=== PATIENT | female | born 1950 | race Caucasian/White ===

== ENCOUNTER → 2017-02-03 | Outpatient (CLI) | payer MEDICARE, BC ==
--- NOTE | 2017-02-12 14:19 | P.ARTDOP ---
Arterial Doppler LOWER EXTREMITY ARTERIAL DOPPLER: DATE OF SERVICE: 02/03/17 Reason for study: Bilateral leg ulcers. Doppler waveforms: Multiphasic bilaterally throughout. Pulse volume recording: Normal configuration. Pressure gradients: None. Ankle-brachial indices: Greater than 1 bilaterally. Toe pressures: 96 on the right, 82 on the left Impression: Normal study.
== END | disposition home or self-care (01) ==
LOC: RADUSWWP 13:55
PROVIDERS: ATTEND Internal Medicine Infectious Disease
DX: M79.604 Pain in right leg (principal); M79.605 Pain in left leg; E13.621 Other specified diabetes mellitus with foot ulcer; I87.2 Venous insufficiency (chronic) (peripheral)
CPT/HCPCS: 93923

== ENCOUNTER 2017-09-30 17:31 | Inpatient (IN) | payer MEDICARE, BC ==
[2017-09-30] MEDS ORDERED: SODIUM CHLORIDE 0.9% 1,000 ML IV STA ×2 (18:06→20:33)
[2017-09-30] MEDS ORDERED: fentaNYL (PF) 50 MCG/ML 2 ML AMP IV STA ×2 (18:07→20:34)
--- NOTE | 2017-09-30 18:18 | ED ---
Abdominal Pain HPI - General Source: patient, EMS, RN notes reviewed ( ) Mode of arrival: EMS Limitations: no limitations - History of Present Illness MD Complaint: abdominal pain <Gage Araujo - Last Filed: 09/30/17 21:04> <Nehemias Sorto - Last Filed: 09/30/17 22:19> - General Chief Complaint: Abdominal Pain Stated Complaint: Abd Pain Time Seen by Provider: 09/30/17 17:31 - History of Present Illness Initial Comments: This is a 67-year-old female with a history of metastatic stage IV breast cancer states she had the onset of pain to the right flank area that now seems to radiate down her abdomen towards center and up to the right shoulder blade. She denies any fevers chills sweats she states pain was 10+ a 10 after IV fentanyl by EMS was notifiedup to a 6. She has had a cough. She had some nasal congestion about a week ago was treated with a Z-Luis and steroids. Also of note she did start oral chemotherapy 4 days ago. No dysuria no hematuria no history kidney stones no cold constipation or diarrhea. Her only abdominal surgery was a hysterectomy. No other complaints or modifying factors at this time (Gage Araujo) - Related Data Home Medications Medication Instructions Recorded Confirmed Atorvastatin [Lipitor] 10 mg PO HS 10/17/14 09/30/17 Lisinopril 5 mg PO DAILY 10/17/14 09/30/17 amLODIPine BESYLATE [Amlodipine 5 mg PO QAM 10/17/14 09/30/17 Besylate] metFORMIN HCL 500 mg PO QAM 10/17/14 09/30/17 Docusate Sodium [Dok] 100 mg PO BID 09/15/15 09/30/17 Loratadine [Claritin] 10 mg PO HS 01/23/17 09/30/17 Zoledronic Acid [Zometa] 1 bag IVPB QMONTH 01/23/17 09/30/17 Acetaminophen [Tylenol 8 Hour] 1,300 mg PO BID PRN 09/30/17 09/30/17 Afinator (Everolimus) 10mg 1 tab PO DAILY 09/30/17 09/30/17 Biotin 1000 Mcg 1 tab PO DAILY 09/30/17 09/30/17 Calcium Carbonate/Vitamin D3 1 tab PO DAILY 05/29/18 05/29/18 [Calcium 600-Vit D3 400 Caplet] Exemestane [Aromasin] 25 mg PO DAILY 09/30/17 09/30/17 Fluticasone Nasal [place] [Flonase 1 spray EA NOSTRIL DAILY 09/30/17 09/30/17 Nasal [place]] Levothyroxine Sodium [Synthroid] 75 mcg PO DAILY 09/30/17 09/30/17 Allergies Allergy/AdvReac Type Severity Reaction Status Date / Time Penicillins Allergy Rash/Hives Verified 09/30/17 17:59 Sulfa (Sulfonamide Allergy Rash/Hives Verified 09/30/17 17:59 Antibiotics) ibuprofen AdvReac Swelling Verified 09/30/17 17:59 Review of Systems ROS Other: All systems not noted in ROS Statement are negative. <Gage Araujo - Last Filed: 09/30/17 21:04> ROS Other: All systems not noted in ROS Statement are negative. <Nehemias Sorto - Last Filed: 09/30/17 22:19> ROS Statement: Those systems with pertinent positive or pertinent negative responses have been documented in the HPI. Past Medical History Past Medical History: Cancer, Diabetes Mellitus, Hearing Disorder / Deafness, Hyperlipidemia, Hypertension, Osteoarthritis (OA), Pneumonia, Thyroid Disorder, Vascular Disorder Additional Past Medical History / Comment(s): HX Thyroid Nodules. Seasonal Allergies. VENOUS STASIS, BLE DARKENDED. WAS IP 08/25-08/30/15 W/ CP, CARDIAC W/ U NL, DX IS PLEURISY - WAS ON AB AND STEROIDS 08/2015. STAGE 4 BREAST CANCER DIAGNOSED IN SEPTEMBER 2015, breast CA mets to bone and lymphatic system-last oral chemo 09/26/17 History of Any Multi-Drug Resistant Organisms: None Reported Past Surgical History: Hysterectomy, Tonsillectomy Additional Past Surgical History / Comment(s): RT THYROIDECTOMY. LAPAROSCOPY D/ T Ectopic . BIOPSY MASS LEFT NECK Past Anesthesia/Blood Transfusion Reactions: No Reported Reaction Past Psychological History: No Psychological Hx Reported Smoking Status: Never smoker Past Alcohol Use History: None Reported Past Drug Use History: None Reported - Past Family History Mother Family Medical History: Deep Vein Thrombosis (DVT) Father Family Medical History: Cancer Sister(s) Family Medical History: Cancer Additional Family Medical History / Comment(s): non-hodgkins lymphoma <Gage Araujo - Last Filed: 09/30/17 21:04> General Exam Limitations: no limitations General appearance: alert, in no apparent distress Head exam: Present: atraumatic, normocephalic, normal inspection Eye exam: Present: normal appearance, PERRL, EOMI. Absent: scleral icterus, conjunctival injection, periorbital swelling ENT exam: Present: normal exam, mucous membranes moist Neck exam: Present: normal inspection. Absent: tenderness, meningismus, lymphadenopathy Respiratory exam: Present: normal lung sounds bilaterally. Absent: respiratory distress, wheezes, rales, rhonchi, stridor Cardiovascular Exam: Present: regular rate, normal rhythm, normal heart sounds. Absent: systolic murmur, diastolic murmur, rubs, gallop, clicks GI/Abdominal exam: Present: soft, tenderness (Mild right upper quadrant epigastric and left upper quadrant tenderness no guarding rebound masses or bruits), normal bowel sounds. Absent: distended, guarding, rebound, rigid Extremities exam: Present: normal inspection, full ROM, normal capillary refill. Absent: tenderness, pedal edema, joint swelling, calf tenderness Back exam: Present: normal inspection, full ROM, CVA tenderness (R). Absent: muscle spasm, paraspinal tenderness, vertebral tenderness, rash noted Neurological exam: Present: alert, oriented X3, CN II-XII intact Psychiatric exam: Present: normal affect, normal mood Skin exam: Present: warm, dry, intact, normal color. Absent: rash <Gage Araujo - Last Filed: 09/30/17 21:04> <Nehemias Sorto - Last Filed: 09/30/17 22:19> - General Exam Comments Initial Comments: This is a well-developed well-nourished awake alert oriented 3 female (Gage Araujo) Course <Gage Araujo - Last Filed: 09/30/17 21:04> <Nehemias Sorto - Last Filed: 09/30/17 22:19> Vital Signs 09/30/17 09/30/17 17:35 21:09 Temperature 97.7 F Pulse Rate 86 90 Respiratory 16 20 Rate Blood Pressure 140/76 137/78 O2 Sat by Pulse 98 98 Oximetry Patient is reassessed at term 2200, CT of the abdomen and pelvis is reviewed and does show some cyst on the left kidney and some phleboliths in the gonadal veins on the right side. My pain is still 10 over 10 and she is miserable she be admitted to Dr. Jamar Coronado service the Dr. Nix be consulted pain medications be titrated to take care of her pain, noticed metastatic disease with multiple lesions in the liver (Nehemias Sorto) - Reevaluation(s) Reevaluation #1: 09/30/17 21:04 The patient's care will be endorsed to Dr. Sorto (Gage Araujo) Medical Decision Making - Lab Data Result diagrams: 09/30/17 18:32 09/30/17 18:32 - EKG Data -: EKG Interpreted by Tx EKG shows normal: sinus rhythm (Neuro sinus rhythm a 92. Interval 156 QRS duration 76 QT since QTC of 358/442 nonspecific inferior changes) <Gage Araujo - Last Filed: 09/30/17 21:04> - Lab Data Result diagrams: 09/30/17 18:32 09/30/17 18:32 <Nehemias Sorto - Last Filed: 09/30/17 22:19> - Lab Data Lab Results 09/30/17 09/30/17 09/30/17 Range/Units 18:32 18:32 18:32 WBC 5.0 (3.8-10.6) k/uL RBC 3.18 L (3.80-5.40) m/uL Hgb 9.8 L (11.4-16.0) gm/dL Hct 30.6 L (34.0-46.0) % MCV 96.2 (80.0-100.0) fL MCH 30.7 (25.0-35.0) pg MCHC 31.9 (31.0-37.0) g/dL RDW 17.6 H (11.5-15.5) % Plt Count 145 L (150-450) k/uL Neutrophils % (Manual) 59 % Band Neutrophils % 5 % Lymphocytes % (Manual) 17 % Monocytes % (Manual) 18 % Eosinophils % (Manual) 1 % Myelocytes % 1 % Neutrophils # (Manual) 3.20 (1.3-7.7) k/uL Lymphocytes # (Manual) 0.85 L (1.0-4.8) k/uL Monocytes # (Manual) 0.90 (0-1.0) k/uL Eosinophils # (Manual) 0.05 (0-0.7) k/uL Myelocytes # (Manual) 0.05 H (0) k/uL Nucleated RBCs 1 H (0-0) /100 WBC Manual Slide Review Performed Polychromasia Present Hypochromasia Moderate Poikilocytosis Slight Anisocytosis Slight Tear Drop Cells Present Sodium 137 (137-145) mmol/L Potassium 4.3 (3.5-5.1) mmol/L Chloride 105 (98-107) mmol/L Carbon Dioxide 22 (22-30) mmol/L Anion Gap 10 mmol/L BUN 18 H (7-17) mg/dL Creatinine 0.71 (0.52-1.04) mg/dL Est GFR (CKD-EPI)AfAm >90 (>60 ml/min/1.73 sqM) Est GFR (CKD-EPI)NonAf 89 (>60 ml/min/1.73 sqM) Glucose 136 H (74-99) mg/dL Calcium 8.8 (8.4-10.2) mg/dL Total Bilirubin 0.8 (0.2-1.3) mg/dL AST 96 H (14-36) U/L ALT 64 H (9-52) U/L Alkaline Phosphatase 200 H (38-126) U/L Total Creatine Kinase 32 (30-135) U/L CK-MB (CK-2) 0.3 (0.0-2.4) ng/mL CK-MB (CK-2) Rel Index 0.9 Troponin I <0.012 (0.000-0.034) ng/mL Total Protein 5.9 L (6.3-8.2) g/dL Albumin 3.5 (3.5-5.0) g/dL Amylase 62 (30-110) U/L Lipase 256 (23-300) U/L Urine Color Urine Appearance (Clear) Urine pH (5.0-8.0) Ur Specific [place] (1.001-1.035) Urine Protein (Negative) Urine Glucose (UA) (Negative) Urine Ketones (Negative) Urine Blood (Negative) Urine Nitrite (Negative) Urine Bilirubin (Negative) Urine Urobilinogen (<2.0) mg/dL Ur Leukocyte Esterase (Negative) Urine RBC (0-5) /hpf Urine WBC (0-5) /hpf Ur Squamous Epith Cells (0-4) /hpf Urine Bacteria (None) /hpf Urine Mucus (None) /hpf 09/30/17 Range/Units 19:53 WBC (3.8-10.6) k/uL RBC (3.80-5.40) m/uL Hgb (11.4-16.0) gm/dL Hct (34.0-46.0) % MCV (80.0-100.0) fL MCH (25.0-35.0) pg MCHC (31.0-37.0) g/dL RDW (11.5-15.5) % Plt Count (150-450) k/uL Neutrophils % (Manual) % Band Neutrophils % % Lymphocytes % (Manual) % Monocytes % (Manual) % Eosinophils % (Manual) % Myelocytes % % Neutrophils # (Manual) (1.3-7.7) k/uL Lymphocytes # (Manual) (1.0-4.8) k/uL Monocytes # (Manual) (0-1.0) k/uL Eosinophils # (Manual) (0-0.7) k/uL Myelocytes # (Manual) (0) k/uL Nucleated RBCs (0-0) /100 WBC Manual Slide Review Polychromasia Hypochromasia Poikilocytosis Anisocytosis Tear Drop Cells Sodium (137-145) mmol/L Potassium (3.5-5.1) mmol/L Chloride (98-107) mmol/L Carbon Dioxide (22-30) mmol/L Anion Gap mmol/L BUN (7-17) mg/dL Creatinine (0.52-1.04) mg/dL Est GFR (CKD-EPI)AfAm (>60 ml/min/1.73 sqM) Est GFR (CKD-EPI)NonAf (>60 ml/min/1.73 sqM) Glucose (74-99) mg/dL Calcium (8.4-10.2) mg/dL Total Bilirubin (0.2-1.3) mg/dL AST (14-36) U/L ALT (9-52) U/L Alkaline Phosphatase (38-126) U/L Total Creatine Kinase (30-135) U/L CK-MB (CK-2) (0.0-2.4) ng/mL CK-MB (CK-2) Rel Index Troponin I (0.000-0.034) ng/mL Total Protein (6.3-8.2) g/dL Albumin (3.5-5.0) g/dL Amylase (30-110) U/L Lipase (23-300) U/L Urine Color Yellow Urine Appearance Clear (Clear) Urine pH 6.0 (5.0-8.0) Ur Specific [place] 1.031 (1.001-1.035) Urine Protein 2+ H (Negative) Urine Glucose (UA) Negative (Negative) Urine Ketones Trace H (Negative) Urine Blood Negative (Negative) Urine Nitrite Negative (Negative) Urine Bilirubin Negative (Negative) Urine Urobilinogen 2.0 (<2.0) mg/dL Ur Leukocyte Esterase Negative (Negative) Urine RBC 2 (0-5) /hpf Urine WBC 6 H (0-5) /hpf Ur Squamous Epith Cells <1 (0-4) /hpf Urine Bacteria Rare H (None) /hpf Urine Mucus Few H (None) /hpf Disposition <Gage Araujo - Last Filed: 09/30/17 21:04> <Nehemias Sorto - Last Filed: 09/30/17 22:19> Clinical Impression: Intractable abdominal pain, Metastatic breast cancer Disposition: ADMITTED IP TO THIS [facility] Condition: Fair Referrals: Jamar Coronado DO [Primary Care Provider] - 1-2 days
[2017-09-30 18:49] LABS: Anisocytosis Slight; HCT 30.6 % (34.0-46.0); HGB 9.8 gm/dL (11.4-16.0); Hypochromasia Moderate; MCH 30.7 pg (25.0-35.0); MCHC 31.9 g/dL (31.0-37.0); MCV 96.2 fL (80.0-100.0); Mean Platelet Volume 7.9; Platelet Count 145 k/uL (150-450); Poikilocytosis Slight; RBC 3.18 m/uL (3.80-5.40); RDW 17.6 % (11.5-15.5)
[2017-09-30 19:00] LABS: ALT 64 U/L (9-52); AST 96 U/L (14-36); Albumin 3.5 g/dL (3.5-5.0); Alkaline Phosphatase 200 U/L (38-126); Amylase 62 U/L (30-110); Anion Gap 10 mmol/L; Blood Urea Nitrogen 18 mg/dL (7-17); Calcium 8.8 mg/dL (8.4-10.2); Carbon Dioxide 22 mmol/L (22-30); Chloride 105 mmol/L (98-107); Glucose 136 mg/dL (74-99); Lipase 256 U/L (23-300); Potassium 4.3 mmol/L (3.5-5.1); Sodium 137 mmol/L (137-145); Total Bilirubin 0.8 mg/dL (0.2-1.3); Total Protein 5.9 g/dL (6.3-8.2)
[2017-09-30 19:02] LABS: Creatine Kinase 32 U/L (30-135)
[2017-09-30 19:16] LABS: Creatine Kinase MB 0.3 ng/mL (0.0-2.4); Troponin I <0.012 ng/mL (0.000-0.034)
--- NOTE | 2017-09-30 19:29 | XR ---
Abdomen HISTORY: Pain Frontal view of the abdomen on 2 images Lung bases are clear. There is no evident pneumoperitoneum or bowel obstruction. There is a mild spin al curvature. Sclerotic density present throughout the bones. IMPRESSION: Metastatic disease
--- NOTE | 2017-09-30 19:30 | XR ---
EXAMINATION TYPE: XR chest 2V DATE OF EXAM: 09/30/2017 COMPARISON: Abdomen same date, chest x-ray dated 02/21/2016 HISTORY: Breast cancer, abdominal pain TECHNIQUE: Frontal and lateral views of the chest are obtained. FINDINGS: There is no focal air space opacity, pleural effusion, or pneumothorax seen. The cardiac silhouette size is within normal limits. The osseous structures are remarkable for osteoblastic met astasis. Patient is rotated. IMPRESSION: Metastatic disease.
[2017-09-30 19:44] LABS: Band Neutrophils % 5 %; Eosinophils # (M) 0.05 k/uL (0-0.7); Lymphocytes # (M) 0.85 k/uL (1.0-4.8); Myelocytes # (M) 0.05 k/uL (0); Myelocytes % 1 %; Neutrophils % (M) 59 %; Nucleated Red Blood Cells 1 /100 WBC (0-0); Total Cells Counted 200
[2017-09-30 19:45] LABS: Polychromasia Present; Tear Drop Cells Present
[2017-09-30 20:25] LABS: Appearance,Urine Clear (Clear); Bacteria,Urine Rare /hpf; Bilirubin,Urine Negative (Negative); Blood,Urine Negative (Negative); Color,Urine Yellow; Glucose,Urine (UA) Negative (Negative); Ketones,Urine Trace (Negative); Leukocyte Esterase,Urine Negative (Negative); Mucus,Urine Few /hpf; Nitrite,Urine Negative (Negative); Protein,Urine 2+ (Negative); RBC,Urine 2 /hpf (0-5); Specific Gravity,Urine 1.031 (1.001-1.035); Squamous Epithelial Cell,Urine <1 /hpf (0-4); WBC,Urine 6 /hpf (0-5)
[2017-09-30] MEDS ORDERED: RX INFO: IV CONTRAST WAS GIVEN 1 EACH MISC MISCELLANE PRN (20:36)
--- NOTE | 2017-09-30 21:18 | CT ---
EXAMINATION TYPE: CT abdomen pelvis w con DATE OF EXAM: 09/30/2017 COMPARISON: CT chest 12/13/2015, bone scan 10/13/2015 HISTORY: Right side abdominal pain CT DLP: 2071.6 mGycm Automated exposure control for dose reduction was used. TECHNIQUE: Helical acquisition of images from the lung bases through the pelvis have been completed. CONTRAST: Performed without Oral Contrast and with IV Contrast, patient injected with 100 mL of Isovue 300. FINDINGS: There is a small hiatal hernia present. LUNG BASES: Dependent atelectatic changes are present within the lungs. AORTA: No significant abnormality is appreciated. LIVER/GB: There are hypodense foci scattered within the liver compatible with metastatic disease, gal lbladder is normal. PANCREAS: No significant abnormality is seen. SPLEEN: No significant abnormality is seen. ADRENALS: No significant abnormality is seen. KIDNEYS: Upper pole left kidney shows a cyst. Phlebolith present within the gonadal vein on the right REPRODUCTIVE ORGANS: Not seen BOWEL: No significant abnormality is seen. FREE AIR: No Free Air visible. ASCITES: None visible. PELVIC ADENOPATHY: None visualized. RETROPERITONEAL ADENOPATHY: No Retroperitoneal Adenopathy visible. URINARY BLADDER: No significant abnormality is seen. OSSEOUS STRUCTURES: Sclerotic density within the bones compatible with metastatic disease. IMPRESSION: METASTATIC DISEASE.
[2017-09-30] MEDS ORDERED: NALOXONE 0.4 MG/ML 1 ML VIAL IV PRN (22:20)
[2017-09-30] MEDS ORDERED: ACETAMINOPHEN 1300 MG PO PRN (22:25)
[2017-10-01] MEDS: MORPHINE SULFATE 4 MG/ML SYRINGE IV PRN ×6 (00:04→22:15)
[2017-10-01] MEDS: ONDANSETRON 4 MG/2 ML VIAL IVP PRN ×3 (00:05→18:35)
[2017-10-01] MEDS: LEVOTHYROXINE 75 MCG TAB PO SCH (06:00)
[2017-10-01 07:07] LABS: Glucose,Whole Blood 119 mg/dL (75-99)
[2017-10-01] MEDS: metFORMIN 500 MG TAB PO SCH (07:45)
[2017-10-01] MEDS: amLODIPine 5 MG TAB PO SCH (07:45)
[2017-10-01] MEDS: DOCUSATE 100 MG CAP PO SCH ×2 (07:45→22:17)
[2017-10-01] MEDS: CALCIUM CARB-VIT D 500MG-200UN 1 EACH TAB PO SCH ×2 (07:45→09:03)
[2017-10-01] MEDS: FLUTICASONE 50MCG/SPRAY NASAL 16GM EA NOSTRIL SCH (07:45)
[2017-10-01] MEDS: LISINOPRIL 5 MG TAB PO SCH (07:45)
[2017-10-01] MEDS: AFINITOR 10 MG PO SCH (08:54)
[2017-10-01] MEDS: AROMASIN PO SCH (08:54)
[2017-10-01] MEDS ORDERED: BIOTIN 1000 MCG PO SCH (09:00)
[2017-10-01] MEDS: SODIUM CHLORIDE 0.9% 1,000 ML IV SCH ×2 (09:43→14:18)
[2017-10-01 11:35] LABS: Glucose,Whole Blood 131 mg/dL (75-99)
[2017-10-01] MEDS: INSULIN ASPART 100 UNIT/ML 1 ML 10 ML VIAL SQ SCH ×3 (11:51→22:16)
--- NOTE | 2017-10-01 13:54 | P.HPIM ---
History of Present Illness H&P Date: 10/01/17 Chief Complaint: abdominal pain 67-year-old female who presented to the emergency room with a chief complaint of abdominal pain. She states she started having right sided flank pain on Friday that progressively got more intense. She began having pain on the right side of her abdomen as well. She states the pain became so bad yesterday that she had her called EMS to bring her to the hospital. She was given fentanyl in the ER which relieved her pain. She has been receiving IV morphine that she states is helping with her pain. She currently rates it 07/12. The patient has a history of stage IV breast cancer. Patient states she was diagnosed in 2016 and has underwent multiple rounds of chemotherapy. She reports seeing Dr. Nix outpatient for her cancer treatment. She reports that her previous regimen was not working and was prescribed a different medication, an oral chemotherapy agent last 09/26/2017. She also has a history of diabetes, hyperlipidemia, hypertension, osteoarthritis, and venous stasis. She lives at home with her . She is a nonsmoker. Chest x-ray: No focal airspace opacity, pleural effusion, or pneumothorax. Osseous structures are remarkable for osteoblastic metastasis. KUB X-Ray: Lung bases are clear. No evidence of pneumoperitoneum or bowel obstruction. Mild spinal curvature. Sclerotic density present throughout the bones. Ranitidine 100 and is a 1 and 1 no abdomenLabs PT/OT Continue with discharge planning DVT/GI prophylaxis will be on hormone right now is a CT Abdomen/pelvis: There are hypodense foci scattered within the liver compatible with metastatic disease, gallbladder appeared normal, upper pole left kidney shows a cyst. Phlebolith present within the gonadal vein on the right. No Sclerotic disease within the bones compatible with metastatic disease. Laboratory data: WBC 5.0. Hemoglobin 9.8. Platelet count 145. Sodium 137. Potassium 4.3. BUN 18. Creatinine 0.71. GFR 89. Glucose 136. AST 96. ALT 64. Alkaline phosphatase 200. Urinalysis reveals: 2+ proteinuria, trace ketones, 6 WBC, rare bacteria, few mucus. The patient was admitted to the hospital under the care of Dr. Coronado. Consultations were placed to Dr. Nix. Review of Systems GENERAL: Patient denies fever. Denies chills. EYES: Denies blurred vision. Denies vision changes. Denies eye pain. EARS, NOSE, MOUTH, & THROAT: Denies headache. Denies sore throat. Denies ear pain. RESPIRATORY: Denies cough. Denies shortness of breath. Denies sputum production. Denies hemoptysis. CARDIOVASCULAR: Denies chest pain or pressure. Denies palpitations. Denies arrhythmias. GASTROINTESTINAL: Positive for right sided abdominal pain. Denies diarrhea. Denies constipation. Denies nausea. Denies vomiting. Denies heartburn. Denies blood in the stool. GENITOURINARY: Denies urinary frequency. Denies burning. Denies dysuria. Denies cloudy urine. Denies blood in the urine. MUSCULOSKELETAL: Denies myalgias. Denies joint swelling. Denies decreased range of motion beyond patients baseline. INTEGUMENTARY: Denies pruitis. Denies rash. PSYCHIATRIC: Denies suicidal or homicial ideations. ENDOCRINE: Denies weight change. Denies polydipsia. Denies polyuria. HEMATOLOGIC: Denies bleeding disorders. Past Medical History Past Medical History: Cancer, Diabetes Mellitus, Hearing Disorder / Deafness, Hyperlipidemia, Hypertension, Osteoarthritis (OA), Pneumonia, Thyroid Disorder, Vascular Disorder Additional Past Medical History / Comment(s): HX Thyroid Nodules. Seasonal Allergies. VENOUS STASIS, BLE DARKENDED. WAS IP 08/25-08/30/15 W/ CP, CARDIAC W/ U NL, DX IS PLEURISY - WAS ON AB AND STEROIDS 09/2017. STAGE 4 BREAST CANCER DIAGNOSED IN SEPTEMBER 2015, breast CA mets to bone and lymphatic system-last oral chemo 09/26/17 History of Any Multi-Drug Resistant Organisms: None Reported Past Surgical History: Hysterectomy, Tonsillectomy Additional Past Surgical History / Comment(s): RT THYROIDECTOMY. LAPAROSCOPY D/ T Ectopic . BIOPSY MASS LEFT NECK. Past Anesthesia/Blood Transfusion Reactions: No Reported Reaction Past Psychological History: No Psychological Hx Reported Additional Psychological History / Comment(s): . Lives with her . 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 No experience. No international travel. Pet cat in the home, takes care of the letter box. No other animal exposures Smoking Status: Never smoker Past Alcohol Use History: None Reported Past Drug Use History: None Reported - Past Family History Mother Family Medical History: Deep Vein Thrombosis (DVT) Father Family Medical History: Cancer Sister(s) Family Medical History: Cancer Additional Family Medical History / Comment(s): non-hodgkins lymphoma Medications and Allergies Home Medications Medication Instructions Recorded Confirmed Type Atorvastatin [Lipitor] 10 mg PO HS 10/17/14 09/30/17 History Lisinopril 5 mg PO DAILY 10/17/14 09/30/17 History amLODIPine BESYLATE [Amlodipine 5 mg PO QAM 10/17/14 09/30/17 History Besylate] metFORMIN HCL 500 mg PO QAM 10/17/14 09/30/17 History Docusate Sodium [Dok] 100 mg PO BID 09/15/15 09/30/17 History Loratadine [Claritin] 10 mg PO HS 01/23/17 09/30/17 History Zoledronic Acid [Zometa] 1 bag IVPB QMONTH 01/23/17 09/30/17 History Acetaminophen [Tylenol 8 Hour] 1,300 mg PO BID PRN 09/30/17 09/30/17 History Afinator (Everolimus) 10mg 1 tab PO DAILY 09/30/17 09/30/17 History Biotin 1000 Mcg 1 tab PO DAILY 09/30/17 09/30/17 History Calcium Carbonate/Vitamin D3 1 tab PO DAILY 09/30/17 09/30/17 History [Calcium 600-Vit D3 400 Caplet] Exemestane [Aromasin] 25 mg PO DAILY 09/30/17 09/30/17 History Fluticasone Nasal [place] [Flonase 1 spray EA NOSTRIL DAILY 09/30/17 09/30/17 History Nasal [place]] Levothyroxine Sodium [Synthroid] 75 mcg PO DAILY 09/30/17 09/30/17 History Allergies Allergy/AdvReac Type Severity Reaction Status Date / Time Penicillins Allergy Rash/Hives Verified 09/30/17 17:59 Sulfa (Sulfonamide Allergy Rash/Hives Verified 09/30/17 17:59 Antibiotics) ibuprofen AdvReac Swelling Verified 09/30/17 17:59 Physical Exam Vitals: Vital Signs Temp Pulse Pulse Resp BP BP Pulse Ox 10/01/17 05:30 98.1 F 85 17 160/78 96 10/01/17 00:00 17 09/30/17 23:35 98.2 F 99 17 142/76 99 09/30/17 22:22 93 20 132/73 98 09/30/17 21:09 90 20 137/78 98 09/30/17 17:35 97.7 F 86 16 140/76 98 Intake and Output 09/30/17 10/01/17 10/01/17 22:59 06:59 14:59 Intake Total 1100 800 Balance 1100 800 Intake: Amount of Fluid Infused ( 1100 ml) Intake, IV Titration 800 Amount Sodium Chloride 0.9% 1, 800 000 ml @ 100 mls/hr IV . Q10H STA Rx#:[id number] Other: Voiding Method Toilet # Voids 1 Weight 112.945 kg GENERAL: This is a 67-year-old female in no apparent distress at the time of examination. Pleasant and cooperative. HEENT: Head is atraumatic, normocephalic. Pupils are equal, round, and reactive to light. Sclerae anicteric. Conjunctivae are clear. Mucus membranes of the mouth are moist. Neck is supple. RESPIRATORY: Clear to ausculation. No wheezes, rales, or rhonchi. No use of accessory muscles. Patient maintaining oxygen saturation greater than 92%. No chest wall tenderness is noted on palpation or with deep breathing. CARDIOVASCULAR: Regular rate and rhythm. S1 and S2 noted. No systolic or diastolic murmur auscultated. No JVD noted. No S3 or S4 noted. GASTROINTESTINAL: No distention noted. Abdomen soft and round. Normal active bowel sounds auscultated x 4 quadrants. Pain or tenderness noted upon palpation of right lower quadrant and right lateral chest region. INTEGUMENTARY: No cyanosis. No jaundice. No rashes noted. No cellulitis noted. EXTREMITIES: 1+ peripheral pulses. No evidence of peripheral edema. Chronic venous stasis discoloration noted bilaterally. No calf tenderness noted. NEUROLOGIC: Cranial nerves II-XII intact. PSYCHIATRIC: Awake, alert, and oriented X 3. Appropriate affect. Intact judgement and insight. Results CBC & Chem 7: 09/30/17 18:32 09/30/17 18:32 Labs: Abnormal Lab Results - Last 24 Hours (Table) 09/30/17 09/30/17 09/30/17 Range/Units 18:32 18:32 19:53 RBC 3.18 L (3.80-5.40) m/uL Hgb 9.8 L (11.4-16.0) gm/dL Hct 30.6 L (34.0-46.0) % RDW 17.6 H (11.5-15.5) % Plt Count 145 L (150-450) k/uL Lymphocytes # (Manual) 0.85 L (1.0-4.8) k/uL Myelocytes # (Manual) 0.05 H (0) k/uL Nucleated RBCs 1 H (0-0) /100 WBC BUN 18 H (7-17) mg/dL Glucose 136 H (74-99) mg/dL POC Glucose (mg/dL) (75-99) mg/dL AST 96 H (14-36) U/L ALT 64 H (9-52) U/L Alkaline Phosphatase 200 H (38-126) U/L Total Protein 5.9 L (6.3-8.2) g/dL Urine Protein 2+ H (Negative) Urine Ketones Trace H (Negative) Urine WBC 6 H (0-5) /hpf Urine Bacteria Rare H (None) /hpf Urine Mucus Few H (None) /hpf 10/01/ Range/Units 07:05 RBC (3.80-5.40) m/uL Hgb (11.4-16.0) gm/dL Hct (34.0-46.0) % RDW (11.5-15.5) % Plt Count (150-450) k/uL Lymphocytes # (Manual) (1.0-4.8) k/uL Myelocytes # (Manual) (0) k/uL Nucleated RBCs (0-0) /100 WBC BUN (7-17) mg/dL Glucose (74-99) mg/dL POC Glucose (mg/dL) 119 H (75-99) mg/dL AST (14-36) U/L ALT (9-52) U/L Alkaline Phosphatase (38-126) U/L Total Protein (6.3-8.2) g/dL Urine Protein (Negative) Urine Ketones (Negative) Urine WBC (0-5) /hpf Urine Bacteria (None) /hpf Urine Mucus (None) /hpf Thrombosis Risk Factor Assmnt - Choose All That Apply Any of the Below Risk Factors Present?: No Other Risk Factors: Yes Each Risk Factor Represents 2 Points: Age 61-74 years, Malignancy Other congenital or acquired thrombophilia - If yes, enter type in comment: No Thrombosis Risk Factor Assessment Total Risk Factor Score: 4 Thrombosis Risk Factor Assessment Level: Moderate Risk Assessment and Plan Plan: ASSESSMENT: Stage IV breast cancer with metastasis to bone and liver Intractable pain, likely secondary to above Diabetes mellitus, type II, hemoglobin A1C pending Hyperlipidemia Hypertension Osteoarthritis Morbid obesity: BMI 40.2 PLAN: Dr. Nix on consult. Await further recommendations and input Pain control Home meds as appropriate Monitor labs GI prophylaxis: Pepcid 20mg PO BID DVT prophylaxis: SCDs to bilateral lower extremities Monitor vital signs and address as appropriate Discharge planning: Patient to return home when stable Further recommendations pending patient's course Nurse practitioner note has been reviewed by physician. Signing provider agrees with the documented findings, assessment, and plan of care.
[2017-10-01 14:42] VITALS: BMI 40.1
[2017-10-01 17:29] LABS: Glucose,Whole Blood 130 mg/dL (75-99)
--- NOTE | 2017-10-01 17:47 | P.CONS ---
<Barbara Olguin - Last Filed: 10/01/17 17:06> History of Present Illness - Reason for Consult Consult date: 10/01/17 Metastatic Cancer Requesting physician: Nehemias Sorto - History of Present Illness Ms Dior is a pleasant WF, who had noted a painless mass at the left base of her neck, initially in 08/2015. At the time the pt was diagnosed with pleuritis in the left lung. The pleuritis did resolve with treatment. Post treatment CT scan of the chest revealed scattered,non specific densities in the left lung. The pt then sought attention for the left SC mass, and had a biopsy with Dr Cano on 09/18/15. This revealed metastatic carcinoma consistent with breast primary, ER/CT strongly positive, and Her -2 1+( negative). The case was discussed with Dr Cano, and breast imaging ordered. Mammogram on 09/28/15 revealed heterogenous cluster of calcifications in the lower inner quadrant of the right breast, confirmed on additional views, though US was negative. She was referred here for further evaluation and recommendations. She has been very compliant with her regular screening mammograms. Additional w/u including PET and labs were ordered. These unfortunately revealed widely metastatic disease with uptake in b/l supraclavicular, b/l hilar , left axillary, and diffusely through the skeleton. Tumor markers were also elevated. She started Zometa, and Ibrance/femara on 10/24/15. Cycle 2, 3,and 7 were delayed due to drop in blood counts. Fentanyl dose is at 12 mcg, with very good pain control. She uses Tylenol occasionally in addition. She continued on this above regimen until May of this year 2017. She continued to manage her ulcers and LE swelling with intermittent r antibiotics, debridement and local wound care. They have healed and she was discharged from the [facility] in mid 04/2017. Due to progressive tumor marker progression, she was changed to Faslodex and Ibrance in 06/22. Afinitor was added 5 days ago on 09/27/17. Cyndie now presents to the emergency room with a CC of abdominal pain. She stated she started having right sided abdominal pain that has been progressively worsening since Friday evening, it became intolerable she asked her to call EMS to be further evaluated in the ED. She weaned herself off her fentanyl patch approximately 6 month-8 months ago and has been managing her pain with 2-4 over the counter doses of tylenol, until now. This hospital stay she has required narcotic pain management. She also has a history of diabetes, hyperlipidemia, hypertension, osteoarthritis, and venous stasis. She lives at home with her . She is a nonsmoker. Work-up in ED included: Chest x-ray: No focal airspace opacity, pleural effusion , or pneumothorax. Osseous structures are remarkable for osteoblastic metastasis. KUB X-Ray: Lung bases are clear. CT Abdomen/pelvis: There are hypodense foci scattered within the liver compatible with metastatic disease, gallbladder appeared normal, upper pole left kidney shows a cyst. Phlebolith present within the gonadal vein on the right. No Sclerotic disease within the bones compatible with metastatic disease. Urinalysis reveals: 2+ proteinuria, 6 WBC, rare bacteria, few mucus. Culture has been sent Seen this AM in follow-up, she is feeling a little better, although measuring machine tender in her abdomen and gaurding during exam. She does get relief with IV morphine, although requiring zofran for nausea from morphine. She states her BMs have been regular. Mild increase SOB with pain. Her location of her pain is consistent with her known liver metastasis. Review of Systems A 14 point review of systems assessed and completed and all negative except HPI Past Medical History Past Medical History: Cancer, Diabetes Mellitus, Hearing Disorder / Deafness, Hyperlipidemia, Hypertension, Osteoarthritis (OA), Pneumonia, Thyroid Disorder, Vascular Disorder Additional Past Medical History / Comment(s): HX Thyroid Nodules. Seasonal Allergies. VENOUS STASIS, BLE DARKENDED. WAS IP 08/25-08/30/15 W/ CP, CARDIAC W/ U NL, DX IS PLEURISY - WAS ON AB AND STEROIDS 09/2017. STAGE 4 BREAST CANCER DIAGNOSED IN SEPTEMBER 2015, breast CA mets to bone and lymphatic system-last oral chemo 09/26/17 History of Any Multi-Drug Resistant Organisms: None Reported Past Surgical History: Hysterectomy, Tonsillectomy Additional Past Surgical History / Comment(s): RT THYROIDECTOMY. LAPAROSCOPY D/ T Ectopic . BIOPSY MASS LEFT NECK. Past Anesthesia/Blood Transfusion Reactions: No Reported Reaction Past Psychological History: No Psychological Hx Reported Additional Psychological History / Comment(s): . Lives with her . 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 No experience. No international travel. Pet cat in the home, takes care of the letter box. No other animal exposures Smoking Status: Never smoker Past Alcohol Use History: None Reported Past Drug Use History: None Reported - Past Family History Mother Family Medical History: Deep Vein Thrombosis (DVT) Father Family Medical History: Cancer Sister(s) Family Medical History: Cancer Additional Family Medical History / Comment(s): non-hodgkins lymphoma Medications and Allergies Home Medications Medication Instructions Recorded Confirmed Type Atorvastatin [Lipitor] 10 mg PO HS 10/17/14 09/30/17 History Lisinopril 5 mg PO DAILY 10/17/14 09/30/17 History amLODIPine BESYLATE [Amlodipine 5 mg PO QAM 10/17/14 09/30/17 History Besylate] metFORMIN HCL 500 mg PO QAM 10/17/14 09/30/17 History Docusate Sodium [Dok] 100 mg PO BID 09/15/15 09/30/17 History Loratadine [Claritin] 10 mg PO HS 01/23/17 09/30/17 History Zoledronic Acid [Zometa] 1 bag IVPB QMONTH 01/23/17 09/30/17 History Acetaminophen [Tylenol 8 Hour] 1,300 mg PO BID PRN 09/30/17 09/30/17 History Afinator (Everolimus) 10mg 1 tab PO DAILY 09/30/17 09/30/17 History Biotin 1000 Mcg 1 tab PO DAILY 09/30/17 09/30/17 History Calcium Carbonate/Vitamin D3 1 tab PO DAILY 09/30/17 09/30/17 History [Calcium 600-Vit D3 400 Caplet] Exemestane [Aromasin] 25 mg PO DAILY 09/30/17 09/30/17 History Fluticasone Nasal [place] [Flonase 1 spray EA NOSTRIL DAILY 09/30/17 09/30/17 History Nasal [place]] Levothyroxine Sodium [Synthroid] 75 mcg PO DAILY 09/30/17 09/30/17 History fentaNYL 25MCG/HR PATCH [Duragesic 1 patch TRANSDERM Q72H #1 patch 10/01/17 Rx 25MCG/HR] Allergies Allergy/AdvReac Type Severity Reaction Status Date / Time Penicillins Allergy Rash/Hives Verified 09/30/17 17:59 Sulfa (Sulfonamide Allergy Rash/Hives Verified 09/30/17 17:59 Antibiotics) ibuprofen AdvReac Swelling Verified 09/30/17 17:59 Physical Exam Vitals: Vital Signs Temp Pulse Pulse Resp BP BP Pulse Ox 10/01/17 14:32 98.0 F 86 16 121/73 95 10/01/17 05:30 98.1 F 85 17 160/78 96 10/01/17 00:00 17 09/30/17 23:35 98.2 F 99 17 142/76 99 09/30/17 22:22 93 20 132/73 98 09/30/17 21:09 90 20 137/78 98 09/30/17 17:35 97.7 F 86 16 140/76 98 Intake and Output 10/01/17 10/01/17 10/01/17 06:59 14:59 22:59 Intake Total 800 700 Balance 800 700 Intake: Intake, IV Titration 800 700 Amount Sodium Chloride 0.9% 1, 800 000 ml @ 100 mls/hr IV . Q10H [facility] Rx#:[id number] Sodium Chloride 0.9% 1, 700 000 ml @ 75 mls/hr IV . [id number] [facility] Rx#:[id number] Other: Voiding Method Toilet # Voids 1 Weight 112.945 kg - Constitutional General appearance: no acute distress, obese - EENT Eyes: EOMI, dentition normal ENT: NA/AT, normal oropharynx - Neck Neck: normal ROM - Respiratory Respiratory: bilateral: diminished (bibasilar, no increased effort ) - Cardiovascular Rhythm: regular Heart sounds: normal: S1, S2 - Gastrointestinal General gastrointestinal: hepatomegaly, soft, tenderness Localized gastrointestinal: tender: LUQ, RLQ - Integumentary Integumentary: pale - Neurologic Neurologic: CNII-XII intact - Musculoskeletal Musculoskeletal: generalized weakness, strength equal bilaterally - Psychiatric Psychiatric: A&O x's 3, appropriate affect, intact judgment & insight Results CBC & Chem 7: 09/30/17 18:32 09/30/17 18:32 Labs: Abnormal Lab Results - Last 24 Hours (Table) 09/30/17 09/30/17 09/30/17 Range/Units 18:32 18:32 19:53 RBC 3.18 L (3.80-5.40) m/uL Hgb 9.8 L (11.4-16.0) gm/dL Hct 30.6 L (34.0-46.0) % RDW 17.6 H (11.5-15.5) % Plt Count 145 L (150-450) k/uL Lymphocytes # (Manual) 0.85 L (1.0-4.8) k/uL Myelocytes # (Manual) 0.05 H (0) k/uL Nucleated RBCs 1 H (0-0) /100 WBC BUN 18 H (7-17) mg/dL Glucose 136 H (74-99) mg/dL POC Glucose (mg/dL) (75-99) mg/dL AST 96 H (14-36) U/L ALT 64 H (9-52) U/L Alkaline Phosphatase 200 H (38-126) U/L Total Protein 5.9 L (6.3-8.2) g/dL Urine Protein 2+ H (Negative) Urine Ketones Trace H (Negative) Urine WBC 6 H (0-5) /hpf Urine Bacteria Rare H (None) /hpf Urine Mucus Few H (None) /hpf 10/01/17 10/01/17 Range/Units 07:05 11:31 RBC (3.80-5.40) m/uL Hgb (11.4-16.0) gm/dL Hct (34.0-46.0) % RDW (11.5-15.5) % Plt Count (150-450) k/uL Lymphocytes # (Manual) (1.0-4.8) k/uL Myelocytes # (Manual) (0) k/uL Nucleated RBCs (0-0) /100 WBC BUN (7-17) mg/dL Glucose (74-99) mg/dL POC Glucose (mg/dL) 119 H 131 H (75-99) mg/dL AST (14-36) U/L ALT (9-52) U/L Alkaline Phosphatase (38-126) U/L Total Protein (6.3-8.2) g/dL Urine Protein (Negative) Urine Ketones (Negative) Urine WBC (0-5) /hpf Urine Bacteria (None) /hpf Urine Mucus (None) /hpf Assessment and Plan Plan: Assessment and Recommendations: 1. Metastatic Breast cancer - Liver and Bones - recently started on next line therapy with Afinitor, Faslodex, and Zometa - OK to continue treatment while in hospital. 2. Persistent progressive abdominal pain - Likley secondary to underlying disease prgression in liver - check Lipase, Amylase, and monitor liver function - Continue supportive care and pain management Physician Attestation: I have completed the full history and physical of this patient and agree with above dictation by Barbara Olguin NP. Dictated as a scribe <Anais Nixup - Last Filed: 10/02/17 00:06> History of Present Illness - History of Present Illness Add : Correction- Ibrance and Faslodex were stopped in 09/19 due to progression. The pt was started on Afinitor and Aromasin on 09/27/17 Physical Exam Vitals: Vital Signs Temp Pulse Resp BP Pulse Ox 10/01/17 22:55 98.4 F 106 H 16 156/72 93 L 10/01/17 14:32 98.0 F 86 16 121/73 95 10/01/17 05:30 98.1 F 85 17 160/78 96 Intake and Output 10/01/17 10/01/17 10/02/17 14:59 22:59 06:59 Intake Total 700 1190 590 Balance 700 1190 590 Intake: Intake, IV Titration 700 600 Amount Sodium Chloride 0.9% 1, 700 600 000 ml @ 75 mls/hr IV . [id number] [facility] Rx#:[id number] Oral 590 590 Other: Voiding Method Toilet # Voids 1 3 Weight 112.945 kg Results CBC & Chem 7: 09/30/17 18:32 09/30/17 18:32 Labs: Abnormal Lab Results - Last 24 Hours (Table) 10/01/17 10/01/17 10/01/17 Range/Units 07:05 11:31 17:13 POC Glucose (mg/dL) 119 H 131 H 130 H (75-99) mg/dL 10/01/17 Range/Units 20:12 POC Glucose (mg/dL) 191 H (75-99) mg/dL Assessment and Plan Plan: Correction- Ibrance and Faslodex were stopped in 09/19 due to progression. The pt was started on Afinitor and Aromasin on 09/27/17. Ok to continue while in hospital
[2017-10-01 20:14] LABS: Glucose,Whole Blood 191 mg/dL (75-99)
[2017-10-01 22:10] LABS: Hemoglobin A1C 6.1 % (4.0-6.0)
[2017-10-01] MEDS: LORATADINE 10 MG TAB PO SCH (22:17)
[2017-10-01] MEDS: ATORVASTATIN 10 MG TAB PO SCH (22:17)
[2017-10-01] MEDS: FAMOTIDINE 20 MG TAB PO SCH (22:19)
[2017-10-02] MEDS ORDERED: MORPHINE SULFATE 4 MG/ML SYRINGE ONE (03:06)
[2017-10-02] MEDS: LEVOTHYROXINE 75 MCG TAB PO SCH (06:10)
[2017-10-02] MEDS: SODIUM CHLORIDE 0.9% 1,000 ML IV SCH ×2 (06:11→12:36)
[2017-10-02] MEDS: MORPHINE SULFATE 4 MG/ML SYRINGE IV PRN (07:08)
[2017-10-02 07:20] LABS: Glucose,Whole Blood 136 mg/dL (75-99)
[2017-10-02] MEDS: FLUTICASONE 50MCG/SPRAY NASAL 16GM EA NOSTRIL SCH (07:24)
[2017-10-02] MEDS: AROMASIN PO SCH (07:25)
[2017-10-02] MEDS: AFINITOR 10 MG PO SCH (07:25)
[2017-10-02] MEDS: DOCUSATE 100 MG CAP PO SCH ×2 (07:27→21:23)
[2017-10-02] MEDS: metFORMIN 500 MG TAB PO SCH (07:27)
[2017-10-02] MEDS: LISINOPRIL 5 MG TAB PO SCH ×2 (07:27→07:28)
[2017-10-02] MEDS: FAMOTIDINE 20 MG TAB PO SCH ×2 (07:27→21:23)
[2017-10-02] MEDS: CALCIUM CARB-VIT D 500MG-200UN 1 EACH TAB PO SCH (07:27)
[2017-10-02] MEDS: INSULIN ASPART 100 UNIT/ML 1 ML 10 ML VIAL SQ SCH ×4 (08:02→21:23)
[2017-10-02] MEDS: amLODIPine 5 MG TAB PO SCH (09:08)
--- NOTE | 2017-10-02 10:00 | P.PN ---
Subjective Progress Note Date: 10/02/17 67-year-old female who presented to the emergency room with a chief complaint of abdominal pain. She states she started having right sided flank pain on Friday that progressively got more intense. She began having pain on the right side of her abdomen as well. She states the pain became so bad yesterday that she had her called EMS to bring her to the hospital. She was given fentanyl in the ER which relieved her pain. She has been receiving IV morphine that she states is helping with her pain. She currently rates it 07/12. The patient has a history of stage IV breast cancer. Patient states she was diagnosed in 2016 and has underwent multiple rounds of chemotherapy. She reports seeing Dr. Nix outpatient for her cancer treatment. She reports that her previous regimen was not working and was prescribed a different medication, an oral chemotherapy agent last 09/26/2017. She also has a history of diabetes, hyperlipidemia, hypertension, osteoarthritis, and venous stasis. She lives at home with her . She is a nonsmoker. Chest x-ray: No focal airspace opacity, pleural effusion, or pneumothorax. Osseous structures are remarkable for osteoblastic metastasis. KUB X-Ray: Lung bases are clear. No evidence of pneumoperitoneum or bowel obstruction. Mild spinal curvature. Sclerotic density present throughout the bones. CT Abdomen/pelvis: There are hypodense foci scattered within the liver compatible with metastatic disease, gallbladder appeared normal, upper pole left kidney shows a cyst. Phlebolith present within the gonadal vein on the right. No Sclerotic disease within the bones compatible with metastatic disease. Laboratory data: WBC 5.0. Hemoglobin 9.8. Platelet count 145. Sodium 137. Potassium 4.3. BUN 18. Creatinine 0.71. GFR 89. Glucose 136. AST 96. ALT 64. Alkaline phosphatase 200. Urinalysis reveals: 2+ proteinuria, trace ketones, 6 WBC, rare bacteria, few mucus. The patient was admitted to the hospital under the care of Dr. Coronado. Consultations were placed to Dr. Nix. 10/02/2017 Patient seen and examined at the bedside on rounds with Dr. Coronado. Patient states she continues to have a lot of right sided abdominal and rib pain. Nursing reports that patients heart rate increases to the 160s when she is ambulating to the bathroom and her oxygen saturations will decrease to 91-93%, likely due to pain as patient is taking shallow breaths secondary to severity of pain. She continues to require morphine IV. She was started on a fentanyl patch yesterday per Dr. Nix which she states is "dulling the pain". She denies nausea or vomiting. Denies chest pain or pressure. She remains hemodynamically stable. Objective - Vital Signs Vital signs: Vital Signs Temp 98.9 F 10/02/17 06:27 Pulse 90 10/02/17 08:40 Resp 16 10/02/17 08:40 BP 118/69 10/02/17 07:32 Pulse Ox 93 L 10/02/17 07:32 Intake & Output 10/01/17 10/02/17 10/02/17 18:59 06:59 18:59 Intake Total 700 2305 Balance 700 2305 Weight 112.945 kg Intake: Intake, IV Titration 700 1125 Amount Sodium Chloride 0.9% 1, 700 1125 000 ml @ 75 mls/hr IV . [id number] [facility] Rx#:[id number] Oral 1180 Other: Voiding Method Toilet Toilet # Voids 1 - Exam GENERAL: This is a 67-year-old female in no apparent distress at the time of examination. Pleasant and cooperative. HEENT: Head is atraumatic, normocephalic. Pupils are equal, round, and reactive to light. Sclerae anicteric. Conjunctivae are clear. Mucus membranes of the mouth are moist. Neck is supple. RESPIRATORY: Clear to ausculation. No wheezes, rales, or rhonchi. No use of accessory muscles. Patient maintaining oxygen saturation greater than 92%. No chest wall tenderness is noted on palpation or with deep breathing. CARDIOVASCULAR: Regular rate and rhythm. S1 and S2 noted. No systolic or diastolic murmur auscultated. No JVD noted. No S3 or S4 noted. GASTROINTESTINAL: No distention noted. Abdomen soft and round. Normal active bowel sounds auscultated x 4 quadrants. Pain or tenderness noted upon palpation of right lower quadrant and right lateral chest region. INTEGUMENTARY: No cyanosis. No jaundice. No rashes noted. No cellulitis noted. EXTREMITIES: 1+ peripheral pulses. No evidence of peripheral edema. Chronic venous stasis discoloration noted bilaterally. No calf tenderness noted. NEUROLOGIC: Cranial nerves II-XII intact. PSYCHIATRIC: Awake, alert, and oriented X 3. Appropriate affect. Intact judgement and insight. - Labs CBC & Chem 7: 10/02/17 10:44 10/02/17 10:44 Labs: Abnormal Lab Results - Last 24 Hours (Table) 09/30/17 10/01/17 10/01/17 Range/Units 18:32 11:31 17:13 POC Glucose (mg/dL) 131 H 130 H (75-99) mg/dL Hemoglobin A1c 6.1 H (4.0-6.0) % 10/01/17 10/02/17 Range/Units 20:12 07:16 POC Glucose (mg/dL) 191 H 136 H (75-99) mg/dL Hemoglobin A1c (4.0-6.0) % Assessment and Plan Plan: ASSESSMENT: Stage IV breast cancer with metastasis to bone and liver Intractable pain, likely secondary to above Diabetes mellitus, type II, hemoglobin A1C 6.1% Hyperlipidemia Hypertension Osteoarthritis Morbid obesity: BMI 40.2 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 Nix on consult. Appreciate recommendations and input Pain control per Dr. Nix. Home meds as appropriate Monitor labs GI prophylaxis: Pepcid 20mg PO BID DVT prophylaxis: SCDs to bilateral lower extremities Monitor vital signs and address as appropriate Discharge planning: Patient to return home when stable Further recommendations pending patient's course Patient to be discharged when pain is under control-will re-evaluate this afternoon Nurse practitioner note has been reviewed by physician. Signing provider agrees with the documented findings, assessment, and plan of care.
[2017-10-02 11:11] LABS: Glucose,Whole Blood 189 mg/dL (75-99)
[2017-10-02 11:15] LABS: Anisocytosis Slight; Basophils % (A) 1 %; Eosinophils % (A) 0 %; HCT 30.8 % (34.0-46.0); HGB 9.8 gm/dL (11.4-16.0); Hypochromasia Moderate; Lymphocytes # (A) 1.4 k/uL (1.0-4.8); Lymphocytes % (A) 21 %; MCH 30.7 pg (25.0-35.0); MCHC 31.8 g/dL (31.0-37.0); MCV 96.6 fL (80.0-100.0); Macrocytosis Slight; Mean Platelet Volume 7.3; Monocytes # (A) 0.5 k/uL (0-1.0); Monocytes % (A) 8 %; Neutrophils # (A) 4.4 k/uL (1.3-7.7); Neutrophils % (A) 66 %; Platelet Count 188 k/uL (150-450); Poikilocytosis Slight; RBC 3.19 m/uL (3.80-5.40); RDW 17.7 % (11.5-15.5); WBC 6.7 k/uL (3.8-10.6)
[2017-10-02 11:34] LABS: ALT 56 U/L (9-52); AST 91 U/L (14-36); Albumin 3.2 g/dL (3.5-5.0); Alkaline Phosphatase 163 U/L (38-126); Anion Gap 11 mmol/L; Blood Urea Nitrogen 13 mg/dL (7-17); Calcium 8.5 mg/dL (8.4-10.2); Carbon Dioxide 22 mmol/L (22-30); Chloride 103 mmol/L (98-107); Glucose 158 mg/dL (74-99); Potassium 4.7 mmol/L (3.5-5.1); Sodium 136 mmol/L (137-145); Total Bilirubin 0.8 mg/dL (0.2-1.3); Total Protein 5.6 g/dL (6.3-8.2)
[2017-10-02] MEDS: MORPHINE ORAL SOLN 10 MG/5 ML CUP PO PRN ×2 (13:37→21:25)
[2017-10-02 17:27] LABS: Glucose,Whole Blood 112 mg/dL (75-99)
--- NOTE | 2017-10-02 18:44 | P.PN ---
Subjective Progress Note Date: 10/02/17 Principal diagnosis: Persistent Abdominal Pain, On Treatment for Metastatic Breast Cancer Ms Dior is a pleasant WF, who had noted a painless mass at the left base of her neck, initially in 08/2015. At the time the pt was diagnosed with pleuritis in the left lung. The pleuritis did resolve with treatment. Post treatment CT scan of the chest revealed scattered,non specific densities in the left lung. The pt then sought attention for the left SC mass, and had a biopsy with Dr Cano on 09/18/15. This revealed metastatic carcinoma consistent with breast primary, ER/MA strongly positive, and Her -2 1+( negative). The case was discussed with Dr Cano, and breast imaging ordered. Mammogram on 09/28/15 revealed heterogenous cluster of calcifications in the lower inner quadrant of the right breast, confirmed on additional views, though US was negative. She was referred here for further evaluation and recommendations. She has been very compliant with her regular screening mammograms. Additional w/u including PET and labs were ordered. These unfortunately revealed widely metastatic disease with uptake in b/l supraclavicular, b/l hilar , left axillary, and diffusely through the skeleton. Tumor markers were also elevated. She started Zometa, and Ibrance/femara on 10/24/15. Cycle 2, 3,and 7 were delayed due to drop in blood counts. Fentanyl dose is at 12 mcg, with very good pain control. She uses Tylenol occasionally in addition. She continued on this above regimen until May of this year 2017. She continued to manage her ulcers and LE swelling with intermittent r antibiotics, debridement and local wound care. They have healed and she was discharged from the Wound Clinic in mid 04/2017. Due to progressive tumor marker progression, she was changed to Faslodex and Ibrance in 06/22. Afinitor was added 5 days ago on 09/27/17. Cyndie now presents to the emergency room with a CC of abdominal pain. She stated she started having right sided abdominal pain that has been progressively worsening since Friday evening, it became intolerable she asked her to call EMS to be further evaluated in the ED. She weaned herself off her fentanyl patch approximately 6 month-8 months ago and has been managing her pain with 2-4 over the counter doses of tylenol, until now. This hospital stay she has required narcotic pain management. She also has a history of diabetes, hyperlipidemia, hypertension, osteoarthritis, and venous stasis. She lives at home with her . She is a nonsmoker. Work-up in ED included: Chest x-ray: No focal airspace opacity, pleural effusion , or pneumothorax. Osseous structures are remarkable for osteoblastic metastasis. KUB X-Ray: Lung bases are clear. CT Abdomen/pelvis: There are hypodense foci scattered within the liver compatible with metastatic disease, gallbladder appeared normal, upper pole left kidney shows a cyst. Phlebolith present within the gonadal vein on the right. No Sclerotic disease within the bones compatible with metastatic disease. Urinalysis reveals: 2+ proteinuria, 6 WBC, rare bacteria, few mucus. 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 She does get relief with IV morphine, although requiring zofran for nausea from morphine. She states her BMs have been regular. Mild increase SOB with pain. Her location of her pain is consistent with her known liver metastasis. 10/02/17 - Patient seen and evaluated in follow-up this am. She is still having pain and requiring Morphine IVP relief, Fentanyl patch initiated 10/01 25mcg Objective - Vital Signs Vital signs: Vital Signs Temp 98.9 F 10/02/17 06:27 Pulse 90 10/02/17 08:40 Resp 16 10/02/17 08:40 BP 118/69 10/02/17 07:32 Pulse Ox 93 L 10/02/17 07:32 Intake & Output 10/01/17 10/02/17 10/02/17 18:59 06:59 18:59 Intake Total 700 2305 Balance 700 2305 Weight 112.945 kg Intake: Intake, IV Titration 700 1125 Amount Sodium Chloride 0.9% 1, 700 1125 000 ml @ 75 mls/hr IV . [id number] [facility] Rx#:[id number] Oral 1180 Other: Voiding Method Toilet Toilet # Voids 1 - Constitutional General appearance: Present: cooperative, no acute distress, obese - EENT Eyes: Present: EOMI, dentition normal ENT: Present: NA/AT, normal oropharynx - Neck Neck: Present: normal ROM - Respiratory Respiratory: bilateral: CTA (No increased effort) - Cardiovascular Rhythm: regular Heart sounds: normal: S1, S2 - Gastrointestinal General gastrointestinal: Present: hepatomegaly, soft, tenderness - Integumentary Integumentary: Present: pale - Neurologic Neurologic: Present: CNII-XII intact - Musculoskeletal Musculoskeletal: Present: generalized weakness, strength equal bilaterally - Psychiatric Psychiatric: Present: A&O x's 3, appropriate affect, intact judgment & insight - Labs CBC & Chem 7: 10/02/17 10:44 10/02/17 10:44 Labs: Abnormal Lab Results - Last 24 Hours (Table) 09/30/17 10/01/17 10/01/17 Range/Units 18:32 11:31 17:13 POC Glucose (mg/dL) 131 H 130 H (75-99) mg/dL Hemoglobin A1c 6.1 H (4.0-6.0) % 10/01/17 10/02/17 Range/Units 20:12 07:16 POC Glucose (mg/dL) 191 H 136 H (75-99) mg/dL Hemoglobin A1c (4.0-6.0) % Assessment and Plan Plan: Assessment and Recommendations: 1. Metastatic Breast cancer - Liver and Bones - recently started on next line therapy with Afinitor, Aromasin, and Zometa - OK to continue treatment while in hospital. 2. 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 Re-evaluate in am and if pain controlled ok to follow-up with Dr. Nix as outpatient to continue on treatment to hopefully palliatively alleviate disease burden and pain. 3. Normocytic Anemia - Chemotherapy and metastatic cancer - Recheck CBC today - Recent Iron and B12 studies, no indication for vitamin support elevated ferriten. 4. Mild Thrombocytopenia - Secondary to Afinitor, Factor of liver metastasis - CBC today - Monitor - If continues to decreasee, monitor Coags 5. Elevated Liver Enzymes - Transiminitis - Recheck CMP today as she is on Afinitor Physician Attestation: I have completed the full history and physical of this patient and agree with above dictation by Barbara Olguin NP. Dictated as a scribe
[2017-10-02] MEDS: ONDANSETRON 4 MG/2 ML VIAL IVP PRN (20:04)
[2017-10-02 20:10] LABS: Glucose,Whole Blood 116 mg/dL (75-99)
[2017-10-02] MEDS: LORATADINE 10 MG TAB PO SCH (21:23)
[2017-10-02] MEDS: ATORVASTATIN 10 MG TAB PO SCH (21:23)
[2017-10-02 21:58] VITALS: RESP 16
[2017-10-03] MEDS: MORPHINE ORAL SOLN 10 MG/5 ML CUP PO PRN ×2 (05:09→10:24)
[2017-10-03] MEDS: SODIUM CHLORIDE 0.9% 1,000 ML IV SCH (05:09)
[2017-10-03 06:11] VITALS: BP 127/66; PULSE 88; TEMP 98
[2017-10-03] MEDS: LEVOTHYROXINE 75 MCG TAB PO SCH (06:19)
[2017-10-03 07:01] LABS: Glucose,Whole Blood 120 mg/dL (75-99)
[2017-10-03] MEDS: INSULIN ASPART 100 UNIT/ML 1 ML 10 ML VIAL SQ SCH (08:34)
[2017-10-03] MEDS: AFINITOR 10 MG PO SCH (08:35)
[2017-10-03] MEDS: AROMASIN PO SCH (08:35)
[2017-10-03] MEDS: CALCIUM CARB-VIT D 500MG-200UN 1 EACH TAB PO SCH (08:42)
[2017-10-03] MEDS: amLODIPine 5 MG TAB PO SCH (08:42)
[2017-10-03] MEDS: DOCUSATE 100 MG CAP PO SCH (08:42)
[2017-10-03] MEDS: FLUTICASONE 50MCG/SPRAY NASAL 16GM EA NOSTRIL SCH (08:42)
[2017-10-03] MEDS: LISINOPRIL 5 MG TAB PO SCH (08:43)
[2017-10-03] MEDS: FAMOTIDINE 20 MG TAB PO SCH (08:43)
[2017-10-03] MEDS: metFORMIN 500 MG TAB PO SCH (08:43)
[2017-10-03 11:39] LABS: Glucose,Whole Blood 137 mg/dL (75-99)
--- NOTE | 2017-10-03 12:17 | P.DS ---
Providers Date of admission: 10/01/17 15:04 Expected date of discharge: 10/03/17 Attending physician: Jamar Coronado Consults: 09/30/17 22:20 Consult Physician Stat Consulting Provider: Edward Nix Consult Reason/Comments: Static breast cancer Do you want consulting provider notified?: Yes Primary care physician: Jamar Coronado [facility] Course: 67-year-old female who presented to the emergency room with a chief complaint of abdominal pain. She states she started having right sided flank pain on Friday that progressively got more intense. She began having pain on the right side of her abdomen as well. She states the pain became so bad yesterday that she had her called EMS to bring her to the hospital. She was given fentanyl in the ER which relieved her pain. She has been receiving IV morphine that she states is helping with her pain. She currently rates it 07/12. The patient has a history of stage IV breast cancer. Patient states she was diagnosed in 2016 and has underwent multiple rounds of chemotherapy. She reports seeing Dr. Nix outpatient for her cancer treatment. She reports that her previous regimen was not working and was prescribed a different medication, an oral chemotherapy agent last 09/26/2017. She also has a history of diabetes, hyperlipidemia, hypertension, osteoarthritis, and venous stasis. She lives at home with her . She is a nonsmoker. Chest x-ray: No focal airspace opacity, pleural effusion, or pneumothorax. Osseous structures are remarkable for osteoblastic metastasis. KUB X-Ray: Lung bases are clear. No evidence of pneumoperitoneum or bowel obstruction. Mild spinal curvature. Sclerotic density present throughout the bones. CT Abdomen/pelvis: There are hypodense foci scattered within the liver compatible with metastatic disease, gallbladder appeared normal, upper pole left kidney shows a cyst. Phlebolith present within the gonadal vein on the right. No Sclerotic disease within the bones compatible with metastatic disease. Laboratory data: WBC 5.0. Hemoglobin 9.8. Platelet count 145. Sodium 137. Potassium 4.3. BUN 18. Creatinine 0.71. GFR 89. Glucose 136. AST 96. ALT 64. Alkaline phosphatase 200. Urinalysis reveals: 2+ proteinuria, trace ketones, 6 WBC, rare bacteria, few mucus. The patient was admitted to the hospital under the care of Dr. Coronado. Consultations were placed to Dr. Nix. 10/02/2017 1000-Patient seen and examined at the bedside on rounds with Dr. Coronado. Patient states she continues to have a lot of right sided abdominal and rib pain. Nursing reports that patients heart rate increases to the 160s when she is ambulating to the bathroom and her oxygen saturations will decrease to 91-93%, likely due to pain as patient is taking shallow breaths secondary to severity of pain. She continues to require morphine IV. She was started on a fentanyl patch yesterday per Dr. Nix which she states is "dulling the pain". She denies nausea or vomiting. Denies chest pain or pressure. She remains hemodynamically stable. 1700-Case discussed with Barbara Olguin NP, regarding patients pain and continued use of morphine. Fentanyl patch increased to 50mcg, which patient states was her previous dose when she required fentanyl patches. Will re- evaluate patient tomorrow to determine if her pain is controlled and if she is able to be discharged home. Patient also concerned that her blood sugars are elevated in the hospital. She states her blood sugars are rarely above 150. Hemoglobin A1C is 6.1%. Patient states she does not check her blood sugars at home. She is on Metformin 500mg daily. Discussed with patient options of checking her blood sugar after she is discharged from the hospital to determine if they remain elevated. Spoke with Misael, bottle caser, who will provide patient with a glucometer. Patient instructed to log her blood sugars and bring them to follow up appointment with Dr. Coronado 10/03/2017 Patient seen and examined at the bedside. Patient states her pain is better controlled today. Her fentanyl patch is controlling the majority of her pain but she states the morphine does help with breakthrough pain. Patient states her pain is tolerable and she is requesting to be discharged home today. Patient is stable for discharge home. She was provided with a prescription for 50 mics per hour fentanyl patch and also a prescription for morphine by mouth ( 3 day supply only for breakthrough pain). Patient states her pain management was previously managed by Dr. Nix. Dr. Coronado would like Dr. Nix to continue to manage the patient's pain. Patient states she has an appointment with Dr. Moss [employer] on 10/06/2017. Patient is aware she will need to receive her future pain prescriptions from their office. Opioid start talking form was discussed with patient. Patient verbalized understanding of form and denied any additional questions. Patient and provider both signed opioid started talking form and form was placed in patient's chart. No maps was performed as patient supply was less than 3 days. The patient is stable at the time of discharge. 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 Signing provider agrees with the documented findings, assessment, and plan of care. Patient Condition at Discharge: Stable Plan - Discharge Summary Discharge Rx Participant: No New Discharge Prescriptions: New fentaNYL 50MCG/HR PATCH [Duragesic 50MCG/HR] 1 patch TRANSDERM Q72H #1 patch MORPHINE ORAL NILA 2mg/mL [Morphine Oral Soln 2 MG/ML] 10 mg PO Q4H PRN #90 ml PRN Reason: Severe Pain Famotidine [Pepcid] 20 mg PO DAILY #30 tablet Ondansetron Odt [Zofran Odt] 4 mg PO Q8HR PRN #30 tab PRN Reason: Nausea Continue Atorvastatin [Lipitor] 10 mg PO HS amLODIPine BESYLATE [Amlodipine Besylate] 5 mg PO QAM Lisinopril 5 mg PO DAILY metFORMIN HCL 500 mg PO QAM Docusate Sodium [Dok] 100 mg PO BID Zoledronic Acid [Zometa] 1 bag IVPB QMONTH Loratadine [Claritin] 10 mg PO HS Levothyroxine Sodium [Synthroid] 75 mcg PO DAILY Fluticasone Nasal [place] [Flonase Nasal [place]] 1 spray EA NOSTRIL DAILY Biotin 1000 Mcg 1 tab PO DAILY Exemestane [Aromasin] 25 mg PO DAILY Afinator (Everolimus) 10mg 1 tab PO DAILY Calcium Carbonate/Vitamin D3 [Calcium 600-Vit D3 400 Caplet] 1 tab PO DAILY Acetaminophen [Tylenol 8 Hour] 1,300 mg PO BID PRN PRN Reason: Pain Discharge Medication List Atorvastatin [Lipitor] 10 mg PO HS 10/17/14 [History] Lisinopril 5 mg PO DAILY 10/17/14 [History] amLODIPine BESYLATE [Amlodipine Besylate] 5 mg PO QAM 10/17/14 [History] metFORMIN HCL 500 mg PO QAM 10/17/14 [History] Docusate Sodium [Dok] 100 mg PO BID 09/15/15 [History] Loratadine [Claritin] 10 mg PO HS 01/23/17 [History] Zoledronic Acid [Zometa] 1 bag IVPB QMONTH 01/23/17 [History] Acetaminophen [Tylenol 8 Hour] 1,300 mg PO BID PRN 09/30/17 [History] Afinator (Everolimus) 10mg 1 tab PO DAILY 09/30/17 [History] Biotin 1000 Mcg 1 tab PO DAILY 09/30/17 [History] Calcium Carbonate/Vitamin D3 [Calcium 600-Vit D3 400 Caplet] 1 tab PO DAILY [History] Exemestane [Aromasin] 25 mg PO DAILY 09/30/17 [History] Fluticasone Nasal [place] [Flonase Nasal [place]] 1 spray EA NOSTRIL DAILY 09/30/17 [History] Levothyroxine Sodium [Synthroid] 75 mcg PO DAILY 09/30/17 [History] fentaNYL 50MCG/HR PATCH [Duragesic 50MCG/HR] 1 patch TRANSDERM Q72H #1 patch [Rx] Famotidine [Pepcid] 20 mg PO DAILY #30 tablet 10/03/17 [Rx] MORPHINE ORAL NILA 2mg/mL [Morphine Oral Soln 2 MG/ML] 10 mg PO Q4H PRN #90 ml [Rx] Ondansetron Odt [Zofran Odt] 4 mg PO Q8HR PRN #30 tab 10/03/17 [Rx] Follow up Appointment(s)/Referral(s): Edward Nix MD [STAFF PHYSICIAN] - 1 Week (Patient has appointment with DAVIDA Hanley on Friday10-06-2017) Jamar Coronado DO [Primary Care Provider] - 1-2 Days Discharge Disposition: HOME SELF-CARE
== END 2017-10-03 13:50 | disposition home or self-care (01) | DRG 948 ==
LOC: EC 17:31 → 5ONC 22:19 → OBSVTOIN 10-01 15:04
PROVIDERS: ADMIT Family Medicine; ATTEND Family Medicine
DX: G89.3 Neoplasm related pain (acute) (chronic) (principal); C78.7 Secondary malignant neoplasm of liver and intrahepatic bile duct; C79.51 Secondary malignant neoplasm of bone; Z68.41 Body mass index [BMI] 40.0-44.9, adult; E11.9 Type 2 diabetes mellitus without complications; E78.5 Hyperlipidemia, unspecified; I10 Essential (primary) hypertension; M19.90 Unspecified osteoarthritis, unspecified site; I87.8 Other specified disorders of veins; C50.311 Malignant neoplasm of lower-inner quadrant of right female breast; D63.0 Anemia in neoplastic disease; D64.81 Anemia due to antineoplastic chemotherapy; E66.01 Morbid (severe) obesity due to excess calories; N28.1 Cyst of kidney, acquired; H91.90 Unspecified hearing loss, unspecified ear; T45.1X5A Adverse effect of antineoplastic and immunosuppressive drugs, initial encounter; Z92.21 Personal history of antineoplastic chemotherapy; Z79.84 Long term (current) use of oral hypoglycemic drugs; Z79.51 Long term (current) use of inhaled steroids; Z79.899 Other long term (current) drug therapy; Z17.0 Estrogen receptor positive status [ER+]; Z98.890 Other specified postprocedural states; Z87.01 Personal history of pneumonia (recurrent); Z80.7 Family history of other malignant neoplasms of lymphoid, hematopoietic and related tissues; Z90.710 Acquired absence of both cervix and uterus
CPT/HCPCS: 36415; 71046; 74018; 74177; 80053; 81001; 82150; 82550; 82553; 83036; 83690; 84484; 85025; 93005; 96361; 96374; 96376; 99285

== ENCOUNTER → 2017-12-12 | Outpatient (CLI) | payer MEDICARE, BC ==
--- NOTE | 2017-12-12 12:22 | US ---
EXAMINATION TYPE: US abdomen complete DATE OF EXAM: 12/12/2017 COMPARISON: CT 09/30/2017 CLINICAL HISTORY: R10.84 ABD PAIN,R94.5 ABN LIVER FUNCTIONS,C50.311 BREAST CA. History of breast CA, abdominal distension. Known metastatic disease. Difficult exam due to patient body habitus EXAM MEASUREMENTS: Liver Length: 18.4 cm Gallbladder Wall: 1.0 cm CBD: 0.5 cm Spleen: 17.8 cm Right Kidney: 11.2 x 5.9 x 5.0 cm Left Kidney: 11.0 x 5.5 x 5.6 cm Pancreas: Obscured by bowel gas Liver: Innumerable hypoechoic lesions visualized. Nodular contour. Enlarged. Gallbladder: Thickened wall with possible small amount of pericholecystic fluid visualized. No stone s visualized Evidence for sonographic Vogt's sign: No CBD: wnl as visualized Spleen: Enlarged Right Kidney: Loss of corticomedullary differentiation, possibly due to patient body habitus and poo r visualization. Left Kidney: Loss of corticomedullary differentiation, possibly due to patient body habitus and poor visualization. . Probable cyst visualized upper pole measuring 3.6 x 3.4 x 2.9 cm Upper IVC: wnl as visualized Abd Aorta: wnl as visualized, distal portion obscured by bowel gas Mild amount of ascites visualized in the RUQ and RLQ IMPRESSION: 1. Enlarged and inhomogeneous liver compatible with multifocal metastasis and small volume ascites in the right upper and right lower quadrant. 2. Circumferential gallbladder wall thickening is pronounced up to 1 cm probable right renal cysts. ( normal limits of 3 mm) although is favored to relate to adjacent hepatocellular disease and ascites r ather than acute cholecystitis given no common bile duct dilatation and a negative sonographic Vogt sign. 3. Splenomegaly. 4.
== END | disposition home or self-care (01) ==
LOC: RADUSWWP 10:01
PROVIDERS: ATTEND Internal Medicine Hematology & Oncology
DX: C50.311 Malignant neoplasm of lower-inner quadrant of right female breast (principal); K82.8 Other specified diseases of gallbladder; R16.2 Hepatomegaly with splenomegaly, not elsewhere classified
CPT/HCPCS: 76700

== ENCOUNTER → 2017-12-17 | Outpatient (CLI) | payer MEDICARE, BC ==
--- NOTE | 2017-12-17 08:40 | US ---
EXAMINATION TYPE: US abdomen complete DATE OF EXAM: 12/17/2017 COMPARISON: Complete abdominal ultrasound [address] abdomen and pelvis September 30, 2017 CLINICAL HISTORY: R14 Abdominal Distension R10.84 Abdominal Pain. Epigastric pain, abdominal distenti on, history of breast cancer EXAM MEASUREMENTS: Liver Length: 19.2 cm Gallbladder Wall: 0.7 cm CBD: 0.6 cm Spleen: 18.5 cm Right Kidney: 11.4 x 5.0 x 5.4 cm Left Kidney: 11.2 x 5.2 x 5.7 cm Technical limitations due to overlying bowel content Pancreas: Obscured by bowel gas Liver: enlarged with innumerable hypoechoic lesions visualized as on prior exam Gallbladder: thickened wall, unable to visualize any stones Evidence for sonographic Vogt's sign: no CBD: wnl Spleen: enlarged Right Kidney: no evidence of hydronephrosis or mass Left Kidney: cystic area upper pole = 4.3 x 3.6 x 3.1cm Upper IVC: wnl Abd Aorta: proximal appears wnl, mid and distal Obscured by overlying bowel gas Mild ascites The liver is redemonstrated prominent with poorly defined innumerable heterogeneous hypoechoic lesion s scattered throughout consistent with diffuse metastatic disease. Trace adjacent ascites inferiorly near gallbladder fossa is seen less prominent versus prior. The intrahepatic portion of the IVC and visualized proximal abdominal aorta are within normal limits. There is no evidence of shadowing mobi le cholelithiasis. Mild concentric gallbladder wall thickening is likely product of diffuse metastati c disease to liver. Common bile duct is unremarkable. The pancreas is redemonstrated suboptimally ev aluated due to overlying bowel gas. Visualized portions are noted unremarkable in the proximal to mid body. The spleen is redemonstrated enlarged. Kidneys are symmetric and free of hydronephrosis. No new suspicious renal lesions are seen. There is redemonstration of 4.3 cm simple appearing cyst uppe r pole level left kidney. Towards end of study scanning of bilateral upper and lower quadrants shows small amount of ascites most prominent in the right lower quadrant. IMPRESSION: Small amount of abdominal ascites most prominent right lower quadrant. Trace perihepatic ascites less prominent than most recent ultrasound. Diffuse metastatic disease to liver is redemonstr ated. Splenomegaly and gallbladder wall thickening likely product of liver failure related to diffuse metastatic disease.
== END | disposition home or self-care (01) ==
LOC: RADUSWWP 07:01
PROVIDERS: ATTEND Internal Medicine Hematology & Oncology
DX: R18.8 Other ascites (principal); C78.7 Secondary malignant neoplasm of liver and intrahepatic bile duct; R16.1 Splenomegaly, not elsewhere classified
CPT/HCPCS: 76700

== ENCOUNTER 2018-01-13 09:06 | Day surgery (SDC) | payer MEDICARE, BC ==
[2018-01-13 09:43] VITALS: RESP 20
[2018-01-13 09:50] LABS: Mean Platelet Volume 9.1
[2018-01-13 10:03] LABS: INR 1.3 (<1.2); Platelet Count 28 k/uL (150-450); Prothrombin Time 12.2 sec (9.0-12.0)
[2018-01-13 12:02] VITALS: BP 109/61; PULSE 94; TEMP 98
--- NOTE | 2018-01-13 12:36 | US ---
EXAMINATION TYPE: US paracentesis abd w/image DATE OF EXAM: 01/13/2018 COMPARISON: NONE HISTORY: Ascites. PROCEDURE: Maximal barrier technique was utilized. The skin overlying a suitable pocket of fluid was localized with ultrasound and the overlying skin was prepped and draped. Ultrasound was utilized with sterile technique. Lidocaine was used for local anesthesia and a skin jose carlos made with a scalpel. Catheter was advanced under direct ultrasound guidance into a suitable pocket of fluid and approximately 5.6 liter s of serous fluid were removed. Catheter was withdrawn and hemostasis achieved. There is no immedia te complication; the patient is discharged in stable condition. IMPRESSION: STATUS POST ULTRASOUND GUIDED PARACENTESIS FOR PALLIATION OF ASCITES. THIS PROCEDURE WA S PERFORMED BY THE UNDERSIGNED.
== END 2018-01-13 12:15 | disposition home or self-care (01) ==
LOC: RADPROMAIN 09:06
PROVIDERS: ATTEND Internal Medicine Hematology & Oncology
DX: R18.8 Other ascites (principal); C50.919 Malignant neoplasm of unspecified site of unspecified female breast
CPT/HCPCS: 85049; 85610; 36415; 49083; P9035

== ENCOUNTER 2018-01-16 10:29 | Day surgery (SDC) | payer MEDICARE, BC ==
[2018-01-13 18:03] VITALS: BMI 44.4
[~2018-01-16 10:29] MED LIST: DEXAMETHASONE SOD PHOSPHATE 10 MG/ML 1 ML VIAL IV ONE; HEPARIN SODIUM,PORCINE 5,000 UNIT/ML 1 ML VIAL SQ ONE; HYDROmorphone 0.5 MG/0.5 ML SYRINGE IVP PRN; LACTATED RINGERS 1,000 ML IV SCH; ONDANSETRON 4 MG/2 ML VIAL IVP ONE; Pre Op ABX Message 1 EACH MISC MISCELLANE ONE; SCOPOLAMINE 1.5MG/72HR PATCH TRANSDERM ONE
--- NOTE | 2018-01-16 11:48 | P.GSHP ---
History of Present Illness H&P Date: 01/16/18 Chief Complaint: Metastatic breast cancer This a 67-year-old female with history of metastatic breast cancer. Patient presents today for Port-A-Cath placement for IV infusion therapy. Past Medical History Past Medical History: Cancer, Diabetes Mellitus, Hearing Disorder / Deafness, Hyperlipidemia, Hypertension, Osteoarthritis (OA), Pneumonia, Thyroid Disorder, Vascular Disorder Additional Past Medical History / Comment(s): Thyroid Nodules.VENOUS STASIS, BLE DARKENDED. WAS IP 08/25-08/30/15 W/ CP, CARDIAC W/U NL, DX IS PLEURISY - WAS ON AB AND STEROIDS 09/2017. STAGE 4 BREAST CANCER DIAGNOSED IN SEPTEMBER 2015, breast CA mets to bone and lymphatic system- History of Any Multi-Drug Resistant Organisms: None Reported Past Surgical History: Hysterectomy, Tonsillectomy Additional Past Surgical History / Comment(s): RT THYROIDECTOMY. LAPAROSCOPY D/ T Ectopic . BIOPSY MASS LEFT NECK. Past Anesthesia/Blood Transfusion Reactions: No Reported Reaction Smoking Status: Never smoker - Past Family History Mother Family Medical History: Deep Vein Thrombosis (DVT) Father Family Medical History: Cancer Sister(s) Family Medical History: Cancer Additional Family Medical History / Comment(s): non-hodgkins lymphoma Medications and Allergies Home Medications Medication Instructions Recorded Confirmed Type Docusate Sodium [Dok] 200 mg PO BID 09/15/15 01/16/18 History Loratadine [Claritin] 10 mg PO HS 01/23/17 01/16/18 History Zoledronic Acid [Zometa] 4 mg IVPB Q90D 01/23/17 01/16/18 History Fluticasone Nasal [place] [Flonase 1 spray EA NOSTRIL BID 09/30/17 01/16/18 History Nasal [place]] Levothyroxine Sodium [Synthroid] 75 mcg PO DAILY 09/30/17 01/16/18 History fentaNYL 50MCG/HR PATCH [Duragesic 1 patch TRANSDERM Q72H #1 patch 10/02/17 Rx 50MCG/HR] CARBOplatin [Paraplatin] 1 dose IV DIRECTED 11/08/17 01/16/18 History Gemcitabine HCl [Gemzar] 1,000 mg IV DIRECTED 11/08/17 01/16/18 History Famotidine [Pepcid] 20 mg PO DAILY 01/06/18 01/16/18 History HYDROcodone/APAP 5-325MG [[place] 1 tab PO Q6HR PRN 01/06/18 01/16/18 History 5-325] Simvastatin [Zocor] 10 mg PO HS 01/06/18 01/16/18 History Furosemide [Lasix] 40 mg PO DAILY 01/13/18 01/16/18 History Potassium Chloride [Klor-Con 20 meq PO DAILY 01/14/18 01/16/18 History Packets] Allergies Allergy/AdvReac Type Severity Reaction Status Date / Time Penicillins Allergy Rash/Hives Verified 01/16/18 11:38 Sulfa (Sulfonamide Allergy Rash/Hives Verified 01/16/18 11:38 Antibiotics) ibuprofen AdvReac Swelling Verified 01/16/18 11:38 Surgical - Exam Vital Signs Temp Pulse Resp BP Pulse Ox 98.0 F 94 18 133/73 100 01/16/18 11:25 01/16/18 11:25 01/16/18 11:25 01/16/18 11:25 01/16/18 11:25 - General well developed, no distress - Eyes PERRL - ENT normal pinna - Neck no masses - Respiratory normal expansion - Cardiovascular Rhythm: regular - Abdomen Abdomen: soft, non tender Assessment and Plan Assessment: Metastatic breast cancer. We'll perform Port-A-Cath placement.
[2018-01-16] MEDS ORDERED: LIDOCAINE 1% 20 ML VIAL (10MG/ML) FOR IV START INTRADERMA ONE (11:57)
[2018-01-16] MEDS ORDERED: FAMOTIDINE 20 MG/2 ML VIAL IV ONE (12:10)
[2018-01-16] MEDS ORDERED: METOCLOPRAMIDE 5 MG/ML 2 ML VIAL IVP ONE (12:11)
[2018-01-16] MEDS ORDERED: MIDAZOLAM 2 MG/2 ML VIAL ONE (12:19)
[2018-01-16] MEDS ORDERED: fentaNYL (PF) 50 MCG/ML 2 ML AMP ONE (12:19)
[2018-01-16] MEDS ORDERED: PROPOFOL 10 MG/ML 20 ML VIAL IV ONE (12:19)
[2018-01-16] MEDS ORDERED: KETAMINE 10 MG/ML 20 ML VIAL ONE (12:19)
[2018-01-16] MEDS ORDERED: SODIUM CHLORIDE 0.9% 50 ML with CLINDAMYCIN 600 MG IV ONE ×2 (12:34)
[2018-01-16] MEDS ORDERED: BUPIVACAIN-EPI 0.5%-1:200,000 30 ML VIAL SQ ONE ×2 (12:39)
[2018-01-16 13:00] VITALS: TEMP 97
[2018-01-16 13:20] VITALS: RESP 16
--- NOTE | 2018-01-16 13:28 | P.OP ---
Date of Procedure: 01/16/18 Preoperative Diagnosis: Metastatic breast cancer Postoperative Diagnosis: Metastatic breast cancer Procedure(s) Performed: Insertion of right subclavian Port-A-Cath Anesthesia: MAC Surgeon: Arsalan Cano Estimated Blood Loss (ml): 3 Pathology: none sent Condition: stable Disposition: PACU Description of Procedure: PROCEDURE: The patient was placed on the operating table in the supine position. She received MAC anesthetic. The Right chest was prepped and draped in the usual sterile fashion. The skin underneath the right clavicle was anesthetized with 1% Xylocaine and using Seldinger technique, the right subclavian vein was cannulized. The wire was placed through the needle and positioned under fluoroscopy. Next, the needle was removed and the port site was anesthetized with 1% Xylocaine. Skin was incised with #15 blade and port pocket was made using blunt and sharp dissection. Following this the catheter was attached to the sport and the port was flushed. The port was positioned into the pocket site and was secured with 3-0 Vicryl suture. The catheter was then brought out through the wire site and then the dilator sheath was placed over the wire and the dilator and the wire were removed. The catheter was placed through the sheath and the sheath was removed. The port was flushed with hep-lock solution. Skin was closed with interrupted 3-0 Vicryl sutures. Steri-Strips were applied. The patient tolerated the procedure well. The patient was sent to recovery room for chest x -ray after the procedure.
--- NOTE | 2018-01-16 13:34 | XR ---
EXAMINATION TYPE: XR chest 1V portable DATE OF EXAM: 01/16/2018 COMPARISON: Chest x-ray January 08, 2018 HISTORY: Central line placement. TECHNIQUE: Single frontal view of the chest is obtained. FINDINGS: There is new right subclavian catheter terminating near brachiocephalic confluence. There is persistent low lung volumes with bibasilar opacity felt to reflect small pleural effusions and ass ociated bibasilar atelectasis and/or infiltrate redemonstrated. Interval improvement in central vasc ular congestion is felt present. The cardiac silhouette size is stable and upper limits of normal. Sc lerosis bilateral humeral heads is redemonstrated. IMPRESSION: New right subclavian central venous catheter terminating near origin of SVC. No sizable pneumothorax.
--- NOTE | 2018-01-16 13:35 | FL ---
EXAMINATION TYPE: FL guided central line placemt DATE OF EXAM: 01/16/2018 CLINICAL HISTORY: Port-A-Cath insertion. TECHNIQUE: Fluoroscopy. COMPARISON: None. FINDINGS: Fluoroscopic guidance was provided during Port-A-Cath insertion procedure performed by Dr. Cano. A total of 3 seconds of fluoroscopic time was utilized during the procedure and 1 spot fl uoroscopic image is acquired. Single intraoperative image acquired shows portion of right subclavian catheter terminating in SVC. IMPRESSION: As Above.
[2018-01-16 14:23] VITALS: BP 114/73; PULSE 87
== END 2018-01-16 14:47 | disposition home or self-care (01) ==
LOC: OR 10:29
PROVIDERS: ATTEND Surgery
DX: C50.311 Malignant neoplasm of lower-inner quadrant of right female breast (principal); C79.51 Secondary malignant neoplasm of bone; C77.9 Secondary and unspecified malignant neoplasm of lymph node, unspecified; E11.9 Type 2 diabetes mellitus without complications; H91.90 Unspecified hearing loss, unspecified ear; E78.5 Hyperlipidemia, unspecified; I10 Essential (primary) hypertension; M19.90 Unspecified osteoarthritis, unspecified site; Z88.0 Allergy status to penicillin; Z88.6 Allergy status to analgesic agent; E89.0 Postprocedural hypothyroidism; Z79.51 Long term (current) use of inhaled steroids; Z79.890 Hormone replacement therapy; Z79.899 Other long term (current) drug therapy; Z88.2 Allergy status to sulfonamides
CPT/HCPCS: 77001; 71045; 36561; C1788; J2250; J1100; J2765; J2405; J3010; J2704

== ENCOUNTER 2018-01-21 08:04 | Day surgery (SDC) | payer MEDICARE, BC ==
[2018-01-21 08:40] VITALS: RESP 16
[2018-01-21 08:48] LABS: Platelet Count 40 k/uL (150-450)
[2018-01-21 08:50] LABS: INR 1.4 (<1.2); Prothrombin Time 12.9 sec (9.0-12.0)
[2018-01-21 12:20] VITALS: BP 120/67; PULSE 97; TEMP 97.6
--- NOTE | 2018-01-21 14:36 | US ---
EXAMINATION TYPE: US paracentesis abd w/image DATE OF EXAM: 01/21/2018 COMPARISON: NONE HISTORY: Ascites. PROCEDURE: Maximal barrier technique was utilized. The skin overlying a suitable pocket of fluid was localized with ultrasound and the overlying skin was prepped and draped. Ultrasound was utilized with sterile technique. Lidocaine was used for local anesthesia and a skin jose carlos made with a scalpel. Catheter was advanced under direct ultrasound guidance into a suitable pocket of fluid and approximately 7.3 liter s of serous fluid were removed. Catheter was withdrawn and hemostasis achieved. There is no immedia te complication; the patient is discharged in stable condition. IMPRESSION: STATUS POST ULTRASOUND GUIDED PARACENTESIS FOR PALLIATION OF ASCITES. THIS PROCEDURE WA S PERFORMED BY THE UNDERSIGNED.
== END 2018-01-21 12:34 | disposition home or self-care (01) ==
LOC: RADPROMAIN 08:04
PROVIDERS: ATTEND Internal Medicine Hematology & Oncology
DX: R18.8 Other ascites (principal); C50.311 Malignant neoplasm of lower-inner quadrant of right female breast; D69.59 Other secondary thrombocytopenia
CPT/HCPCS: 85049; 85610; 49083; P9035

== ENCOUNTER 2018-01-26 14:15 | Inpatient (IN) | payer MEDICARE, BC ==
--- NOTE | 2018-01-26 14:47 | ED ---
General Adult HPI - General Chief complaint: Abdominal Pain Stated complaint: Poss Bowel Obstruction Source: patient, EMS Mode of arrival: EMS Limitations: no limitations, altered mental status - History of Present Illness Initial comments: Dictation was produced using [employer] dictation software. please excuse any grammatical, word or spelling errors. Chief Complaint: 67 year old female past medical history of liver cirrhosis, liver failure, breast cancer presents with constipation. History of Present Illness: 67-year-old female presents with constipation. Patient states she has not had a bowel movement in approximately one week. She is accompanied by significant other who is also able to provide HPI. Patient was prescribed lactulose personally for 5 days ago by primary care physician. She still has not had any bowel movements. Patient has history of ascites that required paracentesis once a week. She's had or paracenteses done. Patient denies any constitutional symptoms except for some chills. Patient states that her belly is very tender. Patient undergoing chemotherapy and had Mediport recently placed The ROS documented in this emergency department record has been reviewed and confirmed by me. Those systems with pertinent positive or negative responses have been documented in the HPI. All other systems are other negative and/or noncontributory. - Related Data Home Medications Medication Instructions Recorded Confirmed Docusate Sodium [Dok] 200 mg PO BID 09/15/15 01/26/18 Loratadine [Claritin] 10 mg PO HS 01/23/17 01/26/18 Zoledronic Acid [Zometa] 4 mg IVPB Q90D 01/23/17 01/26/18 Fluticasone Nasal [place] [Flonase 1 spray EA NOSTRIL BID PRN 09/30/17 01/26/18 Nasal [place]] Levothyroxine Sodium [Synthroid] 75 mcg PO DAILY 09/30/17 01/26/18 CARBOplatin [Paraplatin] 1 dose IV DIRECTED 11/08/17 01/26/18 Gemcitabine HCl [Gemzar] 1,000 mg IV DIRECTED 11/08/17 01/26/18 Famotidine [Pepcid] 20 mg PO DAILY 01/06/18 01/26/18 HYDROcodone/APAP 5-325MG [[place] 1 tab PO Q6HR PRN 01/06/18 01/26/18 5-325] Simvastatin [Zocor] 10 mg PO HS 01/06/18 01/26/18 Furosemide [Lasix] 40 mg PO DAILY 01/13/18 01/26/18 Potassium Chloride [Klor-Con 20 meq PO DAILY 01/14/18 01/26/18 Packets] Biotin 1000mcg 1 tab PO DAILY 01/26/18 01/26/18 Polyethylene Glycol 3350 [Miralax] 17 gm PO DAILY PRN 01/26/18 01/26/18 Previous Rx's Medication Instructions Recorded fentaNYL 50MCG/HR PATCH [Duragesic 1 patch TRANSDERM Q72H #1 patch 10/02/17 50MCG/HR] Allergies Allergy/AdvReac Type Severity Reaction Status Date / Time Penicillins Allergy Rash/Hives Verified 01/26/18 14:33 Sulfa (Sulfonamide Allergy Rash/Hives Verified 01/26/18 14:33 Antibiotics) ibuprofen AdvReac Swelling Verified 01/26/18 14:33 Review of Systems ROS Statement: Those systems with pertinent positive or pertinent negative responses have been documented in the HPI. ROS Other: All systems not noted in ROS Statement are negative. Past Medical History Past Medical History: Cancer, Diabetes Mellitus, Hearing Disorder / Deafness, Hyperlipidemia, Hypertension, Osteoarthritis (OA), Pneumonia, Thyroid Disorder, Vascular Disorder Additional Past Medical History / Comment(s): Thyroid Nodules.VENOUS STASIS, BLE DARKENDED. WAS IP 08/25-08/30/15 W/ CP, CARDIAC W/U NL, DX IS PLEURISY - WAS ON AB AND STEROIDS 09/2017. STAGE 4 BREAST CANCER DIAGNOSED IN SEPTEMBER 2015, breast CA mets to bone and lymphatic system- History of Any Multi-Drug Resistant Organisms: None Reported Past Surgical History: Hysterectomy, Tonsillectomy Additional Past Surgical History / Comment(s): RT THYROIDECTOMY. LAPAROSCOPY D/ T Ectopic . BIOPSY MASS LEFT NECK. Past Anesthesia/Blood Transfusion Reactions: No Reported Reaction Past Psychological History: No Psychological Hx Reported Smoking Status: Never smoker Past Alcohol Use History: None Reported Past Drug Use History: None Reported - Past Family History Mother Family Medical History: Deep Vein Thrombosis (DVT) Father Family Medical History: Cancer Sister(s) Family Medical History: Cancer Additional Family Medical History / Comment(s): non-hodgkins lymphoma General Exam - General Exam Comments Initial Comments: PHYSICAL EXAM: General Impression: Alert and oriented x3, acute distress secondary to pain HEENT: Normocephalic atraumatic, extra-ocular movements intact, pupils equal and reactive to light bilaterally, mucous membranes moist, icteric Cardiovascular: Heart regular rate and rhythm, S1&S2 audible, no murmurs, rubs or gallops Chest: Lungs clear to auscultation bilaterally, no rhonchi, no wheeze, no rales Abdomen: Distended abdomen with fluid wave, diffuse abdominal tenderness Musculoskeletal: Pulses present and equal in all extremities, no peripheral edema Motor: Moves all extremity is grossly Neurological: CN II-XII grossly intact, no focal motor or sensory deficits noted Limitations: no limitations, altered mental status Course Vital Signs 01/26/18 01/26/18 14:33 16:39 Temperature 98 F 98.5 F Pulse Rate 98 100 Respiratory 18 18 Rate Blood Pressure 141/76 136/70 O2 Sat by Pulse 98 99 Oximetry Medical Decision Making - Medical Decision Making ED course: 67-year-old female with multiple comorbidities presents after no bowel movement in approximately 7 days. Vital signs upon arrival are within normal limits. Patient appears to be in acute distress. Abdominal exam shows abdominal distention with fluid wave.Laboratory evaluation obtained. Patient has leukopenia 1.8, hemoglobin of 8.6, platelet level of 13. Coag panel shows INR 1.3, total bilirubin of 4.9, mild transaminitis. KUB was obtained showing retained fecal debris throughout the colon. Medicine back shows performed with removal of approximately 750 mL volume of stool. Stool that was removed had some coating of blood. Given the patient is thrombocytopenic with findings of GI bleed patient be given platelets. Patient be admitted for thrombocytopenia with evidence of GI bleed. Surgery to be on consult for colonoscopy. - Lab Data Result diagrams: 01/26/18 15:00 01/26/18 15:00 Lab Results 01/26/18 01/26/18 01/26/18 Range/Units 15:00 15:00 15:00 WBC 1.8 L (3.8-10.6) k/uL RBC 2.63 L (3.80-5.40) m/uL Hgb 8.6 L (11.4-16.0) gm/dL Hct 26.2 L (34.0-46.0) % MCV 99.8 (80.0-100.0) fL MCH 32.6 (25.0-35.0) pg MCHC 32.7 (31.0-37.0) g/dL RDW 21.6 H (11.5-15.5) % Plt Count 13 L* D (150-450) k/uL Neutrophils % 67 % Lymphocytes % 24 % Monocytes % 2 % Eosinophils % 3 % Basophils % 1 % Neutrophils # 1.2 L (1.3-7.7) k/uL Lymphocytes # 0.4 L (1.0-4.8) k/uL Monocytes # 0.0 (0-1.0) k/uL Eosinophils # 0.1 (0-0.7) k/uL Basophils # 0.0 (0-0.2) k/uL Manual Slide Review Performed Polychromasia Present Hypochromasia Moderate Poikilocytosis Slight Poikilocytosis (manual Present Anisocytosis Moderate Macrocytosis Moderate PT 12.2 H (9.0-12.0) sec INR 1.3 H (<1.2) APTT 39.6 H (22.0-30.0) sec Sodium 133 L (137-145) mmol/L Potassium 4.2 (3.5-5.1) mmol/L Chloride 104 (98-107) mmol/L Carbon Dioxide 23 (22-30) mmol/L Anion Gap 6 mmol/L BUN 13 (7-17) mg/dL Creatinine 0.59 (0.52-1.04) mg/dL Est GFR (CKD-EPI)AfAm >90 (>60 ml/min/1.73 sqM) Est GFR (CKD-EPI)NonAf >90 (>60 ml/min/1.73 sqM) Glucose 157 H (74-99) mg/dL Calcium 7.4 L (8.4-10.2) mg/dL Total Bilirubin 4.9 H (0.2-1.3) mg/dL AST 66 H (14-36) U/L ALT 45 (9-52) U/L Alkaline Phosphatase 210 H (38-126) U/L Total Protein 4.5 L (6.3-8.2) g/dL Albumin 2.1 L (3.5-5.0) g/dL Lipase 156 (23-300) U/L Disposition Clinical Impression: Thrombocytopenia, GI bleed Disposition: ADMITTED IP TO THIS [facility] Condition: Fair Referrals: Jamar Coronado DO [Primary Care Provider] - 1-2 days Time of Disposition: 17:11
[2018-01-26 15:18] LABS: Anisocytosis Moderate; Basophils % (A) 1 %; Eosinophils # (A) 0.1 k/uL (0-0.7); Eosinophils % (A) 3 %; HCT 26.2 % (34.0-46.0); HGB 8.6 gm/dL (11.4-16.0); Hypochromasia Moderate; Lymphocytes # (A) 0.4 k/uL (1.0-4.8); Lymphocytes % (A) 24 %; MCH 32.6 pg (25.0-35.0); MCHC 32.7 g/dL (31.0-37.0); MCV 99.8 fL (80.0-100.0); Macrocytosis Moderate; Mean Platelet Volume 7.2; Monocytes % (A) 2 %; Neutrophils # (A) 1.2 k/uL (1.3-7.7); Neutrophils % (A) 67 %; Poikilocytosis Slight; RBC 2.63 m/uL (3.80-5.40); RDW 21.6 % (11.5-15.5); WBC 1.8 k/uL (3.8-10.6)
[2018-01-26 15:21] LABS: INR 1.3 (<1.2); Partial Thromboplastin Time 39.6 sec (22.0-30.0); Prothrombin Time 12.2 sec (9.0-12.0)
[2018-01-26 15:29] LABS: Albumin 2.1 g/dL (3.5-5.0); Total Bilirubin 4.9 mg/dL (0.2-1.3)
--- NOTE | 2018-01-26 15:32 | XR ---
EXAMINATION TYPE: XR KUB DATE OF EXAM: 01/26/2018 COMPARISON: 09/30/2017 HISTORY: Pain TECHNIQUE: One view abdominal series FINDINGS: Sclerotic changes involving the visualized osseous structures suggestive of metastases. Retained feca l debris throughout the colon. Assessment for free air nondiagnostic due to supine imaging in techniq ue. Left basilar atelectasis or infiltrate noted. IMPRESSION: 1. Nonspecific abdomen. Retained fecal debris seen throughout the colon. 2. Left basilar atelectasis or infiltrate.
[2018-01-26 15:37] LABS: ALT 45 U/L (9-52); AST 66 U/L (14-36); Alkaline Phosphatase 210 U/L (38-126); Anion Gap 6 mmol/L; Blood Urea Nitrogen 13 mg/dL (7-17); Calcium 7.4 mg/dL (8.4-10.2); Carbon Dioxide 23 mmol/L (22-30); Chloride 104 mmol/L (98-107); Glucose 157 mg/dL (74-99); Lipase 156 U/L (23-300); Potassium 4.2 mmol/L (3.5-5.1); Sodium 133 mmol/L (137-145); Total Protein 4.5 g/dL (6.3-8.2)
[2018-01-26 15:40] LABS: Platelet Count 13 k/uL (150-450); Poikilocytosis (M) Present; Polychromasia Present
[2018-01-26] MEDS ORDERED: MORPHINE SULFATE 2 MG/ML SYRINGE IVP PRN (16:46)
[2018-01-26] MEDS ORDERED: NALOXONE 0.4 MG/ML 1 ML VIAL IV PRN (17:11)
[2018-01-26] MEDS: HYDROcodone/APAP 5-325MG 1 EACH TAB PO PRN ×2 (17:46→23:16)
[2018-01-26] MEDS ORDERED: ADENOSINE 3 MG/ML 2 ML VIAL IVP STA (18:30)
[2018-01-26 20:14] LABS: Appearance,Urine Cloudy (Clear); Bilirubin,Urine 2+ (Negative); Blood,Urine Negative (Negative); Color,Urine Dark Brown; Glucose,Urine (UA) Negative (Negative); Hyaline Casts,Urine 23 /lpf (0-2); Ketones,Urine Negative (Negative); Leukocyte Esterase,Urine Trace (Negative); Mucus,Urine Many /hpf; Nitrite,Urine Negative (Negative); Protein,Urine 1+ (Negative); RBC,Urine 1 /hpf (0-5); Specific Gravity,Urine 1.031 (1.001-1.035); Squamous Epithelial Cell,Urine 3 /hpf (0-4); Urobilinogen,Urine >12.0 mg/dL (<2.0); WBC,Urine 12 /hpf (0-5)
[2018-01-27] MEDS: HYDROcodone/APAP 5-325MG 1 EACH TAB PO PRN ×3 (05:02→22:05)
[2018-01-27] MEDS ORDERED: FLUTICASONE 50MCG/SPRAY NASAL 16GM EA NOSTRIL PRN (08:45)
[2018-01-27] MEDS ORDERED: POLYETHYLENE GLYCOL 3350 17 GM POWD.PACK PO PRN (08:45)
[2018-01-27] MEDS: LACTULOSE 20 GM/30 ML CUP PO SCH ×4 (09:38→21:49)
[2018-01-27] MEDS: LEVOTHYROXINE 75 MCG TAB PO SCH (09:39)
[2018-01-27] MEDS: DOCUSATE 100 MG CAP PO SCH ×2 (09:39→21:50)
[2018-01-27] MEDS: FAMOTIDINE 20 MG TAB PO SCH (09:40)
[2018-01-27] MEDS: FUROSEMIDE 40 MG TAB PO SCH (09:40)
[2018-01-27] MEDS: POTASSIUM CHLORIDE ER 20 MEQ TAB.ER PO SCH (09:40)
[2018-01-27 09:53] LABS: Anion Gap 5 mmol/L; Blood Urea Nitrogen 12 mg/dL (7-17); Calcium 7.4 mg/dL (8.4-10.2); Carbon Dioxide 24 mmol/L (22-30); Chloride 103 mmol/L (98-107); Glucose 123 mg/dL (74-99); Magnesium 2.3 mg/dL (1.6-2.3); Potassium 4.4 mmol/L (3.5-5.1); Sodium 132 mmol/L (137-145)
--- NOTE | 2018-01-27 10:01 | P.CRDCN ---
History of Present Illness History of present illness: This is a pleasant 67-year-old female past medical history significant for diabetes mellitus, hypertension, dyslipidemia, breast cancer with metastasis to the lymph nodes and bone. She denies history of coronary artery disease and has never seen a java technical architect for any reason. We have been asked to see her in consultation for arrhythmia. She presented to the hospital with complaints of 5 days of constipation despite trying lactulose at home. She underwent paracentesis 01/21 as an outpatient with 7.3 liters removed and has undergone several in the past as well. She states last night she had been laying flat in bed for comfort secondary to abdominal discomfort. She sat up to take a medication and then laid down quickly and immediately her heart started racing. Telemetry and EKG obtained reveal a narrow complex tachycardia rate 166. She was given 6mg of adenosine and subsequently her rate went back down to normal. She denies feeling any symptoms of chest pain, shortness of breath, nausea, dizziness or diaphoresis. She states she has felt similar type palpitations in the the past week but it has always gone away on its own and has not had any associated symptoms. She states she has not been as compliant with her levothyroxine in the last few weeks with all that she has going on lately. EKG on arrival reveals sinus mechanism with no acute ST or T-wave abnormalities at 1538. EKG at 1756 reveals supraventricular tachycardia heart rate 166 with narrow complex regular QRS. After adenosine repeat EKG at 1810 reveals sinus mechanism heart rate 107 with no acute abnormalities. KUB xray indicates retained fecal debris throughout the colon. Left basilar infiltrate v atelectasis. Laboratory data reviewed, hgb 8.6, plt 13, INR 1.3, sodium 133, potassium 4.2, creatinine 0.59, AST 66, alkaline phosphate 210. Current cardiac medications include simvastatin 10 mg daily, lasix 40 mg daily. She also takes miralax, duragesic patch, zometa, claritin, synthroid, norco, gemza, flonase, pepcid and niotin. Most recent stress test performed 2015 was a Lexiscan and it was negative for reversible ischemia. Review of Systems At the time of my exam: CONSTITUTIONAL: Denies fever. Denies chills. EYES: Denies blurred vision. Denies vision changes. Denies eye pain. EARS, NOSE, MOUTH & THROAT: Denies headache. Denies sore throat. Denies ear pain. CARDIOVASCULAR: Denies chest pain. Denies shortness of breath. Denies orthopnea. Denies PND. Denies palpitations. RESPIRATORY: Denies cough. GASTROINTESTINAL: Complains of abdominal pain. Denies diarrhea. Complains of constipation. Denies nausea. Denies vomiting. MUSCULOSKELETAL: Denies myalgias. INTEGUMENTARY: Denies pruitis. Denies rash. NEUROLOGIC: Denies numbness. Denies tingling. Denies weakness. PSYCHIATRIC: Denies anxiety. Denies depression. ENDOCRINE: Denies fatigue. Denies weight change. Denies polydipsia. Denies polyurina. GENITOURINARY: Denies burning, hematuria or urgency with micturation. HEMATOLOGIC: Denies history of anemia. Denies bleeding. Past Medical History Past Medical History: Cancer, Diabetes Mellitus, Hearing Disorder / Deafness, Hyperlipidemia, Hypertension, Osteoarthritis (OA), Pneumonia, Thyroid Disorder, Vascular Disorder Additional Past Medical History / Comment(s): Thyroid Nodules.VENOUS STASIS,. WAS IP 08/25-08/30/15 W/ CP, CARDIAC W/U NL, HX OF PLEURISY . STAGE 4 BREAST CANCER DIAGNOSED IN SEPTEMBER 2015, PER FAMILY"breast CA mets to bone and lymphatic system, liver,spleen. pt receiving chemo most recent tx last friday01-20-18". constipation History of Any Multi-Drug Resistant Organisms: None Reported Past Surgical History: Hysterectomy, Tonsillectomy, Tubal Ligation Additional Past Surgical History / Comment(s): RT THYROIDECTOMY. LAPAROSCOPY D/ T Ectopic . BIOPSY MASS LEFT NECK.paracentesis, port a cath placement, excision fibrolipoma/scalp, lt elbow sx Past Anesthesia/Blood Transfusion Reactions: No Reported Reaction Smoking Status: Never smoker - Past Family History Mother Family Medical History: Deep Vein Thrombosis (DVT) Father Family Medical History: Cancer Sister(s) Family Medical History: Cancer Additional Family Medical History / Comment(s): non-hodgkins lymphoma Medications and Allergies Home Medications Medication Instructions Recorded Confirmed Type Docusate Sodium [Dok] 200 mg PO BID 09/15/15 01/26/18 History Loratadine [Claritin] 10 mg PO HS 01/23/17 01/26/18 History Zoledronic Acid [Zometa] 4 mg IVPB Q90D 01/23/17 01/26/18 History Fluticasone Nasal [place] [Flonase 1 spray EA NOSTRIL BID PRN 09/30/17 01/26/18 History Nasal [place]] Levothyroxine Sodium [Synthroid] 75 mcg PO DAILY 09/30/17 01/26/18 History fentaNYL 50MCG/HR PATCH [[place] 1 patch TRANSDERM Q72H #1 patch 10/02/17 Rx 50MCG/HR] CARBOplatin [Paraplatin] 1 dose IV DIRECTED 11/08/17 01/26/18 History Gemcitabine HCl [Gemzar] 1,000 mg IV DIRECTED 11/08/17 01/26/18 History Famotidine [Pepcid] 20 mg PO DAILY 01/06/18 01/26/18 History HYDROcodone/APAP 5-325MG [[place] 1 tab PO Q6HR PRN 01/06/18 01/26/18 History 5-325] Simvastatin [Zocor] 10 mg PO HS 01/06/18 01/26/18 History Furosemide [Lasix] 40 mg PO DAILY 01/13/18 01/26/18 History Potassium Chloride [Klor-Con 20 meq PO DAILY 01/14/18 01/26/18 History Packets] Biotin 1000mcg 1 tab PO DAILY 01/26/18 01/26/18 History Polyethylene Glycol 3350 [Miralax] 17 gm PO DAILY PRN 01/26/18 01/26/18 History Allergies Allergy/AdvReac Type Severity Reaction Status Date / Time Penicillins Allergy Rash/Hives Verified 01/26/18 14:33 Sulfa (Sulfonamide Allergy Rash/Hives Verified 01/26/18 14:33 Antibiotics) ibuprofen AdvReac Swelling Verified 01/26/18 14:33 Physical Exam Vitals: Vital Signs Temp Pulse Pulse Resp BP BP Pulse Ox 01/27/18 05:00 98.1 F 94 16 108/63 95 01/26/18 21:00 98.0 F 108 H 16 136/78 98 01/26/18 20:23 98 F 101 H 16 128/82 01/26/18 18:57 98.1 F 108 H 18 120/72 98 01/26/18 18:45 97.9 F 106 H 18 107/60 01/26/18 18:30 97.9 F 109 H 18 109/66 01/26/18 18:20 97.9 F 104 H 18 128/62 96 01/26/18 18:06 105 H 18 128/62 98 01/26/18 17:45 98.1 F 104 H 18 133/71 97 01/26/18 16:39 98.5 F 100 18 136/70 99 01/26/18 14:33 98 F 98 18 141/76 98 Intake and Output 01/26/18 01/27/18 01/27/18 22:59 06:59 14:59 Intake Total 885 Balance 885 Intake: Oral 590 Blood Product 295 Platelet Irr Pheresis 295 Acda1 Unit [id number] Other: Voiding Method Bedside Commode # Voids 1 1 Blood pressure 108/63 heart rate 94 afebrile and maintaining oxygen saturation on room air. GENERAL: This is a 67-year-old female in no apparent distress at the time of my examination. HEENT: Head is atraumatic, normocephalic. Pupils are equal, round. Sclerae anicteric. Conjunctivae are clear. Mucous membranes of the mouth are moist. Neck is supple. There is no jugular venous distention. No carotid bruit is heard. LUNGS: Clear to auscultation no wheezes, rales or rhonchi. No chest wall tenderness is noted on palpation or with deep breathing. HEART: Regular rate and rhythm with faint systolic ejection murmur at the base, no rubs or gallops. S1 and S2 heard. ABDOMEN: Soft, nontender. Bowel sounds are heard. No organomegaly noted. EXTREMITIES: Bilateral lower extremity 1+ pitting edema. No calf tenderness noted. VASCULAR: Radial and dorsalis pedis pulses palpated, no evidence of clubbing. NEUROLOGIC: Patient is awake, alert and oriented x3. Results 01/26/18 15:00 01/26/18 15:00 Cardiac Enzymes 01/26/18 Range/Units 15:00 AST 66 H (14-36) U/L Coagulation 01/26/18 Range/Units 15:00 PT 12.2 H (9.0-12.0) sec APTT 39.6 H (22.0-30.0) sec CBC 01/26/18 Range/Units 15:00 WBC 1.8 L (3.8-10.6) k/uL RBC 2.63 L (3.80-5.40) m/uL Hgb 8.6 L (11.4-16.0) gm/dL Hct 26.2 L (34.0-46.0) % Plt Count 13 L* D (150-450) k/uL Comprehensive Metabolic Panel 01/26/18 Range/Units 15:00 Sodium 133 L (137-145) mmol/L Potassium 4.2 (3.5-5.1) mmol/L Chloride 104 (98-107) mmol/L Carbon Dioxide 23 (22-30) mmol/L BUN 13 (7-17) mg/dL Creatinine 0.59 (0.52-1.04) mg/dL Glucose 157 H (74-99) mg/dL Calcium 7.4 L (8.4-10.2) mg/dL AST 66 H (14-36) U/L ALT 45 (9-52) U/L Alkaline Phosphatase 210 H (38-126) U/L Total Protein 4.5 L (6.3-8.2) g/dL Albumin 2.1 L (3.5-5.0) g/dL Current Medications Generic Name Dose Route Start Last Admin Trade Name Freq PRN Reason Stop Dose Admin Hydrocodone Bitart/Acetaminophen 1 each 01/26/18 17:35 01/27/18 05:02 [place] 5-325 PO 1 each Q6HR PRN Administration Pain Naloxone HCl 0.2 mg 01/26/18 17:11 Narcan IV Q2M PRN Opioid Reversal Intake and Output 01/26/18 01/27/18 01/27/18 22:59 06:59 14:59 Intake Total 885 Balance 885 Intake: Oral 590 Blood Product 295 Platelet Irr Pheresis 295 Acda1 Unit [id number] Other: Voiding Method Bedside Commode # Voids 1 1 01/26/18 15:00 01/26/18 15:00 Assessment and Plan Assessment: ASSESSMENT Supraventricular tachycardia Thrombocytopenia Breast cancer with metastasis currently undergoing chemotherapy Hypertension Dyslipidemia Hypothyroid Diabetes mellitus Morbid obesity, BMI 42.4 PLAN Obtain 2D echocardiogram and doppler study to assess cardiac structure and function. Check magnesium and TSH. Add on small dose of beta yesica, metoprolol 12.5 mg BID. Ongoing telemetry monitoring for acute tachy-patricia arrhythmia. Further recommendations to follow based upon clinical course. Thank you kindly for this consultation. Nurse Practitioner note has been reviewed, I agree with a documented findings and plan of care. Patient was seen and examined.
[2018-01-27 10:10] LABS: Anisocytosis Moderate; HCT 22.7 % (34.0-46.0); HGB 7.4 gm/dL (11.4-16.0); Hypochromasia Moderate; MCH 32.5 pg (25.0-35.0); MCHC 32.8 g/dL (31.0-37.0); Macrocytosis Moderate; Mean Platelet Volume 7.5; Poikilocytosis Slight; RBC 2.29 m/uL (3.80-5.40); RDW 21.3 % (11.5-15.5); WBC 2.2 k/uL (3.8-10.6)
[2018-01-27 10:13] LABS: Platelet Count 13 k/uL (150-450)
--- NOTE | 2018-01-27 10:58 | ECHOF ---
Referral Reason:Arrhythmia MEASUREMENTS -------- HEIGHT: 167.6 cm WEIGHT: 119.3 kg BP: 108/63 RVIDd: 3.4 cm (< 3.3) IVSd: 1.1 cm (0.6 - 1.1) LVIDd: 3.4 cm (3.9 - 5.3) LVPWd: 1.1 cm (0.6 - 1.1) IVSs: 1.3 cm LVIDs: 1.3 cm LVPWs: 1.3 cm LAESV Index (A-L): 20.26 ml/m Ao Diam: 3.4 cm (2.0 - 3.7) AV Cusp: 1.4 cm (1.5 - 2.6) LA Diam: 3.3 cm (2.7 - 3.8) MV E Dinesh: 0.84 m/s MV DecT: 267 ms MV A Dinesh: 1.03 m/s MV E/A Ratio: 0.82 RAP: 5.00 mmHg RVSP: 37.31 mmHg FINDINGS -------- Sinus rhythm. This was a technically adequate study. The left ventricular size is normal. There is borderline concentric left ventricular hypertrophy. Overall left ventricular systolic function is normal with, an EF between 55 - 60 %. The right ventricle is mildly enlarged. Normal LA size by volume 22+/-6 ml/m2. The right atrium is normal in size. There is mild aortic valve sclerosis. There is no evidence of aortic regurgitation. There is no e vidence of aortic stenosis. The mitral valve leaflets are mildly thickened. There is trace to mild mitral regurgitation. Trace tricuspid regurgitation present. There is borderline pulmonary hypertension. The right vent ricular systolic pressure, as measured by Doppler, is 37.31mmHg. The pulmonic valve was not well visualized. The aortic root size is normal. IVC Not well visulized. There is no pericardial effusion. CONCLUSIONS -------- 1. Sinus rhythm. 2. This was a technically adequate study. 3. The left ventricular size is normal. 4. There is borderline concentric left ventricular hypertrophy. 5. Overall left ventricular systolic function is normal with, an EF between 55 - 60 %. 6. The right ventricle is mildly enlarged. 7. Normal LA size by volume 22+/-6 ml/m2. 8. There is mild aortic valve sclerosis. 9. The mitral valve leaflets are mildly thickened. 10. There is trace to mild mitral regurgitation. 11. Trace tricuspid regurgitation present. 12. There is borderline pulmonary hypertension. 13. The right ventricular systolic pressure, as measured by Doppler, is 37.31mmHg. 14. The pulmonic valve was not well visualized. 15. The aortic root size is normal. 16. IVC Not well visulized. 17. There is no pericardial effusion. SMALL ANIMAL CARETAKER: Niles Del Rio RDCS
[2018-01-27 11:16] LABS: Band Neutrophils % 3 %; Eosinophils # (M) 0.07 k/uL (0-0.7); Lymphocytes # (M) 0.79 k/uL (1.0-4.8); Metamyelocytes # (M) 0.04 k/uL (0); Metamyelocytes % 2 %; Monocytes # (M) 0.15 k/uL (0-1.0); Neutrophils % (M) 50 %; Nucleated Red Blood Cells 1 /100 WBC (0-0); Total Cells Counted 200
[2018-01-27 11:17] LABS: Poikilocytosis (M) Present
[2018-01-27] MEDS: METOPROLOL TARTRATE 12.5 MG TAB PO SCH ×2 (11:39→21:50)
[2018-01-27] MEDS ORDERED: BISACODYL 10 MG SUPP RECTAL STA (13:23)
--- NOTE | 2018-01-27 13:40 | P.CONS ---
History of Present Illness - Reason for Consult Consult date: 01/27/18 Metastatic Cancer on chemotherapy Requesting physician: Lester Weiner - Chief Complaint constipation and abdominal ascites - History of Present Illness Ms Dior is a pleasant WF, who had noted a painless mass at the left base of her neck, initially in 08/18. At the time the pt was diagnosed with pleuritis in the left lung. The pleuritis did resolve with treatment. Post treatment CT scan of the chest revealed scattered,non specific densities in the left lung. The pt then sought attention for the left SC mass, and had a biopsy with Dr Cano on 09/18/15. This revealed metastatic carcinoma consistent with breast primary, ER/AZ strongly positive, and Her -2 1+( negative). The case was discussed with Dr Cano, and breast imaging ordered. Mammogram on 09/28/15 revealed heterogenous cluster of calcifications in the lower inner quadrant of the right breast, confirmed on additional views, though US was negative. She has been very compliant with her regular screening mammograms. Additional w /u including PET and labs were ordered. These unfortunately revealed widely metastatic disease with uptake in b/l supraclavicular, b/l hilar, left axillary , and diffusely through the skeleton. Tumor markers were also elevated. She was started Zometa, and Ibrance/femara on 10/24/15. She has struggled with ulcers and LE swelling on and off antibiotics, debridement and local wound care. Following with [facility] since 04/20. These have since resolved Due to progressive tumor marker progression, she was changed to Faslodex and Ibrance in 06/2017. However, she continued to progress,and was admited to [facility] in 09/2017 for abdominal pain due to new liver mets. She was thus changed to Aromasin and Afinitor in late 09/2017. .As she appeared to be having comparitively rapid progression in the liver, it was decided to change to chemo for a faster response. She started Carbo/Gemzar on 10/31/17 and is s/p 3 cycles as of 12/30/17. She did receive Neulasta and Procrit (40K) On 12/31/17 Dose was decreased by 10% post C 2 due to hematologic toxicity, and procrit added. She has continued to require frequent transfusions. She recently was admitted to [facility] with complaints of increased abdominal bloating, ultrasound of abdomen completed on 12/17/17 did not show a significant enough fluid to remove. T On presentation CT abdomen and Pelvis revealed moderate bilateral pleural effusions, massive ascites, and numerous hypodense liver lesions, which appear similiar to previous identified liver metastasis. Hemoglobin on admission = 6.8, Platelet count 27, WBC 45.9 (secondary to neulasta on 12/30/17). Paracentesis was performed, Chemotherapy was delayed one week and she was discharged with a standing paracentesis weekly, twice a week order. In November her Tumor Markers were increased to above 3,000 - Last Ca15-3 resulted at approx 400. Showing likely response to recent IV Chemotherapy. 01/27/18: She now presents after complaints of increasing abdominal bloating and severe constipation requiring manual dis-impaction. She has been admitted now with need for paracentesis with platlet transfusion. Her platlets are 13 today. She is status post cycle 4 day one of chemotherapy on 01/20/18. She received carboplatin and gemzar. She would normally get day 8 today of just Gemsar and then Neulasta although she has now been admitted. She therefore did not receive neulasta for this cycle yet. She also receives weekly procrit 40K, which is due today. Review of Systems A 14 point review of systems assessed and completed and all negative except HPI Past Medical History Past Medical History: Cancer, Diabetes Mellitus, Hearing Disorder / Deafness, Hyperlipidemia, Hypertension, Osteoarthritis (OA), Pneumonia, Thyroid Disorder, Vascular Disorder Additional Past Medical History / Comment(s): Thyroid Nodules.VENOUS STASIS,. WAS IP 08/25-08/30/15 W/ CP, CARDIAC W/U NL, HX OF PLEURISY . STAGE 4 BREAST CANCER DIAGNOSED IN SEPTEMBER 2015, PER FAMILY"breast CA mets to bone and lymphatic system, liver,spleen. pt receiving chemo most recent tx last friday01-20-18". constipation History of Any Multi-Drug Resistant Organisms: None Reported Past Surgical History: Hysterectomy, Tonsillectomy, Tubal Ligation Additional Past Surgical History / Comment(s): RT THYROIDECTOMY. LAPAROSCOPY D/ T Ectopic . BIOPSY MASS LEFT NECK.paracentesis, port a cath placement, excision fibrolipoma/scalp, lt elbow sx Past Anesthesia/Blood Transfusion Reactions: No Reported Reaction Smoking Status: Never smoker - Past Family History Mother Family Medical History: Deep Vein Thrombosis (DVT) Father Family Medical History: Cancer Sister(s) Family Medical History: Cancer Additional Family Medical History / Comment(s): non-hodgkins lymphoma Medications and Allergies Home Medications Medication Instructions Recorded Confirmed Type Docusate Sodium [Dok] 200 mg PO BID 09/15/15 01/26/18 History Loratadine [Claritin] 10 mg PO HS 01/23/17 01/26/18 History Zoledronic Acid [Zometa] 4 mg IVPB Q90D 01/23/17 01/26/18 History Fluticasone Nasal [place] [Flonase 1 spray EA NOSTRIL BID PRN 09/30/17 01/26/18 History Nasal Vian] Levothyroxine Sodium [Synthroid] 75 mcg PO DAILY 09/30/17 01/26/18 History fentaNYL 50MCG/HR PATCH [Duragesic 1 patch TRANSDERM Q72H #1 patch 10/02/17 Rx 50MCG/HR] CARBOplatin [Paraplatin] 1 dose IV DIRECTED 11/08/17 01/26/18 History Gemcitabine HCl [Gemzar] 1,000 mg IV DIRECTED 11/08/17 01/26/18 History Famotidine [Pepcid] 20 mg PO DAILY 01/06/18 01/26/18 History HYDROcodone/APAP 5-325MG [[place] 1 tab PO Q6HR PRN 01/06/18 01/26/18 History 5-325] Simvastatin [Zocor] 10 mg PO HS 01/06/18 01/26/18 History Furosemide [Lasix] 40 mg PO DAILY 01/13/18 01/26/18 History Potassium Chloride [Klor-Con 20 meq PO DAILY 01/14/18 01/26/18 History Packets] Biotin 1000mcg 1 tab PO DAILY 01/26/18 01/26/18 History Polyethylene Glycol 3350 [Miralax] 17 gm PO DAILY PRN 01/26/18 01/26/18 History Allergies Allergy/AdvReac Type Severity Reaction Status Date / Time Penicillins Allergy Rash/Hives Verified 01/26/18 14:33 Sulfa (Sulfonamide Allergy Rash/Hives Verified 09/24/18 14:33 Antibiotics) ibuprofen AdvReac Swelling Verified 01/26/18 14:33 Physical Exam Vitals: Vital Signs Temp Pulse Pulse Resp BP BP Pulse Ox 01/27/18 13:07 98.3 F 95 20 119/76 97 01/27/18 05:00 98.1 F 94 16 108/63 95 01/26/18 21:00 98.0 F 108 H 16 136/78 98 01/26/18 20:23 98 F 101 H 16 128/82 01/26/18 18:57 98.1 F 108 H 18 120/72 98 01/26/18 18:45 97.9 F 106 H 18 107/60 01/26/18 18:30 97.9 F 109 H 18 109/66 01/26/18 18:20 97.9 F 104 H 18 128/62 96 01/26/18 18:06 105 H 18 128/62 98 01/26/18 17:45 98.1 F 104 H 18 133/71 97 01/26/18 16:39 98.5 F 100 18 136/70 99 01/26/18 14:33 98 F 98 18 141/76 98 Intake and Output 01/26/18 01/27/18 01/27/18 22:59 06:59 14:59 Intake Total 885 Balance 885 Intake: Oral 590 Blood Product 295 Platelet Irr Pheresis 295 Acda1 Unit [id number] Other: Voiding Method Bedside Commode Toilet # Voids 1 1 GENERAL: NAD, Alert HEENT: NC, NT. Neck Supple. Sclera Icterus LUNGS: Clear to ausculation. Diminished bibasiliar CARDIOVASCULAR: RRR, S1S2 GASTROINTESTINAL: MAssive Ascites present. Abdomen distended. Hypoactive bowel sounds auscultated x 4 quadrants. EXTREMITIES: 2+ peripheral pulses. 1+ bilateral lower extremity edema. . NEUROLOGIC: No focal Defects PSYCHIATRIC: Awake, alert, and oriented X 3. Appropriate affect. Results CBC & Chem 7: 01/27/18 09:14 01/27/18 09:14 Labs: Abnormal Lab Results - Last 24 Hours (Table) 01/26/18 01/26/18 01/26/18 Range/Units 14:44 15:00 15:00 WBC 1.8 L (3.8-10.6) k/uL RBC 2.63 L (3.80-5.40) m/uL Hgb 8.6 L (11.4-16.0) gm/dL Hct 26.2 L (34.0-46.0) % RDW 21.6 H (11.5-15.5) % Plt Count 13 L* D (150-450) k/uL Neutrophils # 1.2 L (1.3-7.7) k/uL Neutrophils # (Manual) (1.3-7.7) k/uL Lymphocytes # 0.4 L (1.0-4.8) k/uL Lymphocytes # (Manual) (1.0-4.8) k/uL Metamyelocytes # (Man) (0) k/uL Nucleated RBCs (0-0) /100 WBC PT (9.0-12.0) sec INR (<1.2) APTT (22.0-30.0) sec Sodium 133 L (137-145) mmol/L Glucose 157 H (74-99) mg/dL Calcium 7.4 L (8.4-10.2) mg/dL Total Bilirubin 4.9 H (0.2-1.3) mg/dL AST 66 H (14-36) U/L Alkaline Phosphatase 210 H (38-126) U/L Total Protein 4.5 L (6.3-8.2) g/dL Albumin 2.1 L (3.5-5.0) g/dL Urine Appearance Cloudy H (Clear) Urine Protein 1+ H (Negative) Urine Bilirubin 2+ H (Negative) Ur Leukocyte Esterase Trace H (Negative) Urine WBC 12 H (0-5) /hpf Hyaline Casts 23 H (0-2) /lpf Urine Mucus Many H (None) /hpf 01/26/18 01/27/18 01/27/18 Range/Units 15:00 09:14 09:14 WBC 2.2 L (3.8-10.6) k/uL RBC 2.29 L (3.80-5.40) m/uL Hgb 7.4 L (11.4-16.0) gm/dL Hct 22.7 L (34.0-46.0) % RDW 21.3 H (11.5-15.5) % Plt Count 13 L* (150-450) k/uL Neutrophils # (1.3-7.7) k/uL Neutrophils # (Manual) 1.10 L (1.3-7.7) k/uL Lymphocytes # (1.0-4.8) k/uL Lymphocytes # (Manual) 0.79 L (1.0-4.8) k/uL Metamyelocytes # (Man) 0.04 H (0) k/uL Nucleated RBCs 1 H (0-0) /100 WBC PT 12.2 H (9.0-12.0) sec INR 1.3 H (<1.2) APTT 39.6 H (22.0-30.0) sec Sodium 132 L (137-145) mmol/L Glucose 123 H (74-99) mg/dL Calcium 7.4 L (8.4-10.2) mg/dL Total Bilirubin (0.2-1.3) mg/dL AST (14-36) U/L Alkaline Phosphatase (38-126) U/L Total Protein (6.3-8.2) g/dL Albumin (3.5-5.0) g/dL Urine Appearance (Clear) Urine Protein (Negative) Urine Bilirubin (Negative) Ur Leukocyte Esterase (Negative) Urine WBC (0-5) /hpf Hyaline Casts (0-2) /lpf Urine Mucus (None) /hpf Microbiology - Last 24 Hours (Table) 01/26/18 14:44 Urine Culture - Preliminary Urine,Voided Assessment and Plan Plan: Assessment and Recommendations: 1. Metastatic Breast Cancer with Recent Progression and change in treatment - Status Post Cycle 4, day 1 of Chemotherapy with Carboplatin/Gemsar on . No neulasta this cycle secondary to day 8 was suppose to be today - Tumor Markers have trended down since last month 2. Massive Abdominal Ascites: - Likely secondary to underlying liver metastasis - Obtain diagnostic as well as therapeutic Paracentesis - Paracentesis and to obtain Cytology 3. Pancytopenia- Secondary to chemotherapy and metastatic Liver disease: Thrombocytopenia - Platlets 13 today, transfuse one unit of SDP today during procedure - Discussed with Nursing to coordinate with Interventional radiology nurse Leukopenia - Initiate Zarxio if ANC falls below 1, monitor closely for s/s infection Normocytic Anemia - Secondary to likely bone marrow suppression, possible metastatic disease, chemotherapy, liver disease - Recently started Procrik 40K weekly for chemotherapy induced anemia - Transfusion dependant - COntinue to transfuse for Hemoglobin less than 7 - Procrik 40K today as inpatient (receives every Friday) - Will give our formulary [facility] equivalent Physician Attestation: I have completed the full history and physical of this patient and agree with above dictation by mason Olguin NP. Dictated as a scribe.
--- NOTE | 2018-01-27 13:55 | P.GSCN ---
History of Present Illness Consult date: 01/27/18 Reason for Consult: Constipation History of present illness: 67-year-old female being seen at the request of the attending for surgical eval for constipation. Patient is well known to Dr. odell service. Patient did have a MediPort put in [address] odell currently is undergoing chemotherapy for stage IV breast cancer with metastasis to the bone and lymph node. Patient states she has chronic cancer pain has been taken opiate [place] at home 1 every 6 hours as needed. Patient stated that she's been bothered by constipation the last several months. Additionally patient states she had been getting weekly paracentesis for the past 4 weeks for ascites patient's recent paracentesis January 21 at that time 7.3 L were removed. Patient is undergoing the guided paracentesis for palliation of ascites. Patient states her scheduled chemotherapy would be today Did note the patient had an episode in the emergency room going into supraventricular tachycardia. Patient was given 6 g of adenosine and converted to sinus Cardiology consultation has been requested Patient's initial presentation to the emergency room was with chief complaint constipation. Patient states was not able to have a bowel movement for at least a week. Patient had used [id number]-vis-[id number] products with no relief. Patient was given a prescription for lactulose 5 days to coming into the emergency room. Patient states she is lactulose still had no bowel movements. Patient states her abdomen is distended firm and uncomfortable. In the emergency room patient did undergo removal of approximately 750ml of stool. Reviewing the emergency room record indicates that the stool that was remote had some coating of blood on it. Patient stated after the disimpaction of the stool was a decrease in the abdominal discomfort. Since admission still has not had a bowel movement. she has had a colonoscopy 10 years prior no acute findings. Patient does have thrombocytopenia platelets in the emergency room 13. leukopenia white count down 1.8 Review of Systems Essentially unremarkable except as mentioned in the present illness Past Medical History Past Medical History: Cancer, Diabetes Mellitus, Hearing Disorder / Deafness, Hyperlipidemia, Hypertension, Osteoarthritis (OA), Pneumonia, Thyroid Disorder, Vascular Disorder Additional Past Medical History / Comment(s): Thyroid Nodules.VENOUS STASIS,. WAS IP 08/25-08/30/15 W/ CP, CARDIAC W/U NL, HX OF PLEURISY . STAGE 4 BREAST CANCER DIAGNOSED IN SEPTEMBER 2015, PER FAMILY"breast CA mets to bone and lymphatic system, liver,spleen. pt receiving chemo most recent tx last friday01-20-18". constipation History of Any Multi-Drug Resistant Organisms: None Reported Past Surgical History: Hysterectomy, Tonsillectomy, Tubal Ligation Additional Past Surgical History / Comment(s): RT THYROIDECTOMY. LAPAROSCOPY D/ T Ectopic . BIOPSY MASS LEFT NECK.paracentesis, port a cath placement, excision fibrolipoma/scalp, lt elbow sx Past Anesthesia/Blood Transfusion Reactions: No Reported Reaction Smoking Status: Never smoker - Past Family History Mother Family Medical History: Deep Vein Thrombosis (DVT) Father Family Medical History: Cancer Sister(s) Family Medical History: Cancer Additional Family Medical History / Comment(s): non-hodgkins lymphoma Medications and Allergies Home Medications Medication Instructions Recorded Confirmed Type Docusate Sodium [Dok] 200 mg PO BID 09/15/15 01/26/18 History Loratadine [Claritin] 10 mg PO HS 01/23/17 01/26/18 History Zoledronic Acid [Zometa] 4 mg IVPB Q90D 01/23/17 01/26/18 History Fluticasone Nasal [place] [Flonase 1 spray EA NOSTRIL BID PRN 09/30/17 01/26/18 History Nasal [place]] Levothyroxine Sodium [Synthroid] 75 mcg PO DAILY 09/30/17 01/26/18 History fentaNYL 50MCG/HR PATCH [Duragesic 1 patch TRANSDERM Q72H #1 patch 10/02/17 Rx 50MCG/HR] CARBOplatin [Paraplatin] 1 dose IV DIRECTED 11/08/17 01/26/18 History Gemcitabine HCl [Gemzar] 1,000 mg IV DIRECTED 11/08/17 01/26/18 History Famotidine [Pepcid] 20 mg PO DAILY 01/06/18 01/26/18 History HYDROcodone/APAP 5-325MG [[place] 1 tab PO Q6HR PRN 01/06/18 01/26/18 History 5-325] Simvastatin [Zocor] 10 mg PO HS 01/06/18 01/26/18 History Furosemide [Lasix] 40 mg PO DAILY 01/13/18 01/26/18 History Potassium Chloride [Klor-Con 20 meq PO DAILY 01/14/18 01/26/18 History Packets] Biotin 1000mcg 1 tab PO DAILY 01/26/18 01/26/18 History Polyethylene Glycol 3350 [Miralax] 17 gm PO DAILY PRN 01/26/18 01/26/18 History Allergies Allergy/AdvReac Type Severity Reaction Status Date / Time Penicillins Allergy Rash/Hives Verified 01/26/18 14:33 Sulfa (Sulfonamide Allergy Rash/Hives Verified 01/26/18 14:33 Antibiotics) ibuprofen AdvReac Swelling Verified 01/26/18 14:33 Surgical - Exam Vital Signs Temp Pulse Resp BP Pulse Ox 98 F 98 18 141/76 98 01/26/18 14:33 01/26/18 14:33 01/26/18 14:33 01/26/18 14:33 01/26/18 14:33 GENERAL APPEARANCE: Slightly jaundiced 67-year-old female patient sitting up in bed appears in no acute distress VITAL SIGNS: Reviewed HEENT: Head is normocephalic and atraumatic. Pupils are equal and reactive. The nares are patent. Oropharynx is clear without lesions. NECK: Supple without lymphadenopathy. Traches midline. HEART: S1, S2. Regular rate and rhythm. Heart rate in 90s LUNGS: No crackles or wheezes are heard. No shortness of breath sats on room air 97% ABDOMEN: Distended firm diffuse tenderness. Hypoactive bowel tones reports no nausea vomiting EXTREMITIES: Normal skin color and turgor. No cyanosis, rash, ulceration, clubbing or edema. Radial pedal pulses are 2/4 bilaterally. NEUROLOGICAL: No focal deficits. Strength and sensation are grossly intact. Results - Labs 01/27/18 09:14 01/27/18 09:14 Abnormal Lab Results - Last 24 Hours (Table) 01/26/18 01/26/18 01/26/18 Range/Units 14:44 15:00 15:00 WBC 1.8 L (3.8-10.6) k/uL RBC 2.63 L (3.80-5.40) m/uL Hgb 8.6 L (11.4-16.0) gm/dL Hct 26.2 L (34.0-46.0) % RDW 21.6 H (11.5-15.5) % Plt Count 13 L* D (150-450) k/uL Neutrophils # 1.2 L (1.3-7.7) k/uL Neutrophils # (Manual) (1.3-7.7) k/uL Lymphocytes # 0.4 L (1.0-4.8) k/uL Lymphocytes # (Manual) (1.0-4.8) k/uL Metamyelocytes # (Man) (0) k/uL Nucleated RBCs (0-0) /100 WBC PT (9.0-12.0) sec INR (<1.2) APTT (22.0-30.0) sec Sodium 133 L (137-145) mmol/L Glucose 157 H (74-99) mg/dL Calcium 7.4 L (8.4-10.2) mg/dL Total Bilirubin 4.9 H (0.2-1.3) mg/dL AST 66 H (14-36) U/L Alkaline Phosphatase 210 H (38-126) U/L Total Protein 4.5 L (6.3-8.2) g/dL Albumin 2.1 L (3.5-5.0) g/dL Urine Appearance Cloudy H (Clear) Urine Protein 1+ H (Negative) Urine Bilirubin 2+ H (Negative) Ur Leukocyte Esterase Trace H (Negative) Urine WBC 12 H (0-5) /hpf Hyaline Casts 23 H (0-2) /lpf Urine Mucus Many H (None) /hpf 01/26/18 01/27/18 01/27/18 Range/Units 15:00 09:14 09:14 WBC 2.2 L (3.8-10.6) k/uL RBC 2.29 L (3.80-5.40) m/uL Hgb 7.4 L (11.4-16.0) gm/dL Hct 22.7 L (34.0-46.0) % RDW 21.3 H (11.5-15.5) % Plt Count 13 L* (150-450) k/uL Neutrophils # (1.3-7.7) k/uL Neutrophils # (Manual) 1.10 L (1.3-7.7) k/uL Lymphocytes # (1.0-4.8) k/uL Lymphocytes # (Manual) 0.79 L (1.0-4.8) k/uL Metamyelocytes # (Man) 0.04 H (0) k/uL Nucleated RBCs 1 H (0-0) /100 WBC PT 12.2 H (9.0-12.0) sec INR 1.3 H (<1.2) APTT 39.6 H (22.0-30.0) sec Sodium 132 L (137-145) mmol/L Glucose 123 H (74-99) mg/dL Calcium 7.4 L (8.4-10.2) mg/dL Total Bilirubin (0.2-1.3) mg/dL AST (14-36) U/L Alkaline Phosphatase (38-126) U/L Total Protein (6.3-8.2) g/dL Albumin (3.5-5.0) g/dL Urine Appearance (Clear) Urine Protein (Negative) Urine Bilirubin (Negative) Ur Leukocyte Esterase (Negative) Urine WBC (0-5) /hpf Hyaline Casts (0-2) /lpf Urine Mucus (None) /hpf Microbiology - Last 24 Hours (Table) 01/26/18 14:44 Urine Culture - Preliminary Urine,Voided Diabetes panel 01/26/18 01/27/18 Range/Units 15:00 09:14 Sodium 133 L 132 L (137-145) mmol/L Potassium 4.2 4.4 (3.5-5.1) mmol/L Chloride 104 103 (98-107) mmol/L Carbon Dioxide 23 24 (22-30) mmol/L BUN 13 12 (7-17) mg/dL Creatinine 0.59 0.63 (0.52-1.04) mg/dL Glucose 157 H 123 H (74-99) mg/dL Calcium 7.4 L 7.4 L (8.4-10.2) mg/dL AST 66 H (14-36) U/L ALT 45 (9-52) U/L Alkaline Phosphatase 210 H (38-126) U/L Total Protein 4.5 L (6.3-8.2) g/dL Albumin 2.1 L (3.5-5.0) g/dL Thyroid panel 01/27/18 Range/Units 09:14 TSH 4.200 (0.465-4.680) mIU/L Calcium panel 01/26/18 01/27/18 Range/Units 15:00 09:14 Calcium 7.4 L 7.4 L (8.4-10.2) mg/dL Albumin 2.1 L (3.5-5.0) g/dL Pituitary panel 01/26/18 01/27/18 Range/Units 15:00 09:14 Sodium 133 L 132 L (137-145) mmol/L Potassium 4.2 4.4 (3.5-5.1) mmol/L Chloride 104 103 (98-107) mmol/L Carbon Dioxide 23 24 (22-30) mmol/L BUN 13 12 (7-17) mg/dL Creatinine 0.59 0.63 (0.52-1.04) mg/dL Glucose 157 H 123 H (74-99) mg/dL Calcium 7.4 L 7.4 L (8.4-10.2) mg/dL TSH 4.200 (0.465-4.680) mIU/L Adrenal panel 01/26/18 01/27/18 Range/Units 15:00 09:14 Sodium 133 L 132 L (137-145) mmol/L Potassium 4.2 4.4 (3.5-5.1) mmol/L Chloride 104 103 (98-107) mmol/L Carbon Dioxide 23 24 (22-30) mmol/L BUN 13 12 (7-17) mg/dL Creatinine 0.59 0.63 (0.52-1.04) mg/dL Glucose 157 H 123 H (74-99) mg/dL Calcium 7.4 L 7.4 L (8.4-10.2) mg/dL Total Bilirubin 4.9 H (0.2-1.3) mg/dL AST 66 H (14-36) U/L ALT 45 (9-52) U/L Alkaline Phosphatase 210 H (38-126) U/L Total Protein 4.5 L (6.3-8.2) g/dL Albumin 2.1 L (3.5-5.0) g/dL Assessment and Plan Assessment: Impression Present on admission constipation Chronic constipation suspect due to opiate Severe thrombocytopenia Stage IV breast cancer with metastasis to the bone and lymph node Chronic cancer pain Palliative paracentesis for ascites Disimpacted 750ml volume stool removed coated with some blood Anemia of chronic illness Jaundice with an elevated total bilirubin 4.9 Recent paracentesis January 21 7.5 L removed Plan Start MiraLAX as ordered Colace twice a day dosing No colonoscopy is plan for this admission No indication for acute surgical intervention at this time We'll follow with you Surgical consultation note dictated for Dr. odell The above impression and plan of care have been discussed and directed by signing physician. Reta Silva nurse practitioner acting as scribe for signing physician.
[2018-01-27] MEDS ORDERED: FILGRASTIM-SNDZ 480 MCG/0.8 ML SYRINGE SQ SCH (14:00)
--- NOTE | 2018-01-27 14:32 | P.HPIM ---
History of Present Illness H&P Date: 01/27/18 Chief Complaint: Constipation 67-year-old female who presented to the emergency room with a chief complaint of constipation. Patient reports she has been dealing with constipation for awhile. She was started on Lactulose about a week ago. She continued to have constipation and reports she has not had a bowel movement for approximately one week. She came to the ER for further evaluation. She was disimpacted by the ER physician with removal of 750cc stool. According to ER documentation, stool had some blood coating on it. While in the emergency room , the patient had an episode of SVT with a heart rate in the 160s to 170s. She was given 6 mg of adenosine with improvement in her heart rate. The patient does take Synthroid at home and states she has been noncompliant with it over the past week or 2. She does report that she took it yesterday. She denies nausea or vomiting. Denies chest pain or pressure. Reports decreased appetite. Denies dizziness or lightheadedness. Denies fever or chills. The patient has a history of breast cancer that was diagnosed in 2016 with metastases to the bone, liver, and spleen. The patient reports that she sees Dr. Nix outpatient for her cancer treatment. Patient reports she was scheduled to begin another round of chemotherapy today. The patient underwent paracentesis on 01/06/2018 with removal of 6.1 L and again on 01/09/2018 with removal of 4.75L. she also underwent an outpatient paracentesis on January 21 with removal of 7.3 L She also has a history of diabetes, hyperlipidemia, hypertension, osteoarthritis , and venous stasis. She lives at home with her . She is a nonsmoker. KUB x-ray: Nonspecific abdomen. Retained fecal debris seen throughout the colon. Left basilar atelectasis or infiltrate. Laboratory data on admission reveals white count of 1.8. Hemoglobin 8.6. Platelet count 13. Sodium 133. Potassium 4.2. BUN 13. Creatinine 0.59. Glucose 157. Calcium 7.4. Total bilirubin 4.9. AST 66. ALT 45. Alkaline phosphatase 210. The patient was admitted to the hospital under the care of Dr. Coronado. Consultations were placed to oncology, cardiology, and general surgery. Review of Systems Those systems with pertinent positive or pertinent negative responses have been documented in the HPI Past Medical History Past Medical History: Cancer, Diabetes Mellitus, Hearing Disorder / Deafness, Hyperlipidemia, Hypertension, Osteoarthritis (OA), Pneumonia, Thyroid Disorder, Vascular Disorder Additional Past Medical History / Comment(s): Thyroid Nodules.VENOUS STASIS,. WAS IP 08/25-08/30/15 W/ CP, CARDIAC W/U NL, HX OF PLEURISY . STAGE 4 BREAST CANCER DIAGNOSED IN SEPTEMBER 2015, PER FAMILY"breast CA mets to bone and lymphatic system, liver,spleen. pt receiving chemo most recent tx last friday01-20-18". constipation History of Any Multi-Drug Resistant Organisms: None Reported Past Surgical History: Hysterectomy, Tonsillectomy, Tubal Ligation Additional Past Surgical History / Comment(s): RT THYROIDECTOMY. LAPAROSCOPY D/ T Ectopic . BIOPSY MASS LEFT NECK.paracentesis, port a cath placement, excision fibrolipoma/scalp, lt elbow sx Past Anesthesia/Blood Transfusion Reactions: No Reported Reaction Smoking Status: Never smoker - Past Family History Mother Family Medical History: Deep Vein Thrombosis (DVT) Father Family Medical History: Cancer Sister(s) Family Medical History: Cancer Additional Family Medical History / Comment(s): non-hodgkins lymphoma Medications and Allergies Home Medications Medication Instructions Recorded Confirmed Type Docusate Sodium [Dok] 200 mg PO BID 09/15/15 01/26/18 History Loratadine [Claritin] 10 mg PO HS 01/23/17 01/26/18 History Zoledronic Acid [Zometa] 4 mg IVPB Q90D 01/23/17 01/26/18 History Fluticasone Nasal [place] [Flonase 1 spray EA NOSTRIL BID PRN 09/30/17 01/26/18 History Nasal [place]] Levothyroxine Sodium [Synthroid] 75 mcg PO DAILY 09/30/17 01/26/18 History fentaNYL 50MCG/HR PATCH [Duragesic 1 patch TRANSDERM Q72H #1 patch 10/02/17 Rx 50MCG/HR] CARBOplatin [Paraplatin] 1 dose IV DIRECTED 11/08/17 01/26/18 History Gemcitabine HCl [Gemzar] 1,000 mg IV DIRECTED 11/08/17 01/26/18 History Famotidine [Pepcid] 20 mg PO DAILY 01/06/18 01/26/18 History HYDROcodone/APAP 5-325MG [[place] 1 tab PO Q6HR PRN 01/06/18 01/26/18 History 5-325] Simvastatin [Zocor] 10 mg PO HS 01/06/18 01/26/18 History Furosemide [Lasix] 40 mg PO DAILY 01/13/18 01/26/18 History Potassium Chloride [Klor-Con 20 meq PO DAILY 01/14/18 01/26/18 History Packets] Biotin 1000mcg 1 tab PO DAILY 01/26/18 01/26/18 History Polyethylene Glycol 3350 [Miralax] 17 gm PO DAILY PRN 01/26/18 01/26/18 History Allergies Allergy/AdvReac Type Severity Reaction Status Date / Time Penicillins Allergy Rash/Hives Verified 01/26/18 14:33 Sulfa (Sulfonamide Allergy Rash/Hives Verified 01/26/18 14:33 Antibiotics) ibuprofen AdvReac Swelling Verified 01/26/18 14:33 Physical Exam Vitals: Vital Signs Temp Pulse Pulse Resp BP BP Pulse Ox 01/27/18 13:07 98.3 F 95 20 119/76 97 01/27/18 05:00 98.1 F 94 16 108/63 95 01/26/18 21:00 98.0 F 108 H 16 136/78 98 01/26/18 20:23 98 F 101 H 16 128/82 01/26/18 18:57 98.1 F 108 H 18 120/72 98 01/26/18 18:45 97.9 F 106 H 18 107/60 01/26/18 18:30 97.9 F 109 H 18 109/66 01/26/18 18:20 97.9 F 104 H 18 128/62 96 01/26/18 18:06 105 H 18 128/62 98 01/26/18 17:45 98.1 F 104 H 18 133/71 97 01/26/18 16:39 98.5 F 100 18 136/70 99 01/26/18 14:33 98 F 98 18 141/76 98 Intake and Output 01/26/18 01/27/18 01/27/18 22:59 06:59 14:59 Intake Total 885 Balance 885 Intake: Oral 590 Blood Product 295 Platelet Irr Pheresis 295 Acda1 Unit [id number] Other: Voiding Method Bedside Commode Toilet # Voids 1 1 GENERAL: This is a 67-year-old female in no apparent distress at the time of examination. Pleasant and cooperative. HEENT: Head is atraumatic, normocephalic. Pupils are equal, round, and reactive to light. Sclerae anicteric. Conjunctivae are clear. Mucus membranes of the mouth are moist. Neck is supple. RESPIRATORY: Clear to ausculation. No wheezes, rales, or rhonchi. No use of accessory muscles. Patient maintaining oxygen saturation greater than 92%. No chest wall tenderness is noted on palpation or with deep breathing. CARDIOVASCULAR: Regular rate and rhythm. S1 and S2 noted. No systolic or diastolic murmur auscultated. No JVD noted. No S3 or S4 noted. GASTROINTESTINAL: Ascites present. Abdomen distended. Hypoactive bowel sounds auscultated x 4 quadrants. Mild pain and tenderness noted upon palpation. INTEGUMENTARY: Mild jaundice present. No cyanosis. No rashes noted. No cellulitis noted. EXTREMITIES: 2+ peripheral pulses. 1+ bilateral lower extremity edema. No calf tenderness noted. NEUROLOGIC: Cranial nerves II-XII intact. PSYCHIATRIC: Awake, alert, and oriented X 3. Appropriate affect. Intact judgement and insight. Results CBC & Chem 7: 01/27/18 09:14 01/27/18 09:14 Labs: Abnormal Lab Results - Last 24 Hours (Table) 01/26/18 01/26/18 01/26/18 Range/Units 14:44 15:00 15:00 WBC 1.8 L (3.8-10.6) k/uL RBC 2.63 L (3.80-5.40) m/uL Hgb 8.6 L (11.4-16.0) gm/dL Hct 26.2 L (34.0-46.0) % RDW 21.6 H (11.5-15.5) % Plt Count 13 L* D (150-450) k/uL Neutrophils # 1.2 L (1.3-7.7) k/uL Neutrophils # (Manual) (1.3-7.7) k/uL Lymphocytes # 0.4 L (1.0-4.8) k/uL Lymphocytes # (Manual) (1.0-4.8) k/uL Metamyelocytes # (Man) (0) k/uL Nucleated RBCs (0-0) /100 WBC PT (9.0-12.0) sec INR (<1.2) APTT (22.0-30.0) sec Sodium 133 L (137-145) mmol/L Glucose 157 H (74-99) mg/dL Calcium 7.4 L (8.4-10.2) mg/dL Total Bilirubin 4.9 H (0.2-1.3) mg/dL AST 66 H (14-36) U/L Alkaline Phosphatase 210 H (38-126) U/L Total Protein 4.5 L (6.3-8.2) g/dL Albumin 2.1 L (3.5-5.0) g/dL Urine Appearance Cloudy H (Clear) Urine Protein 1+ H (Negative) Urine Bilirubin 2+ H (Negative) Ur Leukocyte Esterase Trace H (Negative) Urine WBC 12 H (0-5) /hpf Hyaline Casts 23 H (0-2) /lpf Urine Mucus Many H (None) /hpf 01/26/18 01/27/18 01/27/18 Range/Units 15:00 09:14 09:14 WBC 2.2 L (3.8-10.6) k/uL RBC 2.29 L (3.80-5.40) m/uL Hgb 7.4 L (11.4-16.0) gm/dL Hct 22.7 L (34.0-46.0) % RDW 21.3 H (11.5-15.5) % Plt Count 13 L* (150-450) k/uL Neutrophils # (1.3-7.7) k/uL Neutrophils # (Manual) 1.10 L (1.3-7.7) k/uL Lymphocytes # (1.0-4.8) k/uL Lymphocytes # (Manual) 0.79 L (1.0-4.8) k/uL Metamyelocytes # (Man) 0.04 H (0) k/uL Nucleated RBCs 1 H (0-0) /100 WBC PT 12.2 H (9.0-12.0) sec INR 1.3 H (<1.2) APTT 39.6 H (22.0-30.0) sec Sodium 132 L (137-145) mmol/L Glucose 123 H (74-99) mg/dL Calcium 7.4 L (8.4-10.2) mg/dL Total Bilirubin (0.2-1.3) mg/dL AST (14-36) U/L Alkaline Phosphatase (38-126) U/L Total Protein (6.3-8.2) g/dL Albumin (3.5-5.0) g/dL Urine Appearance (Clear) Urine Protein (Negative) Urine Bilirubin (Negative) Ur Leukocyte Esterase (Negative) Urine WBC (0-5) /hpf Hyaline Casts (0-2) /lpf Urine Mucus (None) /hpf Microbiology - Last 24 Hours (Table) 01/26/18 14:44 Urine Culture - Preliminary Urine,Voided Assessment and Plan Plan: ASSESSMENT: Constipation, patient reports no bowel movement for 1 week, s/p manual disimpaction with 750cc removed Stool with blood noted in ER, may be secondary to trauma of manual disimpaction combined with severe thrombocytopenia Pancytopenia, secondary to malignancy and chemotherapy Stage IV breast cancer with mets to bone, liver, and spleen. currently undergoing chemotherapy Ascites, s/p paracentesis 3: 6.1 L on 01/06/2018, 4.75 L on 01/09/2018, and 7.3 L on 01/21/2018 SVT, heart rate controlled after administration of adenosine Transaminitis, secondary to metastatic disease Elevated bilirubin with mild jaundice, secondary to liver metastasis Mild hyponatremia Diabetes mellitus, type II Hyperlipidemia Hypertension Hypothyroidism Morbid obesity: BMI 42.4 PLAN: Cardiology on consult. Appreciate recommendations and input Metoprolol added per cardiology. Continue telemetry monitoring. General surgery on consult. Appreciate recommendations and input Monitor hemoglobin Obtain stool for occult blood Miralax, colace, and lactulose Oncology on consult. Await further recommendations and input Home meds as appropriate Monitor labs GI prophylaxis: Pepcid 20mg PO daily DVT prophylaxis: SCDs to bilateral LE Monitor vital signs and address as appropriate Discharge planning: Patient to return home when stable Further recommendations pending patient's course Nurse practitioner note has been reviewed by physician. Signing provider agrees with the documented findings, assessment, and plan of care.
[2018-01-27] MEDS ORDERED: DARBEPOETIN ALFA 100MCG/0.5ML SYRINGE SQ SCH (15:00)
[2018-01-27] MEDS: ATORVASTATIN 10 MG TAB PO SCH (21:50)
[2018-01-27] MEDS: LORATADINE 10 MG TAB PO SCH (21:50)
[2018-01-28] MEDS: HYDROcodone/APAP 5-325MG 1 EACH TAB PO PRN ×4 (04:28→22:49)
[2018-01-28] MEDS: LEVOTHYROXINE 75 MCG TAB PO SCH (06:01)
[2018-01-28 07:43] LABS: Anisocytosis Moderate; Hypochromasia Moderate; MCH 29.6 pg (25.0-35.0); MCV 98.5 fL (80.0-100.0); Macrocytosis Moderate; Mean Platelet Volume 7.9; Poikilocytosis Slight; RBC 2.02 m/uL (3.80-5.40); RDW 20.9 % (11.5-15.5)
[2018-01-28 07:45] LABS: HCT 19.9 % (34.0-46.0)
[2018-01-28 07:48] LABS: Platelet Count 9 k/uL (150-450)
[2018-01-28 08:47] LABS: Band Neutrophils % 4 %; Basophils # (M) 0.03 k/uL (0-0.2); Metamyelocytes % 10 %; Neutrophils % (M) 32 %
[2018-01-28 08:48] LABS: Blast Cells # (M) 0.05 k/uL (0); Eosinophils # (M) 0.05 k/uL (0-0.7); Lymphocytes # (M) 0.84 k/uL (1.0-4.8); Metamyelocytes # (M) 0.27 k/uL (0); Monocytes # (M) 0.27 k/uL (0-1.0); Myelocytes # (M) 0.19 k/uL (0); Myelocytes % 7 %; Nucleated Red Blood Cells 5 /100 WBC (0-0); Polychromasia Present; Promyelocytes # (M) 0.05 k/uL (0); Promyelocytes % 2 %; Total Cells Counted 200; WBC 2.7 k/uL (3.8-10.6)
[2018-01-28] MEDS: POLYETHYLENE GLYCOL 3350 17 GM POWD.PACK PO SCH (08:48)
[2018-01-28] MEDS: FUROSEMIDE 40 MG TAB PO SCH (08:51)
[2018-01-28] MEDS: POTASSIUM CHLORIDE ER 20 MEQ TAB.ER PO SCH (08:51)
[2018-01-28] MEDS: DOCUSATE 100 MG CAP PO SCH ×2 (08:51→21:40)
[2018-01-28] MEDS: METOPROLOL TARTRATE 12.5 MG TAB PO SCH ×2 (08:51→21:40)
[2018-01-28] MEDS: FAMOTIDINE 20 MG TAB PO SCH (08:52)
[2018-01-28] MEDS: LACTULOSE 20 GM/30 ML CUP PO SCH ×4 (08:52→20:23)
[2018-01-28] MEDS ORDERED: LEVOFLOXACIN 750MG-D5W PMX 750 MG in DEXTROSE/WATER 1 150ML.BAG IVPB STA (10:13)
--- NOTE | 2018-01-28 11:33 | US ---
EXAMINATION TYPE: US abdomen limited DATE OF EXAM: 01/28/2018 COMPARISON: 01/21/2018 CLINICAL HISTORY: 67-year-old female with ascites. Fluid check TECHNIQUE: Multiple sonographic images of the 4 abdominal quadrants are obtained for assessment of as cites. FINDINGS: [place] Experimental notes: RUQ, RLQ, LUQ and LLQ scanned. There is moderate ascites, particularly on the righ t. Cirrhotic, nodular appearance to the visualized liver. IMPRESSION: Moderate ascites on the right. This is slightly less than what was seen on 01/21/2018.
--- NOTE | 2018-01-28 11:44 | P.PN ---
Subjective Progress Note Date: 01/28/18 67-year-old female who presented to the emergency room with a chief complaint of constipation. Patient reports she has been dealing with constipation for awhile. She was started on Lactulose about a week ago. She continued to have constipation and reports she has not had a bowel movement for approximately one week. She came to the ER for further evaluation. She was disimpacted by the ER physician with removal of 750cc stool. According to ER documentation, stool had some blood coating on it. While in the emergency room , the patient had an episode of SVT with a heart rate in the 160s to 170s. She was given 6 mg of adenosine with improvement in her heart rate. The patient does take Synthroid at home and states she has been noncompliant with it over the past week or 2. She does report that she took it yesterday. She denies nausea or vomiting. Denies chest pain or pressure. Reports decreased appetite. Denies dizziness or lightheadedness. Denies fever or chills. The patient has a history of breast cancer that was diagnosed in 2016 with metastases to the bone, liver, and spleen. The patient reports that she sees Dr. Nix outpatient for her cancer treatment. Patient reports she was scheduled to begin another round of chemotherapy today. The patient underwent paracentesis on 01/06/2018 with removal of 6.1 L and again on 01/09/2018 with removal of 4.75L. she also underwent an outpatient paracentesis on January 21 with removal of 7.3 L She also has a history of diabetes, hyperlipidemia, hypertension, osteoarthritis , and venous stasis. She lives at home with her . She is a nonsmoker. KUB x-ray: Nonspecific abdomen. Retained fecal debris seen throughout the colon. Left basilar atelectasis or infiltrate. Laboratory data on admission reveals white count of 1.8. Hemoglobin 8.6. Platelet count 13. Sodium 133. Potassium 4.2. BUN 13. Creatinine 0.59. Glucose 157. Calcium 7.4. Total bilirubin 4.9. AST 66. ALT 45. Alkaline phosphatase 210. The patient was admitted to the hospital under the care of Dr. Coronado. Consultations were placed to oncology, cardiology, and general surgery. 01/28/2018 Patient seen and examined at the bedside. Patient states she slept well last night and had a bowel movement. She reports less abdominal pain today. She is scheduled for paracentesis today. Platelet count is 9 this morning. She did receive platelet transfusion yesterday. Patient is also to receive a platelet transfusion now and another unit with her paracentesis. Hemoglobin is 6.0 today. Patient is to receive 1 unit packed RBC transfusion. Patient denies any blood in her stool. Stool for occult blood is ordered and pending collection. Patients urine culture is positive for gram-negative bacilli greater than 100,000 colonies. Patient does report urinary frequency, however she denies dysuria, urgency, or burning with urination. Objective - Vital Signs Vital signs: Vital Signs Temp 97.8 F 01/28/18 10:41 Pulse 76 01/28/18 10:41 Resp 18 01/28/18 10:41 BP 102/69 01/28/18 10:41 Pulse Ox 99 01/28/18 08:53 Intake & Output 01/27/18 01/28/18 01/28/18 18:59 06:59 18:59 Intake Total 160 405 203 Balance 160 405 203 Intake: IV 160 40 0.9 160 40 Blood Product 0 365 203 Platelet Pheresis Acda 0 365 Unit [id number] Platelet Pheresis Acda3 203 Unit [id number] Rc Pheresis As-3 Unit 0 [id number] Other: Voiding Method Toilet Toilet Toilet # Voids 1 - Exam GENERAL: This is a 67-year-old female in no apparent distress at the time of examination. Pleasant and cooperative. HEENT: Head is atraumatic, normocephalic. Pupils are equal, round, and reactive to light. Sclerae anicteric. Conjunctivae are clear. Mucus membranes of the mouth are moist. Neck is supple. RESPIRATORY: Clear to ausculation. No wheezes, rales, or rhonchi. No use of accessory muscles. Patient maintaining oxygen saturation greater than 92%. No chest wall tenderness is noted on palpation or with deep breathing. CARDIOVASCULAR: Regular rate and rhythm. S1 and S2 noted. No systolic or diastolic murmur auscultated. No JVD noted. No S3 or S4 noted. GASTROINTESTINAL: Ascites present. Abdomen distended. Hypoactive bowel sounds auscultated x 4 quadrants. No pain or tenderness tenderness noted upon palpation. INTEGUMENTARY: Mild jaundice present. No cyanosis. No rashes noted. No cellulitis noted. EXTREMITIES: 2+ peripheral pulses. 1+ bilateral lower extremity edema. No calf tenderness noted. NEUROLOGIC: Cranial nerves II-XII intact. PSYCHIATRIC: Awake, alert, and oriented X 3. Appropriate affect. Intact judgement and insight. - Labs CBC & Chem 7: 01/28/18 07:06 01/27/18 09:14 Labs: Abnormal Lab Results - Last 24 Hours (Table) 01/26/18 01/28/18 Range/Units 15:00 07:06 WBC 2.7 L (3.8-10.6) k/uL RBC 2.02 L (3.80-5.40) m/uL Hgb 6.0 L* (11.4-16.0) gm/dL Hct 19.9 L* (34.0-46.0) % MCHC 30.0 L (31.0-37.0) g/dL RDW 20.9 H (11.5-15.5) % Plt Count 9 L* (150-450) k/uL Neutrophils # (Manual) 0.90 L (1.3-7.7) k/uL Lymphocytes # (Manual) 0.84 L (1.0-4.8) k/uL Metamyelocytes # (Man) 0.27 H (0) k/uL Myelocytes # (Manual) 0.19 H (0) k/uL Promyelocytes # (Man) 0.05 H (0) k/uL Blast Cells # (Man) 0.05 H (0) k/uL Nucleated RBCs 5 H (0-0) /100 WBC Crossmatch See Detail Microbiology - Last 24 Hours (Table) 01/26/18 14:44 Urine Culture - Preliminary Urine,Voided Gram Neg Bacilli Assessment and Plan Plan: ASSESSMENT: Constipation, patient reports no bowel movement for 1 week, s/p manual disimpaction with 750cc removed Stool with blood noted in ER, may be secondary to trauma of manual disimpaction combined with severe thrombocytopenia and/or internal hemorrhoids Pancytopenia, secondary to malignancy and chemotherapy Stage IV breast cancer with mets to bone, liver, and spleen. currently undergoing chemotherapy Ascites, s/p paracentesis 3: 6.1 L on 01/06/2018, 4.75 L on 01/09/2018, and 7.3 L on 01/21/2018 SVT, heart rate controlled after administration of adenosine Transaminitis, secondary to metastatic disease Elevated bilirubin with mild jaundice, secondary to liver metastasis Urinary tract infection, present on admission, urine culture positive for gram- negative bacilli greater than 100,000 colonies Mild hyponatremia Diabetes mellitus, type II Hyperlipidemia Hypertension Hypothyroidism Morbid obesity: BMI 42.4 PLAN: Cardiology on consult. Appreciate recommendations and input Metoprolol added per cardiology. Continue telemetry monitoring. General surgery on consult. Appreciate recommendations and input Monitor hemoglobin Obtain stool for occult blood Continue bowel regimen Oncology on consult. Appreciate recommendations and input Patient to receive platelet and RBC transfusion today. Repeat labs in a.m. Patient to undergo paracentesis today Begin Levaquin Await final urine culture Home meds as appropriate Monitor labs GI prophylaxis: Pepcid 20mg PO daily DVT prophylaxis: SCDs to bilateral LE Monitor vital signs and address as appropriate Discharge planning: Patient to return home when stable Further recommendations pending patient's course Nurse practitioner note has been reviewed by physician. Signing provider agrees with the documented findings, assessment, and plan of care.
--- NOTE | 2018-01-28 12:35 | P.PN ---
Subjective Patient is seen and examined laying flat in bed with family at the bedside. Echocardiogram obtained yesterday reveals preserved left ventricular systolic function with ejection fraction 55-60%, mild aortic valve sclerosis and borderline pulmonary hypertension with an RVSP of 37.31 mmHg. She has had no further symptoms of palpitations and telemetry tracings were unremarkable until it was discontinued. Laboratory data reviewed, hemoglobin this morning 6.0, platelets 9, TSH 4.2 and magnesium 2.3. Blood pressure 106/64 heart rate 72 afebrile maintaining oxygen saturation. Patient denies shortness of breath, chest pain or dizziness. She is currently undergoing blood transfusion per oncology. She is scheduled for paracentesis this afternoon. Objective - Vital Signs Vital signs: Vital Signs Temp 97.3 F L 01/28/18 11:29 Pulse 72 01/28/18 11:29 Resp 18 01/28/18 11:29 BP 106/64 01/28/18 11:29 Pulse Ox 100 01/28/18 11:29 Intake & Output 01/27/18 01/28/18 01/28/18 18:59 06:59 18:59 Intake Total 160 405 203 Balance 160 405 203 Intake: IV 160 40 0.9 160 40 Blood Product 0 365 203 Platelet Pheresis Acda 0 365 Unit [id number] Platelet Pheresis Acda3 203 Unit [id number] Rc Pheresis As-3 Unit 0 [id number] Other: Voiding Method Toilet Toilet Toilet # Voids 1 - Exam GENERAL: Well-appearing, well-nourished and in no acute distress. NECK: Supple without JVD or thyromegaly. LUNGS: Breath sounds clear to auscultation bilaterally. Respiration equal and unlabored. No wheezes, rales or rhonchi. HEART: Regular rate and rhythm with faint systolic ejection murmur at the base, no rubs or gallops. S1 and S2 heard. EXTREMITIES: Normal range of motion, trace bilateral lower extremity edema. No clubbing or cyanosis. Peripheral pulses intact. - Labs CBC & Chem 7: 01/28/18 07:06 01/27/18 09:14 Labs: Abnormal Lab Results - Last 24 Hours (Table) 01/26/18 01/28/18 Range/Units 15:00 07:06 WBC 2.7 L (3.8-10.6) k/uL RBC 2.02 L (3.80-5.40) m/uL Hgb 6.0 L* (11.4-16.0) gm/dL Hct 19.9 L* (34.0-46.0) % MCHC 30.0 L (31.0-37.0) g/dL RDW 20.9 H (11.5-15.5) % Plt Count 9 L* (150-450) k/uL Neutrophils # (Manual) 0.90 L (1.3-7.7) k/uL Lymphocytes # (Manual) 0.84 L (1.0-4.8) k/uL Metamyelocytes # (Man) 0.27 H (0) k/uL Myelocytes # (Manual) 0.19 H (0) k/uL Promyelocytes # (Man) 0.05 H (0) k/uL Blast Cells # (Man) 0.05 H (0) k/uL Nucleated RBCs 5 H (0-0) /100 WBC Crossmatch See Detail Microbiology - Last 24 Hours (Table) 01/26/18 14:44 Urine Culture - Preliminary Urine,Voided Gram Neg Bacilli Assessment and Plan Assessment: ASSESSMENT Supraventricular tachycardia Thrombocytopenia Breast cancer with metastasis currently undergoing chemotherapy Hypertension Dyslipidemia Hypothyroid Diabetes mellitus Morbid obesity, BMI 42.4 PLAN Continue with dose of Lopressor 12.5 mg twice a day. Stable from a cardiac perspective. Ongoing medical management. We will continue to follow as needed, please feel free to call with further questions or concerns. Nurse Practitioner note has been reviewed, I agree with a documented findings and plan of care. Patient was seen and examined.
[2018-01-28] MEDS: LEVOFLOXACIN 750 MG TAB PO SCH (12:50)
--- NOTE | 2018-01-28 12:51 | P.PN ---
Subjective Progress Note Date: 01/28/18 67-year-old female seen at bedside family at bedside patient is to receive 1 unit of packed red blood cells for hemoglobin of 6 as well as a unit of platelets. Now and during the paracentesis scheduled for a paracentesis today Abdomen is more distended this morning patient does appear jaundice patient states less abdominal pain and had a bowel movement last evening Objective - Vital Signs Vital signs: Vital Signs Temp 97.3 F L 01/28/18 11:29 Pulse 72 01/28/18 11:29 Resp 18 01/28/18 11:29 BP 106/64 01/28/18 11:29 Pulse Ox 100 01/28/18 11:29 Intake & Output 01/27/18 01/28/18 01/28/18 18:59 06:59 18:59 Intake Total 160 405 203 Balance 160 405 203 Intake: IV 160 40 0.9 160 40 Blood Product 0 365 203 Platelet Pheresis Acda 0 365 Unit [id number] Platelet Pheresis Acda3 203 Unit [id number] Rc Pheresis As-3 Unit 0 [id number] Other: Voiding Method Toilet Toilet Toilet # Voids 1 - Exam Physical exam 67 -year-old female slightly jaundiced resting in bed scheduled today for a paracentesis states slept well last night Lungs diminished at the bases no wheezing no shortness of breath Heart S1-S2 audible no murmur Abdomen significantly distended firm tympanic states had a bowel movement last night generalized edema to the lower extremities ascites, few hypoactive bowel tones noted states no tenderness no pain Extremities bilateral lower extremity edema noted - Labs CBC & Chem 7: 01/28/18 07:06 01/27/18 09:14 Labs: Abnormal Lab Results - Last 24 Hours (Table) 01/26/18 01/28/18 Range/Units 15:00 07:06 WBC 2.7 L (3.8-10.6) k/uL RBC 2.02 L (3.80-5.40) m/uL Hgb 6.0 L* (11.4-16.0) gm/dL Hct 19.9 L* (34.0-46.0) % MCHC 30.0 L (31.0-37.0) g/dL RDW 20.9 H (11.5-15.5) % Plt Count 9 L* (150-450) k/uL Neutrophils # (Manual) 0.90 L (1.3-7.7) k/uL Lymphocytes # (Manual) 0.84 L (1.0-4.8) k/uL Metamyelocytes # (Man) 0.27 H (0) k/uL Myelocytes # (Manual) 0.19 H (0) k/uL Promyelocytes # (Man) 0.05 H (0) k/uL Blast Cells # (Man) 0.05 H (0) k/uL Nucleated RBCs 5 H (0-0) /100 WBC Crossmatch See Detail Microbiology - Last 24 Hours (Table) 01/26/18 14:44 Urine Culture - Preliminary Urine,Voided Gram Neg Bacilli Assessment and Plan Assessment: Impression Present on admission constipation Chronic constipation suspect due to opiate Severe thrombocytopenia Stage IV breast cancer with metastasis to the bone and lymph node Chronic cancer pain Palliative paracentesis for ascites Disimpacted 750ml volume stool removed coated with some blood Anemia of chronic illness Jaundice with an elevated total bilirubin 4.9 Recent paracentesis January 21 7.5 L removed Abdominal distention with ascites scheduled for paracentesis today Elevated bilirubin with mild jaundice likely due to liver metastasis Plan Start MiraLAX as ordered Colace twice a day dosing No colonoscopy is plan for this admission No indication for acute surgical intervention at this time We'll follow with you The above impression and plan of care have been discussed and directed by signing physician. Rtea Silva nurse practitioner acting as scribe for signing physician.
--- NOTE | 2018-01-28 16:13 | US ---
EXAMINATION TYPE: US paracentesis abd w/image DATE OF EXAM: 01/28/2018 COMPARISON: NONE HISTORY: Ascites. PROCEDURE: Maximal barrier technique was utilized. The skin overlying a suitable pocket of fluid was localized with ultrasound and the overlying skin was prepped and draped. Ultrasound was utilized with sterile technique. Lidocaine was used for local anesthesia and a skin jose carlos made with a scalpel. Catheter was advanced under direct ultrasound guidance into a suitable pocket of fluid and approximately 6.2 liter s of serous fluid were removed. Catheter was withdrawn and hemostasis achieved. There is no immedia te complication; the patient is discharged in stable condition. IMPRESSION: STATUS POST ULTRASOUND GUIDED PARACENTESIS FOR PALLIATION OF ASCITES. THIS PROCEDURE WA S PERFORMED BY THE UNDERSIGNED. Specimen submitted for laboratory analysis.
[2018-01-28 19:07] LABS: Appearance,BF Cloudy; Nucleated Cells, Body Fluid 40 /uL; RBC, Body Fluid 2230 /uL
[2018-01-28 19:16] LABS: Mononuclear WBC,Body Fluid 69 %; Polynuclear WBC,Body Fluid 31 %; Total Cells Counted,Body Fluid 100
[2018-01-28] MEDS: LORATADINE 10 MG TAB PO SCH (21:40)
[2018-01-28] MEDS: ATORVASTATIN 10 MG TAB PO SCH (21:40)
[2018-01-29 04:21] LABS: Total Protein, Body Fluid 1105 mg/dL
[2018-01-29] MEDS: LEVOTHYROXINE 75 MCG TAB PO SCH (05:30)
[2018-01-29] MEDS: HYDROcodone/APAP 5-325MG 1 EACH TAB PO PRN ×3 (05:30→17:55)
[2018-01-29 08:13] LABS: ALT 44 U/L (9-52); AST 63 U/L (14-36); Alkaline Phosphatase 199 U/L (38-126); Anion Gap 2 mmol/L; Blood Urea Nitrogen 15 mg/dL (7-17); Calcium 7.2 mg/dL (8.4-10.2); Carbon Dioxide 26 mmol/L (22-30); Chloride 105 mmol/L (98-107); Glucose 113 mg/dL (74-99); Potassium 4.8 mmol/L (3.5-5.1); Sodium 133 mmol/L (137-145); Total Bilirubin 4.6 mg/dL (0.2-1.3); Total Protein 4.3 g/dL (6.3-8.2)
[2018-01-29] MEDS: LACTULOSE 20 GM/30 ML CUP PO SCH ×4 (08:22→21:57)
[2018-01-29] MEDS: POLYETHYLENE GLYCOL 3350 17 GM POWD.PACK PO SCH (08:23)
[2018-01-29] MEDS: DOCUSATE 100 MG CAP PO SCH ×2 (08:23→20:22)
[2018-01-29] MEDS: FAMOTIDINE 20 MG TAB PO SCH (08:24)
[2018-01-29] MEDS: POTASSIUM CHLORIDE ER 20 MEQ TAB.ER PO SCH (08:24)
[2018-01-29] MEDS: FUROSEMIDE 40 MG TAB PO SCH (08:24)
[2018-01-29] MEDS: METOPROLOL TARTRATE 12.5 MG TAB PO SCH ×2 (08:24→20:32)
[2018-01-29 08:29] LABS: Anisocytosis Moderate; HCT 23.8 % (34.0-46.0); Hypochromasia Moderate; MCH 30.9 pg (25.0-35.0); MCV 96.5 fL (80.0-100.0); Macrocytosis Slight; Mean Platelet Volume 7.4; Poikilocytosis Slight; RBC 2.47 m/uL (3.80-5.40); RDW 21.3 % (11.5-15.5)
[2018-01-29 08:38] LABS: HGB 7.6 gm/dL (11.4-16.0)
[2018-01-29 08:39] LABS: Platelet Count 14 k/uL (150-450)
[2018-01-29] MEDS ORDERED: LEVOFLOXACIN 750 MG TAB PO SCH (09:00)
[2018-01-29 09:41] LABS: Band Neutrophils % 8 %; Blast Cells # (M) 0.05 k/uL (0); Metamyelocytes % 6 %; Myelocytes % 8 %; Neutrophils % (M) 46 %; Nucleated Red Blood Cells 4 /100 WBC (0-0); Promyelocytes # (M) 0.05 k/uL (0); Promyelocytes % 1 %; Total Cells Counted 200
[2018-01-29 09:42] LABS: Polychromasia Present
--- NOTE | 2018-01-29 09:48 | P.PN ---
Subjective Progress Note Date: 01/29/18 67-year-old female who presented to the emergency room with a chief complaint of constipation. Patient reports she has been dealing with constipation for awhile. She was started on Lactulose about a week ago. She continued to have constipation and reports she has not had a bowel movement for approximately one week. She came to the ER for further evaluation. She was disimpacted by the ER physician with removal of 750cc stool. According to ER documentation, stool had some blood coating on it. While in the emergency room , the patient had an episode of SVT with a heart rate in the 160s to 170s. She was given 6 mg of adenosine with improvement in her heart rate. The patient does take Synthroid at home and states she has been noncompliant with it over the past week or 2. She does report that she took it yesterday. She denies nausea or vomiting. Denies chest pain or pressure. Reports decreased appetite. Denies dizziness or lightheadedness. Denies fever or chills. The patient has a history of breast cancer that was diagnosed in 2016 with metastases to the bone, liver, and spleen. The patient reports that she sees Dr. Nix outpatient for her cancer treatment. Patient reports she was scheduled to begin another round of chemotherapy today. The patient underwent paracentesis on 01/06/2018 with removal of 6.1 L and again on 01/09/2018 with removal of 4.75L. she also underwent an outpatient paracentesis on January 21 with removal of 7.3 L She also has a history of diabetes, hyperlipidemia, hypertension, osteoarthritis , and venous stasis. She lives at home with her . She is a nonsmoker. KUB x-ray: Nonspecific abdomen. Retained fecal debris seen throughout the colon. Left basilar atelectasis or infiltrate. Laboratory data on admission reveals white count of 1.8. Hemoglobin 8.6. Platelet count 13. Sodium 133. Potassium 4.2. BUN 13. Creatinine 0.59. Glucose 157. Calcium 7.4. Total bilirubin 4.9. AST 66. ALT 45. Alkaline phosphatase 210. The patient was admitted to the hospital under the care of Dr. Coronado. Consultations were placed to oncology, cardiology, and general surgery. 01/28/2018 Patient seen and examined at the bedside. Patient states she slept well last night and had a bowel movement. She reports less abdominal pain today. She is scheduled for paracentesis today. Platelet count is 9 this morning. She did receive platelet transfusion yesterday. Patient is also to receive a platelet transfusion now and another unit with her paracentesis. Hemoglobin is 6.0 today. Patient is to receive 1 unit packed RBC transfusion. Patient denies any blood in her stool. Stool for occult blood is ordered and pending collection. Patients urine culture is positive for gram-negative bacilli greater than 100,000 colonies. Patient does report urinary frequency, however she denies dysuria, urgency, or burning with urination. 01/29/2018 Patient seen and examined at the bedside. Patient is awake and alert. Sitting on the side of the bed eating breakfast. Denies nausea or vomiting. Patient states she has not had a bowel movement this morning but she is passing flatus and states "I think its coming soon". Patient underwent paracentesis yesterday with removal of 6.2 L of serous fluid. Hemoglobin this morning is 7.6, up from 6.0 yesterday. Patient received 1 unit of packed RBCs yesterday. Platelet count is 14 today. Vital signs remain stable. Urine culture is positive for E. coli, which is susceptible to Levaquin. Patient states she is feeling better overall today, but she states she is not quite ready to be discharged home today, but hopefully tomorrow. Objective - Vital Signs Vital signs: Vital Signs Temp 97.8 F 01/29/18 05:00 Pulse 88 01/29/18 05:00 Resp 16 01/29/18 05:00 BP 112/58 01/29/18 05:00 Pulse Ox 96 01/29/18 05:00 Intake & Output 01/28/18 01/29/18 01/29/18 18:59 06:59 18:59 Intake Total 823 590 Balance 823 590 Intake: Oral 590 Blood Product 823 Platelet Pheresis Acda1 0 Unit [id number] Platelet Pheresis Acda3 203 Unit [id number] Rc Pheresis As-3 Unit 310 [id number] Other: Voiding Method Toilet Toilet Toilet # Voids 2 - Exam GENERAL: This is a 67-year-old female in no apparent distress at the time of examination. Pleasant and cooperative. HEENT: Head is atraumatic, normocephalic. Pupils are equal, round, and reactive to light. Sclerae mildly jaundiced. Conjunctivae are clear. Mucus membranes of the mouth are moist. Neck is supple. RESPIRATORY: Clear to ausculation. No wheezes, rales, or rhonchi. No use of accessory muscles. Patient maintaining oxygen saturation greater than 92%. No chest wall tenderness is noted on palpation or with deep breathing. CARDIOVASCULAR: Regular rate and rhythm. S1 and S2 noted. No systolic or diastolic murmur auscultated. No JVD noted. No S3 or S4 noted. GASTROINTESTINAL: Ascites present, although improved. Abdomen distended. Bowel sounds auscultated x 4 quadrants. No pain or tenderness tenderness noted upon palpation. INTEGUMENTARY: Mild jaundice present. No cyanosis. No rashes noted. No cellulitis noted. EXTREMITIES: 2+ peripheral pulses. 1+ bilateral lower extremity edema. No calf tenderness noted. NEUROLOGIC: Cranial nerves II-XII intact. PSYCHIATRIC: Awake, alert, and oriented X 3. Appropriate affect. Intact judgement and insight. - Labs CBC & Chem 7: 01/29/18 07:28 01/29/18 07:28 Labs: Abnormal Lab Results - Last 24 Hours (Table) 01/26/18 01/29/18 01/29/18 Range/Units 15:00 07:28 07:28 RBC 2.47 L (3.80-5.40) m/uL Hgb 7.6 L D (11.4-16.0) gm/dL Hct 23.8 L (34.0-46.0) % RDW 21.3 H (11.5-15.5) % Plt Count 14 L* D (150-450) k/uL Sodium 133 L (137-145) mmol/L Glucose 113 H (74-99) mg/dL Calcium 7.2 L (8.4-10.2) mg/dL Total Bilirubin 4.6 H (0.2-1.3) mg/dL AST 63 H (14-36) U/L Alkaline Phosphatase 199 H (38-126) U/L Total Protein 4.3 L (6.3-8.2) g/dL Albumin 2.0 L (3.5-5.0) g/dL Crossmatch See Detail Microbiology - Last 24 Hours (Table) 09/26/18 15:15 Gram Stain - Preliminary Ascites Fluid Body Fluid Culture - Preliminary 01/26/18 14:44 Urine Culture - Final Urine,Voided Escherichia coli Assessment and Plan Plan: ASSESSMENT: Constipation likely due to chronic opiates, patient reports no bowel movement for 1 week, s/p manual disimpaction with 750cc removed Stool with blood noted in ER, may be secondary to trauma of manual disimpaction combined with severe thrombocytopenia and/or internal hemorrhoids Pancytopenia, secondary to malignancy and chemotherapy Stage IV breast cancer with mets to bone, liver, and spleen. currently undergoing chemotherapy Ascites, s/p paracentesis 4: 6.1 L on 01/06/2018, 4.75 L on 01/09/2018, 7.3 L on 01/21/2018, and 6.2 L on 01/28/2018 SVT, heart rate controlled after administration of adenosine Transaminitis, secondary to metastatic disease Elevated bilirubin with mild jaundice, secondary to liver metastasis Urinary tract infection, present on admission, urine culture positive E. coli Mild hyponatremia Diabetes mellitus, type II Hyperlipidemia Hypertension Hypothyroidism Morbid obesity: BMI 42.4 PLAN: Cardiology on consult. Appreciate recommendations and input Metoprolol added per cardiology. General surgery on consult. Appreciate recommendations and input Monitor hemoglobin and platelet count Continue bowel regimen Continue Levaquin Oncology on consult. Appreciate recommendations and input Home meds as appropriate Monitor labs GI prophylaxis: Pepcid 20mg PO daily DVT prophylaxis: SCDs to bilateral LE Monitor vital signs and address as appropriate Discharge planning: Patient to return home when stable Further recommendations pending patient's course Anticipate discharge home tomorrow if patient remains stable Nurse practitioner note has been reviewed by physician. Signing provider agrees with the documented findings, assessment, and plan of care.
[2018-01-29] MEDS: LEVOFLOXACIN 750 MG TAB PO SCH (11:57)
[2018-01-29] MEDS: ONDANSETRON 4 MG/2 ML VIAL IVP PRN ×2 (13:04→21:04)
--- NOTE | 2018-01-29 13:29 | P.PN ---
Subjective Progress Note Date: 01/29/18 The patient feels much more comfortable, in terms of abdominal discomfort and bleeding after paracentesis yesterday. She tolerated that well without complications. She had a reasonable bowel movement today. No history of fevers /chills/nausea/vomiting Objective - Vital Signs Vital signs: Vital Signs Temp 97.5 F L 01/29/18 12:49 Pulse 81 01/29/18 12:49 Resp 18 01/29/18 12:49 BP 97/64 01/29/18 12:49 Pulse Ox 99 01/29/18 12:49 Intake & Output 01/28/18 01/29/18 01/29/18 18:59 06:59 18:59 Intake Total 823 590 Balance 823 590 Intake: Oral 590 Blood Product 823 Platelet Pheresis Acda1 0 Unit [id number] Platelet Pheresis Acda3 203 Unit [id number] Rc Pheresis As-3 Unit 310 [id number] Other: Voiding Method Toilet Toilet Toilet # Voids 2 2 - Constitutional General appearance: Present: no acute distress - EENT Eyes: Present: EOMI, scleral icterus ENT: Present: normal oropharynx - Respiratory Respiratory: bilateral: diminished - Cardiovascular Rhythm: regular Heart sounds: normal: S1, S2 - Gastrointestinal General gastrointestinal: Present: distended, soft - Integumentary Integumentary: Present: normal - Musculoskeletal Musculoskeletal: Present: generalized weakness, strength equal bilaterally - Psychiatric Psychiatric: Present: A&O x's 3, appropriate affect - Labs CBC & Chem 7: 01/29/18 07:28 01/29/18 07:28 Labs: Abnormal Lab Results - Last 24 Hours (Table) 01/26/18 01/29/18 01/29/18 Range/Units 15:00 07:28 07:28 RBC 2.47 L (3.80-5.40) m/uL Hgb 7.6 L D (11.4-16.0) gm/dL Hct 23.8 L (34.0-46.0) % RDW 21.3 H (11.5-15.5) % Plt Count 14 L* D (150-450) k/uL Lymphocytes # (Manual) 0.80 L (1.0-4.8) k/uL Metamyelocytes # (Man) 0.30 H (0) k/uL Myelocytes # (Manual) 0.40 H (0) k/uL Promyelocytes # (Man) 0.05 H (0) k/uL Blast Cells # (Man) 0.05 H (0) k/uL Nucleated RBCs 4 H (0-0) /100 WBC Sodium 133 L (137-145) mmol/L Glucose 113 H (74-99) mg/dL Calcium 7.2 L (8.4-10.2) mg/dL Total Bilirubin 4.6 H (0.2-1.3) mg/dL AST 63 H (14-36) U/L Alkaline Phosphatase 199 H (38-126) U/L Total Protein 4.3 L (6.3-8.2) g/dL Albumin 2.0 L (3.5-5.0) g/dL Crossmatch See Detail Microbiology - Last 24 Hours (Table) 01/28/18 15:15 Gram Stain - Preliminary Ascites Fluid Body Fluid Culture - Preliminary 01/26/18 14:44 Urine Culture - Final Urine,Voided Escherichia coli Assessment and Plan (1) Ascites Narrative/Plan: This is nonmalignant, and due to liver decompensation. The patient has been requiring regular large volume paracentesis. She feels much better in terms of her presenting complaints, after the paracentesis yesterday, which he tolerated well with platelet transfusion. Continue paracentesis when necessary. The patient is on diuretics also. Current Visit: No Status: Acute Code(s): R18.8 - OTHER ASCITES SNOMED Code (s): 664752250 (2) Metastatic breast cancer Narrative/Plan: The patient has responded to her current regimen, with steady and significant decrease in her tumor markers. However hematologic tolerance has been poor, with need for frequent transfusions despite dose reduction and growth factors. In addition there is concern for progressive liver damage from the chemotherapy itself. She was supposed to have day 8 of her current cycle this week. This will be postponed to next week. At that time chemotherapy will be stopped and she'll be switched to targeted agents Current Visit: No Status: Acute Code(s): C50.919 - MALIGNANT NEOPLASM OF UNSP SITE OF UNSPECIFIED FEMALE BREAST SNOMED Code(s): 913125174 (3) Pancytopenia Narrative/Plan: Due to anti-neoplastic chemotherapy. The patient has required regular transfusion support, despite dose reductions of her chemotherapy does and growth factors. She received a unit of blood and platelets yesterday, with counts and a safe range today with hemoglobin greater than 7 and platelets greater than 10, with no obvious bleeding. Continue monitoring inpatient and outpatient with growth factor use, and transient support as needed Current Visit: Yes Status: Acute Code(s): D61.818 - OTHER PANCYTOPENIA SNOMED Code(s): 018590379 Plan: okay to discharge from oncology standpt
--- NOTE | 2018-01-29 14:09 | P.PN ---
Subjective Progress Note Date: 01/29/18 Patient seen at the bedside sitting up in a chair states breathing is easier after having paracentesis yesterday were 6.8 L were was removed patient states less abdominal pain. Tolerating diet. States had no bowel movement today. Denying any fever chills nausea vomiting hemoglobin this morning 7.6 platelets are up to 14 Objective - Vital Signs Vital signs: Vital Signs Temp 97.5 F L 01/29/18 12:49 Pulse 81 01/29/18 12:49 Resp 18 01/29/18 12:49 BP 97/64 01/29/18 12:49 Pulse Ox 99 01/29/18 12:49 Intake & Output 01/28/18 01/29/18 01/29/18 18:59 06:59 18:59 Intake Total 823 590 Balance 823 590 Intake: Oral 590 Blood Product 823 Platelet Pheresis Acda1 0 Unit [id number] Platelet Pheresis Acda3 203 Unit [id number] Rc Pheresis As-3 Unit 310 [id number] Other: Voiding Method Toilet Toilet Toilet # Voids 2 2 - Exam Physical exam 67 -year-old female slightly jaundiced sitting up in a chair states there is an improvement in the breathing and abdominal pain at the paracentesis done yesterday Lungs diminished at the bases no wheezing no shortness of breath Heart S1-S2 audible no murmur Abdomen less distention no nausea no vomiting no stool today reports tolerating a diet few hypoactive bowel tones noted states no tenderness no pain Extremities bilateral lower extremity edema noted - Labs CBC & Chem 7: 01/29/18 07:28 01/29/18 07:28 Labs: Abnormal Lab Results - Last 24 Hours (Table) 01/26/18 01/29/18 01/29/18 Range/Units 15:00 07:28 07:28 RBC 2.47 L (3.80-5.40) m/uL Hgb 7.6 L D (11.4-16.0) gm/dL Hct 23.8 L (34.0-46.0) % RDW 21.3 H (11.5-15.5) % Plt Count 14 L* D (150-450) k/uL Lymphocytes # (Manual) 0.80 L (1.0-4.8) k/uL Metamyelocytes # (Man) 0.30 H (0) k/uL Myelocytes # (Manual) 0.40 H (0) k/uL Promyelocytes # (Man) 0.05 H (0) k/uL Blast Cells # (Man) 0.05 H (0) k/uL Nucleated RBCs 4 H (0-0) /100 WBC Sodium 133 L (137-145) mmol/L Glucose 113 H (74-99) mg/dL Calcium 7.2 L (8.4-10.2) mg/dL Total Bilirubin 4.6 H (0.2-1.3) mg/dL AST 63 H (14-36) U/L Alkaline Phosphatase 199 H (38-126) U/L Total Protein 4.3 L (6.3-8.2) g/dL Albumin 2.0 L (3.5-5.0) g/dL Crossmatch See Detail Microbiology - Last 24 Hours (Table) 01/28/18 15:15 Gram Stain - Preliminary Ascites Fluid Body Fluid Culture - Preliminary 01/26/18 14:44 Urine Culture - Final Urine,Voided Escherichia coli Assessment and Plan Assessment: Impression Present on admission constipation Chronic constipation suspect due to opiate Severe thrombocytopenia Stage IV breast cancer with metastasis to the bone and lymph node Chronic cancer pain Palliative paracentesis for ascites Disimpacted 750ml volume stool removed coated with some blood Anemia of chronic illness Jaundice with an elevated total bilirubin 4.9 Recent paracentesis January 21 7.5 L removed Abdominal distention with ascites scheduled for paracentesis today Elevated bilirubin with mild jaundice likely due to liver metastasis Status post paracentesis on January 28 with 6.7 L removed Plan Start MiraLAX as ordered Colace twice a day dosing No colonoscopy is plan for this admission No indication for acute surgical intervention at this time We'll follow with you The above impression and plan of care have been discussed and directed by signing physician. Reta Silva nurse practitioner acting as scribe for signing physician.
[2018-01-29] MEDS: ATORVASTATIN 10 MG TAB PO SCH (20:22)
[2018-01-29] MEDS: LORATADINE 10 MG TAB PO SCH (20:22)
[2018-01-30] MEDS: HYDROcodone/APAP 5-325MG 1 EACH TAB PO PRN ×2 (05:17→13:15)
[2018-01-30 05:45] VITALS: BP 98/64; PULSE 82; RESP 16; TEMP 97.7
[2018-01-30] MEDS: LEVOTHYROXINE 75 MCG TAB PO SCH (06:14)
[2018-01-30] MEDS: LACTULOSE 20 GM/30 ML CUP PO SCH ×3 (08:30→13:36)
[2018-01-30] MEDS: METOPROLOL TARTRATE 12.5 MG TAB PO SCH (08:35)
[2018-01-30] MEDS: POLYETHYLENE GLYCOL 3350 17 GM POWD.PACK PO SCH (08:35)
[2018-01-30] MEDS: FAMOTIDINE 20 MG TAB PO SCH (08:35)
[2018-01-30] MEDS: DOCUSATE 100 MG CAP PO SCH (08:35)
[2018-01-30] MEDS: POTASSIUM CHLORIDE ER 20 MEQ TAB.ER PO SCH (08:35)
[2018-01-30] MEDS: FUROSEMIDE 40 MG TAB PO SCH (08:36)
[2018-01-30 09:45] LABS: Anisocytosis Moderate; HCT 24.2 % (34.0-46.0); Hypochromasia Moderate; MCH 32.2 pg (25.0-35.0); MCHC 32.9 g/dL (31.0-37.0); MCV 97.9 fL (80.0-100.0); Macrocytosis Moderate; Mean Platelet Volume 9.1; Poikilocytosis Slight; RBC 2.48 m/uL (3.80-5.40); RDW 22.3 % (11.5-15.5)
[2018-01-30 10:03] LABS: Platelet Count 13 k/uL (150-450)
--- NOTE | 2018-01-30 10:44 | P.DS ---
Providers Date of admission: 01/26/18 17:12 Expected date of discharge: 01/30/18 Attending physician: Jamar Coronado Consults: 01/26/18 17:12 Consult Physician Routine Consulting Provider: Arsalan Cano Consult Reason/Comments: GI bleed, possible colonoscopy Do you want consulting provider notified?: Yes Consult Physician Routine Consulting Provider: Edward Nix Consult Reason/Comments: oncologist, thrombocytopenia Do you want consulting provider notified?: Yes 01/26/18 18:15 Consult Physician Routine Consulting Provider: Abhijit Marrufo Consult Reason/Comments: SVT Do you want consulting provider notified?: Yes Primary care physician: Jamar Coronado [facility] Course: 67-year-old female who presented to the emergency room with a chief complaint of constipation. Patient reports she has been dealing with constipation for awhile. She was started on Lactulose about a week ago. She continued to have constipation and reports she has not had a bowel movement for approximately one week. She came to the ER for further evaluation. She was disimpacted by the ER physician with removal of 750cc stool. According to ER documentation, stool had some blood coating on it. While in the emergency room , the patient had an episode of SVT with a heart rate in the 160s to 170s. She was given 6 mg of adenosine with improvement in her heart rate. The patient does take Synthroid at home and states she has been noncompliant with it over the past week or 2. She does report that she took it yesterday. She denies nausea or vomiting. Denies chest pain or pressure. Reports decreased appetite. Denies dizziness or lightheadedness. Denies fever or chills. The patient has a history of breast cancer that was diagnosed in 2016 with metastases to the bone, liver, and spleen. The patient reports that she sees Dr. Nix outpatient for her cancer treatment. Patient reports she was scheduled to begin another round of chemotherapy today. The patient underwent paracentesis on 01/06/2018 with removal of 6.1 L and again on 01/09/2018 with removal of 4.75L. she also underwent an outpatient paracentesis on January 21 with removal of 7.3 L She also has a history of diabetes, hyperlipidemia, hypertension, osteoarthritis , and venous stasis. She lives at home with her . She is a nonsmoker. KUB x-ray: Nonspecific abdomen. Retained fecal debris seen throughout the colon. Left basilar atelectasis or infiltrate. Laboratory data on admission reveals white count of 1.8. Hemoglobin 8.6. Platelet count 13. Sodium 133. Potassium 4.2. BUN 13. Creatinine 0.59. Glucose 157. Calcium 7.4. Total bilirubin 4.9. AST 66. ALT 45. Alkaline phosphatase 210. The patient was admitted to the hospital under the care of Dr. Coronado. Consultations were placed to oncology, cardiology, and general surgery. 01/28/2018 Patient seen and examined at the bedside. Patient states she slept well last night and had a bowel movement. She reports less abdominal pain today. She is scheduled for paracentesis today. Platelet count is 9 this morning. She did receive platelet transfusion yesterday. Patient is also to receive a platelet transfusion now and another unit with her paracentesis. Hemoglobin is 6.0 today. Patient is to receive 1 unit packed RBC transfusion. Patient denies any blood in her stool. Stool for occult blood is ordered and pending collection. Patients urine culture is positive for gram-negative bacilli greater than 100,000 colonies. Patient does report urinary frequency, however she denies dysuria, urgency, or burning with urination. 01/29/2018 Patient seen and examined at the bedside. Patient is awake and alert. Sitting on the side of the bed eating breakfast. Denies nausea or vomiting. Patient states she has not had a bowel movement this morning but she is passing flatus and states "I think its coming soon". Patient underwent paracentesis yesterday with removal of 6.2 L of serous fluid. Hemoglobin this morning is 7.6, up from 6.0 yesterday. Patient received 1 unit of packed RBCs yesterday. Platelet count is 14 today. Vital signs remain stable. Urine culture is positive for E. coli, which is susceptible to Levaquin. Patient states she is feeling better overall today, but she states she is not quite ready to be discharged home today, but hopefully tomorrow. 01/30/2018 Patient seen and examined at the bedside. Denies SOB or chest pain. Reports she had a BM yesterday. She is stable for discharge home today. She is to follow up outpatient with Dr. Coronado and all consulting providers. DISCHARGE DIAGNOSIS: Constipation likely due to chronic opiates, patient reports no bowel movement for 1 week, s/p manual disimpaction with 750cc removed Stool with blood noted in ER, may be secondary to trauma of manual disimpaction combined with severe thrombocytopenia and/or internal hemorrhoids Pancytopenia, secondary to malignancy and chemotherapy Stage IV breast cancer with mets to bone, liver, and spleen. currently undergoing chemotherapy Ascites, s/p paracentesis 4: 6.1 L on 01/06/2018, 4.75 L on 01/09/2018, 7.3 L on 01/21/2018, and 6.2 L on 01/28/2018 SVT, heart rate controlled after administration of adenosine Transaminitis, secondary to metastatic disease Elevated bilirubin with mild jaundice, secondary to liver metastasis Urinary tract infection, present on admission, urine culture positive E. coli Mild hyponatremia Diabetes mellitus, type II Hyperlipidemia Hypertension Hypothyroidism Morbid obesity: BMI 42.4 Nurse practitioner note has been reviewed by physician. Signing provider agrees with the documented findings, assessment, and plan of care. Patient Condition at Discharge: Stable Plan - Discharge Summary Discharge Rx Participant: No New Discharge Prescriptions: New Levofloxacin [Levaquin] 750 mg PO DAILY@1200 #4 tab Metoprolol Tartrate [Lopressor] 12.5 mg PO BID #60 tab Lactulose 30 gm PO QID #5400 ml Continue Docusate Sodium [Dok] 200 mg PO BID Zoledronic Acid [Zometa] 4 mg IVPB Q90D Loratadine [Claritin] 10 mg PO HS Levothyroxine Sodium [Synthroid] 75 mcg PO DAILY Fluticasone Nasal [place] [Flonase Nasal [place]] 1 spray EA NOSTRIL BID PRN PRN Reason: Allergy Symptoms fentaNYL 50MCG/HR PATCH [Duragesic 50MCG/HR] 1 patch TRANSDERM Q72H #1 patch Gemcitabine HCl [Gemzar] 1,000 mg IV DIRECTED CARBOplatin [Paraplatin] 1 dose IV DIRECTED Simvastatin [Zocor] 10 mg PO HS HYDROcodone/APAP 5-325MG [[place] 5-325] 1 tab PO Q6HR PRN PRN Reason: Pain Famotidine [Pepcid] 20 mg PO DAILY Furosemide [Lasix] 40 mg PO DAILY Potassium Chloride [Klor-Con Packets] 20 meq PO DAILY Biotin 1000mcg 1 tab PO DAILY Polyethylene Glycol 3350 [Miralax] 17 gm PO DAILY PRN PRN Reason: Constipation Discharge Medication List Docusate Sodium [Dok] 200 mg PO BID 09/15/15 [History] Loratadine [Claritin] 10 mg PO HS 01/23/17 [History] Zoledronic Acid [Zometa] 4 mg IVPB Q90D 01/23/17 [History] Fluticasone Nasal [place] [Flonase Nasal [place]] 1 spray EA NOSTRIL BID PRN [History] Levothyroxine Sodium [Synthroid] 75 mcg PO DAILY 09/30/17 [History] fentaNYL 50MCG/HR PATCH [[place] 50MCG/HR] 1 patch TRANSDERM Q72H #1 patch [Rx] CARBOplatin [Paraplatin] 1 dose IV DIRECTED 11/08/17 [History] Gemcitabine HCl [Gemzar] 1,000 mg IV DIRECTED 11/08/17 [History] Famotidine [Pepcid] 20 mg PO DAILY 01/06/18 [History] HYDROcodone/APAP 5-325MG [[place] 5-325] 1 tab PO Q6HR PRN 01/06/18 [History] Simvastatin [Zocor] 10 mg PO HS 01/06/18 [History] Furosemide [Lasix] 40 mg PO DAILY 01/13/18 [History] Potassium Chloride [Klor-Con Packets] 20 meq PO DAILY 01/14/18 [History] Biotin 1000mcg 1 tab PO DAILY 01/26/18 [History] Polyethylene Glycol 3350 [Miralax] 17 gm PO DAILY PRN 01/26/18 [History] Lactulose 30 gm PO QID #5400 ml 01/30/18 [Rx] Levofloxacin [Levaquin] 750 mg PO DAILY@1200 #4 tab 01/30/18 [Rx] Metoprolol Tartrate [Lopressor] 12.5 mg PO BID #60 tab 01/30/18 [Rx] Follow up Appointment(s)/Referral(s): Edward Nix MD [STAFF PHYSICIAN] - 02/06/18 12:15 pm (Chemo on Friday at 1:00 pm. ) Jamar Coronado DO [Primary Care Provider] - 02/06/18 10:20 am Supriya Wilder MD [STAFF PHYSICIAN] - 02/13/18 2:30 pm Patient Instructions/Handouts: Metoprolol (By mouth), Lactulose (By mouth), Levofloxacin (By mouth), Thrombocytopenia (DC) Discharge Disposition: HOME SELF-CARE
[2018-01-30 10:54] LABS: Band Neutrophils % 8 %; Metamyelocytes % 10 %; Myelocytes % 3 %
[2018-01-30 10:57] LABS: Polychromasia Present
[2018-01-30 11:01] LABS: Nucleated Red Blood Cells 1 /100 WBC (0-0)
[2018-01-30 11:04] LABS: Promyelocytes # (M) 0.06 k/uL (0); Promyelocytes % 1 %
[2018-01-30 11:05] LABS: Lymphocytes # (M) 0.99 k/uL (1.0-4.8); Metamyelocytes # (M) 0.58 k/uL (0); Monocytes # (M) 0.58 k/uL (0-1.0); Myelocytes # (M) 0.17 k/uL (0); Neutrophils % (M) 52 %; Total Cells Counted 203; WBC 5.8 k/uL (3.8-10.6)
[2018-01-30] MEDS: LEVOFLOXACIN 750 MG TAB PO SCH (13:15)
== END 2018-01-30 14:55 | disposition home or self-care (01) | DRG 391 ==
LOC: EC 14:15 → 5ONC 17:12
PROVIDERS: ADMIT Family Medicine; ATTEND Family Medicine
PROC: 30233R1 Transfusion of Nonautologous Platelets into Peripheral Vein, Percutaneous Approach (ICD-10-PCS; principal; 2018-01-26)
PROC: 30233N1 Transfusion of Nonautologous Red Blood Cells into Peripheral Vein, Percutaneous Approach (ICD-10-PCS; 2018-01-26)
PROC: 3E1H78Z Irrigation of Lower GI using Irrigating Substance, Via Natural or Artificial Opening (ICD-10-PCS; 2018-01-26)
PROC: 0W9G3ZZ Drainage of Peritoneal Cavity, Percutaneous Approach (ICD-10-PCS; 2018-01-26)
DX: K59.03 Drug induced constipation (principal); D61.810 Antineoplastic chemotherapy induced pancytopenia; C78.7 Secondary malignant neoplasm of liver and intrahepatic bile duct; C79.51 Secondary malignant neoplasm of bone; E87.1 Hypo-osmolality and hyponatremia; I47.1 Supraventricular tachycardia; J90 Pleural effusion, not elsewhere classified; J98.11 Atelectasis; N39.0 Urinary tract infection, site not specified; R18.8 Other ascites; Z68.41 Body mass index [BMI] 40.0-44.9, adult; T40.0X5A Adverse effect of opium, initial encounter; C50.919 Malignant neoplasm of unspecified site of unspecified female breast; T45.1X5A Adverse effect of antineoplastic and immunosuppressive drugs, initial encounter; E11.9 Type 2 diabetes mellitus without complications; E66.01 Morbid (severe) obesity due to excess calories; E78.5 Hyperlipidemia, unspecified; E89.0 Postprocedural hypothyroidism; G89.3 Neoplasm related pain (acute) (chronic); H91.90 Unspecified hearing loss, unspecified ear; I10 Essential (primary) hypertension; I27.20 Pulmonary hypertension, unspecified; I35.8 Other nonrheumatic aortic valve disorders; I87.8 Other specified disorders of veins; K74.60 Unspecified cirrhosis of liver; B96.20 Unspecified Escherichia coli [E. coli] as the cause of diseases classified elsewhere; Z79.899 Other long term (current) drug therapy; Z79.890 Hormone replacement therapy; Z80.7 Family history of other malignant neoplasms of lymphoid, hematopoietic and related tissues; Z90.710 Acquired absence of both cervix and uterus; Z91.19 Patient's noncompliance with other medical treatment and regimen; M19.90 Unspecified osteoarthritis, unspecified site; K64.8 Other hemorrhoids; Z83.2 Family history of diseases of the blood and blood-forming organs and certain disorders involving the immune mechanism; Z88.6 Allergy status to analgesic agent; Z88.0 Allergy status to penicillin; Z88.2 Allergy status to sulfonamides; Z87.01 Personal history of pneumonia (recurrent); Z79.891 Long term (current) use of opiate analgesic; R74.0 Nonspecific elevation of levels of transaminase and lactic acid dehydrogenase [LDH]
CPT/HCPCS: 36415; 36430; 49083; 74018; 76705; 80048; 80053; 81001; 82945; 83615; 83690; 83735; 84157; 84443; 85025; 85610; 85730; 86850; 86900; 86901; 86920; 87070; 87077; 87086; 87186; 87205; 89050; 93005; 93306; 96374; 99285

== ENCOUNTER 2018-02-04 10:59 | Day surgery (SDC) | payer MEDICARE, BC ==
[2018-02-04 14:28] VITALS: BP 99/61; PULSE 74; RESP 18
--- NOTE | 2018-02-04 15:56 | US ---
EXAMINATION TYPE: US paracentesis abd w/image DATE OF EXAM: 02/04/2018 COMPARISON: NONE HISTORY: Ascites. PROCEDURE: Maximal barrier technique was utilized. The skin overlying a suitable pocket of fluid was localized with ultrasound and the overlying skin was prepped and draped. Ultrasound was utilized with sterile technique. Lidocaine was used for local anesthesia and a skin jose carlos made with a scalpel. Catheter was advanced under direct ultrasound guidance into a suitable pocket of fluid and approximately 7.2 liter s of serous fluid were removed. Catheter was withdrawn and hemostasis achieved. There is no immedia te complication; the patient is discharged in stable condition. IMPRESSION: STATUS POST ULTRASOUND GUIDED PARACENTESIS FOR PALLIATION OF ASCITES. THIS PROCEDURE WA S PERFORMED BY THE UNDERSIGNED.
== END 2018-02-04 14:40 | disposition home or self-care (01) ==
LOC: RADPROMAIN 10:59
PROVIDERS: ATTEND Internal Medicine Hematology & Oncology
DX: R18.8 Other ascites (principal); C50.311 Malignant neoplasm of lower-inner quadrant of right female breast
CPT/HCPCS: 85610; 49083; 36430; 36591; P9035; J1642

== ENCOUNTER 2018-02-11 12:21 | Day surgery (SDC) | payer MEDICARE, BC ==
[2018-02-11 12:57] LABS: Glucose,Whole Blood 140 mg/dL (75-99)
[2018-02-11 13:19] VITALS: RESP 18
[2018-02-11 13:31] VITALS: TEMP 97.7
[2018-02-11 14:21] VITALS: BP 104/61; PULSE 80
--- NOTE | 2018-02-11 14:41 | US ---
Therapeutic paracentesis. DATE OF EXAM: 02/11/2018 CLINICAL HISTORY: Ascites The procedure was discussed with the patient. The risks, complications, benefits, and alternatives we re discussed and any questions were answered. Informed consent was obtained. The patient was placed s upine on the ultrasound table and prepped and draped in the usual sterile fashion. All elements of maximal barrier technique were utilized. Under ultrasound guidance, access into the right lower quadrant was obtained, via the paracentesis catheter system and direct ultrasound guidanc e. Approximately 6.7 liters of straw-colored fluid was removed. The patient was stable throughout the pr ocedure and remained stable upon discharge from Department of Radiology. IMPRESSION: Successful therapeutic paracentesis under ultrasound guidance.
== END 2018-02-11 14:30 | disposition home or self-care (01) ==
LOC: RADPROMAIN 12:21
PROVIDERS: ATTEND Internal Medicine Hematology & Oncology
DX: R18.8 Other ascites (principal); D69.59 Other secondary thrombocytopenia; C50.311 Malignant neoplasm of lower-inner quadrant of right female breast
CPT/HCPCS: 82565; 85049; 85610; 49083; 36430; 36591; P9016; P9035; J1642

== ENCOUNTER 2018-02-18 12:20 | Day surgery (SDC) | payer MEDICARE, BC ==
[2018-02-18 12:42] VITALS: RESP 18
[2018-02-18 12:50] LABS: INR 1.3 (<1.2); Prothrombin Time 12.6 sec (9.0-12.0)
[2018-02-18 14:08] LABS: Glucose,Whole Blood 154 mg/dL (75-99)
[2018-02-18 14:48] VITALS: BP 109/64; PULSE 78; TEMP 97.7
--- NOTE | 2018-02-18 15:20 | US ---
EXAMINATION TYPE: US paracentesis abd w/image DATE OF EXAM: 02/18/2018 COMPARISON: NONE HISTORY: Ascites. PROCEDURE: Maximal barrier technique was utilized. The skin overlying a suitable pocket of fluid was localized with ultrasound and the overlying skin was prepped and draped. Ultrasound was utilized with sterile technique. Lidocaine was used for local anesthesia and a skin jose carlos made with a scalpel. Catheter was advanced under direct ultrasound guidance into a suitable pocket of fluid and approximately 6.4 liter s of serous fluid were removed. Catheter was withdrawn and hemostasis achieved. There is no immedia te complication; the patient is discharged in stable condition. IMPRESSION: STATUS POST ULTRASOUND GUIDED PARACENTESIS FOR PALLIATION OF ASCITES. THIS PROCEDURE WA S PERFORMED BY THE UNDERSIGNED.
== END 2018-02-18 15:00 | disposition home or self-care (01) ==
LOC: RADPROMAIN 12:20
PROVIDERS: ATTEND Internal Medicine Hematology & Oncology
DX: R18.8 Other ascites (principal); D69.59 Other secondary thrombocytopenia; C50.311 Malignant neoplasm of lower-inner quadrant of right female breast
CPT/HCPCS: 85610; 96365; 49083; P9035; J1642

== ENCOUNTER 2018-02-25 12:19 | Day surgery (SDC) | payer MEDICARE, BC ==
[2018-02-25 13:27] LABS: INR 1.2 (<1.2); Prothrombin Time 11.5 sec (9.0-12.0)
[2018-02-25 13:28] LABS: Mean Platelet Volume 8.4
[2018-02-25 13:30] LABS: Platelet Count 45 k/uL (150-450)
[2018-02-25 14:03] VITALS: RESP 20
[2018-02-25 15:27] VITALS: BP 105/60; PULSE 78; TEMP 97.9
--- NOTE | 2018-03-04 10:40 | US ---
Therapeutic paracentesis. DATE OF EXAM: 02/25/2018 CLINICAL HISTORY: Ascites The procedure was discussed with the patient. The risks, complications, benefits, and alternatives we re discussed and any questions were answered. Informed consent was obtained. The patient was placed s upine on the ultrasound table and prepped and draped in the usual sterile fashion. All elements of maximal barrier technique were utilized. Under ultrasound guidance, access into the right lower quadrant was obtained, via the paracentesis catheter system and direct ultrasound guidanc e. Approximately 7.1 liters of straw-colored fluid was removed. The patient was stable throughout the pr ocedure and remained stable upon discharge from Department of Radiology. IMPRESSION: Successful therapeutic paracentesis under ultrasound guidance.
== END 2018-02-25 15:40 | disposition home or self-care (01) ==
LOC: RADPROMAIN 12:19
PROVIDERS: ATTEND Internal Medicine Hematology & Oncology
DX: R18.8 Other ascites (principal); C50.919 Malignant neoplasm of unspecified site of unspecified female breast; D69.6 Thrombocytopenia, unspecified
CPT/HCPCS: 85049; 85610; 49083; P9035

== ENCOUNTER 2018-03-04 12:59 | Day surgery (SDC) | payer MEDICARE, BC ==
[2018-03-04 13:27] VITALS: RESP 16; TEMP 97.7
[2018-03-04 13:34] LABS: Mean Platelet Volume 7.5
[2018-03-04 13:41] LABS: Platelet Count 95 k/uL (150-450)
[2018-03-04 13:56] LABS: INR 1.1 (<1.2); Prothrombin Time 10.8 sec (9.0-12.0)
[2018-03-04 14:22] VITALS: BP 101/69; PULSE 66
[2018-03-04] MEDS: ALBUMIN HUMAN 25% 50 ML in EMPTY BAG 1 BAG IVPB SCH (15:06)
--- NOTE | 2018-03-05 08:54 | US ---
Therapeutic paracentesis. DATE OF EXAM: 03/04/2018 CLINICAL HISTORY: Ascites The procedure was discussed with the patient. The risks, complications, benefits, and alternatives we re discussed and any questions were answered. Informed consent was obtained. The patient was placed s upine on the ultrasound table and prepped and draped in the usual sterile fashion. All elements of maximal barrier technique were utilized. Under ultrasound guidance, access into the right lower quadrant was obtained, via the paracentesis catheter system and direct ultrasound guidanc e. Approximately 6.7 liters of straw-colored fluid was removed. The patient was stable throughout the pr ocedure and remained stable upon discharge from Department of Radiology. IMPRESSION: Successful therapeutic paracentesis under ultrasound guidance.
== END 2018-03-04 15:00 | disposition home or self-care (01) ==
LOC: RADPROMAIN 12:59
PROVIDERS: ATTEND Internal Medicine Hematology & Oncology
DX: R18.8 Other ascites (principal); D69.59 Other secondary thrombocytopenia; C50.311 Malignant neoplasm of lower-inner quadrant of right female breast
CPT/HCPCS: 36415; 49083; 85049; 85610

== ENCOUNTER 2018-03-11 12:57 | Day surgery (SDC) | payer MEDICARE, BC ==
[2018-03-11 13:14] VITALS: RESP 20; TEMP 97.4
[2018-03-11 13:35] LABS: Mean Platelet Volume 7.4
[2018-03-11 13:40] LABS: Platelet Count 82 k/uL (150-450)
[2018-03-11 14:04] LABS: INR 1.2 (<1.2); Prothrombin Time 11.3 sec (9.0-12.0)
[2018-03-11 14:44] VITALS: BP 106/64; PULSE 74
--- NOTE | 2018-03-12 09:08 | US ---
EXAMINATION TYPE: US paracentesis abd w/image DATE OF EXAM: 03/11/2018 CLINICAL HISTORY: Ascites The procedure was discussed with the patient. The risks, complications, benefits, and alternatives we re discussed and any questions were answered. Informed consent was obtained. The patient was placed s upine on the ultrasound table and prepped and draped in the usual sterile fashion. All elements of maximal barrier technique were utilized. Under ultrasound guidance, access into the right lower quadrant was obtained, via the paracentesis catheter system and direct ultrasound guidanc e. Approximately 6.3 liters of straw-colored fluid was removed. The patient was stable throughout the pr ocedure and remained stable upon discharge from Department of Radiology. IMPRESSION: Successful therapeutic paracentesis under ultrasound guidance.
== END 2018-03-11 15:15 | disposition home or self-care (01) ==
LOC: RADPROMAIN 12:57
PROVIDERS: ATTEND Internal Medicine Hematology & Oncology
DX: R18.8 Other ascites (principal); D69.59 Other secondary thrombocytopenia; C50.311 Malignant neoplasm of lower-inner quadrant of right female breast
CPT/HCPCS: 82565; 85049; 85610; 49083; J1642

== ENCOUNTER → 2018-03-25 | Day surgery (SDC) | payer MEDICARE, BC ==
[2018-03-25 13:30] VITALS: RESP 20; TEMP 97.3
[2018-03-25 13:52] LABS: INR 1.2 (<1.2); Prothrombin Time 11.2 sec (9.0-12.0)
[2018-03-25 15:10] VITALS: BP 116/65; PULSE 71
--- NOTE | 2018-03-25 16:00 | US ---
EXAMINATION TYPE: US paracentesis abd w/image DATE OF EXAM: 03/25/2018 COMPARISON: NONE HISTORY: Ascites. PROCEDURE: Maximal barrier technique was utilized. The skin overlying a suitable pocket of fluid was localized with ultrasound and the overlying skin was prepped and draped. Ultrasound was utilized with sterile technique. Lidocaine was used for local anesthesia and a skin jose carlos made with a scalpel. Catheter was advanced under direct ultrasound guidance into a suitable pocket of fluid and approximately 5 liters of serous fluid were removed. Catheter was withdrawn and hemostasis achieved. There is no immediate complication; the patient is discharged in stable condition. IMPRESSION: STATUS POST ULTRASOUND GUIDED PARACENTESIS FOR PALLIATION OF ASCITES. THIS PROCEDURE WA S PERFORMED BY THE UNDERSIGNED.
== END | disposition home or self-care (01) ==
LOC: RADPROMAIN 13:05
PROVIDERS: ATTEND Internal Medicine Hematology & Oncology
DX: R18.8 Other ascites (principal); C50.311 Malignant neoplasm of lower-inner quadrant of right female breast
CPT/HCPCS: 85610; 49083; J1642

== ENCOUNTER 2018-04-01 12:56 | Day surgery (SDC) | payer MEDICARE, BC ==
[2018-04-01 13:16] VITALS: TEMP 97.4
[2018-04-01 13:36] LABS: INR 1.2 (<1.2); Prothrombin Time 11.2 sec (9.0-12.0)
[2018-04-01 14:54] VITALS: BP 112/70; PULSE 68; RESP 16
--- NOTE | 2018-04-02 09:48 | US ---
Therapeutic paracentesis. DATE OF EXAM: 04/01/2018 CLINICAL HISTORY: Ascites The procedure was discussed with the patient. The risks, complications, benefits, and alternatives we re discussed and any questions were answered. Informed consent was obtained. The patient was placed s upine on the ultrasound table and prepped and draped in the usual sterile fashion. All elements of maximal barrier technique were utilized. Under ultrasound guidance, access into the right lower quadrant was obtained, via the paracentesis catheter system and direct ultrasound guidanc e. Approximately 4.5 liters of straw-colored fluid was removed. The patient was stable throughout the pr ocedure and remained stable upon discharge from Department of Radiology. IMPRESSION: Successful therapeutic paracentesis under ultrasound guidance.
== END 2018-04-01 15:10 | disposition home or self-care (01) ==
LOC: RADPROMAIN 12:56
PROVIDERS: ATTEND Internal Medicine Hematology & Oncology
DX: R18.8 Other ascites (principal); D69.59 Other secondary thrombocytopenia; C50.311 Malignant neoplasm of lower-inner quadrant of right female breast
CPT/HCPCS: 82947; 85610; 49083; J1642

== ENCOUNTER 2018-04-08 12:50 | Day surgery (SDC) | payer MEDICARE, BC ==
[2018-04-08 13:08] VITALS: RESP 20; TEMP 97.6
[2018-04-08 13:22] LABS: Prothrombin Time 11.1 sec (9.0-12.0)
[2018-04-08 14:47] VITALS: BP 107/63; PULSE 70
--- NOTE | 2018-04-08 15:39 | US ---
EXAMINATION TYPE: US paracentesis abd w/image DATE OF EXAM: 04/08/2018 COMPARISON: NONE HISTORY: Ascites. PROCEDURE: Maximal barrier technique was utilized. The skin overlying a suitable pocket of fluid was localized with ultrasound and the overlying skin was prepped and draped. Ultrasound was utilized with sterile technique. Lidocaine was used for local anesthesia and a skin jose carlos made with a scalpel. Catheter was advanced under direct ultrasound guidance into a suitable pocket of fluid and approximately 5.2 liter s of serous fluid were removed. Catheter was withdrawn and hemostasis achieved. There is no immedia te complication; the patient is discharged in stable condition. IMPRESSION: STATUS POST ULTRASOUND GUIDED PARACENTESIS FOR PALLIATION OF ASCITES. THIS PROCEDURE WA S PERFORMED BY THE UNDERSIGNED.
== END 2018-04-08 15:05 | disposition home or self-care (01) ==
LOC: RADPROMAIN 12:50
PROVIDERS: ATTEND Internal Medicine Hematology & Oncology
DX: R18.8 Other ascites (principal); D69.59 Other secondary thrombocytopenia; C50.311 Malignant neoplasm of lower-inner quadrant of right female breast; Z88.6 Allergy status to analgesic agent; Z88.0 Allergy status to penicillin; Z88.2 Allergy status to sulfonamides
CPT/HCPCS: 85610; 36415; 49083; J1642

== ENCOUNTER 2018-04-15 13:06 | Day surgery (SDC) | payer MEDICARE, BC ==
[2018-04-15 13:33] VITALS: RESP 16; TEMP 97.8
[2018-04-15 13:47] LABS: INR 1.1 (<1.2); Prothrombin Time 11.3 sec (9.0-12.0)
[2018-04-15 14:50] VITALS: BP 100/53; PULSE 64
--- NOTE | 2018-04-15 16:16 | US ---
EXAMINATION TYPE: US paracentesis abd w/image DATE OF EXAM: 04/15/2018 COMPARISON: NONE HISTORY: Ascites. PROCEDURE: Maximal barrier technique was utilized. The skin overlying a suitable pocket of fluid was localized with ultrasound and the overlying skin was prepped and draped. Ultrasound was utilized with sterile technique. Lidocaine was used for local anesthesia and a skin jose carlos made with a scalpel. Catheter was advanced under direct ultrasound guidance into a suitable pocket of fluid and approximately 5.2 liter s of serous fluid were removed. Catheter was withdrawn and hemostasis achieved. There is no immedia te complication; the patient is discharged in stable condition. IMPRESSION: STATUS POST ULTRASOUND GUIDED PARACENTESIS FOR PALLIATION OF ASCITES. THIS PROCEDURE WA S PERFORMED BY THE UNDERSIGNED.
== END 2018-04-15 15:08 | disposition home or self-care (01) ==
LOC: RADPROMAIN 13:06
PROVIDERS: ATTEND Internal Medicine Hematology & Oncology
DX: R18.8 Other ascites (principal); C50.919 Malignant neoplasm of unspecified site of unspecified female breast; D69.6 Thrombocytopenia, unspecified
CPT/HCPCS: 82947; 85610; 49083; J1642

== ENCOUNTER 2018-04-15 15:30 | Inpatient (IN) | payer MEDICARE, BC ==
[2018-04-15 17:06] LABS: Albumin 2.2 g/dL (3.5-5.0); Calcium 7.9 mg/dL (8.4-10.2); Magnesium 2.3 mg/dL (1.6-2.3); Phosphorus 3.4 mg/dL (2.5-4.5); Total Bilirubin 1.5 mg/dL (0.2-1.3); Total Protein 4.5 g/dL (6.3-8.2)
[2018-04-15 17:12] LABS: Anisocytosis Slight; HCT 31.4 % (34.0-46.0); HGB 9.9 gm/dL (11.4-16.0); Hypochromasia Marked; MCHC 31.6 g/dL (31.0-37.0); MCV 91.8 fL (80.0-100.0); Mean Platelet Volume 7.3; Poikilocytosis Slight; RBC 3.42 m/uL (3.80-5.40); RDW 19.4 % (11.5-15.5); WBC 2.4 k/uL (3.8-10.6)
[2018-04-15 17:29] LABS: Eosinophils # (M) 0.02 k/uL (0-0.7); Lymphocytes # (M) 0.86 k/uL (1.0-4.8); Monocytes # (M) 0.26 k/uL (0-1.0); Neutrophils # (M) 1.25 k/uL (1.3-7.7); Neutrophils % (M) 52 %; Nucleated Red Blood Cells 0 /100 WBC (0-0); Total Cells Counted 100
[2018-04-15 17:30] LABS: Platelet Count 75 k/uL (150-450)
[2018-04-15] MEDS ORDERED: FUROSEMIDE 10 MG/ML 4 ML VIAL IV STA (17:31)
[2018-04-15] MEDS ORDERED: INSULIN REGULAR 100 UNIT/ML VIAL IV ONE (17:31)
[2018-04-15] MEDS ORDERED: CALCIUM GLUCONATE 1,000 MG in SODIUM CHLORIDE 0.9% 100 ML IVPB ONE (17:31)
[2018-04-15] MEDS ORDERED: SODIUM BICARB 8.4% 50 ML SYR (1 MEQ/ML) IV ONE (17:31)
[2018-04-15] MEDS ORDERED: SODIUM POLYSTYRENE SULFONATE 15 GM/60 ML BOTTLE PO STA ×2 (17:31→23:34)
[2018-04-15] MEDS ORDERED: DEXTROSE 50%-WATER 50 ML SYRINGE IVP STA (17:32)
--- NOTE | 2018-04-15 17:48 | XR ---
EXAMINATION TYPE: XR chest 2V DATE OF EXAM: 04/15/2018 COMPARISON: 01/16/2018 HISTORY: Breast cancer. Weakness. TECHNIQUE: Frontal and lateral views of the chest are obtained. FINDINGS: There is no heart failure nor confluent pneumonic infiltrate. There is right-sided central venous catheter with tip in the superior vena cava. There is no evidence of pleural effusion. There is some osteosclerosis in the bony thorax consistent with metastatic disease. IMPRESSION: No active cardiopulmonary disease. There is improved inspiration compared to old exam.
[2018-04-15 18:10] LABS: Glucose,Whole Blood 80 mg/dL (75-99)
--- NOTE | 2018-04-15 18:18 | ED ---
General Adult HPI - General Chief complaint: Recheck/Abnormal Lab/Rx Stated complaint: Dr wong. High potassium levels Source: patient, RN notes reviewed, old records reviewed Mode of arrival: wheelchair Limitations: no limitations - History of Present Illness Initial comments: 67-year-old female patient with past medical history of diffuse metastasis from breast cancer presents to ED with after a laboratory study revealing hyperkalemia by her primary care physician. Patient states that her potassium was 7.1 at her primary care physician's office, he instructed her to present to the ED. Patient claims that she has had 3 days of symptoms of MSK weakness. Patient denies any symptoms of shortness of breath, chest pain, heart palpitations. Patient denies nausea vomiting diarrhea. Patient denies abdominal pain. Systemic: Pt denies fever/chills, rash. Pt deniesnight sweats, weight loss. Neuro: Pt denies headache, visual disturbances, syncope or pre-syncope. HEENT: Pt denies ocular discharge or irritation, otalgia, rhinorrhea, pharyngitis or notable lymphadenopathy. Cardiopulmonary: Pt denies chest pain, SOB, heart palpitations, dyspnea on exertion. Abdominal/GI: Pt denies abdominal pain, n/v/d. : Pt denies dysuria, burning w/ urination, frequency/urgency. Denies new onset urinary or bowel incontinence. MSK: Pt denies myalgia, loss of strength or function in extremities. Neuro: Pt denies new onset paresthesias. - Related Data Home Medications Medication Instructions Recorded Confirmed Docusate Sodium [Dok] 200 mg PO BID 09/15/15 04/15/18 Loratadine [Claritin] 10 mg PO HS 01/23/17 04/15/18 Zoledronic Acid [Zometa] 4 mg IVPB QMONTH 01/23/17 04/15/18 Fluticasone Nasal [place] [Flonase 1 spray EA NOSTRIL BID PRN 09/30/17 04/15/18 Nasal [place]] Levothyroxine Sodium [Synthroid] 75 mcg PO DAILY 09/30/17 04/15/18 Famotidine [Pepcid] 20 mg PO DAILY 01/06/18 04/15/18 HYDROcodone/APAP 5-325MG [[place] 1 tab PO Q6HR PRN 09/04/18 12/12/18 5-325] Simvastatin [Zocor] 10 mg PO HS 01/06/18 04/15/18 Biotin 1000mcg 1 tab PO DAILY 01/26/18 04/15/18 Polyethylene Glycol 3350 [Miralax] 17 gm PO DAILY PRN 01/26/18 04/15/18 Afinitor 7.5 mg PO DAILY@1800 02/18/18 04/15/18 Exemestane [Aromasin] 25 mg PO DAILY@1800 02/18/18 04/15/18 Previous Rx's Medication Instructions Recorded fentaNYL 50MCG/HR PATCH [Duragesic 1 patch TRANSDERM Q72H #1 patch 10/02/17 50MCG/HR] Lactulose 30 gm PO QID #5400 ml 01/30/18 Metoprolol Tartrate [Lopressor] 12.5 mg PO BID #60 tab 01/30/18 Allergies Allergy/AdvReac Type Severity Reaction Status Date / Time Penicillins Allergy Rash/Hives Verified 04/15/18 16:37 Sulfa (Sulfonamide Allergy Rash/Hives Verified 04/15/18 16:37 Antibiotics) ibuprofen AdvReac Swelling Verified 04/15/18 16:37 Review of Systems ROS Statement: Those systems with pertinent positive or pertinent negative responses have been documented in the HPI. ROS Other: All systems not noted in ROS Statement are negative. Past Medical History Past Medical History: Cancer, Diabetes Mellitus, Hearing Disorder / Deafness, Hyperlipidemia, Hypertension, Osteoarthritis (OA), Pneumonia, Thyroid Disorder, Vascular Disorder Additional Past Medical History / Comment(s): Thyroid Nodules.VENOUS STASIS, HX OF PLEURISY . STAGE 4 BREAST CANCER DIAGNOSED IN SEPTEMBER 2015, PER FAMILY"breast CA mets to bone and lymphatic system, liver,spleen, constipation History of Any Multi-Drug Resistant Organisms: None Reported Past Surgical History: Hysterectomy, Tonsillectomy, Tubal Ligation Additional Past Surgical History / Comment(s): RT THYROIDECTOMY. LAPAROSCOPY D/ T Ectopic . BIOPSY MASS LEFT NECK.paracentesis, port a cath placement, excision fibrolipoma/scalp, lt elbow sx Past Anesthesia/Blood Transfusion Reactions: No Reported Reaction Past Psychological History: No Psychological Hx Reported Smoking Status: Never smoker Past Alcohol Use History: None Reported Past Drug Use History: None Reported - Past Family History Mother Family Medical History: Deep Vein Thrombosis (DVT) Father Family Medical History: Cancer Sister(s) Family Medical History: Cancer Additional Family Medical History / Comment(s): non-hodgkins lymphoma General Exam - General Exam Comments Initial Comments: Constitutional: NAD, AOX3, Pt has pleasant affect. HEENT: NC/AT, trachea midline, neck supple, no lymphadenopathy. Posterior pharynx non erythematous, without exudates. External ears appear normal, without discharge. Mucous membranes moist. Eyes PERRLA, EOM intact. There is no scleral icterus. No pallor noted. Cardiopulmonary: RRR, no murmurs, rubs or gallops, no JVD noted. Lungs CTAB in anterior and posterior ken. No peripheral edema. Abdominal exam: Abdomen soft and non-distended. Abdomen non-tender to palpation in all 4 quadrants. Bowel sounds active in LLQ. No hepatosplenomegaly. No ecchymosis Neuro: CN II-XII grossly intact. No nuchal rigidity. MSK: No posterior calf tenderness bilaterally, homans sign negative bilaterally. Posterior tibialis and radial pulse +2 bilaterally. Sensation intact in upper and lower extremities. Full active ROM in upper and lower extremities, 5/5 stregnth. Limitations: no limitations Course Vital Signs 04/15/18 04/15/18 04/15/18 15:48 17:00 17:30 Temperature 97.5 F L Pulse Rate 70 64 64 Pulse Rate [ Pulse Oximetery ] Respiratory 20 18 12 Rate Blood Pressure 103/68 102/71 104/64 Blood Pressure [Sitting] O2 Sat by Pulse 100 100 Oximetry 04/15/18 04/15/18 04/15/18 18:00 18:30 19:00 Temperature Pulse Rate 65 81 74 Pulse Rate [ Pulse Oximetery ] Respiratory 12 17 18 Rate Blood Pressure 104/64 101/63 116/73 Blood Pressure [Sitting] O2 Sat by Pulse 99 95 Oximetry 04/15/18 04/15/18 04/15/18 20:00 20:14 20:30 Temperature Pulse Rate 68 68 Pulse Rate [ 73 Pulse Oximetery ] Respiratory 17 15 19 Rate Blood Pressure 90/56 91/59 Blood Pressure 96/57 [Sitting] O2 Sat by Pulse 97 94 L Oximetry 04/15/18 04/15/18 04/15/18 21:00 21:30 21:40 Temperature Pulse Rate 72 77 82 Pulse Rate [ Pulse Oximetery ] Respiratory 17 18 19 Rate Blood Pressure 88/55 96/57 Blood Pressure [Sitting] O2 Sat by Pulse 98 Oximetry 04/15/18 21:49 Temperature 97.4 F L Pulse Rate Pulse Rate [ 73 Pulse Oximetery ] Respiratory 15 Rate Blood Pressure Blood Pressure 96/57 [Sitting] O2 Sat by Pulse 94 L Oximetry Medical Decision Making - Medical Decision Making 67 old female patient presents in ED per direction of her primary care physician for hyperkalemia. Physical exam did not display acute pathology. Laboratory investigations and ED redemonstrated hyperkalemia of 7.0. EKG displayed mild peaked T waves. Intervention of regular insulin, calcium gluconate, dextrose, sodium bicarb was conducted. Patient to be admitted for continued evaluation and treatment. Case discussed with Dr. Paieg. - Lab Data Result diagrams: 04/15/18 16:40 04/15/18 22:24 Lab Results 04/15/18 04/15/18 04/15/18 Range/Units 16:40 16:40 17:48 WBC 2.4 L (3.8-10.6) k/uL RBC 3.42 L (3.80-5.40) m/uL Hgb 9.9 L (11.4-16.0) gm/dL Hct 31.4 L (34.0-46.0) % MCV 91.8 (80.0-100.0) fL MCH 29.0 (25.0-35.0) pg MCHC 31.6 (31.0-37.0) g/dL RDW 19.4 H (11.5-15.5) % Plt Count 75 L (150-450) k/uL Neutrophils % [employer] Neutrophils % (Manual) 52 % Lymphocytes % [employer] Lymphocytes % (Manual) 36 % Monocytes % [employer] Monocytes % (Manual) 11 % Eosinophils % [employer] Eosinophils % (Manual) 1 % Basophils % [employer] Neutrophils # [employer] Neutrophils # (Manual) 1.25 L (1.3-7.7) k/uL Lymphocytes # [employer] Lymphocytes # (Manual) 0.86 L (1.0-4.8) k/uL Monocytes # [employer] Monocytes # (Manual) 0.26 (0-1.0) k/uL Eosinophils # [employer] Eosinophils # (Manual) 0.02 (0-0.7) k/uL Basophils # [employer] Nucleated RBCs 0 (0-0) /100 WBC Manual Slide Review Performed Hypochromasia Marked Poikilocytosis Slight Anisocytosis Slight Sodium 124 L (137-145) mmol/L Potassium 7.0 H* (3.5-5.1) mmol/L Chloride 104 (98-107) mmol/L Carbon Dioxide 17 L (22-30) mmol/L Anion Gap 3 mmol/L BUN 31 H (7-17) mg/dL Creatinine 1.04 (0.52-1.04) mg/dL Est GFR (CKD-EPI)AfAm 65 (>60 ml/min/1.73 sqM) Est GFR (CKD-EPI)NonAf 56 (>60 ml/min/1.73 sqM) Glucose 93 (74-99) mg/dL POC Glucose (mg/dL) 80 (75-99) mg/dL POC Glu [employer] Program[employer] ID Chioma Chaves Calcium 7.9 L (8.4-10.2) mg/dL Phosphorus 3.4 (2.5-4.5) mg/dL Magnesium 2.3 (1.6-2.3) mg/dL Total Bilirubin 1.5 H (0.2-1.3) mg/dL AST 50 H (14-36) U/L ALT 37 (9-52) U/L Alkaline Phosphatase 236 H (38-126) U/L Total Protein 4.5 L (6.3-8.2) g/dL Albumin 2.2 L (3.5-5.0) g/dL - EKG Data -: EKG Interpreted by Me (and dr paige) EKG Comments: Ventricular rate 64, MN interval 96, QRS 94, QT/QTc 400/412, normal sinus rhythm , low voltage QRS, borderline EKG, mild peaked T waves. Disposition Clinical Impression: Hyperkalemia Disposition: ADMITTED IP TO THIS HOSP Condition: Good Is patient prescribed a controlled substance at d/c from ED?: No
[2018-04-15] MEDS ORDERED: NALOXONE 0.4 MG/ML 1 ML VIAL IV PRN (18:52)
[2018-04-15] MEDS ORDERED: HYDROcodone/APAP 5-325MG 1 EACH TAB PO PRN (18:52)
[2018-04-15] MEDS ORDERED: SODIUM CHLORIDE 0.9% 500 ML 500 ML IV ONE (21:43)
[2018-04-16] MEDS: SODIUM CHLORIDE 0.9% 1,000 ML IV SCH ×2 (00:11→15:32)
[2018-04-16] MEDS: LEVOTHYROXINE 75 MCG TAB PO SCH (05:37)
[2018-04-16 06:29] LABS: Anisocytosis Slight; HCT 27.8 % (34.0-46.0); HGB 8.5 gm/dL (11.4-16.0); Hypochromasia Marked; MCH 28.6 pg (25.0-35.0); MCHC 30.6 g/dL (31.0-37.0); MCV 93.4 fL (80.0-100.0); Macrocytosis Slight; Mean Platelet Volume 8.4; Poikilocytosis Slight; RBC 2.98 m/uL (3.80-5.40); RDW 19.2 % (11.5-15.5); WBC 2.2 k/uL (3.8-10.6)
[2018-04-16 06:35] LABS: Albumin 1.9 g/dL (3.5-5.0); Calcium 7.2 mg/dL (8.4-10.2); Total Bilirubin 1.1 mg/dL (0.2-1.3); Total Protein 3.9 g/dL (6.3-8.2)
[2018-04-16 06:38] LABS: Platelet Count 52 k/uL (150-450)
[2018-04-16 07:56] LABS: Lymphocytes # (M) 0.77 k/uL (1.0-4.8); Monocytes # (M) 0.18 k/uL (0-1.0); Neutrophils # (M) 1.25 k/uL (1.3-7.7); Neutrophils % (M) 57 %; Nucleated Red Blood Cells 0 /100 WBC (0-0); Total Cells Counted 100
[2018-04-16] MEDS: DOCUSATE 100 MG CAP PO SCH ×2 (09:05→19:59)
[2018-04-16] MEDS: METOPROLOL TARTRATE 12.5 MG TAB PO SCH ×2 (09:05→19:55)
[2018-04-16] MEDS: FAMOTIDINE 20 MG TAB PO SCH (09:05)
[2018-04-16] MEDS ORDERED: POLYETHYLENE GLYCOL 3350 17 GM POWD.PACK PO PRN (09:46)
[2018-04-16] MEDS ORDERED: FLUTICASONE 50MCG/SPRAY NASAL 16GM EA NOSTRIL PRN (09:46)
--- NOTE | 2018-04-16 09:51 | P.CONS ---
History of Present Illness - Reason for Consult Consult date: 04/16/18 Medical management Requesting physician: Edward Nix - Chief Complaint Hyperkalemia - History of Present Illness 67-year-old female with a past medical history significant for breast cancer was diagnosed in 2016 with metastasis to the bone, liver, and spleen, who presented to the emergency room after being notified by her oncologist of abnormal blood work. The patient reports she had a paracentesis performed yesterday with removal of 5 L. She states she felt that she may have been dehydrated and asked to have some additional blood work performed. Her potassium was found to be 7.1. She was informed to go to the emergency room. Potassium was repeated when the patient came to emergency room and was found to be 7.0. She was treated with insulin, dextrose, IV Lasix, calcium gluconate, sodium bicarb and Kayexalate. Repeat potassium was 5.5. Potassium this morning is 5.0. BUN 32. Creatinine 1.07. The patient does report she has been feeling more weak and fatigued recently. She reports that she almost fell on Friday of this week but was able to lower herself to the ground. She denies shortness of breath. Denies chest pain or pressure. She is tolerating oral intake well without nausea or vomiting. Chest x-ray completed in the emergency room was negative for an acute cardiopulmonary process. The patient was admitted to the hospital under the care of Dr. Nix. Dr. Coronado was consulted for medical management REVIEW OF SYSTEMS: Those systems with pertinent positive or pertinent negative responses have been documented in the HPI PHYSICAL EXAM: GENERAL: This is a 67-year-old female in no apparent distress at the time of examination. Pleasant and cooperative. HEENT: Head is atraumatic, normocephalic. Pupils are equal, round, and reactive to light. Sclerae anicteric. Conjunctivae are clear. Mucus membranes of the mouth are moist. Neck is supple. RESPIRATORY: Clear to auscultation. No wheezes, rales, or rhonchi. No use of accessory muscles. Patient maintaining oxygen saturation greater than 92%. No chest wall tenderness is noted on palpation or with deep breathing. CARDIOVASCULAR: Regular rate and rhythm. S1 and S2 noted. No systolic or diastolic murmur auscultated. No JVD noted. No S3 or S4 noted. GASTROINTESTINAL: No distention noted. Abdomen soft and round. Normal active bowel sounds auscultated x 4 quadrants. No pain or tenderness noted upon palpation. INTEGUMENTARY: No cyanosis. No jaundice. No rashes noted. No cellulitis noted. Small chronic wounds noted to bilateral lower extremities EXTREMITIES: 2+ peripheral pulses. No evidence of peripheral edema. No calf tenderness noted. NEUROLOGIC: Cranial nerves II-XII intact. PSYCHIATRIC: Awake, alert, and oriented X 3. Appropriate affect. Intact judgement and insight. ASSESSMENT: Hyperkalemia Stage IV breast cancer with metastasis to bone, liver, and spleen currently undergoing chemotherapy and weekly paracentesis Pancytopenia, secondary to above Hyponatremia Hyperlipidemia Hypertension History of SVT Hypothyroidism Obesity: BMI 33.2 PLAN: Repeat potassium at 1500 Home meds as appropriate Monitor labs Monitor vital signs and address as appropriate Further recommendations pending patient's course Thank you for this consultation We will continue to follow with Cyndie to her hospitalization If patient's potassium remains within normal limits at 1500 drawn this afternoon she is stable for discharge home from a medical standpoint when cleared by admitting/attending physician Nurse practitioner note has been reviewed by physician. Signing provider agrees with the documented findings, assessment, and plan of care. Past Medical History Past Medical History: Cancer, Diabetes Mellitus, Hearing Disorder / Deafness, Hyperlipidemia, Hypertension, Osteoarthritis (OA), Pneumonia, Thyroid Disorder, Vascular Disorder Additional Past Medical History / Comment(s): Thyroid Nodules.VENOUS STASIS, HX OF PLEURISY . STAGE 4 BREAST CANCER DIAGNOSED IN SEPTEMBER 2015, PER FAMILY"breast CA mets to bone and lymphatic system, liver,spleen, constipation History of Any Multi-Drug Resistant Organisms: None Reported Past Surgical History: Hysterectomy, Tonsillectomy, Tubal Ligation Additional Past Surgical History / Comment(s): RT THYROIDECTOMY. LAPAROSCOPY D/ T Ectopic . BIOPSY MASS LEFT NECK.paracentesis, port a cath placement, excision fibrolipoma/scalp, lt elbow sx Past Anesthesia/Blood Transfusion Reactions: No Reported Reaction Past Psychological History: No Psychological Hx Reported Smoking Status: Never smoker Past Alcohol Use History: None Reported Past Drug Use History: None Reported - Past Family History Mother Family Medical History: Deep Vein Thrombosis (DVT) Father Family Medical History: Cancer Sister(s) Family Medical History: Cancer Additional Family Medical History / Comment(s): non-hodgkins lymphoma Medications and Allergies Home Medications Medication Instructions Recorded Confirmed Type Docusate Sodium [Dok] 200 mg PO BID 09/15/15 04/15/18 History Loratadine [Claritin] 10 mg PO HS 01/23/17 04/15/18 History Zoledronic Acid [Zometa] 4 mg IVPB QMONTH 01/23/17 04/15/18 History Fluticasone Nasal [place] [Flonase 1 spray EA NOSTRIL BID PRN 09/30/17 04/15/18 History Nasal [place]] Levothyroxine Sodium [Synthroid] 75 mcg PO DAILY 09/30/17 04/15/18 History fentaNYL 50MCG/HR PATCH [Duragesic 1 patch TRANSDERM Q72H #1 patch 10/02/1704/21 Rx 50MCG/HR] Famotidine [Pepcid] 20 mg PO DAILY 01/06/18 04/15/18 History HYDROcodone/APAP 5-325MG [[place] 1 tab PO Q6HR PRN 01/06/18 04/15/18 History 5-325] Simvastatin [Zocor] 10 mg PO HS 01/06/18 04/15/18 History Biotin 1000mcg 1 tab PO DAILY 01/26/18 04/15/18 History Polyethylene Glycol 3350 [Miralax] 17 gm PO DAILY PRN 01/26/18 04/15/18 History Lactulose 30 gm PO QID #5400 ml 01/30/18 04/15/18 Rx Metoprolol Tartrate [Lopressor] 12.5 mg PO BID #60 tab 01/30/18 04/15/18 Rx Afinitor 7.5 mg PO DAILY@1800 02/18/18 04/15/18 History Exemestane [Aromasin] 25 mg PO DAILY@1800 02/18/18 04/15/18 History Allergies Allergy/AdvReac Type Severity Reaction Status Date / Time Penicillins Allergy Rash/Hives Verified 04/15/18 16:37 Sulfa (Sulfonamide Allergy Rash/Hives Verified 04/15/18 16:37 Antibiotics) ibuprofen AdvReac Swelling Verified 04/15/18 16:37 Physical Exam Vitals: Vital Signs Temp Pulse Pulse Resp BP BP Pulse Ox 04/16/18 08:00 96.2 F L 95 17 113/67 100 04/16/18 04:00 97.5 F L 85 16 115/69 100 04/16/18 00:00 97.4 F L 80 16 112/77 100 04/15/18 22:00 73 17 100/64 04/15/18 21:49 97.4 F L 73 15 96/57 94 L 04/15/18 21:40 82 19 98 04/15/18 21:30 77 18 96/57 04/15/18 21:00 72 17 88/55 04/15/18 20:30 68 19 91/59 04/15/18 20:14 73 15 96/57 94 L 04/15/18 20:00 68 17 90/56 97 04/15/18 19:00 74 18 116/73 04/15/18 18:30 81 17 101/63 95 04/15/18 18:00 65 12 104/64 99 04/15/18 17:30 64 12 104/64 100 04/15/18 17:00 64 18 102/71 04/15/18 15:48 97.5 F L 70 20 103/68 100 Intake and Output 04/15/18 04/16/18 04/16/18 22:59 06:59 14:59 Intake Total 510 560 Balance 510 560 Intake: IV 510 Calcium Gluconate 1,000 500 mg In Sodium Chloride 0.9 % 100 ml @ 100 mls/hr IVPB ONCE ONE Rx#: [id number] Invasive Line 1 10 Intake, IV Titration 560 Amount Sodium Chloride 0.9% 1, 560 000 ml @ 70 mls/hr IV . [id number] [facility] Rx#:[id number] Other: Voiding Method Toilet Toilet Toilet # Voids 3 Weight 97.7 kg 93.4 kg Results CBC & Chem 7: 04/16/18 05:40 04/16/18 05:40 Labs: Abnormal Lab Results - Last 24 Hours (Table) 04/15/18 04/15/18 04/15/18 Range/Units 16:40 16:40 22:24 WBC 2.4 L (3.8-10.6) k/uL RBC 3.42 L (3.80-5.40) m/uL Hgb 9.9 L (11.4-16.0) gm/dL Hct 31.4 L (34.0-46.0) % MCHC (31.0-37.0) g/dL RDW 19.4 H (11.5-15.5) % Plt Count 75 L (150-450) k/uL Neutrophils # (Manual) 1.25 L (1.3-7.7) k/uL Lymphocytes # (Manual) 0.86 L (1.0-4.8) k/uL Sodium 124 L (137-145) mmol/L Potassium 7.0 H* 5.5 H (3.5-5.1) mmol/L Carbon Dioxide 17 L (22-30) mmol/L BUN 31 H (7-17) mg/dL Creatinine (0.52-1.04) mg/dL Glucose (74-99) mg/dL Calcium 7.9 L (8.4-10.2) mg/dL Total Bilirubin 1.5 H (0.2-1.3) mg/dL AST 50 H (14-36) U/L Alkaline Phosphatase 236 H (38-126) U/L Total Protein 4.5 L (6.3-8.2) g/dL Albumin 2.2 L (3.5-5.0) g/dL 04/16/18 04/16/18 Range/Units 05:40 05:40 WBC 2.2 L (3.8-10.6) k/uL RBC 2.98 L (3.80-5.40) m/uL Hgb 8.5 L (11.4-16.0) gm/dL Hct 27.8 L (34.0-46.0) % MCHC 30.6 L (31.0-37.0) g/dL RDW 19.2 H (11.5-15.5) % Plt Count 52 L (150-450) k/uL Neutrophils # (Manual) 1.25 L (1.3-7.7) k/uL Lymphocytes # (Manual) 0.77 L (1.0-4.8) k/uL Sodium 127 L (137-145) mmol/L Potassium (3.5-5.1) mmol/L Carbon Dioxide 19 L (22-30) mmol/L BUN 32 H (7-17) mg/dL Creatinine 1.07 H (0.52-1.04) mg/dL Glucose 119 H (74-99) mg/dL Calcium 7.2 L (8.4-10.2) mg/dL Total Bilirubin (0.2-1.3) mg/dL AST 46 H (14-36) U/L Alkaline Phosphatase 181 H (38-126) U/L Total Protein 3.9 L (6.3-8.2) g/dL Albumin 1.9 L (3.5-5.0) g/dL
[2018-04-16] MEDS: HYDROcodone/APAP 5-325MG 1 EACH TAB PO PRN ×2 (11:44→19:55)
[2018-04-16] MEDS: LACTULOSE 20 GM/30 ML CUP PO SCH ×4 (11:44→19:59)
--- NOTE | 2018-04-16 17:45 | P.HPIM ---
History of Present Illness H&P Date: 04/16/18 Chief Complaint: hyperkalemia Mrs. Dior is a very pleasant pt of Dr. Nix with a complicated metastatic breast cancer history which I summarize below. Currently pt is on afinitor and aromasin, requiring paracentesis for non-malignant ascites since Jan, nearly weekly, approx 5L each time. Pt was seen in the office for her monthly zometa injection on the . She had to have a BMP to dose so, critical K+ of 7 was called to the physician and pt was instructed to go to the ER. She was feeling really weak in the legs, fatigued, but otherwise felt well. Denies fever, nausea, vomiting, diarrhea, constipation, chest pain, palpitations, ARIS. She has mild BLE swelling, she recently had paracentesis, abd is distended but not too uncomfortable, mild SOB on exertion. No other c/o on a 14 point ROS. She is tolerating treatment well at this time. Malignancy History:Pt presented with a painless mass at the base of her neck on the left in 08/18. She was treated for pleuritis and symptoms did resolve. Post treatment CT chest revealed scattered, non specific densities in the left lung, pt then sought attention for the left supraclavicular mass. Dr. Cano did biopsy on 09/18/15, revealed metastatic carcinoma consistent with breast primary , ER/TN strongly positive, Her2 IHC 1+. Mammogram on 09/28/15 revealed heterogenous cluster of calcifications in the lower inner quadrant of the right breast, confirmed on additional views, though US was negative. Staging PET unfortunately revealed widely metastatic disease with uptake in bilateral supraclavicular, hilar, left axilla and diffusely through the skeleton, tumor markers were also elevated. 1st line treatment with Ibrance/femara on 10/24/15 with bisphosphonate support. She had a few delays due to hematological toxicities but tolerated treatment well. She required wound care to the BLE. She had progressive tumor marker elevation and was changed to Faslodex and Ibrance in 06/22. 09/19 she was admitted to the hospital for abdominal pain, unfortunately new liver mets, treatment changed to Aromasin and Afinitor in late 09/19. Since she appeared to be having rather rapid disease progression in the liver it was decided to change to chemo for a faster response. She started Carbo/Gemzar on 10/31/17 with significant toxicity but liver disease was brought under some control. She was admitted to [facility] in early 01/20 with massive ascites , cytology negative. She is currently requiring paracentesis, large volume, generally 1/wk. She resumed Afinitor and Aromasin on 02/16/18. S Review of Systems 14 poit ROS is negative except as stated in HPI Past Medical History Past Medical History: Cancer, Diabetes Mellitus, Hearing Disorder / Deafness, Hyperlipidemia, Hypertension, Osteoarthritis (OA), Pneumonia, Thyroid Disorder, Vascular Disorder Additional Past Medical History / Comment(s): Thyroid Nodules.VENOUS STASIS, HX OF PLEURISY . STAGE 4 BREAST CANCER DIAGNOSED IN SEPTEMBER 2015, PER FAMILY"breast CA mets to bone and lymphatic system, liver,spleen, constipation History of Any Multi-Drug Resistant Organisms: None Reported Past Surgical History: Hysterectomy, Tonsillectomy, Tubal Ligation Additional Past Surgical History / Comment(s): RT THYROIDECTOMY. LAPAROSCOPY D/ T Ectopic . BIOPSY MASS LEFT NECK.paracentesis, port a cath placement, excision fibrolipoma/scalp, lt elbow sx Past Anesthesia/Blood Transfusion Reactions: No Reported Reaction Past Psychological History: No Psychological Hx Reported Smoking Status: Never smoker Past Alcohol Use History: None Reported Past Drug Use History: None Reported - Past Family History Mother Family Medical History: Deep Vein Thrombosis (DVT) Father Family Medical History: Cancer Sister(s) Family Medical History: Cancer Additional Family Medical History / Comment(s): non-hodgkins lymphoma Medications and Allergies Home Medications Medication Instructions Recorded Confirmed Type Docusate Sodium [Dok] 200 mg PO BID 09/15/15 04/15/18 History Loratadine [Claritin] 10 mg PO HS 01/23/17 04/15/18 History Zoledronic Acid [Zometa] 4 mg IVPB QMONTH 01/23/17 04/15/18 History Fluticasone Nasal [place] [Flonase 1 spray EA NOSTRIL BID PRN 09/30/17 04/15/18 History Nasal [place]] Levothyroxine Sodium [Synthroid] 75 mcg PO DAILY 09/30/17 04/15/18 History fentaNYL 50MCG/HR PATCH [Duragesic 1 patch TRANSDERM Q72H #1 patch 10/02/1704/21 Rx 50MCG/HR] Famotidine [Pepcid] 20 mg PO DAILY 01/06/18 04/15/18 History HYDROcodone/APAP 5-325MG [[place] 1 tab PO Q6HR PRN 01/06/18 04/15/18 History 5-325] Simvastatin [Zocor] 10 mg PO HS 01/06/18 04/15/18 History Biotin 1000mcg 1 tab PO DAILY 01/26/18 04/15/18 History Polyethylene Glycol 3350 [Miralax] 17 gm PO DAILY PRN 01/26/18 04/15/18 History Lactulose 30 gm PO QID #5400 ml 01/30/18 04/15/18 Rx Metoprolol Tartrate [Lopressor] 12.5 mg PO BID #60 tab 01/30/18 04/15/18 Rx Afinitor 7.5 mg PO DAILY@1800 02/18/18 04/15/18 History Exemestane [Aromasin] 25 mg PO DAILY@1800 02/18/18 04/15/18 History Allergies Allergy/AdvReac Type Severity Reaction Status Date / Time Penicillins Allergy Rash/Hives Verified 04/15/18 16:37 Sulfa (Sulfonamide Allergy Rash/Hives Verified 04/15/18 16:37 Antibiotics) ibuprofen AdvReac Swelling Verified 04/15/18 16:37 Physical Exam Vitals: Vital Signs Temp Pulse Pulse Resp BP BP Pulse Ox 04/16/18 08:00 96.2 F L 95 17 113/67 100 04/16/18 04:00 97.5 F L 85 16 115/69 100 04/16/18 00:00 97.4 F L 80 16 112/77 100 04/15/18 22:00 73 17 100/64 04/15/18 21:49 97.4 F L 73 15 96/57 94 L 04/15/18 21:40 82 19 98 04/15/18 21:30 77 18 96/57 04/15/18 21:00 72 17 88/55 04/15/18 20:30 68 19 91/59 04/15/18 20:14 73 15 96/57 94 L 04/15/18 20:00 68 17 90/56 97 04/15/18 19:00 74 18 116/73 04/15/18 18:30 81 17 101/63 95 12/12/18 18:00 65 12 104/64 99 04/15/18 17:30 64 12 104/64 100 04/15/18 17:00 64 18 102/71 04/15/18 15:48 97.5 F L 70 20 103/68 100 Intake and Output 04/15/18 04/16/18 04/16/18 22:59 06:59 14:59 Intake Total 510 560 Balance 510 560 Intake: IV 510 Calcium Gluconate 1,000 500 mg In Sodium Chloride 0.9 % 100 ml @ 100 mls/hr IVPB ONCE ONE Rx#: [id number] Invasive Line 1 10 Intake, IV Titration 560 Amount Sodium Chloride 0.9% 1, 560 000 ml @ 70 mls/hr IV . [id number] [facility] Rx#:[id number] Other: Voiding Method Toilet Toilet Toilet # Voids 3 Weight 97.7 kg 93.4 kg - Constitutional General appearance: cooperative, no acute distress, obese - EENT Eyes: anicteric sclerae, EOMI ENT: hard of hearing, normal oropharynx - Neck Neck: no lymphadenopathy - Respiratory Respiratory: bilateral: CTA - Cardiovascular Heart sounds: normal: S1, S2 leg Peripheral Edema: bilateral: 1+, Pitting - Gastrointestinal General gastrointestinal: no absent bowel sounds, no decreased bowel sounds, no distended, no hepatomegaly, no hyperactive bowel sounds, normal bowel sounds, no organomegaly, no rigid, no scaphoid, soft, no splenomegaly, no tenderness, no umbilical hernia, no ventral hernia - Integumentary BLE shins reddened, 2 small scabs on the right freeman, no open lesions or weeping Integumentary: pale - Neurologic Neurologic: CNII-XII intact - Musculoskeletal Musculoskeletal: generalized weakness - Psychiatric Psychiatric: A&O x's 3, appropriate affect, intact judgment & insight Results CBC & Chem 7: 04/16/18 05:40 04/16/18 05:40 Labs: Abnormal Lab Results - Last 24 Hours (Table) 04/15/18 04/15/18 04/15/18 Range/Units 16:40 16:40 22:24 WBC 2.4 L (3.8-10.6) k/uL RBC 3.42 L (3.80-5.40) m/uL Hgb 9.9 L (11.4-16.0) gm/dL Hct 31.4 L (34.0-46.0) % MCHC (31.0-37.0) g/dL RDW 19.4 H (11.5-15.5) % Plt Count 75 L (150-450) k/uL Neutrophils # (Manual) 1.25 L (1.3-7.7) k/uL Lymphocytes # (Manual) 0.86 L (1.0-4.8) k/uL Sodium 124 L (137-145) mmol/L Potassium 7.0 H* 5.5 H (3.5-5.1) mmol/L Carbon Dioxide 17 L (22-30) mmol/L BUN 31 H (7-17) mg/dL Creatinine (0.52-1.04) mg/dL Glucose (74-99) mg/dL Calcium 7.9 L (8.4-10.2) mg/dL Total Bilirubin 1.5 H (0.2-1.3) mg/dL AST 50 H (14-36) U/L Alkaline Phosphatase 236 H (38-126) U/L Total Protein 4.5 L (6.3-8.2) g/dL Albumin 2.2 L (3.5-5.0) g/dL 04/16/18 04/16/18 Range/Units 05:40 05:40 WBC 2.2 L (3.8-10.6) k/uL RBC 2.98 L (3.80-5.40) m/uL Hgb 8.5 L (11.4-16.0) gm/dL Hct 27.8 L (34.0-46.0) % MCHC 30.6 L (31.0-37.0) g/dL RDW 19.2 H (11.5-15.5) % Plt Count 52 L (150-450) k/uL Neutrophils # (Manual) 1.25 L (1.3-7.7) k/uL Lymphocytes # (Manual) 0.77 L (1.0-4.8) k/uL Sodium 127 L (137-145) mmol/L Potassium (3.5-5.1) mmol/L Carbon Dioxide 19 L (22-30) mmol/L BUN 32 H (7-17) mg/dL Creatinine 1.07 H (0.52-1.04) mg/dL Glucose 119 H (74-99) mg/dL Calcium 7.2 L (8.4-10.2) mg/dL Total Bilirubin (0.2-1.3) mg/dL AST 46 H (14-36) U/L Alkaline Phosphatase 181 H (38-126) U/L Total Protein 3.9 L (6.3-8.2) g/dL Albumin 1.9 L (3.5-5.0) g/dL Chest x-ray: report reviewed Thrombosis Risk Factor Assmnt - DVT/VTE Prophylaxis DVT/VTE Prophylaxis: Mechanical Prophylaxis ordered (early ambulation) - Choose All That Apply Any of the Below Risk Factors Present?: Yes Each Factor Represents 1 point: Obesity (BMI >25), Swollen legs (current) Other Risk Factors: Yes Each Risk Factor Represents 2 Points: Age 61-74 years Other congenital or acquired thrombophilia - If yes, enter type in comment: No Thrombosis Risk Factor Assessment Total Risk Factor Score: 4 Thrombosis Risk Factor Assessment Level: Moderate Risk Assessment and Plan (1) Hyperkalemia Narrative/Plan: Hydration and kayexelate given on admit. K+ 5 today. Daily BMP Current Visit: Yes Status: Acute Priority: High Code(s): E87.5 - HYPERKALEMIA SNOMED Code(s): 65807728 (2) Hyponatremia Narrative/Plan: NS for now, daily BMP monitoring Current Visit: Yes Status: Acute Code(s): E87.1 - HYPO-OSMOLALITY AND HYPONATREMIA SNOMED Code(s): 95230602 (3) Metastatic breast carcinoma Narrative/Plan: Hold afinitor for now. Pt just had monthly bisphosphonate and faslodex Current Visit: No Status: Chronic Priority: Medium Code(s): C50.919 - MALIGNANT NEOPLASM OF UNSP SITE OF UNSPECIFIED FEMALE BREAST; C79.9 - SECONDARY MALIGNANT NEOPLASM OF UNSPECIFIED SITE SNOMED Code(s): 426441747 (4) Pancytopenia Narrative/Plan: Secondary to chemo history and current treatment. No acute intervention. No transfusions at this time. CBC daily Current Visit: Yes Status: Chronic Priority: Medium Code(s): D61.818 - OTHER PANCYTOPENIA SNOMED Code(s): 797702526 Plan: IM consulted for medical management Nephrology consulted for electrolyte abnormalities GI prohylaxis SCDs for DVT prophylaxis due to low platelet counts PT/OT Attests: I have performed H&P and developed impression and plan of care of patient, discussed with dictator. I agree with dictated note, documented as a scribe.
[2018-04-16] MEDS: Exemestane 25 MG PO SCH (17:50)
[2018-04-16] MEDS: ATORVASTATIN 10 MG TAB PO SCH (19:54)
[2018-04-16] MEDS: LORATADINE 10 MG TAB PO SCH (19:55)
--- NOTE | 2018-04-16 22:23 | CONS ---
CONSULTATION REASON FOR CONSULT: Hyperkalemia, renal failure. HISTORY OF PRESENT ILLNESS: The patient is a 67-year-old female who has a history of metastatic breast cancer. Patient is status post carboplatin initially in the summer. She is currently maintained on , biological agent. The patient denies any prior history of kidney diseases. She had felt weak and BMP was done as outpatient which showed significantly elevated potassium. The patient denied any history of use of NSAIDs. She is not on DIDIER inhibitors. She denied any change in her in the color of her stools. The blood sugars have not been significantly elevated. The hemoglobin, however, did decrease from 9.9 on admission to 8.5 g/dL. A serum cortisol was done which was at 17. Serum sodium initially was 124, it is now down up to 127. The patient is also mildly acidotic with a CO2 of 17 and an anion gap of 3. Her platelet count is not elevated. It was at 75,000. PAST MEDICAL HISTORY: Significant for metastatic breast cancer, type 2 diabetes, and history of hearing loss, hyperlipidemia, osteoarthritis, hypothyroidism. PAST SURGICAL HISTORY: Thyroidectomy, laparoscopic surgery for ectopic , paracentesis, Port-A-Cath placement. Heme-A-Cath placement. The elbow surgery for fibrolipoma. SOCIAL HISTORY: Negative for smoking, drug abuse or alcohol abuse. SOAP SLABBER exam is grossly intact. MEDICATIONS: Medications at home prior to admission included Claritin, Zometa, Synthroid, Pepcid, Zocor, Biotene, MiraLAX, . Previously patient had been on Lopressor, lactulose, Duragesic patch. ALLERGIES: INCLUDE PENICILLIN, SULFIDE, IBUPROFEN. PENICILLIN AND SULFA CAUSE RASH. IBUPROFEN CAUSES SWELLING. REVIEW OF SYSTEMS: As per HPI. Other systems negative. PHYSICAL EXAMINATION: Patient is currently comfortable, awake, alert, oriented x3. She is not in any acute distress. Blood pressure this morning was 112/67, heart rate 90 per minute. Patient is afebrile. Examination of the heart S1, S2. Examination of the lungs bilateral breath sounds are heard. Abdomen is soft, nontender. Examination of lower extremities shows no significant edema. SOAP SLABBER exam is grossly intact. LABS SHOW: Sodium 127, potassium 5.0, chloride 104, CO2 is 19, BUN 32, serum creatinine 107. Hemoglobin was 8.5 g/dL. ASSESSMENT: 1. Hyperkalemia associated with some degree of acute kidney injury with serum creatinine at 1.1 from 0.8 previously. Also need to rule out underlying gastrointestinal bleed, although patient is clinically not having any active bleeding. Her hemoglobin did drop from 9.9-8.5 g/dL. The patient's potassium is now down to 4.2. She was also mildly acidotic which will add to the acidosis. The serum cortisol was not low and that rules out adrenal insufficiency as a cause of the hyperkalemia. The patient is advised to maintain low-potassium diet for now. 2. Acute kidney injury with serum creatinine at 1.04 up from 0.8 previously, possibly prerenal. We will continue with the IV fluids. Check urinalysis and repeat labs in a.m. 3. Hyponatremia, which appears to be hypovolemic, currently improving with normal saline. Repeat sodium in the morning. Check TSH levels. Check random urine sodium and urine osmolality as well. 4. Anemia, rule out underlying gastrointestinal bleed. The patient does have anemia which is multifactorial from prior to her admission. 5. Metastatic breast cancer. 6. Metabolic acidosis, non-anion gap, currently improving. PLAN: Check stool for occult blood. Repeat labs in a.m. Check urinalysis and continue with IV fluids, maintain oral sodium bicarb at least temporarily and repeat CBC in the morning. Thank you for this consultation. We will continue to follow the patient with you during her hospitalization. LISA / TONI: [id number] /
[2018-04-17] MEDS: HYDROcodone/APAP 5-325MG 1 EACH TAB PO PRN ×3 (03:12→20:42)
[2018-04-17 03:50] LABS: Appearance,Urine Cloudy (Clear); Bacteria,Urine Many /hpf; Bilirubin,Urine Negative (Negative); Blood,Urine Negative (Negative); Color,Urine Yellow; Glucose,Urine (UA) Negative (Negative); Ketones,Urine Negative (Negative); Leukocyte Esterase,Urine Moderate (Negative); Mucus,Urine Many /hpf; Nitrite,Urine Negative (Negative); PH, Urine 5.5 (5.0-8.0); Protein,Urine Trace (Negative); Specific Gravity,Urine 1.016 (1.001-1.035); Squamous Epithelial Cell,Urine 3 /hpf (0-4); WBC,Urine 22 /hpf (0-5)
[2018-04-17] MEDS: SODIUM CHLORIDE 0.9% 1,000 ML IV SCH ×2 (04:37→20:34)
[2018-04-17] MEDS: LEVOTHYROXINE 75 MCG TAB PO SCH (05:57)
[2018-04-17] MEDS: METOPROLOL TARTRATE 12.5 MG TAB PO SCH ×2 (08:40→20:31)
[2018-04-17] MEDS: SODIUM BICARBONATE TAB 650 MG TAB PO SCH ×2 (08:40→20:32)
[2018-04-17] MEDS: LACTULOSE 20 GM/30 ML CUP PO SCH ×4 (08:41→20:27)
[2018-04-17] MEDS: DOCUSATE 100 MG CAP PO SCH ×2 (08:41→20:31)
[2018-04-17] MEDS: FAMOTIDINE 20 MG TAB PO SCH (08:41)
--- NOTE | 2018-04-17 09:25 | P.PN ---
Subjective Progress Note Date: 04/17/18 67-year-old female with a past medical history significant for breast cancer was diagnosed in 2016 with metastasis to the bone, liver, and spleen, who presented to the emergency room after being notified by her oncologist of abnormal blood work. The patient reports she had a paracentesis performed yesterday with removal of 5 L. She states she felt that she may have been dehydrated and asked to have some additional blood work performed. Her potassium was found to be 7.1. She was informed to go to the emergency room. Potassium was repeated when the patient came to emergency room and was found to be 7.0. She was treated with insulin, dextrose, IV Lasix, calcium gluconate, sodium bicarb and Kayexalate. Repeat potassium was 5.5. Potassium this morning is 5.0. BUN 32. Creatinine 1.07. The patient does report she has been feeling more weak and fatigued recently. She reports that she almost fell on Friday of this week but was able to lower herself to the ground. She denies shortness of breath. Denies chest pain or pressure. She is tolerating oral intake well without nausea or vomiting. Chest x-ray completed in the emergency room was negative for an acute cardiopulmonary process. The patient was admitted to the hospital under the care of Dr. Nix. Dr. Coronado was consulted for medical management. 04/17/2018 Patient examined at the bedside. She reports she is feeling well this morning. Most recent potassium is 4.2. Repeat lab work from this morning is currently pending. She is stable for discharge home today. PHYSICAL EXAM: GENERAL: This is a 67-year-old female in no apparent distress at the time of examination. Pleasant and cooperative. HEENT: Head is atraumatic, normocephalic. Pupils are equal, round, and reactive to light. Sclerae anicteric. Conjunctivae are clear. Mucus membranes of the mouth are moist. Neck is supple. RESPIRATORY: Clear to auscultation. No wheezes, rales, or rhonchi. No use of accessory muscles. Patient maintaining oxygen saturation greater than 92%. No chest wall tenderness is noted on palpation or with deep breathing. CARDIOVASCULAR: Regular rate and rhythm. S1 and S2 noted. No systolic or diastolic murmur auscultated. No JVD noted. No S3 or S4 noted. GASTROINTESTINAL: No distention noted. Abdomen soft and round. Normal active bowel sounds auscultated x 4 quadrants. No pain or tenderness noted upon palpation. INTEGUMENTARY: No cyanosis. No jaundice. No rashes noted. No cellulitis noted. Small chronic wounds noted to bilateral lower extremities EXTREMITIES: 2+ peripheral pulses. No evidence of peripheral edema. No calf tenderness noted. NEUROLOGIC: Cranial nerves II-XII intact. PSYCHIATRIC: Awake, alert, and oriented X 3. Appropriate affect. Intact judgement and insight. ASSESSMENT: Hyperkalemia, resolved Stage IV breast cancer with metastasis to bone, liver, and spleen currently undergoing chemotherapy and weekly paracentesis Pancytopenia, secondary to above Hyponatremia Hyperlipidemia Hypertension History of SVT Hypothyroidism Obesity: BMI 33.2 PLAN: Await repeat blood work this morning. If hemoglobin and potassium remain stable , patient may be discharged home today if cleared by admitting/attending physician. Nurse practitioner note has been reviewed by physician. Signing provider agrees with the documented findings, assessment, and plan of care. Objective - Vital Signs Vital signs: Vital Signs Temp 98.3 F 04/17/18 08:00 Pulse 97 04/17/18 08:00 Resp 20 04/17/18 08:00 BP 114/69 04/17/18 08:00 Pulse Ox 99 04/17/18 08:00 Intake & Output 04/16/18 04/17/18 04/17/18 18:59 06:59 18:59 Intake Total 540 560 240 Output Total 0 Balance 540 560 240 Weight 99.9 kg Intake: IV 560 0.9 560 Oral 540 240 Output: Urine 0 Other: Voiding Method Toilet Toilet # Voids 2 # Bowel Movements 1 - Labs CBC & Chem 7: 04/16/18 05:40 04/16/18 17:45 Labs: Abnormal Lab Results - Last 24 Hours (Table) 04/17/18 Range/Units 03:05 Urine Appearance Cloudy H (Clear) Urine Protein Trace H (Negative) Ur Leukocyte Esterase Moderate H (Negative) Urine WBC 22 H (0-5) /hpf Urine Bacteria Many H (None) /hpf Urine Mucus Many H (None) /hpf
[2018-04-17 10:08] LABS: Calcium 6.9 mg/dL (8.4-10.2)
[2018-04-17 10:35] LABS: Anisocytosis Slight; HCT 29.8 % (34.0-46.0); HGB 9.2 gm/dL (11.4-16.0); Hypochromasia Marked; MCV 93.6 fL (80.0-100.0); Macrocytosis Slight; Mean Platelet Volume 7.4; Poikilocytosis Slight; RBC 3.18 m/uL (3.80-5.40); RDW 19.3 % (11.5-15.5); WBC 2.2 k/uL (3.8-10.6)
[2018-04-17 10:52] LABS: Platelet Count 75 k/uL (150-450)
[2018-04-17] MEDS ORDERED: FUROSEMIDE 10 MG/ML 2 ML VIAL IV ONE (11:30)
[2018-04-17 12:05] LABS: Band Neutrophils % 3 %; Eosinophils # (M) 0.07 k/uL (0-0.7); Lymphocytes # (M) 0.42 k/uL (1.0-4.8); Monocytes # (M) 0.18 k/uL (0-1.0); Neutrophils % (M) 68 %; Nucleated Red Blood Cells 0 /100 WBC (0-0); Total Cells Counted 200
--- NOTE | 2018-04-17 12:13 | PN ---
PROGRESS NOTE Patient is seen for followup for hyperkalemia and acute kidney injury. Patient is currently maintained on IV fluids. Her serum creatinine went up from 0.8 to 1.0 and this morning it is up to 1.2. Patient states she has been voiding well. We will check bladder scan to rule out underlying urine retention. Sodium has not improved further, it went from 127-126. It did improve initially from 124-126. Patient overall states she is feeling better. PHYSICAL EXAMINATION: Blood pressure 114/69, heart rate 97 per minute. She is afebrile. Examination of the heart, S1, S2. Examination of the lungs, bilateral breath sounds are heard. Abdomen is soft, nontender. Examination of the lower extremities shows edema 2+ bilaterally with chronic skin changes. LABS: Show sodium 126, potassium 4.0, chloride 18, BUN 31, serum creatinine 1.2, hemoglobin 9.2 g/dL. ASSESSMENT: 1. Acute kidney injury. Rule out urine retention. Patient is maintained on IV fluids. I will give her a dose of Lasix as well today. We will check random urine sodium and urine osmolality. Serum cortisol was not low. 2. Metabolic acidosis associated with renal failure, maintained on oral sodium bicarb. 3. Metastatic breast cancer, maintained on chemotherapy as outpatient. 4. Hyperkalemia associated with acute kidney injury with possible gastrointestinal bleed. Hemoglobin did come up to 9.2 from 8.5 yesterday. Stool for occult blood is currently pending. The degree of hyperkalemia was disproportionate to the degree of acute kidney injury; however, she may have had underlying tubular dysfunction secondary to previously administered carboplatin. We will continue with the sodium bicarb for now. PLAN: Lasix 20 mg IV x1. Check urine osmolality, urine sodium. Repeat labs in a.m. I would recommend to hold off on discharge for now. Check bladder scan to rule out urine retention. MMODL / IJN: [id number] /
--- NOTE | 2018-04-17 13:23 | US ---
EXAMINATION TYPE: US kidneys/renal and bladder DATE OF EXAM: 04/17/2018 COMPARISON: NONE CLINICAL HISTORY: hyperkalemia; increasing creatinine. Hyperkalemia, increasing creatinine EXAM MEASUREMENTS: Right Kidney: 10.1 x 5.4 x 4.5 cm Left Kidney: 10.4 x 6.1 x 5.1 cm Technical limitations due to large amount of overlying bowel content Right Kidney: no evidence of hydronephrosis Left Kidney: cystic area upper pole = 4.4 x 3.9 x 4.1cm. This appears to be simple. Bladder: unable to visualize Bilateral Jets seen: no Free fluid noted within pelvis IMPRESSION: Some limitation on the examination due to bowel gas. 2. Moderate free fluid in the pelvis. 3. Superior pole left renal cyst
--- NOTE | 2018-04-17 13:52 | P.PN ---
Subjective Progress Note Date: 04/17/18 Principal diagnosis: Hyponatremia, Hypokalemia Cyndie is feeling a little stronger today Objective - Vital Signs Vital signs: Vital Signs Temp 97.9 F 04/17/18 12:00 Pulse 72 04/17/18 12:00 Resp 18 04/17/18 12:00 BP 103/60 04/17/18 12:00 Pulse Ox 96 04/17/18 12:00 Intake & Output 04/16/18 04/17/18 04/17/18 18:59 06:59 18:59 Intake Total 540 560 240 Output Total 0 Balance 540 560 240 Weight 99.9 kg Intake: IV 560 0.9 560 Oral 540 240 Output: Urine 0 Other: Voiding Method Toilet Toilet # Voids 2 # Bowel Movements 1 - Exam - Constitutional General appearance: cooperative, no acute distress, obese - EENT Eyes: anicteric sclerae, EOMI ENT: hard of hearing, normal oropharynx - Neck Neck: no lymphadenopathy - Respiratory Respiratory: bilateral: CTA - Cardiovascular Heart sounds: normal: S1, S2 leg Peripheral Edema: bilateral: 1+, Pitting - Gastrointestinal General gastrointestinal: no absent bowel sounds, no decreased bowel sounds, no distended, no hepatomegaly, no hyperactive bowel sounds, normal bowel sounds, no organomegaly, no rigid, no scaphoid, soft, no splenomegaly, no tenderness, no umbilical hernia, no ventral hernia - Integumentary BLE shins reddened, 2 small scabs on the right freeman, no open lesions or weeping Integumentary: pale - Neurologic Neurologic: CNII-XII intact - Musculoskeletal Musculoskeletal: generalized weakness - Psychiatric Psychiatric: A&O x's 3, appropriate affect, intact judgment & insight - Labs CBC & Chem 7: 04/17/18 09:39 04/17/18 14:45 Labs: Abnormal Lab Results - Last 24 Hours (Table) 04/17/18 04/17/18 04/17/18 Range/Units 03:05 09:39 09:39 WBC 2.2 L (3.8-10.6) k/uL RBC 3.18 L (3.80-5.40) m/uL Hgb 9.2 L (11.4-16.0) gm/dL Hct 29.8 L (34.0-46.0) % RDW 19.3 H (11.5-15.5) % Plt Count 75 L (150-450) k/uL Lymphocytes # (Manual) 0.42 L (1.0-4.8) k/uL Sodium 126 L (137-145) mmol/L Carbon Dioxide 18 L (22-30) mmol/L BUN 31 H (7-17) mg/dL Creatinine 1.20 H (0.52-1.04) mg/dL Glucose 133 H (74-99) mg/dL Calcium 6.9 L (8.4-10.2) mg/dL Urine Appearance Cloudy H (Clear) Urine Protein Trace H (Negative) Ur Leukocyte Esterase Moderate H (Negative) Urine WBC 22 H (0-5) /hpf Urine Bacteria Many H (None) /hpf Urine Mucus Many H (None) /hpf 04/17/18 Range/Units 09:39 WBC (3.8-10.6) k/uL RBC (3.80-5.40) m/uL Hgb (11.4-16.0) gm/dL Hct (34.0-46.0) % RDW (11.5-15.5) % Plt Count (150-450) k/uL Lymphocytes # (Manual) (1.0-4.8) k/uL Sodium 125 L (137-145) mmol/L Carbon Dioxide (22-30) mmol/L BUN (7-17) mg/dL Creatinine (0.52-1.04) mg/dL Glucose (74-99) mg/dL Calcium (8.4-10.2) mg/dL Urine Appearance (Clear) Urine Protein (Negative) Ur Leukocyte Esterase (Negative) Urine WBC (0-5) /hpf Urine Bacteria (None) /hpf Urine Mucus (None) /hpf Assessment and Plan Plan: Assessment and Plan (1) Hyperkalemia Narrative/Plan: - Component Dehydration - Hydration and kayexelate given on admit. - Resolved - K = 4 Current Visit: Yes Status: Acute Priority: High Code(s): E87.5 - HYPERKALEMIA SNOMED Code(s): 74709954 (2) Hyponatremia Narrative/Plan: - Urine and Serum Osmolarity - Urine Sodium and Potassium - Nephrology Following - Recurrent Ascites therefore bladder scan likely not accurate. Current Visit: Yes Status: Acute Code(s): E87.1 - HYPO-OSMOLALITY AND HYPONATREMIA SNOMED Code(s): 25655892 (3) Metastatic breast carcinoma Narrative/Plan: Known to Liver, Bone - Maintained on Afinitor, Faslodex, Xgeva with stable Metastatic disease - Hold afinitor for now. - Pt just had monthly bisphosphonate and faslodex Current Visit: No Status: Chronic Priority: Medium Code(s): C50.919 - MALIGNANT NEOPLASM OF UNSP SITE OF UNSPECIFIED FEMALE BREAST; C79.9 - SECONDARY MALIGNANT NEOPLASM OF UNSPECIFIED SITE SNOMED Code(s): 044319041 (4) Pancytopenia Narrative/Plan: - Secondary to chemo history, likely metastatic disease to bone marrow, and current treatment. - Monitor Daily CBC and transfuse when indicated - Arvizu culture, UA Current Visit: Yes Status: Chronic Priority: Medium Code(s): D61.818 - OTHER PANCYTOPENIA SNOMED Code(s): 352535769 (5) (Hypocalcemia): - Check Arvizu Cultures and ionize calcium
[2018-04-17 15:54] LABS: Ionized Calcium 4.5 mg/dL (4.5-5.3)
[2018-04-17 16:49] LABS: Amorphous Sediment,Urine Rare /hpf; Appearance,Urine Cloudy (Clear); Bacteria,Urine Many /hpf; Bilirubin,Urine Negative (Negative); Blood,Urine Trace (Negative); Color,Urine Yellow; Glucose,Urine (UA) Negative (Negative); Hyaline Casts,Urine 55 /lpf (0-2); Ketones,Urine Negative (Negative); Leukocyte Esterase,Urine Large (Negative); Mucus,Urine Rare /hpf; Nitrite,Urine Negative (Negative); PH, Urine 5.5 (5.0-8.0); Protein,Urine Trace (Negative); RBC,Urine 3 /hpf (0-5); Specific Gravity,Urine 1.011 (1.001-1.035); Squamous Epithelial Cell,Urine 1 /hpf (0-4); Urobilinogen,Urine <2.0 mg/dL (<2.0); WBC,Urine 40 /hpf (0-5)
[2018-04-17] MEDS: Exemestane 25 MG PO SCH (16:52)
[2018-04-17] MEDS: ATORVASTATIN 10 MG TAB PO SCH (20:31)
[2018-04-17] MEDS: LORATADINE 10 MG TAB PO SCH (20:31)
[2018-04-18] MEDS: HYDROcodone/APAP 5-325MG 1 EACH TAB PO PRN ×3 (03:41→21:02)
[2018-04-18] MEDS: LEVOTHYROXINE 75 MCG TAB PO SCH (05:58)
[2018-04-18 06:48] LABS: Anisocytosis Slight; HCT 27.7 % (34.0-46.0); HGB 8.6 gm/dL (11.4-16.0); Hypochromasia Marked; MCH 28.7 pg (25.0-35.0); MCHC 31.2 g/dL (31.0-37.0); MCV 92.1 fL (80.0-100.0); Mean Platelet Volume 7.1; Poikilocytosis Slight; RBC 3.01 m/uL (3.80-5.40); RDW 19.5 % (11.5-15.5); WBC 2.6 k/uL (3.8-10.6)
[2018-04-18 06:55] LABS: Platelet Count 60 k/uL (150-450)
[2018-04-18 06:59] LABS: Albumin 1.8 g/dL (3.5-5.0); Calcium 6.8 mg/dL (8.4-10.2); Potassium 4.4 mmol/L (3.5-5.1); Total Bilirubin 0.9 mg/dL (0.2-1.3); Total Protein 3.9 g/dL (6.3-8.2)
[2018-04-18 08:33] LABS: Lymphocytes # (M) 0.75 k/uL (1.0-4.8); Monocytes # (M) 0.42 k/uL (0-1.0); Neutrophils # (M) 1.43 k/uL (1.3-7.7); Neutrophils % (M) 55 %; Nucleated Red Blood Cells 0 /100 WBC (0-0); Total Cells Counted 100
[2018-04-18] MEDS: DOCUSATE 100 MG CAP PO SCH ×2 (09:18→20:15)
[2018-04-18] MEDS: FAMOTIDINE 20 MG TAB PO SCH (09:18)
[2018-04-18] MEDS: SODIUM BICARBONATE TAB 650 MG TAB PO SCH ×2 (09:20→20:15)
[2018-04-18] MEDS: LACTULOSE 20 GM/30 ML CUP PO SCH ×5 (09:20→20:17)
[2018-04-18] MEDS: METOPROLOL TARTRATE 12.5 MG TAB PO SCH ×2 (09:20→20:15)
[2018-04-18] MEDS ORDERED: ALBUMIN HUMAN 25% 100 ML in EMPTY BAG 1 BAG IVPB ONE (10:08)
[2018-04-18] MEDS ORDERED: ALBUMIN HUMAN 25% 50 ML in EMPTY BAG 1 BAG IVPB SCH (10:15)
--- NOTE | 2018-04-18 10:16 | P.PN ---
Subjective Progress Note Date: 04/18/18 Seen and examined for the follow-up of acute kidney injury. Sitting comfortably in the chair no nausea vomiting or diarrhea. Still has lower extremity edema and abdominal distention. Objective - Vital Signs Vital signs: Vital Signs Temp 96.6 F L 04/18/18 08:00 Pulse 82 04/18/18 08:00 Resp 20 04/18/18 08:00 BP 96/65 04/18/18 08:00 Pulse Ox 100 04/18/18 08:00 Intake & Output 04/17/18 04/18/18 04/18/18 18:59 06:59 18:59 Intake Total 480 1420 236 Output Total 652 700 Balance -172 720 236 Weight 102.2 kg Intake: IV 220 0.9 220 Oral 480 1200 236 Output: Urine 40 700 Straight 40 Post Void Residual 612 Other: Voiding Method Toilet Toilet - Exam No acute distress S1-S2 heard Lungs clear Abdomen distended ascites+ Edema++ - Labs CBC & Chem 7: 04/18/18 05:32 04/18/18 05:32 Labs: Abnormal Lab Results - Last 24 Hours (Table) 04/17/18 04/17/18 04/17/18 Range/Units 09:39 09:39 14:45 WBC 2.2 L (3.8-10.6) k/uL RBC 3.18 L (3.80-5.40) m/uL Hgb 9.2 L (11.4-16.0) gm/dL Hct 29.8 L (34.0-46.0) % RDW 19.3 H (11.5-15.5) % Plt Count 75 L (150-450) k/uL Lymphocytes # (Manual) 0.42 L (1.0-4.8) k/uL Sodium 125 L (137-145) mmol/L Carbon Dioxide (22-30) mmol/L BUN (7-17) mg/dL Creatinine (0.52-1.04) mg/dL Glucose (74-99) mg/dL Osmolality 272 L (280-301) mosm/kg Calcium (8.4-10.2) mg/dL AST (14-36) U/L Alkaline Phosphatase (38-126) U/L Total Protein (6.3-8.2) g/dL Albumin (3.5-5.0) g/dL Urine Appearance (Clear) Urine Protein (Negative) Urine Blood (Negative) Ur Leukocyte Esterase (Negative) Urine WBC (0-5) /hpf Urine WBC Clumps (None) /hpf Amorphous Sediment (None) /hpf Urine Bacteria (None) /hpf Hyaline Casts (0-2) /lpf Urine Mucus (None) /hpf 04/17/18 04/17/18 04/18/18 Range/Units 14:45 16:31 05:32 WBC 2.6 L (3.8-10.6) k/uL RBC 3.01 L (3.80-5.40) m/uL Hgb 8.6 L (11.4-16.0) gm/dL Hct 27.7 L (34.0-46.0) % RDW 19.5 H (11.5-15.5) % Plt Count 60 L (150-450) k/uL Lymphocytes # (Manual) 0.75 L (1.0-4.8) k/uL Sodium 125 L (137-145) mmol/L Carbon Dioxide (22-30) mmol/L BUN (7-17) mg/dL Creatinine (0.52-1.04) mg/dL Glucose (74-99) mg/dL Osmolality (280-301) mosm/kg Calcium (8.4-10.2) mg/dL AST (14-36) U/L Alkaline Phosphatase (38-126) U/L Total Protein (6.3-8.2) g/dL Albumin (3.5-5.0) g/dL Urine Appearance Cloudy H (Clear) Urine Protein Trace H (Negative) Urine Blood Trace H (Negative) Ur Leukocyte Esterase Large H (Negative) Urine WBC 40 H (0-5) /hpf Urine WBC Clumps Many H (None) /hpf Amorphous Sediment Rare H (None) /hpf Urine Bacteria Many H (None) /hpf Hyaline Casts 55 H (0-2) /lpf Urine Mucus Rare H (None) /hpf 04/18/18 Range/Units 05:32 WBC (3.8-10.6) k/uL RBC (3.80-5.40) m/uL Hgb (11.4-16.0) gm/dL Hct (34.0-46.0) % RDW (11.5-15.5) % Plt Count (150-450) k/uL Lymphocytes # (Manual) (1.0-4.8) k/uL Sodium 125 L (137-145) mmol/L Carbon Dioxide 18 L (22-30) mmol/L BUN 32 H (7-17) mg/dL Creatinine 1.22 H (0.52-1.04) mg/dL Glucose 106 H (74-99) mg/dL Osmolality (280-301) mosm/kg Calcium 6.8 L (8.4-10.2) mg/dL AST 40 H (14-36) U/L Alkaline Phosphatase 214 H (38-126) U/L Total Protein 3.9 L (6.3-8.2) g/dL Albumin 1.8 L (3.5-5.0) g/dL Urine Appearance (Clear) Urine Protein (Negative) Urine Blood (Negative) Ur Leukocyte Esterase (Negative) Urine WBC (0-5) /hpf Urine WBC Clumps (None) /hpf Amorphous Sediment (None) /hpf Urine Bacteria (None) /hpf Hyaline Casts (0-2) /lpf Urine Mucus (None) /hpf Assessment and Plan Assessment: #1 acute kidney injury suspect ATN with abnormal UA. But urine studies with urinary sodium of less than 10 favors hepatorenal syndrome. #2 metastatic breast cancer. As per oncology note nonmalignant ascites. #3 low marginal blood pressures #4 metabolic acidosis #5 hyperkalemia resolved #6 hypervolemic hyponatremia Plan: #1 start midodrine, octreotide and albumin for treatment of HRS protocol. #2 consider paracentesis to relieve abdominal pressure to rule out abdominal compartment syndrome. #3 strict ins and outs #4 continue with sodium bicarbonate for metabolic acidosis #5 ultrasound noted no hydronephrosis #6 repeat labs in the morning Thank you very much for this consultation we will follow along while she is in the hospital.
[2018-04-18] MEDS: MIDODRINE 5 MG TAB PO SCH ×2 (12:10→17:40)
[2018-04-18] MEDS: ALBUMIN HUMAN 25% 50 ML in EMPTY BAG 1 BAG IVPB SCH ×2 (12:12→13:40)
[2018-04-18] MEDS: OCTREOTIDE 100 MCG/ML INJ IVP SCH ×2 (17:40→23:25)
[2018-04-18] MEDS: Exemestane 25 MG PO SCH (17:44)
[2018-04-18] MEDS: SODIUM CHLORIDE 0.9% 1,000 ML IV SCH (17:48)
[2018-04-18] MEDS: LORATADINE 10 MG TAB PO SCH (20:15)
[2018-04-18] MEDS: ATORVASTATIN 10 MG TAB PO SCH (20:15)
--- NOTE | 2018-04-18 20:20 | P.PN ---
Subjective Progress Note Date: 04/18/18 The patient denies any new complaints. She thinks that she feels somewhat stronger. Continues to have lower extremity swelling but not worse than before. Urine output is fairly normal subjectively. No obvious bleeding noted. No fever/chills/nausea/vomiting. She thinks her abdomen does feel somewhat nobles. Objective - Vital Signs Vital signs: Vital Signs Temp 97.9 F 04/18/18 16:00 Pulse 77 04/18/18 16:00 Resp 20 04/18/18 16:00 BP 126/71 04/18/18 16:00 Pulse Ox 98 04/18/18 16:00 Intake & Output 04/18/18 04/18/18 04/19/18 06:59 18:59 06:59 Intake Total 1420 698 Output Total 700 200 Balance 720 498 Weight 102.2 kg Intake: IV 220 0.9 220 Oral 1200 698 Output: Urine 700 200 Other: Voiding Method Toilet # Voids 1 - Constitutional General appearance: Present: no acute distress - EENT Eyes: Present: EOMI ENT: Present: hearing grossly normal, normal oropharynx - Respiratory Respiratory: bilateral: diminished - Cardiovascular Rhythm: regular Heart sounds: normal: S1, S2 - Gastrointestinal General gastrointestinal: Present: distended, normal bowel sounds - Integumentary Integumentary Comment(s): Changes of chronic venous insufficiency of both lower extremities. No new ulcers - Musculoskeletal Musculoskeletal Comment(s): Bilateral lower extremity edema, stable - Psychiatric Psychiatric: Present: A&O x's 3 - Labs CBC & Chem 7: 04/18/18 05:32 04/18/18 05:32 Labs: Abnormal Lab Results - Last 24 Hours (Table) 04/18/18 04/18/18 Range/Units 05:32 05:32 WBC 2.6 L (3.8-10.6) k/uL RBC 3.01 L (3.80-5.40) m/uL Hgb 8.6 L (11.4-16.0) gm/dL Hct 27.7 L (34.0-46.0) % RDW 19.5 H (11.5-15.5) % Plt Count 60 L (150-450) k/uL Lymphocytes # (Manual) 0.75 L (1.0-4.8) k/uL Sodium 125 L (137-145) mmol/L Carbon Dioxide 18 L (22-30) mmol/L BUN 32 H (7-17) mg/dL Creatinine 1.22 H (0.52-1.04) mg/dL Glucose 106 H (74-99) mg/dL Calcium 6.8 L (8.4-10.2) mg/dL AST 40 H (14-36) U/L Alkaline Phosphatase 214 H (38-126) U/L Total Protein 3.9 L (6.3-8.2) g/dL Albumin 1.8 L (3.5-5.0) g/dL Microbiology - Last 24 Hours (Table) 04/17/18 14:45 Blood Culture - Preliminary Blood No Growth after 24 hours Assessment and Plan (1) Hyperkalemia Narrative/Plan: This has resolved, with potassium now in the 4-5 range over the last 2-3 days. The case was discussed with nephrology yesterday. Initial impression based on the bladder scan was that this was due to urinary retention. However the patient did not have urinary retention, straight cath only producing about 20 mL of urine. Therefore the bladder scan was most likely erroneous due to ascites. Therefore according to nephrology, the cause of hyperkalemia was not felt to be totally clear at this time. The possibility of tubular damage was felt to be likely. The cortisol level had been normal. Due to her fluid retention, it was felt that mineralocorticoid supplement with Florinef could be problematic. As the patient had received IV fluids, as well as Lasix, it was felt that doing additional testing for N in/aldosterone would not be accurate. Therefore the plan was to treat the patient with ongoing loop diuretic, with strict control of potassium intake and close monitoring. The patient was evaluated by nephrology today, however, with concern for developing hepatorenal syndrome. Therefore treatment has been started for the same, with Midodrine and Octerotide, and diuretics held. Defer to nephrology for ongoing management Current Visit: Yes Status: Acute Priority: High Code(s): E87.5 - HYPERKALEMIA SNOMED Code(s): 54720474 (2) Hyponatremia Narrative/Plan: This is felt to be hypervolemic. Sodium is stable at 125, with the patient asymptomatic. Follow levels with current nephrology management. Current Visit: Yes Status: Acute Code(s): E87.1 - HYPO-OSMOLALITY AND HYPONATREMIA SNOMED Code(s): 79786326 (3) Pancytopenia Narrative/Plan: Counts are overall stable in the safe range. Continue to monitor with supplementation as needed Current Visit: Yes Status: Chronic Priority: Medium Code(s): D61.818 - OTHER PANCYTOPENIA SNOMED Code(s): 969164232 (4) Ascites Narrative/Plan: There is some progression, though the patient is relatively symptomatic. She is supposed to get a paracentesis on 04/22/18. We will plan on doing it on , if recommended by nephrology Current Visit: No Status: Acute Code(s): R18.8 - OTHER ASCITES SNOMED Code (s): 385968179
--- NOTE | 2018-04-18 20:53 | PN ---
PROGRESS NOTE DATE OF SERVICE: 04/18/2018 I am covering for Dr. Coronado. This 67-year-old woman who was admitted with hyperkalemia, also had ascites. The patient is on weekly paracentesis . The patient also has Stage IV breast cancer with metastases to bone, liver and spleen. Patient closely monitored. No chest pain. No palpitations. No fever. PHYSICAL EXAM: Alert and oriented x2. Pulse 82, blood pressure 95/60, respirations 20, temperature 99.6, pulse ox 100% on room air. HEENT: Conjunctivae normal. Oral mucosa moist. NECK: No jugular venous distention. No lymph node enlargement. CARDIOVASCULAR: S1, S2. RESPIRATORY: Diminished breath sounds at the bases. No rhonchi. ABDOMEN: Soft. Positive ascites. LEGS: No swelling. NERVOUS SYSTEM: No focal deficits. LABS: At this time shows WBC 2.7, hemoglobin is 8.6, sodium 125, creatinine is 1.22. ASSESSMENT: 1. Hyperkalemia, resolved. 2. Stage IV breast cancer with metastatic bone, liver and spleen, currently undergoing chemotherapy. 3. Weekly paracentesis of ascites. 4. Pancytopenia secondary to above. 5. Hyponatremia. 6. Hyperlipidemia. 7. Hypertension. 9. History of hypothyroidism. 10.Obesity with body mass index of 33.2. RECOMMENDATIONS: Recommend to continue current medications, management and symptomatic treatment. Otherwise, closely follow with multiple consultants and consider early paracentesis. Continue the rest of the medications. Further recommendations to follow. We will monitor the renal function also very closely. MMODL / IJN: [id number] / MTDD
[2018-04-19] MEDS: MIDODRINE 5 MG TAB PO SCH ×3 (06:41→17:57)
[2018-04-19] MEDS: LEVOTHYROXINE 75 MCG TAB PO SCH (06:41)
[2018-04-19 06:58] LABS: Glucose,Whole Blood 140 mg/dL (75-99)
[2018-04-19 06:58] LABS: Anisocytosis Slight; HCT 31.2 % (34.0-46.0); HGB 9.8 gm/dL (11.4-16.0); Hypochromasia Marked; MCH 29.4 pg (25.0-35.0); MCHC 31.5 g/dL (31.0-37.0); MCV 93.5 fL (80.0-100.0); Macrocytosis Slight; Mean Platelet Volume 7.3; Poikilocytosis Slight; RBC 3.34 m/uL (3.80-5.40); RDW 19.3 % (11.5-15.5); WBC 2.7 k/uL (3.8-10.6)
[2018-04-19 07:18] LABS: Albumin 2.3 g/dL (3.5-5.0); Calcium 7.3 mg/dL (8.4-10.2); Potassium 4.7 mmol/L (3.5-5.1); Total Bilirubin 1.3 mg/dL (0.2-1.3); Total Protein 4.5 g/dL (6.3-8.2)
[2018-04-19 07:20] LABS: Platelet Count 67 k/uL (150-450)
[2018-04-19] MEDS: DOCUSATE 100 MG CAP PO SCH ×2 (09:39→21:23)
[2018-04-19] MEDS: SODIUM BICARBONATE TAB 650 MG TAB PO SCH ×2 (09:40→21:23)
[2018-04-19] MEDS: METOPROLOL TARTRATE 12.5 MG TAB PO SCH ×2 (09:40→21:23)
[2018-04-19] MEDS: LACTULOSE 20 GM/30 ML CUP PO SCH ×4 (09:40→21:24)
[2018-04-19] MEDS: FAMOTIDINE 20 MG TAB PO SCH (09:40)
--- NOTE | 2018-04-19 10:40 | P.PN ---
Subjective Progress Note Date: 04/19/18 The patient states that she is feeling somewhat worse today. She complains of having some nausea, as well as lower abdominal discomfort that was partially relieved by the bowel movement. Leg swelling persists but is stable. No actual vomiting. No fevers or chills. Objective - Vital Signs Vital signs: Vital Signs Temp 96.7 F L 04/19/18 09:30 Pulse 73 04/19/18 09:30 Resp 20 04/19/18 09:30 BP 93/58 04/19/18 09:30 Pulse Ox 100 04/19/18 09:30 Intake & Output 04/18/18 04/19/18 04/19/18 18:59 06:59 18:59 Intake Total 698 1420 240 Output Total 200 500 100 Balance 498 920 140 Weight 103.6 kg Intake: IV 220 0.9 220 Oral 698 1200 240 Output: Urine 200 500 100 Other: Voiding Method Toilet # Voids 1 100 1 - Constitutional General appearance: Present: no acute distress - EENT Eyes: Present: EOMI ENT: Present: hearing grossly normal, normal oropharynx - Respiratory Respiratory: bilateral: CTA - Cardiovascular Rhythm: regular Heart sounds: normal: S1, S2 - Gastrointestinal General gastrointestinal: Present: distended, soft - Integumentary Integumentary Comment(s): Lower extremity skin shows chronic venous insufficiency changes. No active ulcer - Neurologic Neurologic: Present: CNII-XII intact - Musculoskeletal Musculoskeletal: Present: generalized weakness, strength equal bilaterally - Psychiatric Psychiatric: Present: A&O x's 3, appropriate affect - Labs CBC & Chem 7: 04/19/18 06:35 04/19/18 06:35 Labs: Abnormal Lab Results - Last 24 Hours (Table) 04/19/18 04/19/18 04/19/18 Range/Units 06:35 06:35 06:38 WBC 2.7 L (3.8-10.6) k/uL RBC 3.34 L (3.80-5.40) m/uL Hgb 9.8 L (11.4-16.0) gm/dL Hct 31.2 L (34.0-46.0) % RDW 19.3 H (11.5-15.5) % Plt Count 67 L (150-450) k/uL Sodium 127 L (137-145) mmol/L Carbon Dioxide 18 L (22-30) mmol/L BUN 30 H (7-17) mg/dL Creatinine 1.35 H (0.52-1.04) mg/dL Glucose 138 H (74-99) mg/dL POC Glucose (mg/dL) 140 H (75-99) mg/dL Calcium 7.3 L (8.4-10.2) mg/dL AST 39 H (14-36) U/L Alkaline Phosphatase 180 H (38-126) U/L Total Protein 4.5 L (6.3-8.2) g/dL Albumin 2.3 L (3.5-5.0) g/dL Microbiology - Last 24 Hours (Table) 04/17/18 14:45 Blood Culture - Preliminary Blood No Growth after 24 hours Assessment and Plan (1) Hyperkalemia Narrative/Plan: The potassium remains normal at 4.4. Slightly elevated from yesterday. The patient is currently on treatment for possible early hepatorenal syndrome. Nephrology following. Defer to nephrology for continued management Current Visit: Yes Status: Acute Priority: High Code(s): E87.5 - HYPERKALEMIA SNOMED Code(s): 72446378 (2) Hyponatremia Narrative/Plan: Sodium slightly improved at 1.7 today. Patient remains asymptomatic from the same. Again, defer to nephrology for continued management Current Visit: Yes Status: Acute Code(s): E87.1 - HYPO-OSMOLALITY AND HYPONATREMIA SNOMED Code(s): 13561078 (3) Pancytopenia Narrative/Plan: Counts are overall stable in a safe range. Continue to monitor, with transfusion support if needed Current Visit: Yes Status: Chronic Priority: Medium Code(s): D61.818 - OTHER PANCYTOPENIA SNOMED Code(s): 109668239 (4) Ascites Narrative/Plan: There does appear to be some reaccumulation since her hospitalization. As there is concern that this could be affecting her renal perfusion and kidney function, paracentesis will be ordered for 04/20/18 than waiting until her scheduled 1 later in the week. Ascitic fluid has been evaluated multiple times with no evidence of malignancy. This appears to be a transudative due to underlying liver disease Current Visit: No Status: Acute Code(s): R18.8 - OTHER ASCITES SNOMED Code (s): 903313334 (5) Possible urinary tract infection Narrative/Plan: The patient's urinalysis was significantly abnormal. She was complaining of some lower abdominal symptoms and nausea today. ID will be consulted to treat for possible UTI, especially as the patient has multiple drug ALLERGIES. In the meantime urine culture and sensitivity will be ordered. Current Visit: Yes Status: Acute Code(s): R39.89 - OTHER SYMPTOMS AND SIGNS INVOLVING THE GENITOURINARY SYSTEM SNOMED Code(s): 202229217
[2018-04-19] MEDS ORDERED: ALBUMIN HUMAN 25% 100 ML in EMPTY BAG 1 BAG IVPB ONE (11:13)
--- NOTE | 2018-04-19 11:16 | P.PN ---
Subjective Progress Note Date: 04/19/18 Seen and examined for the follow-up of acute kidney injury. Sitting comfortably in the chair no nausea vomiting or diarrhea. Still has lower extremity edema and abdominal distention. Not feeling good today. But making good amount of urine since yesterday. Objective - Vital Signs Vital signs: Vital Signs Temp 96.7 F L 04/19/18 09:30 Pulse 73 04/19/18 09:30 Resp 20 04/19/18 09:30 BP 93/58 04/19/18 09:30 Pulse Ox 100 04/19/18 09:30 Intake & Output 04/18/18 04/19/18 04/19/18 18:59 06:59 18:59 Intake Total 698 1420 240 Output Total 200 500 100 Balance 498 920 140 Weight 103.6 kg Intake: IV 220 0.9 220 Oral 698 1200 240 Output: Urine 200 500 100 Other: Voiding Method Toilet # Voids 1 100 1 - Exam No acute distress S1-S2 heard Lungs clear Abdomen distended ascites+ Edema++ - Labs CBC & Chem 7: 04/19/18 06:35 04/19/18 06:35 Labs: Abnormal Lab Results - Last 24 Hours (Table) 04/19/18 04/19/18 04/19/18 Range/Units 06:35 06:35 06:38 WBC 2.7 L (3.8-10.6) k/uL RBC 3.34 L (3.80-5.40) m/uL Hgb 9.8 L (11.4-16.0) gm/dL Hct 31.2 L (34.0-46.0) % RDW 19.3 H (11.5-15.5) % Plt Count 67 L (150-450) k/uL Sodium 127 L (137-145) mmol/L Carbon Dioxide 18 L (22-30) mmol/L BUN 30 H (7-17) mg/dL Creatinine 1.35 H (0.52-1.04) mg/dL Glucose 138 H (74-99) mg/dL POC Glucose (mg/dL) 140 H (75-99) mg/dL Calcium 7.3 L (8.4-10.2) mg/dL AST 39 H (14-36) U/L Alkaline Phosphatase 180 H (38-126) U/L Total Protein 4.5 L (6.3-8.2) g/dL Albumin 2.3 L (3.5-5.0) g/dL Microbiology - Last 24 Hours (Table) 04/17/18 14:45 Blood Culture - Preliminary Blood No Growth after 24 hours Assessment and Plan Assessment: #1 acute kidney injury suspect ATN with abnormal UA. But urine studies with urinary sodium of less than 10meq favors hepatorenal syndrome. #2 metastatic breast cancer. As per oncology note nonmalignant ascites. #3 low marginal blood pressures #4 metabolic acidosis #5 hyperkalemia resolved #6 hypervolemic hyponatremia Plan: #1 continue with midodrine, octreotide and second dose of albumin 100 mg today for treatment of HRS protocol. #2 awaiting paracentesis tomorrow #3 strict ins and outs #4 continue with sodium bicarbonate for metabolic acidosis #5 ultrasound noted no hydronephrosis #6 repeat labs in the morning Thank you very much for this consultation we will follow along while she is in the hospital.
[2018-04-19] MEDS: OCTREOTIDE 100 MCG/ML INJ IVP SCH ×3 (11:23→23:50)
[2018-04-19 12:17] LABS: Eosinophils # (M) 0.03 k/uL (0-0.7); Lymphocytes # (M) 0.51 k/uL (1.0-4.8); Neutrophils # (M) 1.86 k/uL (1.3-7.7); Neutrophils % (M) 69 %; Nucleated Red Blood Cells 0 /100 WBC (0-0); Total Cells Counted 100
[2018-04-19] MEDS: ALBUMIN HUMAN 25% 50 ML in EMPTY BAG 1 BAG IVPB SCH ×2 (12:24→13:23)
[2018-04-19] MEDS: HYDROcodone/APAP 5-325MG 1 EACH TAB PO PRN ×2 (13:33→23:51)
[2018-04-19] MEDS: Exemestane 25 MG PO SCH (18:00)
--- NOTE | 2018-04-19 19:11 | PN ---
PROGRESS NOTE DATE OF SERVICE: 04/19/2018 I am covering for Dr. Coronado. This 67-year-old woman was admitted with hypokalemia, also had ascites, abdominal pannus. Today the patient is feeling better. The patient also has features of UTI. Cultures are being sought at this time. No chest pain. No palpitations. No fever. EXAM: Alert and oriented. Pulse is 68, blood pressure 108/63, respirations 20, temperature 97.4, pulse ox 98% on room air. HEENT: Conjunctivae normal. Oral mucosa moist. NECK: No jugular venous distention. No lymph node enlargement. CARDIOVASCULAR: S1, S2. RESPIRATORY: Diminished breath sounds at the bases. A few scattered rhonchi, no crackles. ABDOMEN: Soft, ascites. LEGS: No swelling. NERVOUS SYSTEM: No focal deficits. LAB STUDIES: WBC 2.2, hemoglobin 10.8, sodium 137. ASSESSMENT: 1. Hypokalemia, resolved. 2. Stage IV breast cancer with metastatic bone, liver and spleen metastases, currently undergoing chemotherapy. 3. Weekly paracentesis for ascites. 4. Pancytopenia secondary to above. 5. Urinary tract infection present on admission. 6. Hyponatremia. 7. Hyperlipidemia. 8. Hypertension. 9. Obesity with body mass index of 32.2. RECOMMENDATIONS: Recommend to continue current medications, continue symptomatic treatment. Continue with antibiotics. Follow the cultures. Prognosis guarded because of multiple complex medical issues. Further recommendations to follow. Abdominal paracentesis as planned. MMODL / IJN: [id number] /
[2018-04-19] MEDS: LORATADINE 10 MG TAB PO SCH (21:23)
[2018-04-19] MEDS: ATORVASTATIN 10 MG TAB PO SCH (21:23)
--- NOTE | 2018-04-19 23:09 | P.CONS ---
History of Present Illness - Reason for Consult Consult date: 04/19/18 - Chief Complaint weakness - History of Present Illness 67-year-old woman who is a very complex history regarding her breast carcinoma diagnosis from 2015. At this time there is evidence of a mass outside of the breast and biopsy revealed evidence of the metastatic disease likely from breast primary. She underwent evaluation and chemotherapy interventions and was showing some improvement. This september of this year she was on an oral chemotherapy regimens but then had rapidly progressive disease involving her liver. Constantly she was given chemotherapy in April with a carboplatinum- based regimen and apparently tumor markers improved markedly and she's been back to the oral regimen at in the recent past. She does have evidence of chronic ascites andliver disease thought to be from her underlying malignancy and is receiving weekly paracentesis usually about 5 L. patient became quite weak had evidence of hyperkalemia and was directed to hospital for evaluation. With concerns for sepsis the infectious diseases consultation was requested. Review of Systems Feels weak and ill overall HEENT:Denies headache or acute visual change. Denies sinus or mouth discomforts. Denies neck stiffness or pain. Denies significant oral cavity pain. Denies difficulty on swallowing. Lungs: Denies significant shortness of breath, cough, sputum production, or hemoptysis. Cardiovascular: Denies significant shortness of breath, chest pain, chest wall pain, orthopnea, dyspnea on exertion, syncope Gastrointestinal: The ascites is present however no kp abdominal pain at the moment appetites poor no nausea or emesis no diarrhea No hematemesis melena or hematochezia Musculoskeletal: denies significant myalgias or arthralgias. No new joint swelling. Denies new back pain. Skin: Denies new rash or lesions. No new ulcers or wounds are related.. Neuro: Denies headache or visual change. Denies any new onset weakness or difficulty with ambulation. Denies falls or seizures. Psychiatric:Denies anxiety or depression. Endocrine: Significant fatigue weight gain from fluid Past Medical History Past Medical History: Cancer, Diabetes Mellitus, Hearing Disorder / Deafness, Hyperlipidemia, Hypertension, Osteoarthritis (OA), Pneumonia, Thyroid Disorder, Vascular Disorder Additional Past Medical History / Comment(s): Thyroid Nodules.VENOUS STASIS, HX OF PLEURISY . STAGE 4 BREAST CANCER DIAGNOSED IN SEPTEMBER 2015, PER FAMILY"breast CA mets to bone and lymphatic system, liver,spleen, constipation History of Any Multi-Drug Resistant Organisms: None Reported Past Surgical History: Hysterectomy, Tonsillectomy, Tubal Ligation Additional Past Surgical History / Comment(s): RT THYROIDECTOMY. LAPAROSCOPY D/ T Ectopic . BIOPSY MASS LEFT NECK.paracentesis, port a cath placement, excision fibrolipoma/scalp, lt elbow sx Past Anesthesia/Blood Transfusion Reactions: No Reported Reaction Past Psychological History: No Psychological Hx Reported Additional Psychological History / Comment(s): . Lives with her . Retired [employer]. No experience. No international travel. Pet cat in the home, takes care of the letter box. No other animal exposures Smoking Status: Never smoker Past Alcohol Use History: None Reported Past Drug Use History: None Reported - Past Family History Mother Family Medical History: Deep Vein Thrombosis (DVT) Father Family Medical History: Cancer Sister(s) Family Medical History: Cancer Additional Family Medical History / Comment(s): non-hodgkins lymphoma Medications and Allergies Home Medications and Allergies Comment(s): Current Medications Hydrocodone Bitart/Acetaminophen ([place] 5-325) 1 each PO Q6HR PRN PRN Reason: Pain Last Admin: 04/19/18 13:33 Dose: 1 each Atorvastatin Calcium (Lipitor) 10 mg PO HS [facility] Last Admin: 04/19/18 21:23 Dose: 10 mg Docusate Sodium (Colace) 200 mg PO BID [facility] Last Admin: 04/19/18 21:23 Dose: 200 mg Famotidine (Pepcid) 20 mg PO DAILY [facility] Last Admin: 04/19/18 09:40 Dose: 20 mg Fentanyl (Duragesic 50mcg/Hr Patch) 1 patch TRANSDERM Q72H [facility] Last Admin: 04/18/18 09:18 Dose: 1 patch Fluticasone Propionate (Flonase Nasal [place]) 1 spray EA NOSTRIL BID PRN PRN Reason: Allergy Symptoms Sodium Chloride (Saline 0.9%) 1,000 mls @ 20 mls/hr IV .Q24H [facility] Last Admin: 04/18/18 17:48 Dose: 20 mls/hr Ceftriaxone Sodium 1,000 mg/ (Sodium Chloride) 50 mls @ 100 mls/hr IVPB Q24HR [facility] Last Admin: 04/19/18 15:22 Dose: 100 mls/hr Lactulose (Cephulac) 30 gm PO QID [facility] Last Admin: 04/19/18 21:24 Dose: Not Given Levothyroxine Sodium (Synthroid) 75 mcg PO DAILY@0630 [facility] Last Admin: 04/19/18 06:41 Dose: 75 mcg Loratadine (Claritin) 10 mg PO [facility] Last Admin: 04/19/18 21:23 Dose: 10 mg Metoprolol Tartrate (Lopressor) 12.5 mg PO BID [facility] Last Admin: 04/19/18 21:23 Dose: 12.5 mg Midodrine (Proamatine) 10 mg PO AC-TID [facility] Last Admin: 04/19/18 17:57 Dose: 10 mg Naloxone HCl (Narcan) 0.2 mg IV Q2M PRN PRN Reason: Opioid Reversal Exemestane 25 Mg 25 mg PO DAILY@1800 [facility] Last Admin: 04/19/18 18:00 Dose: 25 mg Octreotide Acetate (Sandostatin) 50 mcg IVP Q8HR [facility] Last Admin: 04/19/18 17:57 Dose: 50 mcg Polyethylene Glycol (Miralax) 17 gm PO DAILY PRN PRN Reason: Constipation Sodium Bicarbonate (Sodium Bicarbonate Tab) 650 mg PO BID [facility] Last Admin: 04/19/18 21:23 Dose: 650 mg Home Medications Medication Instructions Recorded Confirmed Type Docusate Sodium [Dok] 200 mg PO BID 09/15/15 04/15/18 History Loratadine [Claritin] 10 mg PO 01/23/17 04/15/18 History Zoledronic Acid [Zometa] 4 mg IVPB QMONTH 01/23/17 04/15/18 History Fluticasone Nasal [place] [Flonase 1 spray EA NOSTRIL BID PRN 09/30/17 04/15/18 History Nasal [place]] Levothyroxine Sodium [Synthroid] 75 mcg PO DAILY 09/30/17 04/15/18 History fentaNYL 50MCG/HR PATCH [Duragesic 1 patch TRANSDERM Q72H #1 patch 10/02/1704/21 Rx 50MCG/HR] Famotidine [Pepcid] 20 mg PO DAILY 01/06/18 04/15/18 History HYDROcodone/APAP 5-325MG [[place] 1 tab PO Q6HR PRN 01/06/18 04/15/18 History 5-325] Simvastatin [Zocor] 10 mg PO 01/06/18 04/15/18 History Biotin 1000mcg 1 tab PO DAILY 01/26/18 04/15/18 History Polyethylene Glycol 3350 [Miralax] 17 gm PO DAILY PRN 01/26/18 04/15/18 History Lactulose 30 gm PO QID #5400 ml 01/30/18 04/15/18 Rx Metoprolol Tartrate [Lopressor] 12.5 mg PO BID #60 tab 01/30/18 04/15/18 Rx Afinitor 7.5 mg PO DAILY@1800 02/18/18 04/15/18 History Exemestane [Aromasin] 25 mg PO DAILY@1800 02/18/18 04/15/18 History Allergies Allergy/AdvReac Type Severity Reaction Status Date / Time Penicillins Allergy Rash/Hives Verified 04/15/18 16:37 Sulfa (Sulfonamide Allergy Rash/Hives Verified 04/15/18 16:37 Antibiotics) ibuprofen AdvReac Swelling Verified 04/15/18 16:37 Physical Exam Vitals: Vital Signs Temp Pulse Resp BP Pulse Ox 04/19/18 16:00 97.1 F L 68 20 108/57 99 04/19/18 12:00 97.5 F L 68 20 108/63 97 04/19/18 09:30 96.7 F L 73 20 93/58 100 04/19/18 04:00 97.6 F 83 17 93/55 98 04/19/18 00:00 73 17 04/18/18 23:58 98.1 F 73 17 141/64 95 Intake and Output 04/19/18 04/19/18 04/19/18 06:59 14:59 22:59 Intake Total 1020 240 Output Total 500 100 150 Balance 520 140 -150 Intake: IV 220 0.9 220 Oral 800 240 Output: Urine 500 100 150 Other: Voiding Method Toilet # Voids 1 2 Weight 103.6 kg Pleasant 67-year-old woman who is fatigued but not in distress HEENT: Anicteric conjunctiva are pink and moist nasal mucosa grossly intact without significant lesions, there is no thrush. Neck: The neck is supple without significant lymphadenopathy or thyromegaly. Lungs: Good bilateral air entry without significant crackles or wheezing. There is no significant bronchial sounds. There is no egophony or dullness. Heart: Regular rate and rhythm with an audible S1-S2, no S3 no S4. There is no significant murmur click or rub, PMI was nondisplaced. Abdomen: Positive bowel sounds soft and nontender without palpable masses or organomegaly. There was no guarding or rebound. Positive ascites Extremities: The upper extremities have excellent pulses they are symmetric, no significant petechiae or telangiectasia. No splinter hemorrhages were noted. The bilateral choice have evidence of some chronic edema. Pulses are 2+ and symmetric. Skin reveals evidence of a hyperpigmentation Results CBC & Chem 7: 04/19/18 06:35 04/19/18 06:35 Labs: Abnormal Lab Results - Last 24 Hours (Table) 04/19/18 04/19/18 04/19/18 Range/Units 06:35 06:35 06:38 WBC 2.7 L (3.8-10.6) k/uL RBC 3.34 L (3.80-5.40) m/uL Hgb 9.8 L (11.4-16.0) gm/dL Hct 31.2 L (34.0-46.0) % RDW 19.3 H (11.5-15.5) % Plt Count 67 L (150-450) k/uL Lymphocytes # (Manual) 0.51 L (1.0-4.8) k/uL Sodium 127 L (137-145) mmol/L Carbon Dioxide 18 L (22-30) mmol/L BUN 30 H (7-17) mg/dL Creatinine 1.35 H (0.52-1.04) mg/dL Glucose 138 H (74-99) mg/dL POC Glucose (mg/dL) 140 H (75-99) mg/dL Calcium 7.3 L (8.4-10.2) mg/dL AST 39 H (14-36) U/L Alkaline Phosphatase 180 H (38-126) U/L Total Protein 4.5 L (6.3-8.2) g/dL Albumin 2.3 L (3.5-5.0) g/dL Microbiology - Last 24 Hours (Table) 04/17/18 14:45 Blood Culture - Preliminary Blood No Growth after 48 hours 04/19/18 13:00 Urine Culture - Preliminary Urine,Clean Catch Laboratory Results WBC 2.7 k/uL (3.8-10.6) L 04/19/18 06:35 RBC 3.34 m/uL (3.80-5.40) L 04/19/18 06:35 Hgb 9.8 gm/dL (11.4-16.0) L 04/19/18 06:35 Hct 31.2 % (34.0-46.0) L 04/19/18 06:35 MCV 93.5 fL (80.0-100.0) 04/19/18 06:35 MCH 29.4 pg (25.0-35.0) 04/19/18 06:35 MCHC 31.5 g/dL (31.0-37.0) 04/19/18 06:35 RDW 19.3 % (11.5-15.5) H 04/19/18 06:35 Plt Count 67 k/uL (150-450) L 04/19/18 06:35 Neutrophils % [employer] 04/15/18 16:40 Neutrophils % (Manual) 69 % 04/19/18 06:35 Band Neutrophils % 3 % 04/17/18 09:39 Lymphocytes % [employer] 04/15/18 16:40 Lymphocytes % (Manual) 19 % 04/19/18 06:35 Monocytes % [employer] 04/15/18 16:40 Monocytes % (Manual) 11 % 04/19/18 06:35 Eosinophils % [employer] 04/15/18 16:40 Eosinophils % (Manual) 1 % 04/19/18 06:35 Basophils % [employer] 04/15/18 16:40 Neutrophils # [employer] 04/15/18 16:40 Neutrophils # (Manual) 1.86 k/uL (1.3-7.7) 04/19/18 06:35 Lymphocytes # [employer] 04/15/18 16:40 Lymphocytes # (Manual) 0.51 k/uL (1.0-4.8) L 04/19/18 06:35 Monocytes # [employer] 04/15/18 16:40 Monocytes # (Manual) 0.30 k/uL (0-1.0) 04/19/18 06:35 Eosinophils # [employer] 04/15/18 16:40 Eosinophils # (Manual) 0.03 k/uL (0-0.7) 04/19/18 06:35 Basophils # [employer] 04/15/18 16:40 Nucleated RBCs 0 /100 WBC (0-0) 04/19/18 06:35 Manual Slide Review Performed 04/19/18 06:35 Hypochromasia Marked 04/19/18 06:35 Poikilocytosis Slight 04/19/18 06:35 Anisocytosis Slight 04/19/18 06:35 Macrocytosis Slight 04/19/18 06:35 Sodium 127 mmol/L (137-145) L 04/19/18 06:35 Potassium 4.7 mmol/L (3.5-5.1) 04/19/18 06:35 Chloride 102 mmol/L (98-107) 04/19/18 06:35 Carbon Dioxide 18 mmol/L (22-30) L 04/19/18 06:35 Anion Gap 7 mmol/L 04/19/18 06:35 BUN 30 mg/dL (7-17) H 04/19/18 06:35 Creatinine 1.35 mg/dL (0.52-1.04) H 04/19/18 06:35 Est GFR (CKD-EPI)AfAm 47 (>60 ml/min/1.73 sqM) 04/19/18 06:35 Est GFR (CKD-EPI)NonAf 41 (>60 ml/min/1.73 sqM) 04/19/18 06:35 Glucose 138 mg/dL (74-99) H 04/19/18 06:35 POC Glucose (mg/dL) 140 mg/dL (75-99) H 04/19/18 06:38 POC Glu Host/Hostess ID Pimental, Rhyzianne 04/19/18 06:38 Osmolality 272 mosm/kg (280-301) L 04/17/18 14:45 Calcium 7.3 mg/dL (8.4-10.2) L 04/19/18 06:35 Ionized Calcium Travis 4.5 mg/dL (4.5-5.3) 04/17/18 14:45 Phosphorus 3.4 mg/dL (2.5-4.5) 04/15/18 16:40 Magnesium 2.3 mg/dL (1.6-2.3) 04/15/18 16:40 Total Bilirubin 1.3 mg/dL (0.2-1.3) 04/19/18 06:35 AST 39 U/L (14-36) H 04/19/18 06:35 ALT 30 U/L (9-52) 04/19/18 06:35 Alkaline Phosphatase 180 U/L (38-126) H 04/19/18 06:35 Total Protein 4.5 g/dL (6.3-8.2) L 04/19/18 06:35 Albumin 2.3 g/dL (3.5-5.0) L 04/19/18 06:35 Cortisol 17 ug/dL 04/16/18 05:40 Urine Color Yellow 04/17/18 16:31 Urine Appearance Cloudy (Clear) H 04/17/18 16:31 Urine pH 5.5 (5.0-8.0) 04/17/18 16:31 Ur Specific [place] 1.011 (1.001-1.035) 04/17/18 16:31 Urine Protein Trace (Negative) H 04/17/18 16:31 Urine Glucose (UA) Negative (Negative) 04/17/18 16:31 Urine Ketones Negative (Negative) 04/17/18 16:31 Urine Blood Trace (Negative) H 04/17/18 16:31 Urine Nitrite Negative (Negative) 04/17/18 16:31 Urine Bilirubin Negative (Negative) 04/17/18 16:31 Urine Urobilinogen <2.0 mg/dL (<2.0) 04/17/18 16:31 Ur Leukocyte Esterase Large (Negative) H 04/17/18 16:31 Urine RBC 3 /hpf (0-5) 04/17/18 16:31 Urine WBC 40 /hpf (0-5) H 04/17/18 16:31 Urine WBC Clumps Many /hpf (None) H 04/17/18 16:31 Ur Squamous Epith Cells 1 /hpf (0-4) 04/17/18 16:31 Amorphous Sediment Rare /hpf (None) H 04/17/18 16:31 Urine Bacteria Many /hpf (None) H 04/17/18 16:31 Hyaline Casts 55 /lpf (0-2) H 04/17/18 16:31 Urine Mucus Rare /hpf (None) H 04/17/18 16:31 Urine Osmolality 459 mosm/kg (50-1400) 04/17/18 13:50 Ur Random Sodium <10 mmol/L 04/17/18 13:50 Ur Random Potassium 39.0 mmol/L 04/17/18 13:50 Stool Occult Blood Negative (Negative) 04/17/18 09:39 Microbiology 04/17/18 14:45 Blood Blood Culture - Preliminary No Growth after 48 hours 04/19/18 13:00 Urine,Clean Catch Urine Culture - Preliminary Assessment and Plan (1) Hyperkalemia Current Visit: Yes Status: Acute Priority: High Code(s): E87.5 - HYPERKALEMIA SNOMED Code(s): 58182667 (2) Metastatic breast cancer Current Visit: No Status: Acute Code(s): C50.919 - MALIGNANT NEOPLASM OF UNSP SITE OF UNSPECIFIED FEMALE BREAST SNOMED Code(s): 789713065 (3) UTI (urinary tract infection) Narrative/Plan: 67-year-old woman who is a very complex past medical history regarding her metastatic breast carcinoma that is have liver involvement with resultant ascites that requires frequent paracentesis. Patient presents with weakness and hyperkalemia. This is being treated however there was concerns of sepsis. Does not appear to have peritonitis at this time and that her abdomen is without significant change. Urinary tract infection is of concern. Consequently ceftriaxone has been added based on her prior cultures. Cultures were directs the overall course of therapy. She probably will have a paracentesis tomorrow which should provide her some significant discomfort in the foot can be analyzed to ensure there is no infection there does occur within the last week. She does have relative pancytopenia is followed by hematology without acute concern at this time. Current Visit: Yes Status: Acute Code(s): N39.0 - URINARY TRACT INFECTION, SITE NOT SPECIFIED SNOMED Code(s): 89054853
[2018-04-20] MEDS: SODIUM CHLORIDE 0.9% 1,000 ML IV SCH ×2 (02:59→17:11)
[2018-04-20] MEDS: MIDODRINE 5 MG TAB PO SCH ×3 (07:03→16:38)
[2018-04-20] MEDS: LEVOTHYROXINE 75 MCG TAB PO SCH (07:03)
[2018-04-20] MEDS: FAMOTIDINE 20 MG TAB PO SCH (08:01)
[2018-04-20] MEDS: METOPROLOL TARTRATE 12.5 MG TAB PO SCH ×2 (08:01→21:36)
[2018-04-20] MEDS: LACTULOSE 20 GM/30 ML CUP PO SCH ×4 (08:01→21:32)
[2018-04-20] MEDS: DOCUSATE 100 MG CAP PO SCH ×2 (08:01→21:36)
[2018-04-20] MEDS: SODIUM BICARBONATE TAB 650 MG TAB PO SCH ×2 (08:01→21:36)
[2018-04-20 08:22] LABS: Albumin 2.4 g/dL (3.5-5.0); Calcium 7.6 mg/dL (8.4-10.2); Potassium 4.6 mmol/L (3.5-5.1); Total Bilirubin 1.6 mg/dL (0.2-1.3); Total Protein 4.5 g/dL (6.3-8.2)
[2018-04-20 08:27] LABS: Anisocytosis Slight; HGB 8.8 gm/dL (11.4-16.0); Hypochromasia Marked; MCH 28.2 pg (25.0-35.0); MCHC 29.4 g/dL (31.0-37.0); Macrocytosis Slight; Mean Platelet Volume 7.6; Poikilocytosis Slight; RBC 3.13 m/uL (3.80-5.40); RDW 19.8 % (11.5-15.5); WBC 2.9 k/uL (3.8-10.6)
[2018-04-20 08:34] LABS: Platelet Count 60 k/uL (150-450)
[2018-04-20] MEDS: OCTREOTIDE 100 MCG/ML INJ IVP SCH ×3 (08:51→23:35)
[2018-04-20 09:05] LABS: Band Neutrophils % 1 %; Eosinophils # (M) 0.03 k/uL (0-0.7); Lymphocytes # (M) 0.81 k/uL (1.0-4.8); Monocytes # (M) 0.46 k/uL (0-1.0); Neutrophils % (M) 54 %; Nucleated Red Blood Cells 0 /100 WBC (0-0); Total Cells Counted 100
--- NOTE | 2018-04-20 10:05 | P.PN ---
Subjective Patient is seen in follow-up for acute kidney injury. Creatinine is up to 1.49 today. Sodium level is better at 129. Patient has history of metastatic breast cancer with involvement of the liver. Patient is noted to have ascites. She is scheduled for paracentesis today. Oral intake is fair. No vomiting or diarrhea. Denies chest pain or shortness of breath. Patient receives weekly paracentesis as an outpatient with 5-7 L removed. Vital signs are stable. General: The patient appeared well nourished and normally developed. HEENT: Head exam is unremarkable. Neck is without jugular venous distension. LUNGS: Lungs are clear to auscultation and percussion. Breath sounds decreased. HEART: Rate and Rhythm are regular. First and second heart sounds normal. No murmurs, rubs or gallops. ABDOMEN: Abdominal exam reveals normal bowel sounds. Distention noted. EXTREMITITES: 1+ edema. Objective - Vital Signs Vital signs: Vital Signs Temp 98.1 F 04/20/18 08:00 Pulse 71 04/20/18 08:00 Resp 20 04/20/18 08:00 BP 110/70 04/20/18 08:00 Pulse Ox 98 04/20/18 08:00 Intake & Output 04/19/18 04/20/18 04/20/18 18:59 06:59 18:59 Intake Total 240 240 Output Total 250 Balance -10 240 Weight 103.5 kg Intake: Oral 240 240 Output: Urine 250 Other: Voiding Method Toilet # Voids 2 1 3 - Labs CBC & Chem 7: 04/20/18 07:15 04/20/18 07:15 Labs: Abnormal Lab Results - Last 24 Hours (Table) 04/19/18 04/20/18 04/20/18 Range/Units 06:35 07:15 07:15 WBC 2.9 L (3.8-10.6) k/uL RBC 3.13 L (3.80-5.40) m/uL Hgb 8.8 L (11.4-16.0) gm/dL Hct 30.0 L (34.0-46.0) % MCHC 29.4 L (31.0-37.0) g/dL RDW 19.8 H (11.5-15.5) % Plt Count 60 L (150-450) k/uL Lymphocytes # (Manual) 0.51 L 0.81 L (1.0-4.8) k/uL Sodium 129 L (137-145) mmol/L Carbon Dioxide 16 L (22-30) mmol/L BUN 33 H (7-17) mg/dL Creatinine 1.49 H (0.52-1.04) mg/dL Glucose 116 H (74-99) mg/dL Calcium 7.6 L (8.4-10.2) mg/dL Total Bilirubin 1.6 H (0.2-1.3) mg/dL AST 37 H (14-36) U/L Alkaline Phosphatase 140 H (38-126) U/L Total Protein 4.5 L (6.3-8.2) g/dL Albumin 2.4 L (3.5-5.0) g/dL Microbiology - Last 24 Hours (Table) 04/17/18 14:45 Blood Culture - Preliminary Blood No Growth after 48 hours 04/19/18 13:00 Urine Culture - Preliminary Urine,Clean Catch Assessment and Plan Plan: Assessment: 1. Acute kidney injury secondary to ATN secondary to hypotension. Low urine sodium is concerning for hepatorenal syndrome. Trace proteinuria on UA. No evidence of hydronephrosis noted on renal ultrasound. 2. Metastatic breast cancer with liver involvement. 3. Ascites scheduled for paracentesis today. Patient gets weekly paracentesis as an outpatient. 4. Hypotension maintained on midodrine. 5. Metabolic acidosis secondary to acute kidney injury. 6. Hypervolemic hyponatremia. 7. Hypocalcemia secondary to hypoalbuminemia. Corrected calcium is in the normal range. 8. Edema. Plan: Maintain midodrine and octreotide. Increase oral bicarb 1300 mg twice daily. Paracentesis today. I will give her 25 g of albumin before and another 25 g albumin after the procedure. Encouraged oral intake. Repeat electrolytes in the morning.
[2018-04-20] MEDS ORDERED: ALBUMIN HUMAN 25% 50 ML in EMPTY BAG 1 BAG IVPB STA (10:13)
[2018-04-20 10:44] LABS: INR 1.2 (<1.2)
--- NOTE | 2018-04-20 11:45 | P.PN ---
Subjective Progress Note Date: 04/20/18 67-year-old female with a past medical history significant for breast cancer was diagnosed in 2016 with metastasis to the bone, liver, and spleen, who presented to the emergency room after being notified by her oncologist of abnormal blood work. The patient reports she had a paracentesis performed yesterday with removal of 5 L. She states she felt that she may have been dehydrated and asked to have some additional blood work performed. Her potassium was found to be 7.1. She was informed to go to the emergency room. Potassium was repeated when the patient came to emergency room and was found to be 7.0. She was treated with insulin, dextrose, IV Lasix, calcium gluconate, sodium bicarb and Kayexalate. Repeat potassium was 5.5. Potassium this morning is 5.0. BUN 32. Creatinine 1.07. The patient does report she has been feeling more weak and fatigued recently. She reports that she almost fell on Friday of this week but was able to lower herself to the ground. She denies shortness of breath. Denies chest pain or pressure. She is tolerating oral intake well without nausea or vomiting. Chest x-ray completed in the emergency room was negative for an acute cardiopulmonary process. The patient was admitted to the hospital under the care of Dr. Nix. Dr. Coronado was consulted for medical management. 04/17/2018 Patient examined at the bedside. She reports she is feeling well this morning. Most recent potassium is 4.2. Repeat lab work from this morning is currently pending. She is stable for discharge home today. 04/18/2018 - 04/19/2018: Notes per covering provider 04/20/2018 Patient examined at the bedside. Patient states she is feeling better today than over the weekend. She states her urinary symptoms are improving. She is scheduled for paracentesis today. PHYSICAL EXAM: GENERAL: This is a 67-year-old female in no apparent distress at the time of examination. Pleasant and cooperative. HEENT: Head is atraumatic, normocephalic. Pupils are equal, round, and reactive to light. Sclerae anicteric. Conjunctivae are clear. Mucus membranes of the mouth are moist. Neck is supple. RESPIRATORY: Clear to auscultation. No wheezes, rales, or rhonchi. No use of accessory muscles. Patient maintaining oxygen saturation greater than 92%. No chest wall tenderness is noted on palpation or with deep breathing. CARDIOVASCULAR: Regular rate and rhythm. S1 and S2 noted. No systolic or diastolic murmur auscultated. No JVD noted. No S3 or S4 noted. GASTROINTESTINAL: No distention noted. Abdomen soft and round. Normal active bowel sounds auscultated x 4 quadrants. No pain or tenderness noted upon palpation. INTEGUMENTARY: No cyanosis. No jaundice. No rashes noted. No cellulitis noted. Small chronic wounds noted to bilateral lower extremities EXTREMITIES: 2+ peripheral pulses. 2+ Bilateral LE edema. No calf tenderness noted. NEUROLOGIC: Cranial nerves II-XII intact. PSYCHIATRIC: Awake, alert, and oriented X 3. Appropriate affect. Intact judgement and insight. ASSESSMENT: Hyperkalemia, resolved Stage IV breast cancer with metastasis to bone, liver, and spleen currently undergoing chemotherapy and weekly paracentesis Pancytopenia, secondary to above Hyponatremia Hyperlipidemia Acute kidney injury Urinary tract infection, urine culture positive for gram-negative bacilli Hypertension History of SVT Hypothyroidism Obesity: BMI 33.2 PLAN: Patient is scheduled for paracentesis today. Await final results of urine culture. Continue antibiotics. MISAEL hose to bilateral LE. Patient may transfer to general medical floor. Nurse practitioner note has been reviewed by physician. Signing provider agrees with the documented findings, assessment, and plan of care. Objective - Vital Signs Vital signs: Vital Signs Temp 98.1 F 04/20/18 08:00 Pulse 71 04/20/18 08:00 Resp 20 04/20/18 08:00 BP 110/70 04/20/18 08:00 Pulse Ox 98 04/20/18 08:00 Intake & Output 04/19/18 04/20/18 04/20/18 18:59 06:59 18:59 Intake Total 240 240 Output Total 250 Balance -10 240 Weight 103.5 kg Intake: Oral 240 240 Output: Urine 250 Other: Voiding Method Toilet # Voids 2 1 3 - Labs CBC & Chem 7: 04/20/18 07:15 04/20/18 07:15 Labs: Abnormal Lab Results - Last 24 Hours (Table) 04/19/18 04/20/18 04/20/18 Range/Units 06:35 07:15 07:15 WBC 2.9 L (3.8-10.6) k/uL RBC 3.13 L (3.80-5.40) m/uL Hgb 8.8 L (11.4-16.0) gm/dL Hct 30.0 L (34.0-46.0) % MCHC 29.4 L (31.0-37.0) g/dL RDW 19.8 H (11.5-15.5) % Plt Count 60 L (150-450) k/uL Lymphocytes # (Manual) 0.51 L 0.81 L (1.0-4.8) k/uL INR (<1.2) Sodium 129 L (137-145) mmol/L Carbon Dioxide 16 L (22-30) mmol/L BUN 33 H (7-17) mg/dL Creatinine 1.49 H (0.52-1.04) mg/dL Glucose 116 H (74-99) mg/dL Calcium 7.6 L (8.4-10.2) mg/dL Total Bilirubin 1.6 H (0.2-1.3) mg/dL AST 37 H (14-36) U/L Alkaline Phosphatase 140 H (38-126) U/L Total Protein 4.5 L (6.3-8.2) g/dL Albumin 2.4 L (3.5-5.0) g/dL 04/20/18 Range/Units 09:51 WBC (3.8-10.6) k/uL RBC (3.80-5.40) m/uL Hgb (11.4-16.0) gm/dL Hct (34.0-46.0) % MCHC (31.0-37.0) g/dL RDW (11.5-15.5) % Plt Count (150-450) k/uL Lymphocytes # (Manual) (1.0-4.8) k/uL INR 1.2 H (<1.2) Sodium (137-145) mmol/L Carbon Dioxide (22-30) mmol/L BUN (7-17) mg/dL Creatinine (0.52-1.04) mg/dL Glucose (74-99) mg/dL Calcium (8.4-10.2) mg/dL Total Bilirubin (0.2-1.3) mg/dL AST (14-36) U/L Alkaline Phosphatase (38-126) U/L Total Protein (6.3-8.2) g/dL Albumin (3.5-5.0) g/dL Microbiology - Last 24 Hours (Table) 04/19/18 13:00 Urine Culture - Preliminary Urine,Clean Catch Gram Neg Bacilli 04/17/18 14:45 Blood Culture - Preliminary Blood No Growth after 48 hours
[2018-04-20] MEDS: HYDROcodone/APAP 5-325MG 1 EACH TAB PO PRN ×3 (11:54→23:35)
[2018-04-20] MEDS ORDERED: ALBUMIN HUMAN 25% 50 ML in EMPTY BAG 1 BAG IVPB ONE (13:00)
[2018-04-20] MEDS: Exemestane 25 MG PO SCH (17:10)
[2018-04-20 17:38] LABS: Appearance,BF Hazy
[2018-04-20 18:11] LABS: Nucleated Cells, Body Fluid 0 /uL
[2018-04-20 18:13] LABS: RBC, Body Fluid 490 /uL
--- NOTE | 2018-04-20 20:33 | P.PN ---
Subjective Progress Note Date: 04/20/18 The patient feels overall stronger today, with less nausea and somewhat increase appetite. Caloric simply swelling is stable. She notes some increased fullness in the abdomen. She denied any change in her respiratory status Objective - Vital Signs Vital signs: Vital Signs Temp 96.6 F L 04/20/18 14:41 Pulse 64 04/20/18 16:40 Resp 14 04/20/18 15:13 BP 109/62 04/20/18 16:40 Pulse Ox 100 04/20/18 14:41 Intake & Output 04/20/18 04/20/18 04/21/18 06:59 18:59 06:59 Intake Total 490 Balance 490 Weight 103.5 kg Intake: Oral 490 Other: Voiding Method Toilet Toilet # Voids 1 1 - Constitutional General appearance: Present: no acute distress - EENT Eyes: Present: EOMI, PERRLA ENT: Present: hearing grossly normal - Respiratory Respiratory: bilateral: CTA - Cardiovascular Rhythm: regular Heart sounds: normal: S1, S2 - Gastrointestinal General gastrointestinal: Present: distended, normal bowel sounds, soft - Integumentary Integumentary: Present: normal - Neurologic Neurologic: Present: CNII-XII intact - Musculoskeletal Musculoskeletal: Present: generalized weakness, strength equal bilaterally - Labs CBC & Chem 7: 04/20/18 07:15 04/20/18 07:15 Labs: Abnormal Lab Results - Last 24 Hours (Table) 04/20/18 04/20/18 04/20/18 Range/Units 07:15 07:15 09:51 WBC 2.9 L (3.8-10.6) k/uL RBC 3.13 L (3.80-5.40) m/uL Hgb 8.8 L (11.4-16.0) gm/dL Hct 30.0 L (34.0-46.0) % MCHC 29.4 L (31.0-37.0) g/dL RDW 19.8 H (11.5-15.5) % Plt Count 60 L (150-450) k/uL Lymphocytes # (Manual) 0.81 L (1.0-4.8) k/uL INR 1.2 H (<1.2) Sodium 129 L (137-145) mmol/L Carbon Dioxide 16 L (22-30) mmol/L BUN 33 H (7-17) mg/dL Creatinine 1.49 H (0.52-1.04) mg/dL Glucose 116 H (74-99) mg/dL Calcium 7.6 L (8.4-10.2) mg/dL Total Bilirubin 1.6 H (0.2-1.3) mg/dL AST 37 H (14-36) U/L Alkaline Phosphatase 140 H (38-126) U/L Total Protein 4.5 L (6.3-8.2) g/dL Albumin 2.4 L (3.5-5.0) g/dL Microbiology - Last 24 Hours (Table) 04/20/18 15:00 Fungal Culture - Preliminary Paracentesis Fluid 04/20/18 15:00 Body Fluid Culture - Preliminary Paracentesis Fluid 04/17/18 14:45 Blood Culture - Preliminary Blood No Growth after 72 hours 04/19/18 13:00 Urine Culture - Preliminary Urine,Clean Catch Gram Neg Bacilli Assessment and Plan (1) Hyperkalemia Narrative/Plan: potassium was slightly increased compared to yesterday, but still in the normal range. That may be related to slight increase in creatinine. Case was discussed extensively with nephrology. At this time they will continue treatment for possible hepatorenal syndrome. Current Visit: Yes Status: Acute Priority: High Code(s): E87.5 - HYPERKALEMIA SNOMED Code(s): 72823712 (2) Hyponatremia Narrative/Plan: Improving Current Visit: Yes Status: Acute Code(s): E87.1 - HYPO-OSMOLALITY AND HYPONATREMIA SNOMED Code(s): 38135210 (3) Pancytopenia Narrative/Plan: overall stable in a safe range. Continue to monitor with supportive care as needed Current Visit: Yes Status: Chronic Priority: Medium Code(s): D61.818 - OTHER PANCYTOPENIA SNOMED Code(s): 570415048 (4) Ascites Narrative/Plan: by exam, there appears to be some progression today. The patient will undergo paracentesis today. Case discussed with nephrology. There is concern on the part that the pressure from the ascites could be affecting renal perfusion. Follow creatinine with paracentesis Current Visit: No Status: Acute Code(s): R18.8 - OTHER ASCITES SNOMED Code (s): 248177090 (5) Possible urinary tract infection Narrative/Plan: the patient has been seen by infectious disease, and started on ceftriaxone. Cultures are pending Current Visit: Yes Status: Acute Code(s): R39.89 - OTHER SYMPTOMS AND SIGNS INVOLVING THE GENITOURINARY SYSTEM SNOMED Code(s): 551472431 (6) Acute kidney injury Narrative/Plan: slow increase in creatinine is noted from baseline. Case discussed with nephrology. As noted there is concern for early hepatorenal syndrome, and decreased perfusion due to pressure from the ascites fluid. They will evaluate and adjust IV fluids as needed. At this time plan is to continue treatment for possibly HRS Current Visit: Yes Status: Acute Code(s): N17.9 - ACUTE KIDNEY FAILURE, UNSPECIFIED SNOMED Code(s): 30470109
[2018-04-20] MEDS: LORATADINE 10 MG TAB PO SCH (21:36)
[2018-04-20] MEDS: ATORVASTATIN 10 MG TAB PO SCH (21:36)
[2018-04-21] MEDS: LEVOTHYROXINE 75 MCG TAB PO SCH (06:27)
[2018-04-21] MEDS: HYDROcodone/APAP 5-325MG 1 EACH TAB PO PRN ×3 (06:30→17:52)
--- NOTE | 2018-04-21 08:23 | P.PN ---
Subjective Progress Note Date: 04/20/18 67-year-old woman who is a very complex history regarding her breast carcinoma diagnosis from 2015. At this time there is evidence of a mass outside of the breast and biopsy revealed evidence of the metastatic disease likely from breast primary. She underwent evaluation and chemotherapy interventions and was showing some improvement. This september of this year she was on an oral chemotherapy regimens but then had rapidly progressive disease involving her liver. Constantly she was given chemotherapy in April with a carboplatinum- based regimen and apparently tumor markers improved markedly and she's been back to the oral regimen at in the recent past. She does have evidence of chronic ascites andliver disease thought to be from her underlying malignancy and is receiving weekly paracentesis usually about 5 L. patient became quite weak had evidence of hyperkalemia and was directed to hospital for evaluation. With concerns for sepsis the infectious diseases consultation was requested. 04/20/2018 patient is feeling slightly better today. Fevers have improved. Strength is improved. Appetite is slightly improved. Her abdominal discomforts have definitely improved after her paracentesis which markedly reduces the pressure on her abdomen. She does not believe she's had further fever and no chills. Appetite is minimal. Objective - Vital Signs Vital signs: Vital Signs Temp 97.1 F L 04/21/18 06:25 Pulse 92 04/21/18 06:25 Resp 18 04/21/18 06:25 BP 108/62 04/21/18 06:25 Pulse Ox 95 04/21/18 06:25 Intake & Output 04/20/18 04/21/18 04/21/18 18:59 06:59 18:59 Intake Total 490 Balance 490 Intake: Oral 490 Other: Voiding Method Toilet # Voids 1 1 - Exam Pleasant 67-year-old woman who is fatigued but not in distress HEENT: Anicteric conjunctiva are pink and moist nasal mucosa grossly intact without significant lesions, there is no thrush. Neck: The neck is supple without significant lymphadenopathy or thyromegaly. Lungs: Good bilateral air entry without significant crackles or wheezing. There is no significant bronchial sounds. There is no egophony or dullness. Heart: Regular rate and rhythm with an audible S1-S2, no S3 no S4. There is no significant murmur click or rub, PMI was nondisplaced. Abdomen: Positive bowel sounds soft and nontender without palpable masses or organomegaly. There was no guarding or rebound. Positive ascites but improved after procedure Extremities: The upper extremities have excellent pulses they are symmetric, no significant petechiae or telangiectasia. No splinter hemorrhages were noted. The bilateral choice have evidence of some chronic edema. Pulses are 2+ and symmetric. Skin reveals evidence of a hyperpigmentation - Labs CBC & Chem 7: 04/20/18 07:15 04/20/18 07:15 Labs: Abnormal Lab Results - Last 24 Hours (Table) 04/20/18 04/20/18 04/20/18 Range/Units 07:15 07:15 09:51 WBC 2.9 L (3.8-10.6) k/uL RBC 3.13 L (3.80-5.40) m/uL Hgb 8.8 L (11.4-16.0) gm/dL Hct 30.0 L (34.0-46.0) % MCHC 29.4 L (31.0-37.0) g/dL RDW 19.8 H (11.5-15.5) % Plt Count 60 L (150-450) k/uL Lymphocytes # (Manual) 0.81 L (1.0-4.8) k/uL INR 1.2 H (<1.2) Sodium 129 L (137-145) mmol/L Carbon Dioxide 16 L (22-30) mmol/L BUN 33 H (7-17) mg/dL Creatinine 1.49 H (0.52-1.04) mg/dL Glucose 116 H (74-99) mg/dL Calcium 7.6 L (8.4-10.2) mg/dL Total Bilirubin 1.6 H (0.2-1.3) mg/dL AST 37 H (14-36) U/L Alkaline Phosphatase 140 H (38-126) U/L Total Protein 4.5 L (6.3-8.2) g/dL Albumin 2.4 L (3.5-5.0) g/dL Microbiology - Last 24 Hours (Table) 04/20/18 15:00 Gram Stain - Preliminary Paracentesis Fluid Body Fluid Culture - Preliminary 04/20/18 15:00 Fungal Culture - Preliminary Paracentesis Fluid 04/17/18 14:45 Blood Culture - Preliminary Blood No Growth after 72 hours 04/19/18 13:00 Urine Culture - Preliminary Urine,Clean Catch Gram Neg Bacilli Laboratory Results WBC 2.9 k/uL (3.8-10.6) L 04/20/18 07:15 RBC 3.13 m/uL (3.80-5.40) L 04/20/18 07:15 Hgb 8.8 gm/dL (11.4-16.0) L 04/20/18 07:15 Hct 30.0 % (34.0-46.0) L 04/20/18 07:15 MCV 96.0 fL (80.0-100.0) 04/20/18 07:15 MCH 28.2 pg (25.0-35.0) 04/20/18 07:15 MCHC 29.4 g/dL (31.0-37.0) L 04/20/18 07:15 RDW 19.8 % (11.5-15.5) H 04/20/18 07:15 Plt Count 60 k/uL (150-450) L 04/20/18 07:15 Neutrophils % [employer] 04/15/18 16:40 Neutrophils % (Manual) 54 % 04/20/18 07:15 Band Neutrophils % 1 % 04/20/18 07:15 Lymphocytes % [employer] 04/15/18 16:40 Lymphocytes % (Manual) 28 % 04/20/18 07:15 Monocytes % [employer] 04/15/18 16:40 Monocytes % (Manual) 16 % 04/20/18 07:15 Eosinophils % [employer] 04/15/18 16:40 Eosinophils % (Manual) 1 % 04/20/18 07:15 Basophils % [employer] 04/15/18 16:40 Neutrophils # [employer] 04/15/18 16:40 Neutrophils # (Manual) 1.50 k/uL (1.3-7.7) 04/20/18 07:15 Lymphocytes # [employer] 04/15/18 16:40 Lymphocytes # (Manual) 0.81 k/uL (1.0-4.8) L 04/20/18 07:15 Monocytes # [employer] 04/15/18 16:40 Monocytes # (Manual) 0.46 k/uL (0-1.0) 04/20/18 07:15 Eosinophils # [employer] 04/15/18 16:40 Eosinophils # (Manual) 0.03 k/uL (0-0.7) 04/20/18 07:15 Basophils # [employer] 04/15/18 16:40 Nucleated RBCs 0 /100 WBC (0-0) 04/20/18 07:15 Manual Slide Review Performed 04/20/18 07:15 Hypochromasia Marked 04/20/18 07:15 Poikilocytosis Slight 04/20/18 07:15 Anisocytosis Slight 04/20/18 07:15 Macrocytosis Slight 04/20/18 07:15 PT 12.0 sec (9.0-12.0) 04/20/18 09:51 INR 1.2 (<1.2) H 04/20/18 09:51 Sodium 129 mmol/L (137-145) L 04/20/18 07:15 Potassium 4.6 mmol/L (3.5-5.1) 04/20/18 07:15 Chloride 103 mmol/L (98-107) 04/20/18 07:15 Carbon Dioxide 16 mmol/L (22-30) L 04/20/18 07:15 Anion Gap 10 mmol/L 04/20/18 07:15 BUN 33 mg/dL (7-17) H 04/20/18 07:15 Creatinine 1.49 mg/dL (0.52-1.04) H 04/20/18 07:15 Est GFR (CKD-EPI)AfAm 42 (>60 ml/min/1.73 sqM) 04/20/18 07:15 Est GFR (CKD-EPI)NonAf 37 (>60 ml/min/1.73 sqM) 04/20/18 07:15 Glucose 116 mg/dL (74-99) H 04/20/18 07:15 POC Glucose (mg/dL) 140 mg/dL (75-99) H 04/19/18 06:38 POC Glu [employer] ID Pimental, Rhyzianne 04/19/18 06:[address] Glu mg/dL 97 04/20/18 07:15 Hemoglobin A1c 5.0 % (4.0-6.0) 04/20/18 07:15 Osmolality 272 mosm/kg (280-301) L 04/17/18 14:45 Calcium 7.6 mg/dL (8.4-10.2) L 04/20/18 07:15 Ionized Calcium [place] 4.5 mg/dL (4.5-5.3) 04/17/18 14:45 Phosphorus 3.4 mg/dL (2.5-4.5) 04/15/18 16:40 Magnesium 2.3 mg/dL (1.6-2.3) 04/15/18 16:40 Total Bilirubin 1.6 mg/dL (0.2-1.3) H 04/20/18 07:15 AST 37 U/L (14-36) H 04/20/18 07:15 ALT 31 U/L (9-52) 04/20/18 07:15 Alkaline Phosphatase 140 U/L (38-126) H 04/20/18 07:15 Total Protein 4.5 g/dL (6.3-8.2) L 04/20/18 07:15 Albumin 2.4 g/dL (3.5-5.0) L 04/20/18 07:15 Cortisol 17 ug/dL 04/16/18 05:40 Urine Color Yellow 04/17/18 16:31 Urine Appearance Cloudy (Clear) H 04/17/18 16:31 Urine pH 5.5 (5.0-8.0) 04/17/18 16:31 Ur Specific [place] 1.011 (1.001-1.035) 04/17/18 16:31 Urine Protein Trace (Negative) H 04/17/18 16:31 Urine Glucose (UA) Negative (Negative) 04/17/18 16:31 Urine Ketones Negative (Negative) 04/17/18 16:31 Urine Blood Trace (Negative) H 04/17/18 16:31 Urine Nitrite Negative (Negative) 04/17/18 16:31 Urine Bilirubin Negative (Negative) 04/17/18 16:31 Urine Urobilinogen <2.0 mg/dL (<2.0) 04/17/18 16:31 Ur Leukocyte Esterase Large (Negative) H 04/17/18 16:31 Urine RBC 3 /hpf (0-5) 04/17/18 16:31 Urine WBC 40 /hpf (0-5) H 04/17/18 16:31 Urine WBC Clumps Many /hpf (None) H 04/17/18 16:31 Ur Squamous Epith Cells 1 /hpf (0-4) 04/17/18 16:31 Amorphous Sediment Rare /hpf (None) H 04/17/18 16:31 Urine Bacteria Many /hpf (None) H 04/17/18 16:31 Hyaline Casts 55 /lpf (0-2) H 04/17/18 16:31 Urine Mucus Rare /hpf (None) H 04/17/18 16:31 Urine Osmolality 459 mosm/kg (50-1400) 04/17/18 13:50 Ur Random Sodium <10 mmol/L 04/17/18 13:50 Ur Random Potassium 39.0 mmol/L 04/17/18 13:50 Fluid Source Paracentesis 04/20/18 14:18 Fluid Appearance Hazy 04/20/18 14:18 Fluid RBC 490 /uL 04/20/18 14:18 Fluid Nucleated Cells 0 /uL 04/20/18 14:18 Fluid Albumin Source Paracentesis Fluid 04/20/18 13:46 Fluid Albumin <1.00 g/dL 04/20/18 13:46 Stool Occult Blood Negative (Negative) 04/17/18 09:39 Microbiology 04/20/18 15:00 Paracentesis Fluid Gram Stain - Preliminary 04/20/18 15:00 Paracentesis Fluid Body Fluid Culture - Preliminary 04/20/18 15:00 Paracentesis Fluid Fungal Culture - Preliminary 04/17/18 14:45 Blood Blood Culture - Preliminary No Growth after 72 hours 04/19/18 13:00 Urine,Clean Catch Urine Culture - Preliminary Gram Neg Bacilli Assessment and Plan (1) Hyperkalemia Current Visit: Yes Status: Acute Priority: High Code(s): E87.5 - HYPERKALEMIA SNOMED Code(s): 11382563 (2) Metastatic breast cancer Current Visit: No Status: Acute Code(s): C50.919 - MALIGNANT NEOPLASM OF UNSP SITE OF UNSPECIFIED FEMALE BREAST SNOMED Code(s): 151760387 (3) UTI (urinary tract infection) Narrative/Plan: 67-year-old woman who is a very complex past medical history regarding her metastatic breast carcinoma that is have liver involvement with resultant ascites that requires frequent paracentesis. Patient presents with weakness and hyperkalemia. This is being treated however there was concerns of sepsis. Does not appear to have peritonitis at this time and that her abdomen is without significant change. Urinary tract infection is of concern. Consequently ceftriaxone has been added based on her prior cultures. Cultures were directs the overall course of therapy. She probably will have a paracentesis tomorrow which should provide her some significant improvement of the abdominal discomfort, the fluid can be analyzed to ensure there is no infection there does occur within the last week. She does have relative pancytopenia is followed by hematology without acute concern at this time. 04/20/2018 patient feels slightly better today. Continue antibiotic therapy for treatment of her urinary tract infection. She's advised for high-protein oral intake to help her with her healing. Continues to follow with oncology. Pain control is adequate and she is definitely more comfortable after the paracentesis. Of note the fluid appears to be clear without evidence of infection. Current Visit: Yes Status: Acute Code(s): N39.0 - URINARY TRACT INFECTION, SITE NOT SPECIFIED SNOMED Code(s): 34782470
[2018-04-21] MEDS: MIDODRINE 5 MG TAB PO SCH ×3 (08:48→16:50)
[2018-04-21] MEDS: DOCUSATE 100 MG CAP PO SCH ×2 (08:48→21:56)
[2018-04-21] MEDS: FAMOTIDINE 20 MG TAB PO SCH (08:49)
[2018-04-21] MEDS: SODIUM BICARBONATE TAB 650 MG TAB PO SCH ×2 (08:49→21:56)
[2018-04-21] MEDS: METOPROLOL TARTRATE 12.5 MG TAB PO SCH ×2 (08:49→21:56)
[2018-04-21] MEDS: LACTULOSE 20 GM/30 ML CUP PO SCH ×5 (08:49→22:01)
[2018-04-21] MEDS: OCTREOTIDE 100 MCG/ML INJ IVP SCH ×2 (08:51→16:51)
--- NOTE | 2018-04-21 09:36 | US ---
Therapeutic paracentesis. DATE OF EXAM: 04/20/2018 CLINICAL HISTORY: Ascites The procedure was discussed with the patient. The risks, complications, benefits, and alternatives we re discussed and any questions were answered. Informed consent was obtained. The patient was placed s upine on the ultrasound table and prepped and draped in the usual sterile fashion. All elements of maximal barrier technique were utilized. Under ultrasound guidance, access into the right lower quadrant was obtained, via the paracentesis catheter system and direct ultrasound guidanc e. Approximately 4.8 liters of straw-colored fluid was removed. The patient was stable throughout the pr ocedure and remained stable upon discharge from Department of Radiology. IMPRESSION: Successful therapeutic paracentesis under ultrasound guidance.
--- NOTE | 2018-04-21 09:52 | P.PN ---
Subjective Patient is seen in follow-up for acute kidney injury. Creatinine is up to 1.49 as of yesterday. Sodium level was also better at 129. Patient has history of metastatic breast cancer with involvement of the liver. Patient is noted to have ascites. She underwent paracentesis on April 20 with 4.8 L removed. Oral intake is fair. No vomiting or diarrhea. Denies chest pain or shortness of breath. Patient receives weekly paracentesis as an outpatient with 5-7 L removed. Vital signs are stable. General: The patient appeared well nourished and normally developed. HEENT: Head exam is unremarkable. Neck is without jugular venous distension. LUNGS: Lungs are clear to auscultation and percussion. Breath sounds decreased. HEART: Rate and Rhythm are regular. First and second heart sounds normal. No murmurs, rubs or gallops. ABDOMEN: Abdominal exam reveals normal bowel sounds. Distention noted. EXTREMITITES: 1+ edema. Objective - Vital Signs Vital signs: Vital Signs Temp 97.1 F L 04/21/18 06:25 Pulse 92 04/21/18 06:25 Resp 18 04/21/18 06:25 BP 108/62 04/21/18 06:25 Pulse Ox 95 04/21/18 06:25 Intake & Output 04/20/18 04/21/18 04/21/18 18:59 06:59 18:59 Intake Total 490 Balance 490 Intake: Oral 490 Other: Voiding Method Toilet # Voids 1 1 - Labs CBC & Chem 7: 04/20/18 07:15 04/20/18 07:15 Labs: Abnormal Lab Results - Last 24 Hours (Table) 04/20/18 Range/Units 09:51 INR 1.2 H (<1.2) Microbiology - Last 24 Hours (Table) 04/20/18 15:00 Gram Stain - Preliminary Paracentesis Fluid Body Fluid Culture - Preliminary 04/20/18 15:00 Fungal Culture - Preliminary Paracentesis Fluid 04/17/18 14:45 Blood Culture - Preliminary Blood No Growth after 72 hours 04/19/18 13:00 Urine Culture - Preliminary Urine,Clean Catch Gram Neg Bacilli Assessment and Plan Plan: Assessment: 1. Acute kidney injury secondary to ATN secondary to hypotension. Low urine sodium is concerning for hepatorenal syndrome. Trace proteinuria on UA. No evidence of hydronephrosis noted on renal ultrasound. 2. Metastatic breast cancer with liver involvement. 3. Ascites status post paracentesis on April 20 to 4.8 L removed. Patient received 50 g of albumin. Patient gets weekly paracentesis as an outpatient. 4. Hypotension maintained on midodrine. 5. Metabolic acidosis secondary to acute kidney injury. 6. Hypervolemic hyponatremia. 7. Hypocalcemia secondary to hypoalbuminemia. Corrected calcium is in the normal range. 8. Edema. Plan: Maintain midodrine. Maintain oral bicarb 1300 mg twice daily. Encouraged oral intake. Follow-up morning labs.
[2018-04-21 10:25] LABS: Anisocytosis Slight; HCT 27.1 % (34.0-46.0); HGB 8.1 gm/dL (11.4-16.0); Hypochromasia Marked; MCH 28.2 pg (25.0-35.0); MCHC 29.8 g/dL (31.0-37.0); MCV 94.9 fL (80.0-100.0); Macrocytosis Slight; Mean Platelet Volume 7.3; Poikilocytosis Slight; RBC 2.86 m/uL (3.80-5.40); RDW 19.7 % (11.5-15.5); WBC 2.9 k/uL (3.8-10.6)
[2018-04-21 10:28] LABS: Calcium 7.5 mg/dL (8.4-10.2); Magnesium 1.9 mg/dL (1.6-2.3); Platelet Count 52 k/uL (150-450); Potassium 4.3 mmol/L (3.5-5.1)
--- NOTE | 2018-04-21 10:33 | P.PN ---
Subjective Progress Note Date: 04/21/18 67-year-old female with a past medical history significant for breast cancer was diagnosed in 2016 with metastasis to the bone, liver, and spleen, who presented to the emergency room after being notified by her oncologist of abnormal blood work. The patient reports she had a paracentesis performed yesterday with removal of 5 L. She states she felt that she may have been dehydrated and asked to have some additional blood work performed. Her potassium was found to be 7.1. She was informed to go to the emergency room. Potassium was repeated when the patient came to emergency room and was found to be 7.0. She was treated with insulin, dextrose, IV Lasix, calcium gluconate, sodium bicarb and Kayexalate. Repeat potassium was 5.5. Potassium this morning is 5.0. BUN 32. Creatinine 1.07. The patient does report she has been feeling more weak and fatigued recently. She reports that she almost fell on Friday of this week but was able to lower herself to the ground. She denies shortness of breath. Denies chest pain or pressure. She is tolerating oral intake well without nausea or vomiting. Chest x-ray completed in the emergency room was negative for an acute cardiopulmonary process. The patient was admitted to the hospital under the care of Dr. Nix. Dr. Coronado was consulted for medical management. 04/17/2018 Patient examined at the bedside. She reports she is feeling well this morning. Most recent potassium is 4.2. Repeat lab work from this morning is currently pending. She is stable for discharge home today. 04/18/2018 - 04/19/2018: Notes per covering provider 04/20/2018 Patient examined at the bedside. Patient states she is feeling better today than over the weekend. She states her urinary symptoms are improving. She is scheduled for paracentesis today. 04/21/2018 Patient examined at the bedside. She is awake and alert. She reports she is feeling pretty good this morning. She states she usually feels good in the morning but by the afternoon she isnt feeling as well. Creatinine is 1.49 today. Nephrology is following. She remains on Midodrine for hypotension. She underwent paracentesis yesterday with removal of 4.8L. PHYSICAL EXAM: GENERAL: This is a 67-year-old female in no apparent distress at the time of examination. Pleasant and cooperative. HEENT: Head is atraumatic, normocephalic. Pupils are equal, round, and reactive to light. Sclerae anicteric. Conjunctivae are clear. Mucus membranes of the mouth are moist. Neck is supple. RESPIRATORY: Clear to auscultation. No wheezes, rales, or rhonchi. No use of accessory muscles. Patient maintaining oxygen saturation greater than 92%. No chest wall tenderness is noted on palpation or with deep breathing. CARDIOVASCULAR: Regular rate and rhythm. S1 and S2 noted. No systolic or diastolic murmur auscultated. No JVD noted. No S3 or S4 noted. GASTROINTESTINAL: Distention noted, which is baseline for patient due to ascites. Abdomen soft and round. Normal active bowel sounds auscultated x 4 quadrants. No pain or tenderness noted upon palpation. INTEGUMENTARY: No cyanosis. No jaundice. No rashes noted. No cellulitis noted. Small chronic wounds noted to bilateral lower extremities EXTREMITIES: 2+ peripheral pulses. 2+ Bilateral LE edema. No calf tenderness noted. NEUROLOGIC: Cranial nerves II-XII intact. PSYCHIATRIC: Awake, alert, and oriented X 3. Appropriate affect. Intact judgement and insight. ASSESSMENT: Hyperkalemia, resolved Stage IV breast cancer with metastasis to bone, liver, and spleen currently undergoing chemotherapy and weekly paracentesis Pancytopenia, secondary to above Hyponatremia Hyperlipidemia Acute kidney injury Urinary tract infection, urine culture positive for gram-negative bacilli Ascites, s/p paracentesis 04/20/2018 Hypotension, maintained on Midodrine Hypertension History of SVT Hypothyroidism Obesity: BMI 33.2 PLAN: Continue to monitor kidney function. Monitor BP. Continue Midodrine. Await final results of urine culture. Continue antibiotics. MISAEL hose to bilateral LE. Discharge planning per admitting physician, Dr. Nix. Nurse practitioner note has been reviewed by physician. Signing provider agrees with the documented findings, assessment, and plan of care. Objective - Vital Signs Vital signs: Vital Signs Temp 97.1 F L 04/21/18 06:25 Pulse 92 04/21/18 06:25 Resp 18 04/21/18 06:25 BP 108/62 04/21/18 06:25 Pulse Ox 95 04/21/18 06:25 Intake & Output 04/20/18 04/21/18 04/21/18 18:59 06:59 18:59 Intake Total 490 Balance 490 Intake: Oral 490 Other: Voiding Method Toilet # Voids 1 1 - Labs CBC & Chem 7: 04/20/18 07:15 04/20/18 07:15 Labs: Abnormal Lab Results - Last 24 Hours (Table) 04/20/18 Range/Units 09:51 INR 1.2 H (<1.2) Microbiology - Last 24 Hours (Table) 04/20/18 15:00 Gram Stain - Preliminary Paracentesis Fluid Body Fluid Culture - Preliminary 04/20/18 15:00 Fungal Culture - Preliminary Paracentesis Fluid 04/17/18 14:45 Blood Culture - Preliminary Blood No Growth after 72 hours 04/19/18 13:00 Urine Culture - Preliminary Urine,Clean Catch Gram Neg Bacilli
[2018-04-21 12:15] LABS: Eosinophils # (M) 0.09 k/uL (0-0.7); Lymphocytes # (M) 0.52 k/uL (1.0-4.8); Monocytes # (M) 0.46 k/uL (0-1.0); Neutrophils # (M) 1.83 k/uL (1.3-7.7); Neutrophils % (M) 63 %; Nucleated Red Blood Cells 0 /100 WBC (0-0); Total Cells Counted 100
[2018-04-21] MEDS: SODIUM CHLORIDE 0.9% 1,000 ML IV SCH (16:20)
[2018-04-21] MEDS: Exemestane 25 MG PO SCH (17:12)
--- NOTE | 2018-04-21 17:23 | P.PN ---
Subjective Progress Note Date: 04/21/18 Principal diagnosis: Hyponatremia, Hypokalemia Cyndie is feeling a little stronger today, sodium is showing some improvement, potassium has improved. treatment for HRS Objective - Vital Signs Vital signs: Vital Signs Temp 97.8 F 04/21/18 15:46 Pulse 72 04/21/18 15:46 Resp 16 04/21/18 15:46 BP 103/66 04/21/18 15:46 Pulse Ox 100 04/21/18 15:46 Intake & Output 04/20/18 04/21/18 04/21/18 18:59 06:59 18:59 Intake Total 490 Balance 490 Intake: Oral 490 Other: Voiding Method Toilet # Voids 1 1 2 - Exam - Constitutional General appearance: cooperative, no acute distress, obese - EENT Eyes: anicteric sclerae, EOMI ENT: hard of hearing, normal oropharynx - Neck Neck: no lymphadenopathy - Respiratory Respiratory: bilateral: CTA - Cardiovascular Heart sounds: normal: S1, S2 leg Peripheral Edema: bilateral: 1+, Pitting - Gastrointestinal General gastrointestinal: no absent bowel sounds, no decreased bowel sounds, no distended, no hepatomegaly, no hyperactive bowel sounds, normal bowel sounds, no organomegaly, no rigid, no scaphoid, soft, no splenomegaly, no tenderness, no umbilical hernia, no ventral hernia - Integumentary BLE shins reddened, 2 small scabs on the right freeman, no open lesions or weeping Integumentary: pale - Neurologic Neurologic: CNII-XII intact - Musculoskeletal Musculoskeletal: generalized weakness - Psychiatric Psychiatric: A&O x's 3, appropriate affect, intact judgment & insight - Labs CBC & Chem 7: 04/21/18 10:00 04/21/18 10:00 Labs: Abnormal Lab Results - Last 24 Hours (Table) 04/21/18 04/21/18 Range/Units 10:00 10:00 WBC 2.9 L (3.8-10.6) k/uL RBC 2.86 L (3.80-5.40) m/uL Hgb 8.1 L (11.4-16.0) gm/dL Hct 27.1 L (34.0-46.0) % MCHC 29.8 L (31.0-37.0) g/dL RDW 19.7 H (11.5-15.5) % Plt Count 52 L (150-450) k/uL Lymphocytes # (Manual) 0.52 L (1.0-4.8) k/uL Sodium 129 L (137-145) mmol/L Carbon Dioxide 18 L (22-30) mmol/L BUN 34 H (7-17) mg/dL Creatinine 1.74 H (0.52-1.04) mg/dL Glucose 191 H (74-99) mg/dL Calcium 7.5 L (8.4-10.2) mg/dL Microbiology - Last 24 Hours (Table) 04/17/18 14:45 Blood Culture - Preliminary Blood No Growth after 96 hours 04/19/18 13:00 Urine Culture - Final Urine,Clean Catch Klebsiella pneumoniae 04/20/18 15:00 Gram Stain - Preliminary Paracentesis Fluid Body Fluid Culture - Preliminary 04/20/18 15:00 Fungal Culture - Preliminary Paracentesis Fluid Assessment and Plan Plan: Assessment and Plan (1) Hyperkalemia - Resolved Narrative/Plan: - Component Dehydration - Hydration and kayexelate given on admit. Current Visit: Yes Status: Acute Priority: High Code(s): E87.5 - HYPERKALEMIA SNOMED Code(s): 34154901 (2) Hyponatremia - Improving Narrative/Plan: - Urine and Serum Osmolarity reviewed - Nephrology Following - Recurrent Ascites therefore bladder scan likely not accurate. Current Visit: Yes Status: Acute Code(s): E87.1 - HYPO-OSMOLALITY AND HYPONATREMIA SNOMED Code(s): 39274563 (3) Metastatic breast carcinoma Narrative/Plan: Known to Liver, Bone - Maintained on Afinitor, Faslodex, Xgeva with stable Metastatic disease - Hold afinitor for now. - Pt just had monthly bisphosphonate and faslodex Current Visit: No Status: Chronic Priority: Medium Code(s): C50.919 - MALIGNANT NEOPLASM OF UNSP SITE OF UNSPECIFIED FEMALE BREAST; C79.9 - SECONDARY MALIGNANT NEOPLASM OF UNSPECIFIED SITE SNOMED Code(s): 317676613 (4) Pancytopenia Narrative/Plan: - Secondary to chemo history, likely metastatic disease to bone marrow, and current treatment. - Monitor Daily CBC and transfuse when indicated - Arvizu culture, UA reviewed Current Visit: Yes Status: Chronic Priority: Medium Code(s): D61.818 - OTHER PANCYTOPENIA SNOMED Code(s): 849846293 (5) (Hypocalcemia): - continue to monitor Treatment related to potential hepatorenal stndrome, nephrology following Creatinine is worse today Abdomen improved after paracentesis Physcian Attest: I have completed the full history and physical of this patient and agree with above dictation dictated as a scribe
[2018-04-21] MEDS: LORATADINE 10 MG TAB PO SCH (21:56)
[2018-04-21] MEDS: ATORVASTATIN 10 MG TAB PO SCH (21:56)
--- NOTE | 2018-04-22 00:24 | P.PN ---
Subjective Progress Note Date: 04/21/18 67-year-old woman who is a very complex history regarding her breast carcinoma diagnosis from 2015. At this time there is evidence of a mass outside of the breast and biopsy revealed evidence of the metastatic disease likely from breast primary. She underwent evaluation and chemotherapy interventions and was showing some improvement. This september of this year she was on an oral chemotherapy regimens but then had rapidly progressive disease involving her liver. Constantly she was given chemotherapy in April with a carboplatinum- based regimen and apparently tumor markers improved markedly and she's been back to the oral regimen at in the recent past. She does have evidence of chronic ascites andliver disease thought to be from her underlying malignancy and is receiving weekly paracentesis usually about 5 L. patient became quite weak had evidence of hyperkalemia and was directed to hospital for evaluation. With concerns for sepsis the infectious diseases consultation was requested. 04/20/2018 patient is feeling slightly better today. Fevers have improved. Strength is improved. Appetite is slightly improved. Her abdominal discomforts have definitely improved after her paracentesis which markedly reduces the pressure on her abdomen. She does not believe she's had further fever and no chills. Appetite is minimal. 04/21/2018 patient definitely feeling better today. Fevers further improved, able to get around her room and able to eat most of her meal. Abdominal discomforts have improved especially after paracentesis. Denies fevers. Objective - Vital Signs Vital signs: Vital Signs Temp 97.1 F L 04/21/18 23:14 Pulse 70 04/21/18 23:14 Resp 16 04/21/18 23:14 BP 109/76 04/21/18 23:14 Pulse Ox 100 04/21/18 23:14 Intake & Output 04/21/18 04/21/18 04/22/18 06:59 18:59 06:59 Other: # Voids 1 2 - Exam Pleasant 67-year-old woman who is fatigued but not in distress HEENT: Anicteric conjunctiva are pink and moist nasal mucosa grossly intact without significant lesions, there is no thrush. Neck: The neck is supple without significant lymphadenopathy or thyromegaly. Lungs: Good bilateral air entry without significant crackles or wheezing. There is no significant bronchial sounds. There is no egophony or dullness. Heart: Regular rate and rhythm with an audible S1-S2, no S3 no S4. There is no significant murmur click or rub, PMI was nondisplaced. Abdomen: Positive bowel sounds soft and nontender without palpable masses or organomegaly. There was no guarding or rebound. Positive ascites but improved after procedure Extremities: The upper extremities have excellent pulses they are symmetric, no significant petechiae or telangiectasia. No splinter hemorrhages were noted. The bilateral choice have evidence of some chronic edema. Pulses are 2+ and symmetric. Skin reveals evidence of a hyperpigmentation - Labs CBC & Chem 7: 04/21/18 10:00 04/21/18 10:00 Labs: Abnormal Lab Results - Last 24 Hours (Table) 04/21/18 04/21/18 Range/Units 10:00 10:00 WBC 2.9 L (3.8-10.6) k/uL RBC 2.86 L (3.80-5.40) m/uL Hgb 8.1 L (11.4-16.0) gm/dL Hct 27.1 L (34.0-46.0) % MCHC 29.8 L (31.0-37.0) g/dL RDW 19.7 H (11.5-15.5) % Plt Count 52 L (150-450) k/uL Lymphocytes # (Manual) 0.52 L (1.0-4.8) k/uL Sodium 129 L (137-145) mmol/L Carbon Dioxide 18 L (22-30) mmol/L BUN 34 H (7-17) mg/dL Creatinine 1.74 H (0.52-1.04) mg/dL Glucose 191 H (74-99) mg/dL Calcium 7.5 L (8.4-10.2) mg/dL Microbiology - Last 24 Hours (Table) 04/17/18 14:45 Blood Culture - Preliminary Blood No Growth after 96 hours 04/19/18 13:00 Urine Culture - Final Urine,Clean Catch Klebsiella pneumoniae 04/20/18 15:00 Gram Stain - Preliminary Paracentesis Fluid Body Fluid Culture - Preliminary Laboratory Results WBC 2.9 k/uL (3.8-10.6) L 04/21/18 10:00 RBC 2.86 m/uL (3.80-5.40) L 04/21/18 10:00 Hgb 8.1 gm/dL (11.4-16.0) L 04/21/18 10:00 Hct 27.1 % (34.0-46.0) L 04/21/18 10:00 MCV 94.9 fL (80.0-100.0) 04/21/18 10:00 MCH 28.2 pg (25.0-35.0) 04/21/18 10:00 MCHC 29.8 g/dL (31.0-37.0) L 04/21/18 10:00 RDW 19.7 % (11.5-15.5) H 04/21/18 10:00 Plt Count 52 k/uL (150-450) L 04/21/18 10:00 Neutrophils % CAREER ORIENTATION TEACHER 04/15/18 16:40 Neutrophils % (Manual) 63 % 04/21/18 10:00 Band Neutrophils % 1 % 04/20/18 07:15 Lymphocytes % CAREER ORIENTATION TEACHER 04/15/18 16:40 Lymphocytes % (Manual) 18 % 04/21/18 10:00 Monocytes % CAREER ORIENTATION TEACHER 04/15/18 16:40 Monocytes % (Manual) 16 % 04/21/18 10:00 Eosinophils % CAREER ORIENTATION TEACHER 04/15/18 16:40 Eosinophils % (Manual) 3 % 04/21/18 10:00 Basophils % CAREER ORIENTATION TEACHER 04/15/18 16:40 Neutrophils # CAREER ORIENTATION TEACHER 04/15/18 16:40 Neutrophils # (Manual) 1.83 k/uL (1.3-7.7) 04/21/18 10:00 Lymphocytes # CAREER ORIENTATION TEACHER 04/15/18 16:40 Lymphocytes # (Manual) 0.52 k/uL (1.0-4.8) L 04/21/18 10:00 Monocytes # CAREER ORIENTATION TEACHER 04/15/18 16:40 Monocytes # (Manual) 0.46 k/uL (0-1.0) 04/21/18 10:00 Eosinophils # CAREER ORIENTATION TEACHER 04/15/18 16:40 Eosinophils # (Manual) 0.09 k/uL (0-0.7) 04/21/18 10:00 Basophils # CAREER ORIENTATION TEACHER 04/15/18 16:40 Nucleated RBCs 0 /100 WBC (0-0) 04/21/18 10:00 Manual Slide Review Performed 04/21/18 10:00 Hypochromasia Marked 04/21/18 10:00 Poikilocytosis Slight 04/21/18 10:00 Anisocytosis Slight 04/21/18 10:00 Macrocytosis Slight 04/21/18 10:00 PT 12.0 sec (9.0-12.0) 04/20/18 09:51 INR 1.2 (<1.2) H 04/20/18 09:51 Sodium 129 mmol/L (137-145) L 04/21/18 10:00 Potassium 4.3 mmol/L (3.5-5.1) 04/21/18 10:00 Chloride 103 mmol/L (98-107) 04/21/18 10:00 Carbon Dioxide 18 mmol/L (22-30) L 04/21/18 10:00 Anion Gap 8 mmol/L 04/21/18 10:00 BUN 34 mg/dL (7-17) H 04/21/18 10:00 Creatinine 1.74 mg/dL (0.52-1.04) H 04/21/18 10:00 Est GFR (CKD-EPI)AfAm 35 (>60 ml/min/1.73 sqM) 04/21/18 10:00 Est GFR (CKD-EPI)NonAf 30 (>60 ml/min/1.73 sqM) 04/21/18 10:00 Glucose 191 mg/dL (74-99) H 04/21/18 10:00 POC Glucose (mg/dL) 140 mg/dL (75-99) H 04/19/18 06:38 POC Glu Sales Promotion Manager ID Kelly Rivera 04/19/18 06:[address] Glu mg/dL 97 04/20/18 07:15 Hemoglobin A1c 5.0 % (4.0-6.0) 04/20/18 07:15 Osmolality 272 mosm/kg (280-301) L 04/17/18 14:45 Calcium 7.5 mg/dL (8.4-10.2) L 04/21/18 10:00 Ionized Calcium Travis 4.5 mg/dL (4.5-5.3) 04/17/18 14:45 Phosphorus 3.4 mg/dL (2.5-4.5) 04/15/18 16:40 Magnesium 1.9 mg/dL (1.6-2.3) 04/21/18 10:00 Total Bilirubin 1.6 mg/dL (0.2-1.3) H 04/20/18 07:15 AST 37 U/L (14-36) H 04/20/18 07:15 ALT 31 U/L (9-52) 04/20/18 07:15 Alkaline Phosphatase 140 U/L (38-126) H 04/20/18 07:15 Total Protein 4.5 g/dL (6.3-8.2) L 04/20/18 07:15 Albumin 2.4 g/dL (3.5-5.0) L 04/20/18 07:15 Cortisol 17 ug/dL 04/16/18 05:40 Urine Color Yellow 04/17/18 16:31 Urine Appearance Cloudy (Clear) H 04/17/18 16:31 Urine pH 5.5 (5.0-8.0) 04/17/18 16:31 Ur Specific [place] 1.011 (1.001-1.035) 04/17/18 16:31 Urine Protein Trace (Negative) H 04/17/18 16:31 Urine Glucose (UA) Negative (Negative) 04/17/18 16:31 Urine Ketones Negative (Negative) 04/17/18 16:31 Urine Blood Trace (Negative) H 04/17/18 16:31 Urine Nitrite Negative (Negative) 04/17/18 16:31 Urine Bilirubin Negative (Negative) 04/17/18 16:31 Urine Urobilinogen <2.0 mg/dL (<2.0) 04/17/18 16:31 Ur Leukocyte Esterase Large (Negative) H 04/17/18 16:31 Urine RBC 3 /hpf (0-5) 04/17/18 16:31 Urine WBC 40 /hpf (0-5) H 04/17/18 16:31 Urine WBC Clumps Many /hpf (None) H 04/17/18 16:31 Ur Squamous Epith Cells 1 /hpf (0-4) 04/17/18 16:31 Amorphous Sediment Rare /hpf (None) H 04/17/18 16:31 Urine Bacteria Many /hpf (None) H 04/17/18 16:31 Hyaline Casts 55 /lpf (0-2) H 04/17/18 16:31 Urine Mucus Rare /hpf (None) H 04/17/18 16:31 Urine Osmolality 459 mosm/kg (50-1400) 04/17/18 13:50 Ur Random Sodium <10 mmol/L 04/17/18 13:50 Ur Random Potassium 39.0 mmol/L 04/17/18 13:50 Fluid Source Paracentesis 04/20/18 14:18 Fluid Appearance Hazy 04/20/18 14:18 Fluid RBC 490 /uL 04/20/18 14:18 Fluid Nucleated Cells 0 /uL 04/20/18 14:18 Fluid Albumin Source Paracentesis Fluid 04/20/18 13:46 Fluid Albumin <1.00 g/dL 04/20/18 13:46 Stool Occult Blood Negative (Negative) 04/17/18 09:39 Microbiology 04/17/18 14:45 Blood Blood Culture - Preliminary No Growth after 96 hours 04/19/18 13:00 Urine,Clean Catch Urine Culture - Final Klebsiella pneumoniae 04/20/18 15:00 Paracentesis Fluid Gram Stain - Preliminary 04/20/18 15:00 Paracentesis Fluid Body Fluid Culture - Preliminary Assessment and Plan (1) Hyperkalemia Current Visit: Yes Status: Acute Priority: High Code(s): E87.5 - HYPERKALEMIA SNOMED Code(s): 82350985 (2) Metastatic breast cancer Current Visit: No Status: Acute Code(s): C50.919 - MALIGNANT NEOPLASM OF UNSP SITE OF UNSPECIFIED FEMALE BREAST SNOMED Code(s): 184698364 (3) UTI (urinary tract infection) Narrative/Plan: 67-year-old woman who is a very complex past medical history regarding her metastatic breast carcinoma that is have liver involvement with resultant ascites that requires frequent paracentesis. Patient presents with weakness and hyperkalemia. This is being treated however there was concerns of sepsis. Does not appear to have peritonitis at this time and that her abdomen is without significant change. Urinary tract infection is of concern. Consequently ceftriaxone has been added based on her prior cultures. Cultures were directs the overall course of therapy. She probably will have a paracentesis tomorrow which should provide her some significant improvement of the abdominal discomfort, the fluid can be analyzed to ensure there is no infection there does occur within the last week. She does have relative pancytopenia is followed by hematology without acute concern at this time. 04/20/2018 patient feels slightly better today. Continue antibiotic therapy for treatment of her urinary tract infection. She's advised for high-protein oral intake to help her with her healing. Continues to follow with oncology. Pain control is adequate and she is definitely more comfortable after the paracentesis. Of note the fluid appears to be clear without evidence of infection. 04/21/2018 patient does have further improvement. Being treated for urinary tract infection with some improvement. Oncology is following she for she is much more comfortable after her paracentesis. Being monitored for her pancytopenia also. Blood cultures are negative. Current Visit: Yes Status: Acute Code(s): N39.0 - URINARY TRACT INFECTION, SITE NOT SPECIFIED SNOMED Code(s): 31492308
[2018-04-22] MEDS: HYDROcodone/APAP 5-325MG 1 EACH TAB PO PRN ×4 (00:46→22:17)
[2018-04-22] MEDS: OCTREOTIDE 100 MCG/ML INJ IVP SCH ×3 (00:55→15:38)
[2018-04-22] MEDS: LEVOTHYROXINE 75 MCG TAB PO SCH (06:11)
[2018-04-22] MEDS: FAMOTIDINE 20 MG TAB PO SCH (08:38)
[2018-04-22] MEDS: METOPROLOL TARTRATE 12.5 MG TAB PO SCH ×2 (08:38→22:17)
[2018-04-22] MEDS: DOCUSATE 100 MG CAP PO SCH ×2 (08:38→22:18)
[2018-04-22] MEDS: MIDODRINE 5 MG TAB PO SCH ×3 (08:38→15:38)
[2018-04-22] MEDS: LACTULOSE 20 GM/30 ML CUP PO SCH ×4 (08:38→22:18)
[2018-04-22] MEDS: SODIUM BICARBONATE TAB 650 MG TAB PO SCH ×2 (08:38→22:17)
[2018-04-22 09:44] LABS: Albumin 2.6 g/dL (3.5-5.0); Calcium 7.8 mg/dL (8.4-10.2); Magnesium 1.9 mg/dL (1.6-2.3); Potassium 4.5 mmol/L (3.5-5.1); Total Bilirubin 1.5 mg/dL (0.2-1.3); Total Protein 4.7 g/dL (6.3-8.2)
--- NOTE | 2018-04-22 09:50 | P.PN ---
Subjective Patient is seen in follow-up for acute kidney injury. Creatinine is up to 1.86 today. Sodium level up to 131. Patient has history of metastatic breast cancer with involvement of the liver. Patient is noted to have ascites. She underwent paracentesis on April 20 with 4.8 L removed. Oral intake is fair. No vomiting or diarrhea. Denies chest pain or shortness of breath. She has been ambulating. Good UO. Patient receives weekly paracentesis as an outpatient with 5-7 L removed. Vital signs are stable. General: The patient appeared well nourished and normally developed. HEENT: Head exam is unremarkable. Neck is without jugular venous distension. LUNGS: Lungs are clear to auscultation and percussion. Breath sounds decreased. HEART: Rate and Rhythm are regular. First and second heart sounds normal. No murmurs, rubs or gallops. ABDOMEN: Abdominal exam reveals normal bowel sounds. Distention noted. EXTREMITITES: 1+ edema. Objective - Vital Signs Vital signs: Vital Signs Temp 96.7 F L 04/22/18 06:10 Pulse 70 04/22/18 06:10 Resp 17 04/22/18 06:10 BP 111/66 04/22/18 06:10 Pulse Ox 97 04/22/18 06:10 Intake & Output 04/21/18 04/22/18 04/22/18 18:59 06:59 18:59 Intake Total 200 Balance 200 Intake: Oral 200 Other: Voiding Method Toilet # Voids 2 1 - Labs CBC & Chem 7: 04/21/18 10:00 04/22/18 08:47 Labs: Abnormal Lab Results - Last 24 Hours (Table) 04/21/18 04/21/18 04/22/18 Range/Units 10:00 10:00 08:47 WBC 2.9 L (3.8-10.6) k/uL RBC 2.86 L (3.80-5.40) m/uL Hgb 8.1 L (11.4-16.0) gm/dL Hct 27.1 L (34.0-46.0) % MCHC 29.8 L (31.0-37.0) g/dL RDW 19.7 H (11.5-15.5) % Plt Count 52 L (150-450) k/uL Lymphocytes # (Manual) 0.52 L (1.0-4.8) k/uL Sodium 129 L 131 L (137-145) mmol/L Carbon Dioxide 18 L 19 L (22-30) mmol/L BUN 34 H 35 H (7-17) mg/dL Creatinine 1.74 H 1.86 H (0.52-1.04) mg/dL Glucose 191 H 152 H (74-99) mg/dL Calcium 7.5 L 7.8 L (8.4-10.2) mg/dL Total Bilirubin 1.5 H (0.2-1.3) mg/dL AST 39 H (14-36) U/L Total Protein 4.7 L (6.3-8.2) g/dL Albumin 2.6 L (3.5-5.0) g/dL Microbiology - Last 24 Hours (Table) 04/17/18 14:45 Blood Culture - Preliminary Blood No Growth after 96 hours 04/19/18 13:00 Urine Culture - Final Urine,Clean Catch Klebsiella pneumoniae 04/20/18 15:00 Gram Stain - Preliminary Paracentesis Fluid Body Fluid Culture - Preliminary Assessment and Plan Plan: Assessment: 1. Acute kidney injury secondary to ATN secondary to hypotension. Low urine sodium is concerning for hepatorenal syndrome. Trace proteinuria on UA. No evidence of hydronephrosis noted on renal ultrasound. Creatinine up to 1.86 today. 2. Metastatic breast cancer with liver involvement. 3. Ascites status post paracentesis on April 20 to 4.8 L removed. Patient received 50 g of albumin. Patient gets weekly paracentesis as an outpatient. 4. Hypotension maintained on midodrine. 5. Metabolic acidosis secondary to acute kidney injury. Better. 6. Hypervolemic hyponatremia. Better. 7. Hypocalcemia secondary to hypoalbuminemia. Corrected calcium is in the normal range. Plan: Maintain midodrine. Maintain oral bicarb 1300 mg twice daily. Encouraged oral intake. Hold off on diuretics for now.
--- NOTE | 2018-04-22 10:11 | P.PN ---
Subjective Progress Note Date: 04/22/18 67-year-old female with a past medical history significant for breast cancer was diagnosed in 2016 with metastasis to the bone, liver, and spleen, who presented to the emergency room after being notified by her oncologist of abnormal blood work. The patient reports she had a paracentesis performed yesterday with removal of 5 L. She states she felt that she may have been dehydrated and asked to have some additional blood work performed. Her potassium was found to be 7.1. She was informed to go to the emergency room. Potassium was repeated when the patient came to emergency room and was found to be 7.0. She was treated with insulin, dextrose, IV Lasix, calcium gluconate, sodium bicarb and Kayexalate. Repeat potassium was 5.5. Potassium this morning is 5.0. BUN 32. Creatinine 1.07. The patient does report she has been feeling more weak and fatigued recently. She reports that she almost fell on Friday of this week but was able to lower herself to the ground. She denies shortness of breath. Denies chest pain or pressure. She is tolerating oral intake well without nausea or vomiting. Chest x-ray completed in the emergency room was negative for an acute cardiopulmonary process. The patient was admitted to the hospital under the care of Dr. Nix. Dr. Coronado was consulted for medical management. 04/17/2018 Patient examined at the bedside. She reports she is feeling well this morning. Most recent potassium is 4.2. Repeat lab work from this morning is currently pending. She is stable for discharge home today. 04/18/2018 - 04/19/2018: Notes per covering provider 04/20/2018 Patient examined at the bedside. Patient states she is feeling better today than over the weekend. She states her urinary symptoms are improving. She is scheduled for paracentesis today. 04/21/2018 Patient examined at the bedside. She is awake and alert. She reports she is feeling pretty good this morning. She states she usually feels good in the morning but by the afternoon she isnt feeling as well. Creatinine is 1.49 today. Nephrology is following. She remains on Midodrine for hypotension. She underwent paracentesis yesterday with removal of 4.8L. 04/22/2018 Patient examined at the bedside. Sodium is up to 131 today. Creatinine has increased from 1.74 to 1.86. Nephrology is following. Urine culture is positive for Klebsiella pneumoniae. She remains on ceftriaxone. Patient is hoping to be discharged home soon. PHYSICAL EXAM: GENERAL: This is a 67-year-old female in no apparent distress at the time of examination. Pleasant and cooperative. HEENT: Head is atraumatic, normocephalic. Pupils are equal, round, and reactive to light. Sclerae anicteric. Conjunctivae are clear. Mucus membranes of the mouth are moist. Neck is supple. RESPIRATORY: Clear to auscultation. No wheezes, rales, or rhonchi. No use of accessory muscles. Patient maintaining oxygen saturation greater than 92%. No chest wall tenderness is noted on palpation or with deep breathing. CARDIOVASCULAR: Regular rate and rhythm. S1 and S2 noted. No systolic or diastolic murmur auscultated. No JVD noted. No S3 or S4 noted. GASTROINTESTINAL: Distention noted, which is baseline for patient due to ascites. Abdomen soft and round. Normal active bowel sounds auscultated x 4 quadrants. No pain or tenderness noted upon palpation. INTEGUMENTARY: No cyanosis. No jaundice. No rashes noted. No cellulitis noted. Small chronic wounds noted to bilateral lower extremities EXTREMITIES: 2+ peripheral pulses. 1+ Bilateral LE edema. No calf tenderness noted. NEUROLOGIC: Cranial nerves II-XII intact. PSYCHIATRIC: Awake, alert, and oriented X 3. Appropriate affect. Intact judgement and insight. ASSESSMENT: Hyperkalemia, resolved Stage IV breast cancer with metastasis to bone, liver, and spleen currently undergoing chemotherapy and weekly paracentesis Pancytopenia, secondary to above Hyponatremia Hyperlipidemia Acute kidney injury Urinary tract infection, urine culture positive for Klebsiella pneumoniae Ascites, s/p paracentesis 04/20/2018 Hypotension, maintained on Midodrine Hypertension History of SVT Hypothyroidism Obesity: BMI 33.2 PLAN: Continue to monitor kidney function. Monitor BP. Continue Midodrine. Continue antibiotics. MISAEL hose to bilateral LE. Discharge planning per admitting physician, Dr. Nix. Nurse practitioner note has been reviewed by physician. Signing provider agrees with the documented findings, assessment, and plan of care. Objective - Vital Signs Vital signs: Vital Signs Temp 96.7 F L 04/22/18 06:10 Pulse 70 04/22/18 06:10 Resp 17 04/22/18 06:10 BP 111/66 04/22/18 06:10 Pulse Ox 97 04/22/18 06:10 Intake & Output 04/21/18 04/22/18 04/22/18 18:59 06:59 18:59 Intake Total 200 Balance 200 Intake: Oral 200 Other: Voiding Method Toilet # Voids 2 1 - Labs CBC & Chem 7: 04/21/18 10:00 04/22/18 08:47 Labs: Abnormal Lab Results - Last 24 Hours (Table) 04/21/18 04/21/18 04/22/18 Range/Units 10:00 10:00 08:47 WBC 2.9 L (3.8-10.6) k/uL RBC 2.86 L (3.80-5.40) m/uL Hgb 8.1 L (11.4-16.0) gm/dL Hct 27.1 L (34.0-46.0) % MCHC 29.8 L (31.0-37.0) g/dL RDW 19.7 H (11.5-15.5) % Plt Count 52 L (150-450) k/uL Lymphocytes # (Manual) 0.52 L (1.0-4.8) k/uL Sodium 129 L 131 L (137-145) mmol/L Carbon Dioxide 18 L 19 L (22-30) mmol/L BUN 34 H 35 H (7-17) mg/dL Creatinine 1.74 H 1.86 H (0.52-1.04) mg/dL Glucose 191 H 152 H (74-99) mg/dL Calcium 7.5 L 7.8 L (8.4-10.2) mg/dL Total Bilirubin 1.5 H (0.2-1.3) mg/dL AST 39 H (14-36) U/L Total Protein 4.7 L (6.3-8.2) g/dL Albumin 2.6 L (3.5-5.0) g/dL Microbiology - Last 24 Hours (Table) 04/17/18 14:45 Blood Culture - Preliminary Blood No Growth after 96 hours 04/19/18 13:00 Urine Culture - Final Urine,Clean Catch Klebsiella pneumoniae 04/20/18 15:00 Gram Stain - Preliminary Paracentesis Fluid Body Fluid Culture - Preliminary
[2018-04-22 13:05] VITALS: BMI 36.8
--- NOTE | 2018-04-22 14:53 | P.PN ---
Subjective Progress Note Date: 04/22/18 Principal diagnosis: Hyponatremia, Hypokalemia Renal function is still increasing, sodium is showing some improvement, potassium has improved. treatment for HRS It is highest since admission. Objective - Vital Signs Vital signs: Vital Signs Temp 96.7 F L 04/22/18 06:10 Pulse 70 04/22/18 06:10 Resp 17 04/22/18 06:10 BP 111/66 04/22/18 06:10 Pulse Ox 97 04/22/18 06:10 Intake & Output 04/21/18 04/22/18 04/22/18 18:59 06:59 18:59 Intake Total 410 Balance 410 Weight 103.5 kg Intake: IV 210 Sodium Chloride 0.9% 1, 160 000 ml @ 20 mls/hr IV . Q24H L[facility] Rx#:[id number] cefTRIAXone 1,000 mg In 50 Sodium Chloride 0.9% 50 ml @ 100 mls/hr IVPB Q24HR L[facility] Rx#:[id number] Oral 200 Other: Voiding Method Toilet # Voids 2 1 - Exam - Constitutional General appearance: cooperative, no acute distress, obese - EENT Eyes: anicteric sclerae, EOMI ENT: hard of hearing, normal oropharynx - Neck Neck: no lymphadenopathy - Respiratory Respiratory: bilateral: CTA - Cardiovascular Heart sounds: normal: S1, S2 leg Peripheral Edema: bilateral: 1+, Pitting - Gastrointestinal General gastrointestinal: no absent bowel sounds, no decreased bowel sounds, no distended, no hepatomegaly, no hyperactive bowel sounds, normal bowel sounds, no organomegaly, no rigid, no scaphoid, soft, no splenomegaly, no tenderness, no umbilical hernia, no ventral hernia - Integumentary BLE shins reddened, 2 small scabs on the right freeman, no open lesions or weeping Integumentary: pale - Neurologic Neurologic: CNII-XII intact - Musculoskeletal Musculoskeletal: generalized weakness - Psychiatric Psychiatric: A&O x's 3, appropriate affect, intact judgment & insight - Labs CBC & Chem 7: 04/21/18 10:00 04/22/18 08:47 Labs: Abnormal Lab Results - Last 24 Hours (Table) 04/22/18 Range/Units 08:47 Sodium 131 L (137-145) mmol/L Carbon Dioxide 19 L (22-30) mmol/L BUN 35 H (7-17) mg/dL Creatinine 1.86 H (0.52-1.04) mg/dL Glucose 152 H (74-99) mg/dL Calcium 7.8 L (8.4-10.2) mg/dL Total Bilirubin 1.5 H (0.2-1.3) mg/dL AST 39 H (14-36) U/L Total Protein 4.7 L (6.3-8.2) g/dL Albumin 2.6 L (3.5-5.0) g/dL Microbiology - Last 24 Hours (Table) 04/17/18 14:45 Blood Culture - Preliminary Blood No Growth after 96 hours 04/19/18 13:00 Urine Culture - Final Urine,Clean Catch Klebsiella pneumoniae Assessment and Plan Plan: Assessment and Plan (1) Hyperkalemia - Resolved Narrative/Plan: - Component Dehydration - Hydration and kayexelate given on admit. Current Visit: Yes Status: Acute Priority: High Code(s): E87.5 - HYPERKALEMIA SNOMED Code(s): 59471070 (2) Hyponatremia - Improving Narrative/Plan: - Urine and Serum Osmolarity reviewed - Nephrology Following - Recurrent Ascites therefore bladder scan likely not accurate. Current Visit: Yes Status: Acute Code(s): E87.1 - HYPO-OSMOLALITY AND HYPONATREMIA SNOMED Code(s): 36559446 (3) Metastatic breast carcinoma Narrative/Plan: Known to Liver, Bone - Maintained on Afinitor, Faslodex, Xgeva with stable Metastatic disease - Hold afinitor for now. - Pt just had monthly bisphosphonate and faslodex Current Visit: No Status: Chronic Priority: Medium Code(s): C50.919 - MALIGNANT NEOPLASM OF UNSP SITE OF UNSPECIFIED FEMALE BREAST; C79.9 - SECONDARY MALIGNANT NEOPLASM OF UNSPECIFIED SITE SNOMED Code(s): 388214684 (4) Pancytopenia Narrative/Plan: - Secondary to chemo history, likely metastatic disease to bone marrow, and current treatment. - Monitor Daily CBC and transfuse when indicated - Arvizu culture, UA reviewed Current Visit: Yes Status: Chronic Priority: Medium Code(s): D61.818 - OTHER PANCYTOPENIA SNOMED Code(s): 317546672 (5) (Hypocalcemia): - continue to monitor Treatment related to potential hepatorenal stndrome, nephrology following Creatinine is worse today Abdomen improved after paracentesis We discussed the possibility of discharge today although with the persistent mild increasing creatinine concerned to discharge and then she need re- admission prior to weekend or holiday. Will talk with nephrology regarding this and recheck in am. - Afinitor on hold - COntinuing the Aromasin - Ok for arnasp today 100mch equal dose to her weekly dosed procrit. Lady Attest: I have completed the full history and physical of this patient and agree with above dictation dictated as a scribe
[2018-04-22] MEDS ORDERED: DARBEPOETIN ALFA 100MCG/0.5ML SYRINGE SQ SCH (15:00)
[2018-04-22] MEDS: Exemestane 25 MG PO SCH (16:52)
[2018-04-22] MEDS: LORATADINE 10 MG TAB PO SCH (22:18)
[2018-04-22] MEDS: ATORVASTATIN 10 MG TAB PO SCH (22:18)
[2018-04-23] MEDS: SODIUM CHLORIDE 0.9% 1,000 ML IV SCH (00:49)
[2018-04-23] MEDS: OCTREOTIDE 100 MCG/ML INJ IVP SCH ×3 (01:51→16:14)
[2018-04-23] MEDS: LEVOTHYROXINE 75 MCG TAB PO SCH (06:37)
[2018-04-23 07:40] VITALS: RESP 18
[2018-04-23] MEDS: FAMOTIDINE 20 MG TAB PO SCH (08:26)
[2018-04-23] MEDS: LACTULOSE 20 GM/30 ML CUP PO SCH ×3 (08:26→16:14)
[2018-04-23] MEDS: DOCUSATE 100 MG CAP PO SCH (08:26)
[2018-04-23] MEDS: SODIUM BICARBONATE TAB 650 MG TAB PO SCH (08:26)
[2018-04-23] MEDS: MIDODRINE 5 MG TAB PO SCH ×3 (08:26→16:14)
[2018-04-23] MEDS: METOPROLOL TARTRATE 12.5 MG TAB PO SCH (08:26)
[2018-04-23 09:19] LABS: Calcium 7.7 mg/dL (8.4-10.2); Potassium 4.6 mmol/L (3.5-5.1)
--- NOTE | 2018-04-23 10:39 | P.PN ---
Subjective Progress Note Date: 04/23/18 67-year-old female with a past medical history significant for breast cancer was diagnosed in 2016 with metastasis to the bone, liver, and spleen, who presented to the emergency room after being notified by her oncologist of abnormal blood work. The patient reports she had a paracentesis performed yesterday with removal of 5 L. She states she felt that she may have been dehydrated and asked to have some additional blood work performed. Her potassium was found to be 7.1. She was informed to go to the emergency room. Potassium was repeated when the patient came to emergency room and was found to be 7.0. She was treated with insulin, dextrose, IV Lasix, calcium gluconate, sodium bicarb and Kayexalate. Repeat potassium was 5.5. Potassium this morning is 5.0. BUN 32. Creatinine 1.07. The patient does report she has been feeling more weak and fatigued recently. She reports that she almost fell on Friday of this week but was able to lower herself to the ground. She denies shortness of breath. Denies chest pain or pressure. She is tolerating oral intake well without nausea or vomiting. Chest x-ray completed in the emergency room was negative for an acute cardiopulmonary process. The patient was admitted to the hospital under the care of Dr. Nix. Dr. Coronado was consulted for medical management. 04/17/2018 Patient examined at the bedside. She reports she is feeling well this morning. Most recent potassium is 4.2. Repeat lab work from this morning is currently pending. She is stable for discharge home today. 04/18/2018 - 04/19/2018: Notes per covering provider 04/20/2018 Patient examined at the bedside. Patient states she is feeling better today than over the weekend. She states her urinary symptoms are improving. She is scheduled for paracentesis today. 04/21/2018 Patient examined at the bedside. She is awake and alert. She reports she is feeling pretty good this morning. She states she usually feels good in the morning but by the afternoon she isnt feeling as well. Creatinine is 1.49 today. Nephrology is following. She remains on Midodrine for hypotension. She underwent paracentesis yesterday with removal of 4.8L. 04/22/2018 Patient examined at the bedside. Sodium is up to 131 today. Creatinine has increased from 1.74 to 1.86. Nephrology is following. Urine culture is positive for Klebsiella pneumoniae. She remains on ceftriaxone. Patient is hoping to be discharged home soon. 04/23/2018 Patient examined at the bedside. She is awake and alert. She denies SOB. Denies chest pain. Sodium 131 today. Creatinine 1.88 today. Patient is hoping to be discharged home today. PHYSICAL EXAM: GENERAL: This is a 67-year-old female in no apparent distress at the time of examination. Pleasant and cooperative. HEENT: Head is atraumatic, normocephalic. Pupils are equal, round, and reactive to light. Sclerae anicteric. Conjunctivae are clear. Mucus membranes of the mouth are moist. Neck is supple. RESPIRATORY: Clear to auscultation. No wheezes, rales, or rhonchi. No use of accessory muscles. Patient maintaining oxygen saturation greater than 92%. No chest wall tenderness is noted on palpation or with deep breathing. CARDIOVASCULAR: Regular rate and rhythm. S1 and S2 noted. No systolic or diastolic murmur auscultated. No JVD noted. No S3 or S4 noted. GASTROINTESTINAL: Distention noted, which is baseline for patient due to ascites. Abdomen soft and round. Normal active bowel sounds auscultated x 4 quadrants. No pain or tenderness noted upon palpation. INTEGUMENTARY: No cyanosis. No jaundice. No rashes noted. No cellulitis noted. Small chronic wounds noted to bilateral lower extremities EXTREMITIES: 2+ peripheral pulses. 1+ Bilateral LE edema. No calf tenderness noted. NEUROLOGIC: Cranial nerves II-XII intact. PSYCHIATRIC: Awake, alert, and oriented X 3. Appropriate affect. Intact judgement and insight. ASSESSMENT: Hyperkalemia, resolved Stage IV breast cancer with metastasis to bone, liver, and spleen currently undergoing chemotherapy and weekly paracentesis Pancytopenia, secondary to above Hyponatremia Hyperlipidemia Acute kidney injury Urinary tract infection, urine culture positive for Klebsiella pneumoniae Ascites, s/p paracentesis 04/20/2018 Hypotension, maintained on Midodrine Hypertension History of SVT Hypothyroidism Obesity: BMI 33.2 PLAN: Continue to monitor kidney function. Monitor BP. Continue Midodrine. Continue antibiotics. MISAEL hose to bilateral LE. Discharge planning per admitting physician, Dr. iNx. Nurse practitioner note has been reviewed by physician. Signing provider agrees with the documented findings, assessment, and plan of care. Objective - Vital Signs Vital signs: Vital Signs Temp 97.8 F 04/23/18 07:00 Pulse 75 04/23/18 07:00 Resp 18 04/23/18 07:00 BP 110/66 04/23/18 07:00 Pulse Ox 97 04/23/18 07:00 Intake & Output 04/22/18 04/23/18 04/23/18 18:59 06:59 18:59 Intake Total 410 1100 Balance 410 1100 Weight 103.5 kg Intake: IV 210 Sodium Chloride 0.9% 1, 160 000 ml @ 20 mls/hr IV . Q24H [facility] Rx#:[id number] cefTRIAXone 1,000 mg In 50 Sodium Chloride 0.9% 50 ml @ 100 mls/hr IVPB Q24HR [facility] Rx#:[id number] Oral 200 1100 Other: Voiding Method Toilet # Voids 2 - Labs CBC & Chem 7: 04/21/18 10:00 04/23/18 08:09 Labs: Abnormal Lab Results - Last 24 Hours (Table) 04/23/18 Range/Units 08:09 Sodium 131 L (137-145) mmol/L Carbon Dioxide 21 L (22-30) mmol/L BUN 38 H (7-17) mg/dL Creatinine 1.88 H (0.52-1.04) mg/dL Glucose 133 H (74-99) mg/dL Calcium 7.7 L (8.4-10.2) mg/dL Microbiology - Last 24 Hours (Table) 04/17/18 14:45 Blood Culture - Preliminary Blood No Growth after 120 hours
[2018-04-23] MEDS: HYDROcodone/APAP 5-325MG 1 EACH TAB PO PRN (11:56)
[2018-04-23 16:21] VITALS: BP 127/75; PULSE 69; TEMP 97.4
[2018-04-23] MEDS: Exemestane 25 MG PO SCH (17:29)
--- NOTE | 2018-04-23 18:15 | P.DS ---
Providers Date of admission: 04/15/18 18:54 Expected date of discharge: 04/23/18 Attending physician: Edward Nix Consults: 04/15/18 23:34 Consult Physician Routine Consulting Provider: Jamar Coronado Consult Reason/Comments: primary care physician outpatient Do you want consulting provider notified?: Yes, Notify in am 04/15/18 23:37 Consult Physician Routine Consulting Provider: Tequila Moran Consult Reason/Comments: hyperkalemia Do you want consulting provider notified?: Yes, Notify in am 04/19/18 10:07 Consult Physician Routine Consulting Provider: Vernon Tran Consult Reason/Comments: possible UTI, allergies. antibiotic management Do you want consulting provider notified?: Yes Primary care physician: Jamar Coronado Hospital Course: Hyponatremia, Hypokalemia Renal function is still increasing, sodium is showing some improvement, potassium has improved. treatment for HRS It is highest since admission. Objective - Vital Signs Vital signs: Vital Signs Temp 96.7 F L 04/22/18 06:10 Pulse 70 04/22/18 06:10 Resp 17 04/22/18 06:10 BP 111/66 04/22/18 06:10 Pulse Ox 97 04/22/18 06:10 Intake & Output 04/21/18 04/22/18 04/22/18 18:59 06:59 18:59 Intake Total 410 Balance 410 Weight 103.5 kg Intake: IV 210 Sodium Chloride 0.9% 1, 160 000 ml @ 20 mls/hr IV . Q24H [facility] Rx#:[id number] cefTRIAXone 1,000 mg In 50 Sodium Chloride 0.9% 50 ml @ 100 mls/hr IVPB Q24HR [facility] Rx#:[id number] Oral 200 Other: Voiding Method Toilet # Voids 2 1 - Exam - Constitutional General appearance: cooperative, no acute distress, obese - EENT Eyes: anicteric sclerae, EOMI ENT: hard of hearing, normal oropharynx - Neck Neck: no lymphadenopathy - Respiratory Respiratory: bilateral: CTA - Cardiovascular Heart sounds: normal: S1, S2 leg Peripheral Edema: bilateral: 1+, Pitting - Gastrointestinal General gastrointestinal: no absent bowel sounds, no decreased bowel sounds, no distended, no hepatomegaly, no hyperactive bowel sounds, normal bowel sounds, no organomegaly, no rigid, no scaphoid, soft, no splenomegaly, no tenderness, no umbilical hernia, no ventral hernia - Integumentary BLE shins reddened, 2 small scabs on the right freeman, no open lesions or weeping Integumentary: pale - Neurologic Neurologic: CNII-XII intact - Musculoskeletal Musculoskeletal: generalized weakness - Psychiatric Psychiatric: A&O x's 3, appropriate affect, intact judgment & insight - Labs CBC & Chem 7: 04/21/18 10:00 04/22/18 08:47 Labs: Abnormal Lab Results - Last 24 Hours (Table) 04/22/18 Range/Units 08:47 Sodium 131 L (137-145) mmol/L Carbon Dioxide 19 L (22-30) mmol/L BUN 35 H (7-17) mg/dL Creatinine 1.86 H (0.52-1.04) mg/dL Glucose 152 H (74-99) mg/dL Calcium 7.8 L (8.4-10.2) mg/dL Total Bilirubin 1.5 H (0.2-1.3) mg/dL AST 39 H (14-36) U/L Total Protein 4.7 L (6.3-8.2) g/dL Albumin 2.6 L (3.5-5.0) g/dL Microbiology - Last 24 Hours (Table) 04/17/18 14:45 Blood Culture - Preliminary Blood No Growth after 96 hours 04/19/18 13:00 Urine Culture - Final Urine,Clean Catch Klebsiella pneumoniae Assessment and Plan Plan: Assessment and Plan (1) Hyperkalemia - Resolved Narrative/Plan: - Component Dehydration - Hydration and kayexelate given on admit. Current Visit: Yes Status: Acute Priority: High Code(s): E87.5 - HYPERKALEMIA SNOMED Code(s): 76477766 (2) Hyponatremia - Improving Narrative/Plan: - Urine and Serum Osmolarity reviewed - Nephrology Following - Recurrent Ascites therefore bladder scan likely not accurate. Current Visit: Yes Status: Acute Code(s): E87.1 - HYPO-OSMOLALITY AND HYPONATREMIA SNOMED Code(s): 16508892 (3) Metastatic breast carcinoma Narrative/Plan: Known to Liver, Bone - Maintained on Afinitor, Faslodex, Xgeva with stable Metastatic disease - Hold afinitor for now. - Pt just had monthly bisphosphonate and faslodex Current Visit: No Status: Chronic Priority: Medium Code(s): C50.919 - MALIGNANT NEOPLASM OF UNSP SITE OF UNSPECIFIED FEMALE BREAST; C79.9 - SECONDARY MALIGNANT NEOPLASM OF UNSPECIFIED SITE SNOMED Code(s): 981628170 (4) Pancytopenia Narrative/Plan: - Secondary to chemo history, likely metastatic disease to bone marrow, and current treatment. - Monitor Daily CBC and transfuse when indicated - Arvizu culture, UA reviewed Current Visit: Yes Status: Chronic Priority: Medium Code(s): D61.818 - OTHER PANCYTOPENIA SNOMED Code(s): 868615120 (5) (Hypocalcemia): - continue to monitor Discharge today patient stable, discussed with nephrology in detail - Afinitor on hold - COntinuing the Aromasin - Continue Bicarb at discharge - HOLD Diuretics at discharge Procedures: Paracentesis therapeutic Renal Ultrasound Plan - Discharge Summary Discharge Rx Participant: No New Discharge Prescriptions: New Cefuroxime Axetil [Ceftin] 500 mg PO BID 3 Days #6 tab Midodrine [ProAmatine] 10 mg PO AC-TID #180 tab Darbepoetin Edwin [Aranesp] 100 mcg SQ Q7D syringe Lactulose [Cephulac] 30 gm PO QID 10 Days #500 ml Sodium Bicarbonate Tab 1,300 mg PO BID 30 Days #60 tab Continue Docusate Sodium [Dok] 200 mg PO BID Zoledronic Acid [Zometa] 4 mg IVPB QMONTH Loratadine [Claritin] 10 mg PO HS Levothyroxine Sodium [Synthroid] 75 mcg PO DAILY fentaNYL 50MCG/HR PATCH [Duragesic 50MCG/HR] 1 patch TRANSDERM Q72H #1 patch HYDROcodone/APAP 5-325MG [[place] 5-325] 1 tab PO Q6HR PRN PRN Reason: Pain Famotidine [Pepcid] 20 mg PO DAILY Polyethylene Glycol 3350 [Miralax] 17 gm PO DAILY PRN PRN Reason: Constipation Metoprolol Tartrate [Lopressor] 12.5 mg PO BID #60 tab Lactulose 30 gm PO QID #5400 ml Exemestane [Aromasin] 25 mg PO DAILY@1800 Discontinued Fluticasone Nasal [place] [Flonase Nasal [place]] 1 spray EA NOSTRIL BID PRN PRN Reason: Allergy Symptoms Simvastatin [Zocor] 10 mg PO HS Biotin 1000mcg 1 tab PO DAILY Afinitor 7.5 mg PO DAILY@1800 Discharge Medication List Docusate Sodium [Dok] 200 mg PO BID 09/15/15 [History] Loratadine [Claritin] 10 mg PO HS 01/23/17 [History] Zoledronic Acid [Zometa] 4 mg IVPB QMONTH 01/23/17 [History] Levothyroxine Sodium [Synthroid] 75 mcg PO DAILY 09/30/17 [History] fentaNYL 50MCG/HR PATCH [Duragesic 50MCG/HR] 1 patch TRANSDERM Q72H #1 patch [Rx] Famotidine [Pepcid] 20 mg PO DAILY 01/06/18 [History] HYDROcodone/APAP 5-325MG [[place] 5-325] 1 tab PO Q6HR PRN 01/06/18 [History] Polyethylene Glycol 3350 [Miralax] 17 gm PO DAILY PRN 01/26/18 [History] Lactulose 30 gm PO QID #5400 ml 01/30/18 [Rx] Metoprolol Tartrate [Lopressor] 12.5 mg PO BID #60 tab 01/30/18 [Rx] Exemestane [Aromasin] 25 mg PO DAILY@1800 02/18/18 [History] Cefuroxime Axetil [Ceftin] 500 mg PO BID 3 Days #6 tab 04/23/18 [Rx] Darbepoetin Edwin [Aranesp] 100 mcg SQ Q7D syringe 04/23/18 [Rx] Lactulose [Cephulac] 30 gm PO QID 10 Days #500 ml 04/23/18 [Rx] Midodrine [ProAmatine] 10 mg PO AC-TID #180 tab 04/23/18 [Rx] Sodium Bicarbonate Tab 1,300 mg PO BID 30 Days #60 tab 04/23/18 [Rx] Follow up Appointment(s)/Referral(s): Edward Nix MD [STAFF PHYSICIAN] - 2 Weeks Jamar Coronado DO [Primary Care Provider] - 04/23/18 11:10 am () Stephen Nunn DO [STAFF PHYSICIAN] - 1 Week (Office will call with appt.) Patient Instructions/Handouts: Chronic Kidney Disease (DC), Type 2 Diabetes in Adults: New Diagnosis (DC) Activity/Diet/Wound Care/Special Instructions: Labs to be drawn Friday per dr nunn activity as tolerated renal diet as tolerated right chest port intact Discharge Disposition: HOME SELF-CARE
== END 2018-04-23 18:36 | disposition home or self-care (01) | DRG 682 ==
LOC: EC 15:30 → 3SCARD 18:54 → 4MS4W 04-20 11:22
PROVIDERS: ADMIT Internal Medicine Hematology & Oncology; ATTEND Internal Medicine Hematology & Oncology
PROC: 0W9G3ZZ Drainage of Peritoneal Cavity, Percutaneous Approach (ICD-10-PCS; principal; 2018-04-21)
DX: N17.0 Acute kidney failure with tubular necrosis (principal); D61.811 Other drug-induced pancytopenia; K76.7 Hepatorenal syndrome; C78.7 Secondary malignant neoplasm of liver and intrahepatic bile duct; C79.51 Secondary malignant neoplasm of bone; N39.0 Urinary tract infection, site not specified; R18.8 Other ascites; C78.89 Secondary malignant neoplasm of other digestive organs; E87.1 Hypo-osmolality and hyponatremia; E87.2 Acidosis; I95.9 Hypotension, unspecified; E87.5 Hyperkalemia; E83.51 Hypocalcemia; E87.70 Fluid overload, unspecified; E88.09 Other disorders of plasma-protein metabolism, not elsewhere classified; C50.919 Malignant neoplasm of unspecified site of unspecified female breast; E87.6 Hypokalemia; B96.1 Klebsiella pneumoniae [K. pneumoniae] as the cause of diseases classified elsewhere; E11.9 Type 2 diabetes mellitus without complications; E66.9 Obesity, unspecified; E78.5 Hyperlipidemia, unspecified; E86.0 Dehydration; E89.0 Postprocedural hypothyroidism; H91.90 Unspecified hearing loss, unspecified ear; I10 Essential (primary) hypertension; I87.8 Other specified disorders of veins; T45.1X5A Adverse effect of antineoplastic and immunosuppressive drugs, initial encounter; M19.90 Unspecified osteoarthritis, unspecified site; Z17.0 Estrogen receptor positive status [ER+]; Z68.33 Body mass index [BMI] 33.0-33.9, adult; Z90.710 Acquired absence of both cervix and uterus; Z79.890 Hormone replacement therapy; Z79.899 Other long term (current) drug therapy; Z88.6 Allergy status to analgesic agent; Z88.0 Allergy status to penicillin; Z88.2 Allergy status to sulfonamides; Z87.01 Personal history of pneumonia (recurrent); Z98.51 Tubal ligation status; Z80.7 Family history of other malignant neoplasms of lymphoid, hematopoietic and related tissues; Z82.49 Family history of ischemic heart disease and other diseases of the circulatory system
CPT/HCPCS: 36415; 49083; 71046; 76770; 80048; 80053; 81001; 82042; 82272; 82330; 82533; 83036; 83735; 83930; 83935; 84100; 84132; 84133; 84295; 84300; 85025; 85610; 87040; 87070; 87077; 87086; 87102; 87186; 87205; 89050; 93005; 96365; 96375; 99285

== ENCOUNTER 2018-04-29 12:54 | Day surgery (SDC) | payer MEDICARE, BC ==
--- NOTE | 2018-04-29 15:47 | US ---
EXAMINATION TYPE: US paracentesis abd w/image DATE OF EXAM: 04/29/2018 COMPARISON: NONE HISTORY: Ascites. PROCEDURE: Maximal barrier technique was utilized. The skin overlying a suitable pocket of fluid was localized with ultrasound and the overlying skin was prepped and draped. Ultrasound was utilized with sterile technique. Lidocaine was used for local anesthesia and a skin jose carlos made with a scalpel. Catheter was advanced under direct ultrasound guidance into a suitable pocket of fluid and approximately 5.5 liter s of serous fluid were removed. Catheter was withdrawn and hemostasis achieved. There is no immedia te complication; the patient is discharged in stable condition. IMPRESSION: STATUS POST ULTRASOUND GUIDED PARACENTESIS FOR PALLIATION OF ASCITES. THIS PROCEDURE WA S PERFORMED BY THE UNDERSIGNED.
[2018-04-29 16:13] VITALS: TEMP 97.5
[2018-04-29 16:15] VITALS: BP 115/68; PULSE 66; RESP 16
== END 2018-04-29 15:15 | disposition home or self-care (01) ==
LOC: RADPROMAIN 12:54
PROVIDERS: ATTEND Internal Medicine Hematology & Oncology
DX: R18.8 Other ascites (principal)
CPT/HCPCS: 49083

== ENCOUNTER → 2018-04-29 | Day surgery (SDC) | payer MEDICARE, BC ==
[2018-04-29 13:35] LABS: INR 1.2 (<1.2); Prothrombin Time 12.8 sec (9.0-12.0)
[2018-04-29] MEDS: ALBUMIN HUMAN 25% 50 ML in EMPTY BAG 1 BAG IVPB SCH ×4 (14:16→14:57)
[2018-04-29 14:48] VITALS: PULSE 68
[2018-04-29 16:33] VITALS: BP 105/63; RESP 16
== END ==
LOC: RADPROMAIN 16:00
PROVIDERS: ATTEND Internal Medicine Hematology & Oncology
DX: Z53.9 Procedure and treatment not carried out, unspecified reason (principal); R18.8 Other ascites; C50.919 Malignant neoplasm of unspecified site of unspecified female breast
CPT/HCPCS: 85610; 49083; P9047

== ENCOUNTER 2018-05-06 13:01 | Day surgery (SDC) | payer MEDICARE, BC ==
[2018-05-06 13:46] LABS: INR 1.2 (<1.2); Prothrombin Time 12.1 sec (9.0-12.0)
[2018-05-06 14:16] VITALS: RESP 18; TEMP 98
[2018-05-06] MEDS: ALBUMIN HUMAN 25% 50 ML in EMPTY BAG 1 BAG IVPB SCH ×4 (14:16→15:19)
[2018-05-06 16:00] VITALS: BP 124/76; PULSE 74
--- NOTE | 2018-05-06 16:04 | US ---
Therapeutic paracentesis. DATE OF EXAM: 05/06/2018 CLINICAL HISTORY: Ascites The procedure was discussed with the patient. The risks, complications, benefits, and alternatives we re discussed and any questions were answered. Informed consent was obtained. The patient was placed s upine on the ultrasound table and prepped and draped in the usual sterile fashion. All elements of maximal barrier technique were utilized. Under ultrasound guidance, access into the right lower quadrant was obtained, via the paracentesis catheter system and direct ultrasound guidanc e. Approximately 5.5 liters of straw-colored fluid was removed. The patient was stable throughout the pr ocedure and remained stable upon discharge from Department of Radiology. IMPRESSION: Successful therapeutic paracentesis under ultrasound guidance.
== END 2018-05-06 16:05 | disposition home or self-care (01) ==
LOC: RADPROMAIN 13:01
PROVIDERS: ATTEND Internal Medicine Hematology & Oncology
DX: R18.8 Other ascites (principal); C50.311 Malignant neoplasm of lower-inner quadrant of right female breast; D69.6 Thrombocytopenia, unspecified
CPT/HCPCS: 85610; 49083; P9047; J1642

== ENCOUNTER 2018-05-13 13:05 | Day surgery (SDC) | payer MEDICARE, BC ==
[2018-05-13 13:47] VITALS: TEMP 97.8
[2018-05-13 13:50] LABS: INR 1.1 (<1.2); Prothrombin Time 11.7 sec (9.0-12.0)
[2018-05-13] MEDS: ALBUMIN HUMAN 25% 50 ML in EMPTY BAG 1 BAG IVPB SCH ×4 (14:28→15:14)
[2018-05-13 15:56] VITALS: BP 119/68; PULSE 71; RESP 16
--- NOTE | 2018-05-15 10:13 | US ---
Therapeutic paracentesis. DATE OF EXAM: 05/13/2018 CLINICAL HISTORY: Ascites The procedure was discussed with the patient. The risks, complications, benefits, and alternatives we re discussed and any questions were answered. Informed consent was obtained. The patient was placed s upine on the ultrasound table and prepped and draped in the usual sterile fashion. All elements of maximal barrier technique were utilized. Under ultrasound guidance, access into the right lower quadrant was obtained, via the paracentesis catheter system and direct ultrasound guidanc e. Approximately 5.1 liters of straw-colored fluid was removed. The patient was stable throughout the pr ocedure and remained stable upon discharge from Department of Radiology. IMPRESSION: Successful therapeutic paracentesis under ultrasound guidance.
== END 2018-05-13 15:50 | disposition home or self-care (01) ==
LOC: RADPROMAIN 13:05
PROVIDERS: ATTEND Internal Medicine Hematology & Oncology
DX: R18.8 Other ascites (principal); Z88.6 Allergy status to analgesic agent
CPT/HCPCS: 82565; 85610; 49083; P9047; J1642

== ENCOUNTER 2018-05-20 12:11 | Day surgery (SDC) | payer MEDICARE, BC ==
[2018-05-20 13:15] VITALS: RESP 16; TEMP 98.1
[2018-05-20] MEDS: ALBUMIN HUMAN 25% 50 ML in EMPTY BAG 1 BAG IVPB SCH ×4 (13:28→14:16)
[2018-05-20 15:09] VITALS: BP 133/76; PULSE 77
--- NOTE | 2018-05-20 16:04 | US ---
EXAMINATION TYPE: US paracentesis abd w/image DATE OF EXAM: 05/20/2018 COMPARISON: NONE HISTORY: Ascites. PROCEDURE: Maximal barrier technique was utilized. The skin overlying a suitable pocket of fluid was localized with ultrasound and the overlying skin was prepped and draped. Ultrasound was utilized with sterile technique. Lidocaine was used for local anesthesia and a skin jose carlos made with a scalpel. Catheter was advanced under direct ultrasound guidance into a suitable pocket of fluid and approximately 6.3 liter s of serous fluid were removed. Catheter was withdrawn and hemostasis achieved. There is no immedia te complication; the patient is discharged in stable condition. IMPRESSION: STATUS POST ULTRASOUND GUIDED PARACENTESIS FOR PALLIATION OF ASCITES. THIS PROCEDURE WA S PERFORMED BY THE UNDERSIGNED.
== END 2018-05-20 15:00 | disposition home or self-care (01) ==
LOC: RADPROMAIN 12:11
PROVIDERS: ATTEND Internal Medicine Hematology & Oncology
DX: R18.8 Other ascites (principal); C50.311 Malignant neoplasm of lower-inner quadrant of right female breast
CPT/HCPCS: 49083; P9047; J1642

== ENCOUNTER 2018-06-03 12:15 | Day surgery (SDC) | payer MEDICARE, BC ==
[2018-06-03 12:11] LABS: Mean Platelet Volume 6.5; Platelet Count 155 k/uL (150-450)
[2018-06-03 12:20] LABS: INR 1.1 (<1.2); Prothrombin Time 11.7 sec (9.0-12.0)
[2018-06-03 13:18] VITALS: TEMP 97.7
[2018-06-03] MEDS: ALBUMIN HUMAN 25% 50 ML in EMPTY BAG 1 BAG IVPB SCH ×4 (13:23→14:06)
[2018-06-03 14:23] VITALS: PULSE 75
[2018-06-03 15:30] VITALS: BP 115/63; RESP 14
--- NOTE | 2018-06-03 15:46 | US ---
EXAMINATION TYPE: US paracentesis abd w/image DATE OF EXAM: 06/03/2018 COMPARISON: NONE HISTORY: Ascites. PROCEDURE: Maximal barrier technique was utilized. The skin overlying a suitable pocket of fluid was localized with ultrasound and the overlying skin was prepped and draped. Ultrasound was utilized with sterile technique. Lidocaine was used for local anesthesia and a skin jose carlos made with a scalpel. Catheter was advanced under direct ultrasound guidance into a suitable pocket of fluid and approximately 6.8 liter s of serous fluid were removed. Catheter was withdrawn and hemostasis achieved. There is no immedia te complication; the patient is discharged in stable condition. IMPRESSION: STATUS POST ULTRASOUND GUIDED PARACENTESIS FOR PALLIATION OF ASCITES. THIS PROCEDURE WA S PERFORMED BY THE UNDERSIGNED.
== END 2018-06-03 14:45 | disposition home or self-care (01) ==
LOC: RADPROMAIN 12:15
PROVIDERS: ATTEND Internal Medicine Hematology & Oncology
DX: R18.8 Other ascites (principal); Z88.6 Allergy status to analgesic agent
CPT/HCPCS: 82565; 85049; 85610; 49083; P9047; J1642

== ENCOUNTER 2018-06-10 12:09 | Day surgery (SDC) | payer MEDICARE, BC ==
[2018-06-10 12:58] LABS: Mean Platelet Volume 7.5; Platelet Count 133 k/uL (150-450)
[2018-06-10 13:06] VITALS: RESP 16; TEMP 97.7
[2018-06-10 13:06] LABS: INR 1.2 (<1.2); Prothrombin Time 12.4 sec (9.0-12.0)
[2018-06-10] MEDS: ALBUMIN HUMAN 25% 50 ML in EMPTY BAG 1 BAG IVPB SCH ×4 (13:15→14:01)
[2018-06-10 13:57] VITALS: BP 119/66; PULSE 66
--- NOTE | 2018-06-10 15:32 | US ---
EXAMINATION TYPE: US paracentesis abd w/image DATE OF EXAM: 06/10/2018 COMPARISON: NONE HISTORY: Ascites. PROCEDURE: Maximal barrier technique was utilized. The skin overlying a suitable pocket of fluid was localized with ultrasound and the overlying skin was prepped and draped. Ultrasound was utilized with sterile technique. Lidocaine was used for local anesthesia and a skin jose carlos made with a scalpel. Catheter was advanced under direct ultrasound guidance into a suitable pocket of fluid and approximately 7.1 liter s of serous fluid were removed. Catheter was withdrawn and hemostasis achieved. There is no immedia te complication; the patient is discharged in stable condition. IMPRESSION: STATUS POST ULTRASOUND GUIDED PARACENTESIS FOR PALLIATION OF ASCITES. THIS PROCEDURE WA S PERFORMED BY THE UNDERSIGNED.
== END 2018-06-10 14:50 | disposition home or self-care (01) ==
LOC: RADPROMAIN 12:09
PROVIDERS: ATTEND Internal Medicine Hematology & Oncology
DX: R18.8 Other ascites (principal); C50.311 Malignant neoplasm of lower-inner quadrant of right female breast
CPT/HCPCS: 82565; 85049; 85610; 49083; P9047; J1642

== ENCOUNTER 2018-06-17 12:15 | Day surgery (SDC) | payer MEDICARE, BC ==
[2018-06-17 12:44] LABS: INR 1.3 (<1.2); Prothrombin Time 12.9 sec (9.0-12.0)
[2018-06-17 12:54] VITALS: TEMP 97.4
[2018-06-17] MEDS: ALBUMIN HUMAN 25% 50 ML in EMPTY BAG 1 BAG IVPB SCH ×4 (13:32→14:15)
[2018-06-17 15:30] VITALS: BP 126/72; PULSE 72; RESP 14
--- NOTE | 2018-06-17 15:49 | US ---
EXAMINATION TYPE: US paracentesis abd w/image DATE OF EXAM: 06/17/2018 COMPARISON: NONE HISTORY: Ascites. PROCEDURE: Maximal barrier technique was utilized. The skin overlying a suitable pocket of fluid was localized with ultrasound and the overlying skin was prepped and draped. Ultrasound was utilized with sterile technique. Lidocaine was used for local anesthesia and a skin jose carlos made with a scalpel. Catheter was advanced under direct ultrasound guidance into a suitable pocket of fluid and approximately 6.5 liter s of serous fluid were removed. Catheter was withdrawn and hemostasis achieved. There is no immedia te complication; the patient is discharged in stable condition. IMPRESSION: STATUS POST ULTRASOUND GUIDED PARACENTESIS FOR PALLIATION OF ASCITES. THIS PROCEDURE WA S PERFORMED BY THE UNDERSIGNED.
== END 2018-06-17 15:10 | disposition home or self-care (01) ==
LOC: RADPROMAIN 12:15
PROVIDERS: ATTEND Internal Medicine Hematology & Oncology
DX: R18.8 Other ascites (principal); Z88.6 Allergy status to analgesic agent
CPT/HCPCS: 82565; 85610; 49083; P9047; J1642

== ENCOUNTER 2018-06-22 00:12 | Inpatient (IN) | payer MEDICARE, BC ==
[2018-06-22] MEDS ORDERED: ONDANSETRON 4 MG/2 ML VIAL IVP STA (00:46)
[2018-06-22] MEDS ORDERED: HYDROmorphone 2 MG/ML 1 ML SYRINGE IVP STA (00:46)
[2018-06-22 01:31] LABS: Glucose,Whole Blood 91 mg/dL (75-99)
[2018-06-22 01:33] LABS: Anisocytosis Slight; HGB 11.8 gm/dL (11.4-16.0); Hypochromasia Moderate; MCH 27.5 pg (25.0-35.0); MCHC 30.4 g/dL (31.0-37.0); MCV 90.7 fL (80.0-100.0); Mean Platelet Volume 6.6; Platelet Count 184 k/uL (150-450); RDW 18.2 % (11.5-15.5); WBC 5.2 k/uL (3.8-10.6)
[2018-06-22 01:35] LABS: Appearance,Urine Clear (Clear); Bilirubin,Urine 1+ (Negative); Blood,Urine Small (Negative); Color,Urine Yellow; Glucose,Urine (UA) Negative (Negative); Hyaline Casts,Urine 112 /lpf (0-2); Ketones,Urine Negative (Negative); Leukocyte Esterase,Urine Negative (Negative); Nitrite,Urine Negative (Negative); Protein,Urine Trace (Negative); RBC,Urine 1 /hpf (0-5); Specific Gravity,Urine 1.015 (1.001-1.035); WBC,Urine 1 /hpf (0-5)
--- NOTE | 2018-06-22 01:36 | CT ---
EXAM: CT Head Without Intravenous Contrast CLINICAL HISTORY: ITS.REASON CT Reason: altered mental status TECHNIQUE: Axial computed tomography images of the head/brain without intravenous contrast. CTDI is 49.1 mGy and DLP is 1158 mGy-cm. This CT exam was performed using one or more of the following dose reduction techniques: automated exposure control, adjustment of the mA and/or kV according to patient size, and/or use of iterative reconstruction technique. COMPARISON: No relevant prior studies available. FINDINGS: Brain: Unremarkable. No hemorrhage. No significant white matter disease. No edema. Ventricles: Unremarkable. No ventriculomegaly. Bones/joints: Unremarkable. No acute fracture. Soft tissues: Unremarkable. Sinuses: Unremarkable as visualized. No acute sinusitis. Mastoid air cells: Unremarkable as visualized. No mastoid effusion. IMPRESSION: Normal head/brain CT.
[2018-06-22 01:37] LABS: INR 1.3 (<1.2); Partial Thromboplastin Time 32.1 sec (22.0-30.0); Prothrombin Time 13.6 sec (9.0-12.0)
[2018-06-22 01:45] LABS: Albumin 2.6 g/dL (3.5-5.0); Total Bilirubin 3.4 mg/dL (0.2-1.3)
[2018-06-22 01:47] LABS: Lactic Acid, Venous 2.1 mmol/L (0.7-2.0)
--- NOTE | 2018-06-22 01:48 | ED ---
Altered Mental Status HPI - General Chief Complaint: Altered Mental Status Stated Complaint: altered mental status Time Seen by Provider: 06/22/18 00:30 Source: family Mode of arrival: wheelchair Limitations: no limitations - History of Present Illness Initial Comments: 67 year-old female patient with past medical history significant for breast cancer with metastasis to bone and liver presents to the emergency department today for evaluation of altered mental status. Family member states the patient started becoming confused on Friday gradually worsened over the weekend. States that today she had a sharp decline in her mentation. States that she has been quite confused, not eating or drinking, and in a lot of pain. States that she has had similar symptoms in the past with urinary tract infection. Patient reports pain to her upper abdomen into her perianal region related to hemorrhoids. Patient states that she has had issues with constipation to take lactulose today. States she has been nauseated but has not vomited. Patient denies any recent rash, fever, chills, shortness breath, chest pain, back pain, numbness, tingling, dizziness, headache, visual changes, or any other complaints. - Related Data Home Medications Medication Instructions Recorded Confirmed Docusate Sodium [Dok] 200 mg PO BID 09/15/15 06/17/18 Loratadine [Claritin] 10 mg PO HS 01/23/17 06/17/18 Zoledronic Acid [Zometa] 4 mg IVPB QMONTH 01/23/17 06/17/18 Levothyroxine Sodium [Synthroid] 100 mcg PO DAILY 09/30/17 06/17/18 Famotidine [Pepcid] 20 mg PO DAILY 01/06/18 06/17/18 HYDROcodone/APAP 5-325MG [[place] 1 tab PO Q6HR PRN 01/06/18 06/17/18 5-325] Polyethylene Glycol 3350 [Miralax] 17 gm PO HS PRN 01/26/18 06/17/18 Exemestane [Aromasin] 25 mg PO DAILY@1800 02/18/18 06/17/18 Biotin 10,000 mcg PO HS 05/27/18 06/17/18 Non-Formulary Drug [Non Formulary 7.5 mg PO PC-SUPPER 05/27/18 06/17/18 Drug] Sodium Bicarbonate Tab 650 mg PO BID 05/27/18 06/17/18 Previous Rx's Medication Instructions Recorded fentaNYL 50MCG/HR PATCH [Duragesic 1 patch TRANSDERM Q72H #1 patch 10/02/17 50MCG/HR] Metoprolol Tartrate [Lopressor] 12.5 mg PO BID #60 tab 01/30/18 Midodrine [ProAmatine] 10 mg PO AC-TID #180 tab 04/23/18 Allergies Allergy/AdvReac Type Severity Reaction Status Date / Time Penicillins Allergy Rash/Hives Verified 06/22/18 00:25 Sulfa (Sulfonamide Allergy Rash/Hives Verified 06/22/18 00:25 Antibiotics) ibuprofen AdvReac Swelling Verified 06/22/18 00:25 Review of Systems ROS Statement: Those systems with pertinent positive or pertinent negative responses have been documented in the HPI. ROS Other: All systems not noted in ROS Statement are negative. Past Medical History Past Medical History: Cancer, Diabetes Mellitus, Hearing Disorder / Deafness, Hyperlipidemia, Hypertension, Osteoarthritis (OA), Pneumonia, Thyroid Disorder, Vascular Disorder Additional Past Medical History / Comment(s): Thyroid Nodules.VENOUS STASIS, HX OF PLEURISY . STAGE 4 BREAST CANCER DIAGNOSED IN SEPTEMBER 2015, PER FAMILY"breast CA mets to bone and lymphatic system, liver,spleen, constipation, admitted with hyperkalemia 04/2018 History of Any Multi-Drug Resistant Organisms: None Reported Past Surgical History: Hysterectomy, Tonsillectomy, Tubal Ligation Additional Past Surgical History / Comment(s): RT THYROIDECTOMY. LAPAROSCOPY D/ T Ectopic . BIOPSY MASS LEFT NECK.paracentesis, port a cath placement, excision fibrolipoma/scalp, lt elbow sx Past Anesthesia/Blood Transfusion Reactions: No Reported Reaction Past Psychological History: No Psychological Hx Reported Smoking Status: Never smoker Past Alcohol Use History: None Reported Past Drug Use History: None Reported - Past Family History Mother Family Medical History: Deep Vein Thrombosis (DVT) Father Family Medical History: Cancer Sister(s) Family Medical History: Cancer Additional Family Medical History / Comment(s): non-hodgkins lymphoma General Exam Limitations: no limitations General appearance: alert, in no apparent distress, anxious, other (Social well- developed, well-nourished adult female patient in mild distress related to pain. Vital signs upon presentation are temperature 98.3F, pulse 79, respirations 18, blood pressure 120/82, pulse ox 99% on room air.) Eye exam: Present: PERRL, EOMI, scleral icterus (Mild). Absent: normal appearance, conjunctival injection, periorbital swelling ENT exam: Present: normal exam, normal oropharynx, mucous membranes moist Respiratory exam: Present: normal lung sounds bilaterally. Absent: respiratory distress, wheezes, rales, rhonchi, stridor Cardiovascular Exam: Present: regular rate, normal rhythm, normal heart sounds. Absent: systolic murmur, diastolic murmur, rubs, gallop, clicks GI/Abdominal exam: Present: soft, distended (Ascitic abdomen), normal bowel sounds. Absent: tenderness, guarding, rebound, rigid Neurological exam: Present: alert, CN II-XII intact. Absent: oriented X3 ( Oriented 2) Psychiatric exam: Present: normal mood, anxious, other (Tearful) Skin exam: Present: warm, dry, intact, normal color. Absent: rash Course Vital Signs 06/22/18 00:19 Temperature 98.3 F Pulse Rate 79 Respiratory 18 Rate Blood Pressure 120/82 O2 Sat by Pulse 99 Oximetry Medical Decision Making - Medical Decision Making 67 year-old female patient with past medical history significant for metastatic breast cancer presents to the emergency department today for evaluation of increased confusion, anorexia, and weakness. Physical examination did reveal an ascitic abdomen, mild generalized tenderness. Patient is alert and oriented 2 only, which family states is very unlike her. Labs reviewed and did reveal elevated BUN at 55, creatinine 1.77, lactic acid 2.1, total bilirubin 3.4, ammonia 126 urinalysis is negative for evidence of infection. CT brain was obtained and showed no acute abnormalities. Patient will be admitted for hydration. We'll administer lactulose for ammonia level. - Lab Data Result diagrams: 06/22/18 00:55 06/22/18 00:55 Lab Results 06/22/18 06/22/18 06/22/18 Range/Units 00:55 00:55 00:55 WBC 5.2 (3.8-10.6) k/uL RBC 4.30 (3.80-5.40) m/uL Hgb 11.8 D (11.4-16.0) gm/dL Hct 39.0 (34.0-46.0) % MCV 90.7 (80.0-100.0) fL MCH 27.5 (25.0-35.0) pg MCHC 30.4 L (31.0-37.0) g/dL RDW 18.2 H (11.5-15.5) % Plt Count 184 (150-450) k/uL Neutrophils % 64 % Lymphocytes % 20 % Monocytes % 11 % Eosinophils % 1 % Basophils % 3 % Neutrophils # 3.4 (1.3-7.7) k/uL Lymphocytes # 1.0 (1.0-4.8) k/uL Monocytes # 0.6 (0-1.0) k/uL Eosinophils # 0.1 (0-0.7) k/uL Basophils # 0.2 (0-0.2) k/uL Hypochromasia Moderate Anisocytosis Slight PT (9.0-12.0) sec INR (<1.2) APTT (22.0-30.0) sec Sodium (137-145) mmol/L Potassium (3.5-5.1) mmol/L Chloride (98-107) mmol/L Carbon Dioxide (22-30) mmol/L Anion Gap mmol/L BUN (7-17) mg/dL Creatinine (0.52-1.04) mg/dL Est GFR (CKD-EPI)AfAm (>60 ml/min/1.73 sqM) Est GFR (CKD-EPI)NonAf (>60 ml/min/1.73 sqM) Glucose (74-99) mg/dL POC Glucose (mg/dL) (75-99) mg/dL POC Glu Orthotic Assistant ID Plasma Lactic Acid Rufino 2.1 H* (0.7-2.0) mmol/L Calcium (8.4-10.2) mg/dL Total Bilirubin (0.2-1.3) mg/dL AST (14-36) U/L ALT (9-52) U/L Alkaline Phosphatase (38-126) U/L Ammonia 126 H (<30) umol/L Total Creatine Kinase 38 (30-135) U/L CK-MB (CK-2) 0.8 (0.0-2.4) ng/mL CK-MB (CK-2) Rel Index 2.1 Troponin I <0.012 (0.000-0.034) ng/mL Total Protein (6.3-8.2) g/dL Albumin (3.5-5.0) g/dL Amylase (30-110) U/L Lipase (23-300) U/L Urine Color Urine Appearance (Clear) Urine pH (5.0-8.0) Ur Specific [place] (1.001-1.035) Urine Protein (Negative) Urine Glucose (UA) (Negative) Urine Ketones (Negative) Urine Blood (Negative) Urine Nitrite (Negative) Urine Bilirubin (Negative) Urine Urobilinogen (<2.0) mg/dL Ur Leukocyte Esterase (Negative) Urine RBC (0-5) /hpf Urine WBC (0-5) /hpf Hyaline Casts (0-2) /lpf 06/22/18 06/22/18 06/22/18 Range/Units 00:55 00:55 00:55 WBC (3.8-10.6) k/uL RBC (3.80-5.40) m/uL Hgb (11.4-16.0) gm/dL Hct (34.0-46.0) % MCV (80.0-100.0) fL MCH (25.0-35.0) pg MCHC (31.0-37.0) g/dL RDW (11.5-15.5) % Plt Count (150-450) k/uL Neutrophils % % Lymphocytes % % Monocytes % % Eosinophils % % Basophils % % Neutrophils # (1.3-7.7) k/uL Lymphocytes # (1.0-4.8) k/uL Monocytes # (0-1.0) k/uL Eosinophils # (0-0.7) k/uL Basophils # (0-0.2) k/uL Hypochromasia Anisocytosis PT 13.6 H (9.0-12.0) sec INR 1.3 H (<1.2) APTT 32.1 H (22.0-30.0) sec Sodium 128 L (137-145) mmol/L Potassium 5.0 (3.5-5.1) mmol/L Chloride 98 (98-107) mmol/L Carbon Dioxide 18 L (22-30) mmol/L Anion Gap 12 mmol/L BUN 55 H (7-17) mg/dL Creatinine 1.77 H (0.52-1.04) mg/dL Est GFR (CKD-EPI)AfAm 34 (>60 ml/min/1.73 sqM) Est GFR (CKD-EPI)NonAf 30 (>60 ml/min/1.73 sqM) Glucose 96 (74-99) mg/dL POC Glucose (mg/dL) (75-99) mg/dL POC Glu Orthotic Assistant ID Plasma Lactic Acid Rufino (0.7-2.0) mmol/L Calcium 8.2 L (8.4-10.2) mg/dL Total Bilirubin 3.4 H (0.2-1.3) mg/dL AST 92 H (14-36) U/L ALT 42 (9-52) U/L Alkaline Phosphatase 300 H (38-126) U/L Ammonia (<30) umol/L Total Creatine Kinase (30-135) U/L CK-MB (CK-2) (0.0-2.4) ng/mL CK-MB (CK-2) Rel Index Troponin I (0.000-0.034) ng/mL Total Protein 5.0 L (6.3-8.2) g/dL Albumin 2.6 L (3.5-5.0) g/dL Amylase 33 (30-110) U/L Lipase 126 (23-300) U/L Urine Color Yellow Urine Appearance Clear (Clear) Urine pH 5.0 (5.0-8.0) Ur Specific [place] 1.015 (1.001-1.035) Urine Protein Trace H (Negative) Urine Glucose (UA) Negative (Negative) Urine Ketones Negative (Negative) Urine Blood Small H (Negative) Urine Nitrite Negative (Negative) Urine Bilirubin 1+ H (Negative) Urine Urobilinogen 4.0 (<2.0) mg/dL Ur Leukocyte Esterase Negative (Negative) Urine RBC 1 (0-5) /hpf Urine WBC 1 (0-5) /hpf Hyaline Casts 112 H (0-2) /lpf 06/22/18 Range/Units 01:30 WBC (3.8-10.6) k/uL RBC (3.80-5.40) m/uL Hgb (11.4-16.0) gm/dL Hct (34.0-46.0) % MCV (80.0-100.0) fL MCH (25.0-35.0) pg MCHC (31.0-37.0) g/dL RDW (11.5-15.5) % Plt Count (150-450) k/uL Neutrophils % % Lymphocytes % % Monocytes % % Eosinophils % % Basophils % % Neutrophils # (1.3-7.7) k/uL Lymphocytes # (1.0-4.8) k/uL Monocytes # (0-1.0) k/uL Eosinophils # (0-0.7) k/uL Basophils # (0-0.2) k/uL Hypochromasia Anisocytosis PT (9.0-12.0) sec INR (<1.2) APTT (22.0-30.0) sec Sodium (137-145) mmol/L Potassium (3.5-5.1) mmol/L Chloride (98-107) mmol/L Carbon Dioxide (22-30) mmol/L Anion Gap mmol/L BUN (7-17) mg/dL Creatinine (0.52-1.04) mg/dL Est GFR (CKD-EPI)AfAm (>60 ml/min/1.73 sqM) Est GFR (CKD-EPI)NonAf (>60 ml/min/1.73 sqM) Glucose (74-99) mg/dL POC Glucose (mg/dL) 91 (75-99) mg/dL POC Glu Orthotic Assistant ID Meryl Flowers Plasma Lactic Acid Rufino (0.7-2.0) mmol/L Calcium (8.4-10.2) mg/dL Total Bilirubin (0.2-1.3) mg/dL AST (14-36) U/L ALT (9-52) U/L Alkaline Phosphatase (38-126) U/L Ammonia (<30) umol/L Total Creatine Kinase (30-135) U/L CK-MB (CK-2) (0.0-2.4) ng/mL CK-MB (CK-2) Rel Index Troponin I (0.000-0.034) ng/mL Total Protein (6.3-8.2) g/dL Albumin (3.5-5.0) g/dL Amylase (30-110) U/L Lipase (23-300) U/L Urine Color Urine Appearance (Clear) Urine pH (5.0-8.0) Ur Specific [place] (1.001-1.035) Urine Protein (Negative) Urine Glucose (UA) (Negative) Urine Ketones (Negative) Urine Blood (Negative) Urine Nitrite (Negative) Urine Bilirubin (Negative) Urine Urobilinogen (<2.0) mg/dL Ur Leukocyte Esterase (Negative) Urine RBC (0-5) /hpf Urine WBC (0-5) /hpf Hyaline Casts (0-2) /lpf - EKG Data -: EKG Interpreted by Me EKG Comments: EKG obtained at 00 39 shows normal sinus rhythm with a ventricular rate of 78, MT interval 150, QRS duration 72, QT 394, QTC 449. No evidence of ST elevation or depression. - Radiology Data Radiology results: report reviewed, image reviewed CT brain without contrast was obtained. Report was reviewed in its entirety. Impression by Dr. Dewitt shows normal head/brain CT. Disposition Clinical Impression: Altered mental status, Hyperammonemia, Hyponatremia, Dehydration Disposition: ADMITTED IP TO THIS [facility] Condition: Serious Referrals: Jamar Coronado DO [Primary Care Provider] - 1-2 days Decision to Admit Reason: Admit from EC Decision Date: 06/22/18 Decision Time: 02:36
[2018-06-22 01:50] LABS: Calcium 8.2 mg/dL (8.4-10.2); Creatine Kinase 38 U/L (30-135)
[2018-06-22 02:02] LABS: Creatine Kinase MB 0.8 ng/mL (0.0-2.4); Troponin I <0.012 ng/mL (0.000-0.034)
[2018-06-22] MEDS ORDERED: NALOXONE 0.4 MG/ML 1 ML VIAL IV PRN (02:38)
[2018-06-22] MEDS ORDERED: LACTULOSE 20 GM/30 ML CUP PO ONE (02:40)
[2018-06-22] MEDS: SODIUM CHLORIDE 0.9% 1,000 ML IV SCH ×2 (03:23→17:20)
[2018-06-22] MEDS: LEVOTHYROXINE 50 MCG TAB PO SCH (06:38)
[2018-06-22] MEDS ORDERED: POLYETHYLENE GLYCOL 3350 17 GM POWD.PACK PO PRN (09:36)
[2018-06-22] MEDS ORDERED: LEVOTHYROXINE 100 MCG TAB PO SCH (09:45)
[2018-06-22] MEDS: FAMOTIDINE 20 MG TAB PO SCH (10:35)
[2018-06-22] MEDS: DOCUSATE 100 MG CAP PO SCH ×2 (10:35→20:23)
[2018-06-22] MEDS: HYDROmorphone 1 MG/ML 1 ML SYRINGE IVP PRN (11:17)
[2018-06-22] MEDS: LACTULOSE 20 GM/30 ML CUP PO SCH ×2 (17:13→20:23)
[2018-06-22] MEDS: MIDODRINE 5 MG TAB PO SCH (17:19)
[2018-06-22] MEDS: Exemestane [Aromasin] 25 MG PO SCH (17:19)
[2018-06-22] MEDS: HYDROCORTISONE SUPPOSITORY 25 MG SUPP RECTAL SCH (17:20)
[2018-06-22] MEDS: LORATADINE 10 MG TAB PO SCH (20:23)
[2018-06-22] MEDS: METOPROLOL TARTRATE 12.5 MG TAB PO SCH (20:23)
[2018-06-22] MEDS ORDERED: NON-FORMULARY DRUG (Biotin [Biotin] 10,000 MCG) PO SCH (21:00)
[2018-06-22] MEDS ORDERED: SODIUM BICARBONATE TAB 650 MG TAB PO SCH (21:00)
--- NOTE | 2018-06-23 00:15 | P.HPIM ---
History of Present Illness H&P Date: 06/22/18 Chief Complaint: Altered mental status Patient is a 67-year-old male with a known history of metastatic breast cancer to bones and liver, hypertension, hyperlipidemia, diabetes type 2, osteoarthritis and hypothyroidism and other multiple medical problems presents to ER with altered mental status. Family member states the patient started becoming confused on Friday gradually worsened over the weekend. States that today she had a sharp decline in her mentation. States that she has been quite confused, not eating or drinking, and in a lot of pain. States that she has had similar symptoms in the past with urinary tract infection. Patient reports pain to her upper abdomen into her perianal region related to hemorrhoids. Patient states that she has had issues with constipation to take lactulose today. States she has been nauseated but has not vomited. Patient denies any recent rash, fever, chills, shortness breath, chest pain, back pain, numbness, tingling, dizziness, headache , visual changes, or any other complaints. No fever no chills. Lactic acid 2.1 BN 55 creatinine 1.71 Sodium 128 Ammonia 126 Patient does have chronic ascites and is undergoing paracentesis every Friday. Review of Systems Patient is currently confused. Complete review of systems could not be assessed at this time., Except as per HPI Past Medical History Past Medical History: Cancer, Diabetes Mellitus, Hearing Disorder / Deafness, Hyperlipidemia, Hypertension, Osteoarthritis (OA), Pneumonia, Thyroid Disorder, Vascular Disorder Additional Past Medical History / Comment(s): Thyroid Nodules.VENOUS STASIS, HX OF PLEURISY . STAGE 4 BREAST CANCER DIAGNOSED IN SEPTEMBER 2015, PER FAMILY"breast CA mets to bone and lymphatic system, liver,spleen, constipation, admitted with hyperkalemia 04/2018 History of Any Multi-Drug Resistant Organisms: None Reported Past Surgical History: Hysterectomy, Tonsillectomy, Tubal Ligation Additional Past Surgical History / Comment(s): RT THYROIDECTOMY. LAPAROSCOPY D/ T Ectopic . BIOPSY MASS LEFT NECK.paracentesis, port a cath placement, excision fibrolipoma/scalp, lt elbow sx Past Anesthesia/Blood Transfusion Reactions: No Reported Reaction Past Psychological History: No Psychological Hx Reported Additional Psychological History / Comment(s): . Lives with her . 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 No experience. No international travel. Pet cat in the home, takes care of the letter box. No other animal exposures Smoking Status: Never smoker Past Alcohol Use History: None Reported Past Drug Use History: None Reported - Past Family History Mother Family Medical History: Deep Vein Thrombosis (DVT) Father Family Medical History: Cancer Sister(s) Family Medical History: Cancer Additional Family Medical History / Comment(s): non-hodgkins lymphoma Medications and Allergies Home Medications Medication Instructions Recorded Confirmed Type Docusate Sodium [Dok] 200 mg PO BID 09/15/15 06/22/18 History Loratadine [Claritin] 10 mg PO HS 01/23/17 06/22/18 History Zoledronic Acid [Zometa] 4 mg IVPB QMONTH 01/23/17 06/22/18 History fentaNYL 50MCG/HR PATCH [Duragesic 1 patch TRANSDERM Q72H #1 patch 10/02/17 Rx 50MCG/HR] Famotidine [Pepcid] 20 mg PO DAILY 01/06/18 06/22/18 History HYDROcodone/APAP 5-325MG [[place] 1 tab PO Q6HR PRN 01/06/18 06/22/18 History 5-325] Polyethylene Glycol 3350 [Miralax] 17 gm PO HS PRN 01/26/18 06/22/18 History Metoprolol Tartrate [Lopressor] 12.5 mg PO BID #60 tab 01/30/18 06/22/18 Rx Exemestane [Aromasin] 25 mg PO DAILY@1800 02/18/18 06/22/18 History Midodrine [ProAmatine] 10 mg PO AC-TID #180 tab 04/23/18 06/22/18 Rx Biotin 10,000 mcg PO HS 05/27/18 06/22/18 History Non-Formulary Drug [Non Formulary 7.5 mg PO PC-SUPPER 05/27/18 06/22/18 History Drug] Sodium Bicarbonate Tab 650 mg PO BID 05/27/18 06/22/18 History Levothyroxine Sodium [Synthroid] 100 mcg PO DAILY 06/22/18 06/22/18 History Allergies Allergy/AdvReac Type Severity Reaction Status Date / Time Penicillins Allergy Rash/Hives Verified 06/22/18 08:10 Sulfa (Sulfonamide Allergy Rash/Hives Verified 06/22/18 08:10 Antibiotics) ibuprofen AdvReac Swelling Verified 06/22/18 08:10 Physical Exam Vitals: Vital Signs Temp Pulse Pulse Resp BP BP Pulse Ox 06/22/18 07:33 97.9 F 80 124/78 100 06/22/18 04:13 97.9 F 79 16 133/88 99 06/22/18 04:00 79 16 06/22/18 03:30 68 16 130/76 99 06/22/18 03:00 71 16 129/85 100 06/22/18 02:30 68 16 136/94 100 06/22/18 02:00 68 16 129/74 100 06/22/18 00:19 98.3 F 79 18 120/82 99 Intake and Output 06/21/18 06/22/18 06/22/18 22:59 06:59 14:59 Intake Total 300 900 Balance 300 900 Intake: Intake, IV Titration 100 500 Amount Sodium Chloride 0.9% 1, 100 500 000 ml @ 75 mls/hr IV . [id number] LYNDA Rx#:[id number] Oral 200 400 Other: Voiding Method Toilet # Voids 2 3 Weight 99.79 kg PHYSICAL EXAMINATION: Patient is lying in the bed comfortably, no acute distress, awake alert and confused. HEENT: Normocephalic. Neck is supple. Pupils reactive. Nostrils clear. Oral cavity is moist. Ears reveal no drainage. Neck reveals no JVD, carotid bruits, or thyromegaly. CHEST EXAMINATION: Trachea is central. Symmetrical expansion. Bibasilar diminished air entry. Lung ken clear to auscultation and percussion. CARDIAC: Normal S1, S2 with no gallops. No murmurs ABDOMEN: Soft. Distended with ascites. Bowel sounds normal. No organomegaly. No abdominal bruits. Extremities: reveal no edema. No clubbing or cyanosis Neurologically awake, alert, oriented x2-3 with well-coordinated movements. No focal deficits noted Skin: No rash or skin lesions. Psychiatric: Coperative. Could not be assessed completely Musculoskeletal: No joint swelling or deformity. Normal range of motion. Results CBC & Chem 7: 06/22/18 00:55 06/22/18 00:55 Labs: Abnormal Lab Results - Last 24 Hours (Table) 06/22/18 06/22/18 06/22/18 Range/Units 00:55 00:55 00:55 MCHC 30.4 L (31.0-37.0) g/dL RDW 18.2 H (11.5-15.5) % PT (9.0-12.0) sec INR (<1.2) APTT (22.0-30.0) sec Sodium 128 L (137-145) mmol/L Carbon Dioxide 18 L (22-30) mmol/L BUN 55 H (7-17) mg/dL Creatinine 1.77 H (0.52-1.04) mg/dL Plasma Lactic Acid Rufino 2.1 H* (0.7-2.0) mmol/L Calcium 8.2 L (8.4-10.2) mg/dL Total Bilirubin 3.4 H (0.2-1.3) mg/dL AST 92 H (14-36) U/L Alkaline Phosphatase 300 H (38-126) U/L Ammonia 126 H (<30) umol/L Total Protein 5.0 L (6.3-8.2) g/dL Albumin 2.6 L (3.5-5.0) g/dL Urine Protein (Negative) Urine Blood (Negative) Urine Bilirubin (Negative) Hyaline Casts (0-2) /lpf 06/22/18 06/22/18 06/22/18 Range/Units 00:55 00:55 05:20 MCHC (31.0-37.0) g/dL RDW (11.5-15.5) % PT 13.6 H (9.0-12.0) sec INR 1.3 H (<1.2) APTT 32.1 H (22.0-30.0) sec Sodium (137-145) mmol/L Carbon Dioxide (22-30) mmol/L BUN (7-17) mg/dL Creatinine (0.52-1.04) mg/dL Plasma Lactic Acid Rufino 2.2 H* (0.7-2.0) mmol/L Calcium (8.4-10.2) mg/dL Total Bilirubin (0.2-1.3) mg/dL AST (14-36) U/L Alkaline Phosphatase (38-126) U/L Ammonia (<30) umol/L Total Protein (6.3-8.2) g/dL Albumin (3.5-5.0) g/dL Urine Protein Trace H (Negative) Urine Blood Small H (Negative) Urine Bilirubin 1+ H (Negative) Hyaline Casts 112 H (0-2) /lpf 06/22/18 Range/Units 11:49 MCHC (31.0-37.0) g/dL RDW (11.5-15.5) % PT (9.0-12.0) sec INR (<1.2) APTT (22.0-30.0) sec Sodium (137-145) mmol/L Carbon Dioxide (22-30) mmol/L BUN (7-17) mg/dL Creatinine (0.52-1.04) mg/dL Plasma Lactic Acid Rufino (0.7-2.0) mmol/L Calcium (8.4-10.2) mg/dL Total Bilirubin (0.2-1.3) mg/dL AST (14-36) U/L Alkaline Phosphatase (38-126) U/L Ammonia 102 H (<30) umol/L Total Protein (6.3-8.2) g/dL Albumin (3.5-5.0) g/dL Urine Protein (Negative) Urine Blood (Negative) Urine Bilirubin (Negative) Hyaline Casts (0-2) /lpf Microbiology - Last 24 Hours (Table) 06/22/18 00:55 Urine Culture - Preliminary Urine,Catheterized Thrombosis Risk Factor Assmnt - DVT/VTE Prophylaxis DVT/VTE Prophylaxis: Mechanical Prophylaxis ordered - Choose All That Apply Any of the Below Risk Factors Present?: Yes Each Factor Represents 1 point: Obesity (BMI >25) Other Risk Factors: Yes Each Risk Factor Represents 2 Points: Age 61-74 years Thrombosis Risk Factor Assessment Total Risk Factor Score: 3 Thrombosis Risk Factor Assessment Level: Moderate Risk Assessment and Plan Assessment: Acute hepatic encephalopathy with elevated ammonia level Hyponatremia likely hypervolemic Lactic acidosis. 2.1 on admission Rectal pain likely due to hemorrhoids Metastatic breast cancer to bone and liver Chronic ascites undergoing paracentesis every Friday. Diabetes type 2 [id number] Hearing disorder/deafness Hypertension Hyperlipidemia Osteoarthritis Hypothyroidism Venostasis Chronic constipation Coagulopathy with elevated INR level due to liver metastatic disease DVT prophylaxis with SCDs. Plan: Patient will be continued on lactulose twice daily and titrate for not more than 2 bowel movements per day. Continue with gentle hydration. Consider paracentesis while in hospital. Continue the home medications. Will limit narcotic pain medications. Follow-up CBC and CMP tomorrow Discussed with family at bedside in detail. Prognosis is poor. Time with Patient: Greater than 30
[2018-06-23] MEDS: HYDROmorphone 1 MG/ML 1 ML SYRINGE IVP PRN ×2 (00:18→17:53)
[2018-06-23] MEDS: LEVOTHYROXINE 50 MCG TAB PO SCH (05:35)
[2018-06-23] MEDS: LACTULOSE 20 GM/30 ML CUP PO SCH ×2 (07:20→20:07)
[2018-06-23] MEDS: METOPROLOL TARTRATE 12.5 MG TAB PO SCH ×2 (07:21→20:07)
[2018-06-23] MEDS: FAMOTIDINE 20 MG TAB PO SCH (07:21)
[2018-06-23] MEDS: MIDODRINE 5 MG TAB PO SCH ×3 (07:21→17:53)
[2018-06-23] MEDS: DOCUSATE 100 MG CAP PO SCH ×2 (07:21→20:07)
[2018-06-23] MEDS: HYDROCORTISONE SUPPOSITORY 25 MG SUPP RECTAL SCH (07:22)
[2018-06-23 08:07] LABS: Anisocytosis Slight; HCT 36.4 % (34.0-46.0); HGB 11.4 gm/dL (11.4-16.0); Hypochromasia Moderate; MCH 28.6 pg (25.0-35.0); MCHC 31.2 g/dL (31.0-37.0); MCV 91.5 fL (80.0-100.0); Mean Platelet Volume 6.9; Platelet Count 141 k/uL (150-450); RBC 3.98 m/uL (3.80-5.40); RDW 18.2 % (11.5-15.5)
[2018-06-23 08:33] LABS: Albumin 2.5 g/dL (3.5-5.0); Calcium 8.1 mg/dL (8.4-10.2); Magnesium 1.9 mg/dL (1.6-2.3); Potassium 4.9 mmol/L (3.5-5.1); Total Bilirubin 3.8 mg/dL (0.2-1.3); Total Protein 4.9 g/dL (6.3-8.2)
[2018-06-23 08:52] LABS: Band Neutrophils % 1 %; Lymphocytes # (M) 1.05 k/uL (1.0-4.8); Neutrophils % (M) 68 %; Nucleated Red Blood Cells 0 /100 WBC (0-0); Total Cells Counted 100
[2018-06-23] MEDS: Exemestane [Aromasin] 25 MG PO SCH (17:53)
[2018-06-23] MEDS: LORATADINE 10 MG TAB PO SCH (20:07)
--- NOTE | 2018-06-23 23:16 | P.PN ---
Subjective Progress Note Date: 06/23/18 Principal diagnosis: Acute hepatic encephalopathy Patient is a 67-year-old male with a known history of metastatic breast cancer to bones and liver, hypertension, hyperlipidemia, diabetes type 2, osteoarthritis and hypothyroidism and other multiple medical problems presents to ER with altered mental status. Family member states the patient started becoming confused on Friday gradually worsened over the weekend. States that today she had a sharp decline in her mentation. States that she has been quite confused, not eating or drinking, and in a lot of pain. States that she has had similar symptoms in the past with urinary tract infection. Patient reports pain to her upper abdomen into her perianal region related to hemorrhoids. Patient states that she has had issues with constipation to take lactulose today. States she has been nauseated but has not vomited. Patient denies any recent rash, fever, chills, shortness breath, chest pain, back pain, numbness, tingling, dizziness, headache , visual changes, or any other complaints. No fever no chills. Lactic acid 2.1 BN 55 creatinine 1.71 Sodium 128 Ammonia 126 Patient does have chronic ascites and is undergoing paracentesis every Friday. 06/23/2018 Patient is more awake and oriented today. Able to sit in the chair. Otherwise patient is still complaining of ankle pain from hemorrhoids. No bleeding was noted. Anal tucks will be placed. Patient is being continued on lactulose otherwise. Patient is will be getting paracentesis as per her regular schedule every Friday. Denied any complaints of chest pain or shortness of breath. No nausea vomiting or abdominal pain. No fever no chills. Current medications reviewed. Objective - Vital Signs Vital signs: Vital Signs Temp 97.8 F 06/23/18 19:34 Pulse 68 06/23/18 19:34 Resp 16 06/23/18 19:34 BP 117/78 06/23/18 19:34 Pulse Ox 100 06/23/18 19:34 Intake & Output 06/23/18 06/23/18 06/24/18 06:59 18:59 06:59 Intake Total 757 195 Balance 757 1951 Intake: Intake, IV Titration 757 1000 Amount Sodium Chloride 0.9% 1, 757 1000 000 ml @ 75 mls/hr IV . [id number] LYNDA Rx#:[id number] Oral 652 Other 300 Other: # Voids 2 3 - Exam PHYSICAL EXAMINATION: Patient is lying in the bed comfortably, mild distress, awake alert and oriented.. HEENT: Normocephalic. Neck is supple. Pupils reactive. Nostrils clear. Oral cavity is moist. Ears reveal no drainage. Neck reveals no JVD, carotid bruits, or thyromegaly. CHEST EXAMINATION: Trachea is central. Symmetrical expansion. Bibasilar diminished air entry Lung ken clear to auscultation and percussion. CARDIAC: Normal S1, S2 with no gallops. No murmurs ABDOMEN: Soft. Distended with ascites. Nontender. Bowel sounds normal. No organomegaly. No abdominal bruits. Extremities: 2+ edema. No clubbing or cyanosis Neurologically awake, alert, oriented x2-3 with well-coordinated movements. No focal deficits noted Skin: No rash or skin lesions. Psychiatric: Coperative. Could not be assessed completely. Musculoskeletal: No joint swelling or deformity. Normal range of motion. - Labs CBC & Chem 7: 06/23/18 07:07 06/23/18 07:07 Labs: Abnormal Lab Results - Last 24 Hours (Table) 06/23/18 06/23/18 Range/Units 07:07 07:07 RDW 18.2 H (11.5-15.5) % Plt Count 141 L (150-450) k/uL Sodium 128 L (137-145) mmol/L Carbon Dioxide 19 L (22-30) mmol/L BUN 58 H (7-17) mg/dL Creatinine 2.17 H (0.52-1.04) mg/dL Glucose 108 H (74-99) mg/dL Calcium 8.1 L (8.4-10.2) mg/dL Total Bilirubin 3.8 H (0.2-1.3) mg/dL AST 99 H (14-36) U/L Alkaline Phosphatase 301 H (38-126) U/L Total Protein 4.9 L (6.3-8.2) g/dL Albumin 2.5 L (3.5-5.0) g/dL Microbiology - Last 24 Hours (Table) 06/22/18 00:55 Urine Culture - Final Urine,Catheterized 06/22/18 00:55 Blood Culture - Preliminary Blood No Growth after 24 hours Assessment and Plan Assessment: Acute hepatic encephalopathy with elevated ammonia level. Mental status is improving. Hyponatremia likely hypervolemic Lactic acidosis. 2.1 on admission Rectal pain likely due to hemorrhoids Metastatic breast cancer to bone and liver Chronic ascites undergoing paracentesis every Friday. Diabetes type 2 [id number] Hearing disorder/deafness Hypertension Hyperlipidemia Osteoarthritis Hypothyroidism Venostasis Chronic constipation Coagulopathy with elevated INR level due to liver metastatic disease DVT prophylaxis with SCDs. Plan: Patient will be continued on lactulose twice daily and titrate for not more than 2 bowel movements per day. Continue with gentle hydration. Consider paracentesis while in hospital. Continue the home medications. Will limit narcotic pain medications. Continue with Anusol cream and Anal tucks as needed. Paracentesis as per schedule every Friday. Follow-up CBC and CMP tomorrow Discussed with family at bedside in detail. Prognosis is poor. Time with Patient: Greater than 30
[2018-06-24] MEDS: LEVOTHYROXINE 50 MCG TAB PO SCH (05:31)
[2018-06-24] MEDS: ONDANSETRON 4 MG/2 ML VIAL IVP PRN (06:04)
[2018-06-24 07:06] LABS: Anisocytosis Slight; Basophils % (A) 1 %; Eosinophils # (A) 0.1 k/uL (0-0.7); Eosinophils % (A) 2 %; HCT 42.8 % (34.0-46.0); HGB 13.2 gm/dL (11.4-16.0); Hypochromasia Moderate; Lymphocytes # (A) 0.6 k/uL (1.0-4.8); Lymphocytes % (A) 10 %; MCH 28.5 pg (25.0-35.0); MCHC 30.9 g/dL (31.0-37.0); MCV 92.3 fL (80.0-100.0); Mean Platelet Volume 6.8; Monocytes # (A) 0.3 k/uL (0-1.0); Monocytes % (A) 5 %; Neutrophils % (A) 81 %; Platelet Count 171 k/uL (150-450); RBC 4.64 m/uL (3.80-5.40); RDW 18.2 % (11.5-15.5); WBC 6.1 k/uL (3.8-10.6)
[2018-06-24 07:20] LABS: Albumin 2.7 g/dL (3.5-5.0); Calcium 8.3 mg/dL (8.4-10.2); Potassium 5.1 mmol/L (3.5-5.1); Total Protein 5.2 g/dL (6.3-8.2)
[2018-06-24 08:37] LABS: Poikilocytosis (M) Present
[2018-06-24] MEDS: FAMOTIDINE 20 MG TAB PO SCH (09:18)
[2018-06-24] MEDS: DOCUSATE 100 MG CAP PO SCH (09:18)
[2018-06-24] MEDS: LACTULOSE 20 GM/30 ML CUP PO SCH (09:18)
[2018-06-24] MEDS: METOPROLOL TARTRATE 12.5 MG TAB PO SCH (09:18)
[2018-06-24] MEDS: MIDODRINE 5 MG TAB PO SCH ×3 (09:18→18:58)
[2018-06-24] MEDS: HYDROCORTISONE SUPPOSITORY 25 MG SUPP RECTAL SCH (09:19)
[2018-06-24 16:00] LABS: Glucose,Whole Blood 117 mg/dL (75-99)
[2018-06-24 16:38] LABS: Albumin 2.7 g/dL (3.5-5.0); Calcium 8.4 mg/dL (8.4-10.2); Total Bilirubin 4.6 mg/dL (0.2-1.3); Total Protein 5.2 g/dL (6.3-8.2)
[2018-06-24 16:40] LABS: Magnesium 2.2 mg/dL (1.6-2.3)
[2018-06-24 16:46] LABS: Glucose,Whole Blood 123 mg/dL (75-99)
--- NOTE | 2018-06-24 16:49 | CT ---
EXAMINATION TYPE: CT brain wo con DATE OF EXAM: 06/24/2018 COMPARISON: 06/22/2018 HISTORY: Altered mental changes CT DLP: 1099.4 mGycm Automated exposure control for dose reduction was used. FINDINGS: Ventricles have normal size. There is no mass effect nor midline shift. There is no sign of intracran ial hemorrhage. There is no evidence of cerebral edema. The calvarium is intact. IMPRESSION: NEGATIVE CT SCAN OF THE BRAIN. NO CHANGE.
[2018-06-24 16:57] LABS: Phosphorus 7.1 mg/dL (2.5-4.5); Potassium 5.2 mmol/L (3.5-5.1)
[2018-06-24] MEDS: HALOPERIDOL LACTATE 5 MG/ML 1 ML VIAL IVP PRN ×3 (17:50→20:18)
[2018-06-24] MEDS: Exemestane [Aromasin] 25 MG PO SCH (18:58)
[2018-06-24] MEDS: DEXTROSE 5%-0.9% NACL 1,000 ML IV SCH (18:59)
--- NOTE | 2018-06-24 21:01 | P.CONS ---
History of Present Illness - Reason for Consult Consult date: 06/24/18 Metabolic Encephalopathy, Metastatic Cancer Requesting physician: Snow Morel - Chief Complaint COnfusion - History of Present Illness Ms Dior is a pleasant WF, who had noted a painless mass at the left base of her neck, initially in 08/18. At the time the pt was diagnosed with pleuritis in the left lung. The pleuritis did resolve with treatment. Post treatment CT scan of the chest revealed scattered,non specific densities in the left lung. The pt then sought attention for the left SC mass, and had a biopsy with Dr Cano on 09/18/15. This revealed metastatic carcinoma consistent with breast primary, ER/NE strongly positive, and Her -2 1+( negative). The case was discussed with Dr Cano, and breast imaging ordered. Mammogram on 09/28/15 revealed heterogenous cluster of calcifications in the lower inner quadrant of the right breast, confirmed on additional views, though US was negative. She has been very compliant with her regular screening mammograms. Additional w /u including PET and labs were ordered. These unfortunately revealed widely metastatic disease with uptake in b/l supraclavicular, b/l hilar, left axillary , and diffusely through the skeleton. Tumor markers were also elevated. She was started Zometa, and Ibrance/femara on 10/24/15. She has struggled with ulcers and LE swelling on and off antibiotics, debridement and local wound care. Following with [facility] since 04/20. These have since resolved Due to progressive tumor marker progression, she was changed to Faslodex and Ibrance in 06/2017. However, she continued to progress,and was admited to [facility] in 09/2017 for abdominal pain due to new liver mets. She was thus changed to Aromasin and Afinitor in late 09/2017. .As she appeared to be having comparitively rapid progression in the liver, it was decided to change to chemo for a faster response. She started Carbo/Gemzar on 10/31/17 and is s/p 3 cycles as of 12/30/17. She did receive Neulasta and Procrit (40K) On 12/31/17 Dose was decreased by 10% post C 2 due to hematologic toxicity, and procrit added. She has continued to require frequent transfusions. She recently was admitted to [facility] with complaints of increased abdominal bloating, ultrasound of abdomen completed on 12/17/17 did not show a significant enough fluid to remove. T On presentation CT abdomen and Pelvis revealed moderate bilateral pleural effusions, massive ascites, and numerous hypodense liver lesions, which appear similiar to previous identified liver metastasis. Hemoglobin on admission = 6.8, Platelet count 27, WBC 45.9 (secondary to neulasta on 12/30/17). Paracentesis was performed, Chemotherapy was delayed one week and she was discharged with a standing paracentesis weekly, twice a week order. In November her Tumor Markers were increased to above 3,000 - Last Ca15-3 resulted at approx 400. Showing likely response to recent IV Chemotherapy. 01/27/18: She now presents after complaints of increasing abdominal bloating and severe constipation requiring manual dis-impaction. She has been admitted now with need for paracentesis with platlet transfusion. Her platlets are 13 today. She is status post cycle 4 day one of chemotherapy on 01/20/18. She received carboplatin and gemzar. She would normally get day 8 today of just Gemsar and then Neulasta although she has now been admitted. She therefore did not receive neulasta for this cycle yet. She also receives weekly procrit 40K, 04/2018 - She was admitted for concern of hepatorenal syndrome. Metabolic Encephalopathy, Hyperkalemia, Ascites, and Renal insufficiency. Her Afinitor was help and she continued on aransp and aromis. In [facility] she was seen in office and was ok for her to restart afinitor as renal function was improving. She also continued on Zometa as outpatient q3 weeks. 06/24/18: Presents to hospital with worsening confusion, unable to tolerate lactulose as she complains of severe pain from hemorrhoid, therefore she has not been able to continue adequate bowel movements to avoif encephalopathy. She is alert during visit, stated has been better today then previously, she is still refusing lactulose. Past Medical History Past Medical History: Cancer, Diabetes Mellitus, Hearing Disorder / Deafness, Hyperlipidemia, Hypertension, Osteoarthritis (OA), Pneumonia, Thyroid Disorder, Vascular Disorder Additional Past Medical History / Comment(s): Thyroid Nodules.VENOUS STASIS, HX OF PLEURISY . STAGE 4 BREAST CANCER DIAGNOSED IN SEPTEMBER 2015, PER FAMILY"breast CA mets to bone and lymphatic system, liver,spleen, constipation, admitted with hyperkalemia 04/2018 History of Any Multi-Drug Resistant Organisms: None Reported Past Surgical History: Hysterectomy, Tonsillectomy, Tubal Ligation Additional Past Surgical History / Comment(s): RT THYROIDECTOMY. LAPAROSCOPY D/ T Ectopic . BIOPSY MASS LEFT NECK.paracentesis, port a cath placement, excision fibrolipoma/scalp, lt elbow sx Past Anesthesia/Blood Transfusion Reactions: No Reported Reaction Past Psychological History: No Psychological Hx Reported Additional Psychological History / Comment(s): . Lives with her . 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 No experience. No international travel. Pet cat in the home, takes care of the letter box. No other animal exposures Smoking Status: Never smoker Past Alcohol Use History: None Reported Past Drug Use History: None Reported - Past Family History Mother Family Medical History: Deep Vein Thrombosis (DVT) Father Family Medical History: Cancer Sister(s) Family Medical History: Cancer Additional Family Medical History / Comment(s): non-hodgkins lymphoma Medications and Allergies Home Medications Medication Instructions Recorded Confirmed Type Docusate Sodium [Dok] 200 mg PO BID 09/15/15 06/22/18 History Loratadine [Claritin] 10 mg PO HS 01/23/17 06/22/18 History Zoledronic Acid [Zometa] 4 mg IVPB QMONTH 01/23/17 06/22/18 History fentaNYL 50MCG/HR PATCH [Duragesic 1 patch TRANSDERM Q72H #1 patch 10/02/17 Rx 50MCG/HR] Famotidine [Pepcid] 20 mg PO DAILY 01/06/18 06/22/18 History HYDROcodone/APAP 5-325MG [[place] 1 tab PO Q6HR PRN 01/06/18 06/22/18 History 5-325] Polyethylene Glycol 3350 [Miralax] 17 gm PO HS PRN 01/26/18 06/22/18 History Metoprolol Tartrate [Lopressor] 12.5 mg PO BID #60 tab 01/30/18 06/22/18 Rx Exemestane [Aromasin] 25 mg PO DAILY@1800 02/18/18 06/22/18 History Midodrine [ProAmatine] 10 mg PO AC-TID #180 tab 04/23/18 06/22/18 Rx Biotin 10,000 mcg PO HS 05/27/18 06/22/18 History Non-Formulary Drug [Non Formulary 7.5 mg PO PC-SUPPER 05/27/18 06/22/18 History Drug] Sodium Bicarbonate Tab 650 mg PO BID 05/27/18 06/22/18 History Levothyroxine Sodium [Synthroid] 100 mcg PO DAILY 06/22/18 06/22/18 History Allergies Allergy/AdvReac Type Severity Reaction Status Date / Time Penicillins Allergy Rash/Hives Verified 06/22/18 08:10 Sulfa (Sulfonamide Allergy Rash/Hives Verified 06/22/18 08:10 Antibiotics) ibuprofen AdvReac Swelling Verified 06/22/18 08:10 Physical Exam Vitals: Vital Signs Temp Pulse Resp BP Pulse Ox 06/24/18 15:57 97.2 F L 102 H 12 96/61 100 06/24/18 15:15 94 18 94/62 06/24/18 14:49 92 18 91/56 06/24/18 14:40 90 16 92/55 06/24/18 14:23 89 14 90/53 06/24/18 14:05 94 14 101/57 100 06/24/18 13:45 99 14 99/53 100 06/24/18 08:00 12 06/24/18 07:26 97.9 F 90 12 103/69 97 06/23/18 23:00 97.4 F L 85 16 124/82 98 06/23/18 19:34 97.8 F 68 16 117/78 100 Intake and Output 06/24/18 06/24/18 06/24/18 06:59 14:59 22:59 Intake Total 190 200 Balance 190 200 Intake: Oral 190 200 Other: Voiding Method Toilet - Constitutional General appearance: mild distress, obese - EENT Eyes: icteric sclerae, EOMI ENT: hard of hearing, normal oropharynx - Neck Neck: no lymphadenopathy - Respiratory Respiratory: bilateral: CTA - Cardiovascular Heart sounds: normal: S1, S2 leg Peripheral Edema: bilateral: 1+, Pitting - Gastrointestinal General gastrointestinal:Abdominal Ascited, firm, distended tender - Integumentary Integumentary: pale - Neurologic Neurologic: moves all extremities, not following commands - Musculoskeletal Musculoskeletal: generalized weakness - Psychiatric Psychiatric: Lthargic confusion Results CBC & Chem 7: 06/24/18 06:44 06/24/18 16:15 Labs: Abnormal Lab Results - Last 24 Hours (Table) 06/24/18 06/24/18 06/24/18 Range/Units 06:44 06:44 06:44 MCHC 30.9 L (31.0-37.0) g/dL RDW 18.2 H (11.5-15.5) % Lymphocytes # 0.6 L (1.0-4.8) k/uL Sodium 127 L (137-145) mmol/L Potassium (3.5-5.1) mmol/L Chloride 97 L (98-107) mmol/L Carbon Dioxide 16 L (22-30) mmol/L BUN 62 H (7-17) mg/dL Creatinine 2.38 H (0.52-1.04) mg/dL Glucose 121 H (74-99) mg/dL POC Glucose (mg/dL) (75-99) mg/dL Calcium 8.3 L (8.4-10.2) mg/dL Phosphorus (2.5-4.5) mg/dL Total Bilirubin 4.0 H (0.2-1.3) mg/dL AST 112 H (14-36) U/L ALT 53 H (9-52) U/L Alkaline Phosphatase 346 H (38-126) U/L Ammonia 126 H (<30) umol/L Total Protein 5.2 L (6.3-8.2) g/dL Albumin 2.7 L (3.5-5.0) g/dL 06/24/18 06/24/18 06/24/18 Range/Units 15:58 16:15 16:15 MCHC (31.0-37.0) g/dL RDW (11.5-15.5) % Lymphocytes # (1.0-4.8) k/uL Sodium 127 L (137-145) mmol/L Potassium 5.2 H (3.5-5.1) mmol/L Chloride 97 L (98-107) mmol/L Carbon Dioxide 10 L (22-30) mmol/L BUN 63 H (7-17) mg/dL Creatinine 2.83 H (0.52-1.04) mg/dL Glucose 129 H (74-99) mg/dL POC Glucose (mg/dL) 117 H (75-99) mg/dL Calcium (8.4-10.2) mg/dL Phosphorus 7.1 H (2.5-4.5) mg/dL Total Bilirubin 4.6 H (0.2-1.3) mg/dL AST 115 H (14-36) U/L ALT 53 H (9-52) U/L Alkaline Phosphatase 322 H (38-126) U/L Ammonia 141 H (<30) umol/L Total Protein 5.2 L (6.3-8.2) g/dL Albumin 2.7 L (3.5-5.0) g/dL 06/24/18 Range/Units 16:44 MCHC (31.0-37.0) g/dL RDW (11.5-15.5) % Lymphocytes # (1.0-4.8) k/uL Sodium (137-145) mmol/L Potassium (3.5-5.1) mmol/L Chloride (98-107) mmol/L Carbon Dioxide (22-30) mmol/L BUN (7-17) mg/dL Creatinine (0.52-1.04) mg/dL Glucose (74-99) mg/dL POC Glucose (mg/dL) 123 H (75-99) mg/dL Calcium (8.4-10.2) mg/dL Phosphorus (2.5-4.5) mg/dL Total Bilirubin (0.2-1.3) mg/dL AST (14-36) U/L ALT (9-52) U/L Alkaline Phosphatase (38-126) U/L Ammonia (<30) umol/L Total Protein (6.3-8.2) g/dL Albumin (3.5-5.0) g/dL Microbiology - Last 24 Hours (Table) 06/22/18 00:55 Blood Culture - Preliminary Blood No Growth after 48 hours Assessment and Plan Plan: Metabolic Encephalopathy: - Rising Ammonia - Unable to stay adherent to lactulose at home and on admission with Hemorrhoid pain - Increase Lactulose from BID to QID - GI Following Hyponatremia - - Urine and Serum Osmolarity reviewed - Nephrology Following - Recurrent Ascites and third spacing Acute on Chronic Renal Failure - Concern for hepatorenal Syndrome - Rising LFTs - Worsening Ascites - Nephrology Management Metastatic breast carcinoma - Known to Liver, Bone - Maintained on Afinitor, Faslodex, Zometa with stable Metastatic disease - Hold afinitor for now. With increasing Liver and Renal Function - Continue Aromasin Liver Transiminitis - Monitor Daily LFTs - Continue Lactulose - Monitor Coags Acidosis: CO2 = 10, trending down - ICU Management - Sodium Bicarbonate per ICU and Nephrology Recurrent Abdominal Ascites - Related to End Stage Liver disease - In the picture of Presumptive Hepatorenal Syndrome Paracentesis and send culture for associated peritonitis - IR is consulted for Paracentesis Painful Hemorroids - Underlying cause of her non-adherence to Lactulose to stay ahead of the encephalopathy - Gen Surgery consulted regarding intervention options Plan: - ICU Care regarding above - Currently still receiving full supportive care - Hold Afinitor - Surgery input regarding Hemorrhoids - Monitor Daily CBC, CMP, Mg, Phos - Arvizu Cultures - Discussion of goals of care as overall prognosis gaurded to poor Physician Attestation: I have completed the full history and physical and developed the complete impression and plan of this patient. I agree with above dictation by Barbara Olguin, DIctated as a scribe.
[2018-06-24] MEDS: HYDROmorphone 1 MG/ML 1 ML SYRINGE IVP PRN (21:47)
--- NOTE | 2018-06-24 22:09 | P.PN ---
Subjective Progress Note Date: 06/24/18 Cyndie is a pleasantdebilitated 67-year-old white female is admitted for a metabolic encephalopathy due to liver failure extending from her metastatic breast cancer with metastasis to liver and bone. She has not been doing well on discussed with her daughter and her over the past week with lack of appetite dehydration in climbing ammonia levels patient has been slightly noncompliant with lactulose use. Patient is currently going down for a paracentesis because of increasing amount of ascites fluid buildup. Objective - Vital Signs Vital signs: Vital Signs Temp 98.9 F 06/24/18 17:00 Pulse 106 H 06/24/18 19:30 Resp 17 06/24/18 19:30 BP 106/92 06/24/18 19:30 Pulse Ox 96 06/24/18 18:00 Intake & Output 06/24/18 06/24/18 06/25/18 06:59 18:59 06:59 Intake Total 190 200 Balance 190 200 Intake: Oral 190 200 Other: Voiding Method Indwelling Catheter - Exam GENERAL, awake alert and confused. HEENT: Normocephalic. Neck is supple. Pupils reactive. Nostrils clear. Oral cavity is moist. Ears reveal no drainage. Neck reveals no JVD, carotid bruits, or thyromegaly. CHEST EXAMINATION: Trachea is central. Symmetrical expansion. Bibasilar diminished air entry. Lung kne clear to auscultation and percussion. CARDIAC: Normal S1, S2 with no gallops. No murmurs ABDOMEN: Soft. Distended with ascites. Bowel sounds normal. No organomegaly. No abdominal bruits. Extremities: reveal no edema. No clubbing or cyanosis Neurologically awake, alert, oriented x2-3 with well-coordinated movements. No focal deficits noted Skin: No rash or skin lesions. Psychiatric: Coperative. Could not be assessed completely Musculoskeletal: No joint swelling or deformity. Normal range of motion - Labs CBC & Chem 7: 06/24/18 06:44 06/24/18 16:15 Labs: Abnormal Lab Results - Last 24 Hours (Table) 06/24/18 06/24/18 06/24/18 Range/Units 06:44 06:44 06:44 MCHC 30.9 L (31.0-37.0) g/dL RDW 18.2 H (11.5-15.5) % Lymphocytes # 0.6 L (1.0-4.8) k/uL Sodium 127 L (137-145) mmol/L Potassium (3.5-5.1) mmol/L Chloride 97 L (98-107) mmol/L Carbon Dioxide 16 L (22-30) mmol/L BUN 62 H (7-17) mg/dL Creatinine 2.38 H (0.52-1.04) mg/dL Glucose 121 H (74-99) mg/dL POC Glucose (mg/dL) (75-99) mg/dL Calcium 8.3 L (8.4-10.2) mg/dL Phosphorus (2.5-4.5) mg/dL Total Bilirubin 4.0 H (0.2-1.3) mg/dL AST 112 H (14-36) U/L ALT 53 H (9-52) U/L Alkaline Phosphatase 346 H (38-126) U/L Ammonia 126 H (<30) umol/L Total Protein 5.2 L (6.3-8.2) g/dL Albumin 2.7 L (3.5-5.0) g/dL 06/24/18 06/24/18 06/24/18 Range/Units 15:58 16:15 16:15 MCHC (31.0-37.0) g/dL RDW (11.5-15.5) % Lymphocytes # (1.0-4.8) k/uL Sodium 127 L (137-145) mmol/L Potassium 5.2 H (3.5-5.1) mmol/L Chloride 97 L (98-107) mmol/L Carbon Dioxide 10 L (22-30) mmol/L BUN 63 H (7-17) mg/dL Creatinine 2.83 H (0.52-1.04) mg/dL Glucose 129 H (74-99) mg/dL POC Glucose (mg/dL) 117 H (75-99) mg/dL Calcium (8.4-10.2) mg/dL Phosphorus 7.1 H (2.5-4.5) mg/dL Total Bilirubin 4.6 H (0.2-1.3) mg/dL AST 115 H (14-36) U/L ALT 53 H (9-52) U/L Alkaline Phosphatase 322 H (38-126) U/L Ammonia 141 H (<30) umol/L Total Protein 5.2 L (6.3-8.2) g/dL Albumin 2.7 L (3.5-5.0) g/dL 06/24/18 Range/Units 16:44 MCHC (31.0-37.0) g/dL RDW (11.5-15.5) % Lymphocytes # (1.0-4.8) k/uL Sodium (137-145) mmol/L Potassium (3.5-5.1) mmol/L Chloride (98-107) mmol/L Carbon Dioxide (22-30) mmol/L BUN (7-17) mg/dL Creatinine (0.52-1.04) mg/dL Glucose (74-99) mg/dL POC Glucose (mg/dL) 123 H (75-99) mg/dL Calcium (8.4-10.2) mg/dL Phosphorus (2.5-4.5) mg/dL Total Bilirubin (0.2-1.3) mg/dL AST (14-36) U/L ALT (9-52) U/L Alkaline Phosphatase (38-126) U/L Ammonia (<30) umol/L Total Protein (6.3-8.2) g/dL Albumin (3.5-5.0) g/dL Microbiology - Last 24 Hours (Table) 06/22/18 00:55 Blood Culture - Preliminary Blood No Growth after 48 hours Assessment and Plan (1) Altered mental status Current Visit: Yes Status: Acute Code(s): R41.82 - ALTERED MENTAL STATUS, UNSPECIFIED SNOMED Code(s): 158547765 (2) Dehydration Current Visit: Yes Status: Acute Code(s): E86.0 - DEHYDRATION SNOMED Code( s): 64833252 (3) Hyperammonemia Current Visit: Yes Status: Acute Code(s): E72.20 - DISORDER OF UREA CYCLE METABOLISM, UNSPECIFIED SNOMED Code(s): 4124613 (4) Acute kidney injury Current Visit: No Status: Acute Code(s): N17.9 - ACUTE KIDNEY FAILURE, UNSPECIFIED SNOMED Code(s): 85853108 (5) Ascites Current Visit: No Status: Acute Code(s): R18.8 - OTHER ASCITES SNOMED Code (s): 926051871 (6) Chronic anemia Current Visit: No Status: Acute Code(s): D64.9 - ANEMIA, UNSPECIFIED SNOMED Code(s): 342269302 (7) Metastatic breast cancer Current Visit: No Status: Acute Code(s): C50.919 - MALIGNANT NEOPLASM OF UNSP SITE OF UNSPECIFIED FEMALE BREAST SNOMED Code(s): 920986277 Plan: continue overall supportive care and therapeutic paracentesis today continuing to monitor electrolytes and ammonia levels continue lactulose as prescribed. I was notified today of patient's decline and decided to transfer patient to the intensive care unit with ICU management underway patient's condition very poor have discussed with the family. Continuing to monitor patient's care.
[2018-06-25] MEDS: DOCUSATE 100 MG CAP PO SCH ×3 (00:34→20:15)
[2018-06-25] MEDS: METOPROLOL TARTRATE 12.5 MG TAB PO SCH ×3 (00:34→20:15)
[2018-06-25] MEDS: LORATADINE 10 MG TAB PO SCH (00:34)
--- NOTE | 2018-06-25 01:22 | XR ---
EXAM: XR Chest, 1 View CLINICAL HISTORY: NG tube placement TECHNIQUE: Frontal view of the chest. COMPARISON: No relevant prior studies available. FINDINGS: Lungs: Perihilar opacities likely secondary low lung volumes. Pleural space: Unremarkable. No pneumothorax. Heart: Unremarkable. No cardiomegaly. Mediastinum: Unremarkable. Bones/joints: Degenerative changes of the osseous structures. Tubes, lines and devices: Enteric tube with tip in the gastric body. Right subclavian Port-A-Cath the tip in the cavoatrial junction. IMPRESSION: Enteric tube with tip in the gastric body.
[2018-06-25] MEDS: LACTULOSE 20 GM/30 ML CUP PO SCH ×3 (01:25→20:15)
[2018-06-25] MEDS: HYDROmorphone 1 MG/ML 1 ML SYRINGE IVP PRN ×2 (02:29→15:03)
[2018-06-25] MEDS ORDERED: SODIUM CHLORIDE 0.9% 1,000 ML IV ONE (03:08)
[2018-06-25 04:37] LABS: Anisocytosis Slight; Basophils % (A) 0 %; Eosinophils # (A) 0.1 k/uL (0-0.7); Eosinophils % (A) 1 %; HCT 34.3 % (34.0-46.0); HGB 10.6 gm/dL (11.4-16.0); Hypochromasia Moderate; Lymphocytes # (A) 0.9 k/uL (1.0-4.8); Lymphocytes % (A) 9 %; MCH 28.3 pg (25.0-35.0); MCHC 30.9 g/dL (31.0-37.0); MCV 91.3 fL (80.0-100.0); Mean Platelet Volume 6.9; Monocytes # (A) 0.6 k/uL (0-1.0); Monocytes % (A) 5 %; Neutrophils # (A) 8.8 k/uL (1.3-7.7); Neutrophils % (A) 83 %; RBC 3.75 m/uL (3.80-5.40); RDW 18.3 % (11.5-15.5); WBC 10.6 k/uL (3.8-10.6)
[2018-06-25 04:47] LABS: Albumin 2.1 g/dL (3.5-5.0); Calcium 7.3 mg/dL (8.4-10.2); Phosphorus 5.7 mg/dL (2.5-4.5); Potassium 4.9 mmol/L (3.5-5.1); Total Bilirubin 3.5 mg/dL (0.2-1.3); Total Protein 4.2 g/dL (6.3-8.2)
[2018-06-25 04:49] LABS: INR 1.7 (<1.2); Partial Thromboplastin Time 36.6 sec (22.0-30.0); Prothrombin Time 16.8 sec (9.0-12.0)
[2018-06-25 04:56] LABS: Platelet Count 84 k/uL (150-450)
[2018-06-25] MEDS: LEVOTHYROXINE 50 MCG TAB PO SCH (06:10)
[2018-06-25] MEDS: DEXTROSE 5%-0.9% NACL 1,000 ML IV SCH ×2 (06:12→15:06)
--- NOTE | 2018-06-25 08:39 | US ---
Therapeutic paracentesis. DATE OF EXAM: 06/24/2018 CLINICAL HISTORY: Ascites The procedure was discussed with the patient. The risks, complications, benefits, and alternatives we re discussed and any questions were answered. Informed consent was obtained. The patient was placed s upine on the ultrasound table and prepped and draped in the usual sterile fashion. All elements of maximal barrier technique were utilized. Under ultrasound guidance, access into the right lower quadrant was obtained, via the paracentesis catheter system and direct ultrasound guidanc e. Approximately 6 liters of straw-colored fluid was removed. The patient was stable throughout the proc edure and remained stable upon discharge from Department of Radiology. IMPRESSION: Successful therapeutic paracentesis under ultrasound guidance.
[2018-06-25] MEDS: MIDODRINE 5 MG TAB PO SCH ×3 (10:55→18:13)
[2018-06-25] MEDS: FAMOTIDINE 20 MG TAB PO SCH (10:56)
[2018-06-25] MEDS: HYDROCORTISONE SUPPOSITORY 25 MG SUPP RECTAL SCH (11:30)
[2018-06-25 11:46] LABS: Anisocytosis Slight; Basophils % (A) 0 %; Eosinophils # (A) 0.1 k/uL (0-0.7); Eosinophils % (A) 1 %; HCT 34.6 % (34.0-46.0); HGB 10.8 gm/dL (11.4-16.0); Hypochromasia Moderate; Lymphocytes # (A) 0.8 k/uL (1.0-4.8); Lymphocytes % (A) 9 %; MCH 28.8 pg (25.0-35.0); MCHC 31.4 g/dL (31.0-37.0); MCV 91.7 fL (80.0-100.0); Mean Platelet Volume 7.3; Monocytes # (A) 0.5 k/uL (0-1.0); Monocytes % (A) 6 %; Neutrophils # (A) 7.4 k/uL (1.3-7.7); Neutrophils % (A) 82 %; RBC 3.77 m/uL (3.80-5.40); RDW 18.2 % (11.5-15.5); WBC 8.9 k/uL (3.8-10.6)
[2018-06-25 11:57] LABS: Platelet Count 93 k/uL (150-450)
--- NOTE | 2018-06-25 15:38 | P.CNPUL ---
History of Present Illness Consult date: 06/24/18 Requesting physician: Jamar Coronado Reason for consult: other Chief complaint: Altered mental status History of present illness: This is a 67-year-old female patient who follows with Dr. Coronado as her primary care physician. She has a history of diabetes mellitus, lower extremity cellulitis, osteoarthritis, hyperlipidemia, hard of hearing. She also has a history of stage IV metastatic breast cancer that has metastasized to the bone, lymphatic, liver and spleen. he follows with Dr. Nix as her oncologist. Her initial diagnosis was found in a painless mass at the base of her left neck diagnosed in August 2015.labs he was consistent with metastatic carcinoma of the breast primary. PET scan had revealed widely metastatic disease with uptake in the bilateral supraclavicular, bilateral hilar, left axillary and diffusely throughout the skeleton. She was initiated on Zomig and Iberet/Climara in October 2015.been undergoing treatment on and off since then. She had been on carbo/ Gemzar in October 2017. Chemotherapy was stopped due to progressive hematologic toxicity and the risk of further liver damage. Most recently she has been on a phenytoin and Aromasin in February 2018. She was admitted in April 2018 for hepatorenal syndrome and renal insufficiency. Her Afinitor had been held subsequently resumed on 05/18/2018.he presented here to the emergency room on by her for worsening altered mental status. Over the previous several days she had had a significant decline in her mentation. She had been quite confused. Not eating or drinking. An internal appear to be in a lot of pain. She also had symptoms of possible urinary tract infection. She has been here on the regular medical floor. Today she had undergone a paracentesisfor significant ascites. She was returned to her room proximally 4:00 she became unresponsive her was in the room. She started shaking and appeared like possible seizure activity. She subsequently went unresponsive and an A team was called. A computed tomography scan of the brain revealedno acute intracranial mass or hemorrhage. She was subsequently transferred here to the intensive care unit and we're consulted for the same. Presently she is awake and thrashing about repeatedly saying she needs to urinate despite the attempt to orient her to the fact that she has a catheter in place. She is quite restless.she is maintaining good O2 saturations in the upper 90s on room air. She's afebrile. Blood pressure in the 90s systolically but stable.blood and urine cultures reveal no growth.count 6.1. Hemoglobin 13.2. Platelet count 171 ,000. Sodium 127. Potassium 5.2. Chloride 97. Bicarb 10.creatinine 2.83. AST 115, ALT 53, alk phos 322. Ammonia 141. She does have a fentanyl patch in place. Review of Systems ROS unobtainable: due to mental status Past Medical History Past Medical History: Cancer, Diabetes Mellitus, Hearing Disorder / Deafness, Hyperlipidemia, Hypertension, Osteoarthritis (OA), Pneumonia, Thyroid Disorder, Vascular Disorder Additional Past Medical History / Comment(s): Thyroid Nodules.VENOUS STASIS, HX OF PLEURISY . STAGE 4 BREAST CANCER DIAGNOSED IN SEPTEMBER 2015, PER FAMILY"breast CA mets to bone and lymphatic system, liver,spleen, constipation, admitted with hyperkalemia 04/2018 History of Any Multi-Drug Resistant Organisms: None Reported Past Surgical History: Hysterectomy, Tonsillectomy, Tubal Ligation Additional Past Surgical History / Comment(s): RT THYROIDECTOMY. LAPAROSCOPY D/ T Ectopic . BIOPSY MASS LEFT NECK.paracentesis, port a cath placement, excision fibrolipoma/scalp, lt elbow sx Past Anesthesia/Blood Transfusion Reactions: No Reported Reaction Past Psychological History: No Psychological Hx Reported Additional Psychological History / Comment(s): . Lives with her . 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 No experience. No international travel. Pet cat in the home, takes care of the letter box. No other animal exposures Smoking Status: Never smoker Past Alcohol Use History: None Reported Past Drug Use History: None Reported - Past Family History Mother Family Medical History: Deep Vein Thrombosis (DVT) Father Family Medical History: Cancer Sister(s) Family Medical History: Cancer Additional Family Medical History / Comment(s): non-hodgkins lymphoma Medications and Allergies Home Medications Medication Instructions Recorded Confirmed Type Docusate Sodium [Dok] 200 mg PO BID 09/15/15 06/22/18 History Loratadine [Claritin] 10 mg PO HS 01/23/17 06/22/18 History Zoledronic Acid [Zometa] 4 mg IVPB QMONTH 01/23/17 06/22/18 History fentaNYL 50MCG/HR PATCH [Duragesic 1 patch TRANSDERM Q72H #1 patch 10/02/17 Rx 50MCG/HR] Famotidine [Pepcid] 20 mg PO DAILY 01/06/18 06/22/18 History HYDROcodone/APAP 5-325MG [Jack 1 tab PO Q6HR PRN 01/06/18 06/22/18 History 5-325] Polyethylene Glycol 3350 [Miralax] 17 gm PO HS PRN 01/26/18 06/22/18 History Metoprolol Tartrate [Lopressor] 12.5 mg PO BID #60 tab 01/30/18 06/22/18 Rx Exemestane [Aromasin] 25 mg PO DAILY@1800 02/18/18 06/22/18 History Midodrine [ProAmatine] 10 mg PO AC-TID #180 tab 04/23/18 06/22/18 Rx Biotin 10,000 mcg PO HS 05/27/18 06/22/18 History Non-Formulary Drug [Non Formulary 7.5 mg PO PC-SUPPER 05/27/18 06/22/18 History Drug] Sodium Bicarbonate Tab 650 mg PO BID 05/27/18 06/22/18 History Levothyroxine Sodium [Synthroid] 100 mcg PO DAILY 06/22/18 06/22/18 History Allergies Allergy/AdvReac Type Severity Reaction Status Date / Time Penicillins Allergy Rash/Hives Verified 06/22/18 08:10 Sulfa (Sulfonamide Allergy Rash/Hives Verified 06/22/18 08:10 Antibiotics) ibuprofen AdvReac Swelling Verified 06/22/18 08:10 Physical Exam Vitals: Vital Signs Temp Pulse Resp BP Pulse Ox 06/24/18 15:57 97.2 F L 102 H 12 96/61 100 06/24/18 15:15 94 18 94/62 06/24/18 14:49 92 18 91/56 06/24/18 14:40 90 16 92/55 06/24/18 14:23 89 14 90/53 06/24/18 14:05 94 14 101/57 100 06/24/18 13:45 99 14 99/53 100 06/24/18 08:00 12 06/24/18 07:26 97.9 F 90 12 103/69 97 06/23/18 23:00 97.4 F L 85 16 124/82 98 06/23/18 19:34 97.8 F 68 16 117/78 100 Intake and Output 06/24/18 06/24/18 06/24/18 06:59 14:59 22:59 Intake Total 190 200 Balance 190 200 Intake: Oral 190 200 Other: Voiding Method Toilet GENERAL EXAM: Alert, disoriented, restless. On room air. HEAD: Normocephalic. EYES: Normal reaction of pupils, equal size. NOSE: Clear with pink turbinates. THROAT: No erythema or exudates. NECK: No masses, no JVD. CHEST: No chest wall deformity. LUNGS: Equal air entry with no crackles, wheeze, rhonchi or dullness. CVS: S1 and S2 normal with no audible murmur, regular rhythm. ABDOMEN: Distended. Positive fluid wave, normal bowel sounds, no guarding or rigidity. SPINE: No scoliosis or deformity SKIN: No rashes, scarring from previous cellulitis. CENTRAL NERVOUS SYSTEM: No focal deficits, tone is normal in all 4 extremities. EXTREMITIES: There is no peripheral edema. No clubbing, no cyanosis. Peripheral pulses are intact. Results - Laboratory Findings CBC and BMP: 06/25/18 11:17 06/25/18 04:20 PT/INR, D-dimer PT 13.6 sec (9.0-12.0) H 06/22/18 00:55 INR 1.3 (<1.2) H 06/22/18 00:55 Abnormal lab findings: Abnormal Labs 06/22/18 06/22/18 06/22/18 00:55 00:55 00:55 MCHC 30.4 L RDW 18.2 H Plt Count Lymphocytes # PT INR APTT Sodium 128 L Potassium Chloride Carbon Dioxide 18 L BUN 55 H Creatinine 1.77 H Glucose POC Glucose (mg/dL) Plasma Lactic Acid Rufino 2.1 H* Calcium 8.2 L Phosphorus Total Bilirubin 3.4 H AST 92 H ALT Alkaline Phosphatase 300 H Ammonia 126 H Total Protein 5.0 L Albumin 2.6 L Urine Protein Urine Blood Urine Bilirubin Hyaline Casts 06/22/18 06/22/18 06/22/18 00:55 00:55 05:20 MCHC RDW Plt Count Lymphocytes # PT 13.6 H INR 1.3 H APTT 32.1 H Sodium Potassium Chloride Carbon Dioxide BUN Creatinine Glucose POC Glucose (mg/dL) Plasma Lactic Acid Rufino 2.2 H* Calcium Phosphorus Total Bilirubin AST ALT Alkaline Phosphatase Ammonia Total Protein Albumin Urine Protein Trace H Urine Blood Small H Urine Bilirubin 1+ H Hyaline Casts 112 H 06/22/18 06/23/18 06/23/18 11:49 07:07 07:07 MCHC RDW 18.2 H Plt Count 141 L Lymphocytes # PT INR APTT Sodium 128 L Potassium Chloride Carbon Dioxide 19 L BUN 58 H Creatinine 2.17 H Glucose 108 H POC Glucose (mg/dL) Plasma Lactic Acid Rufino Calcium 8.1 L Phosphorus Total Bilirubin 3.8 H AST 99 H ALT Alkaline Phosphatase 301 H Ammonia 102 H Total Protein 4.9 L Albumin 2.5 L Urine Protein Urine Blood Urine Bilirubin Hyaline Casts 06/24/18 06/24/18 06/24/18 06:44 06:44 06:44 MCHC 30.9 L RDW 18.2 H Plt Count Lymphocytes # 0.6 L PT INR APTT Sodium 127 L Potassium Chloride 97 L Carbon Dioxide 16 L BUN 62 H Creatinine 2.38 H Glucose 121 H POC Glucose (mg/dL) Plasma Lactic Acid Rufino Calcium 8.3 L Phosphorus Total Bilirubin 4.0 H AST 112 H ALT 53 H Alkaline Phosphatase 346 H Ammonia 126 H Total Protein 5.2 L Albumin 2.7 L Urine Protein Urine Blood Urine Bilirubin Hyaline Casts 06/24/18 06/24/18 06/24/18 15:58 16:15 16:15 MCHC RDW Plt Count Lymphocytes # PT INR APTT Sodium 127 L Potassium 5.2 H Chloride 97 L Carbon Dioxide 10 L BUN 63 H Creatinine 2.83 H Glucose 129 H POC Glucose (mg/dL) 117 H Plasma Lactic Acid Rufino Calcium Phosphorus 7.1 H Total Bilirubin 4.6 H AST 115 H ALT 53 H Alkaline Phosphatase 322 H Ammonia 141 H Total Protein 5.2 L Albumin 2.7 L Urine Protein Urine Blood Urine Bilirubin Hyaline Casts 06/24/18 16:44 MCHC RDW Plt Count Lymphocytes # PT INR APTT Sodium Potassium Chloride Carbon Dioxide BUN Creatinine Glucose POC Glucose (mg/dL) 123 H Plasma Lactic Acid Rufino Calcium Phosphorus Total Bilirubin AST ALT Alkaline Phosphatase Ammonia Total Protein Albumin Urine Protein Urine Blood Urine Bilirubin Hyaline Casts Assessment and Plan Assessment: Impression: #1 Metastatic breast cancer with stable metastatic disease. #2 Metastatic liver disease with elevated ammonia and signs of hepatic encephalopathy. #3 And hepatic encephalopathy with elevated pneumonia levels. With delirium. Currently receiving lactulose and Haldol. #4 Acute on chronic hyponatremia. #5 Recurrent abdominal ascites. Requiring repeated paracentesis. #6 Acute renal failure. #7 coagulopathy secondary to liver failure. Plan: The patient was seen and evaluated by Dr. Javier. We did utilize Haldol as the patient was quite restless and attempting to climb out of bed. She had been refusing her lactulose. Nasogastric tube was placed. Continue to monitor ammonia levels. Continue to monitor her here in the intensive care unit. Continue to monitor LFTs and coagulation profile. Continue empiric antibiotics. We'll continue to follow make further recommendations based on her clinical status. I, the cosigning physician, performed a history & physical examination of the patient. Lungs sounds are clear. Maintaining good O2 saturations in the 90s on room air. I discussed the assessment and plan of care with my nurse practitioner, Sivan Falk. I attest to the above note as dictated by her.
--- NOTE | 2018-06-25 15:38 | P.PN ---
Subjective Progress Note Date: 06/25/18 On today's evaluation of 06/25/2018, I'm seeing this patient for a follow-up. Note that the patient was quite agitated overnight. The patient was given Haldol which controlled her agitation. At the same time, the patient had an NG tube placed and she was started on lactulose for hepatic encephalopathy knowing that her ammonia level was considerably elevated. She is still nothing by mouth. The patient is receiving IV fluids for now and she is on D5 normal saline at rate of 100 mL an hour which improved her urine output. No active pain issues pH is resting comfortably in bed. No hypotension. No fever or chills. She is on empiric antibiotic coverage with IV Rocephin. Otherwise there has been no other significant events overnight. Family is at the bedside. She responds to questions appropriately, yet other times, she looks to be more confused. Objective - Vital Signs Vital signs: Vital Signs Temp 98.5 F 06/25/18 12:00 Pulse 100 06/25/18 14:00 Resp 12 06/25/18 14:00 BP 113/68 06/25/18 14:00 Pulse Ox 99 06/25/18 14:00 Intake & Output 06/24/18 06/25/18 06/25/18 18:59 06:59 18:59 Intake Total 200 2000 520 Output Total 120 60 Balance 200 1880 460 Weight 90.2 kg Intake: IV 2000 520 0.9 1000 120 Dextrose 5%-0.9% NaCl 1, 1000 400 000 ml @ 100 mls/hr IV . Q10H [facility] Rx#:[id number] Oral 200 Output: Urine 120 60 Other: Voiding Method Indwelling Catheter Indwelling Catheter Indwelling Catheter - Exam - Constitutional General appearance: mild distress, obese - EENT Eyes: icteric sclerae, EOMI ENT: hard of hearing, normal oropharynx - Neck Neck: no lymphadenopathy - Respiratory Respiratory: bilateral: CTA - Cardiovascular Heart sounds: normal: S1, S2 leg Peripheral Edema: bilateral: 1+, Pitting - Gastrointestinal General gastrointestinal:Abdominal Ascited, firm, distended tender - Integumentary Integumentary: pale - Neurologic Neurologic: moves all extremities, not following commands - Musculoskeletal Musculoskeletal: generalized weakness - Psychiatric Psychiatric: Lethargic confusion - Labs CBC & Chem 7: 06/25/18 11:17 06/25/18 04:20 Labs: Abnormal Lab Results - Last 24 Hours (Table) 06/24/18 06/24/18 06/24/18 Range/Units 15:58 16:15 16:15 RBC (3.80-5.40) m/uL Hgb (11.4-16.0) gm/dL MCHC (31.0-37.0) g/dL RDW (11.5-15.5) % Plt Count (150-450) k/uL Neutrophils # (1.3-7.7) k/uL Lymphocytes # (1.0-4.8) k/uL PT (9.0-12.0) sec INR (<1.2) APTT (22.0-30.0) sec Sodium 127 L (137-145) mmol/L Potassium 5.2 H (3.5-5.1) mmol/L Chloride 97 L (98-107) mmol/L Carbon Dioxide 10 L (22-30) mmol/L BUN 63 H (7-17) mg/dL Creatinine 2.83 H (0.52-1.04) mg/dL Glucose 129 H (74-99) mg/dL POC Glucose (mg/dL) 117 H (75-99) mg/dL Calcium (8.4-10.2) mg/dL Phosphorus 7.1 H (2.5-4.5) mg/dL Total Bilirubin 4.6 H (0.2-1.3) mg/dL AST 115 H (14-36) U/L ALT 53 H (9-52) U/L Alkaline Phosphatase 322 H (38-126) U/L Ammonia 141 H (<30) umol/L Total Protein 5.2 L (6.3-8.2) g/dL Albumin 2.7 L (3.5-5.0) g/dL 06/24/18 06/25/18 06/25/18 Range/Units 16:44 04:20 04:20 RBC 3.75 L (3.80-5.40) m/uL Hgb 10.6 L (11.4-16.0) gm/dL MCHC 30.9 L (31.0-37.0) g/dL RDW 18.3 H (11.5-15.5) % Plt Count 84 L D (150-450) k/uL Neutrophils # 8.8 H (1.3-7.7) k/uL Lymphocytes # 0.9 L (1.0-4.8) k/uL PT 16.8 H (9.0-12.0) sec INR 1.7 H (<1.2) APTT 36.6 H (22.0-30.0) sec Sodium (137-145) mmol/L Potassium (3.5-5.1) mmol/L Chloride (98-107) mmol/L Carbon Dioxide (22-30) mmol/L BUN (7-17) mg/dL Creatinine (0.52-1.04) mg/dL Glucose (74-99) mg/dL POC Glucose (mg/dL) 123 H (75-99) mg/dL Calcium (8.4-10.2) mg/dL Phosphorus (2.5-4.5) mg/dL Total Bilirubin (0.2-1.3) mg/dL AST (14-36) U/L ALT (9-52) U/L Alkaline Phosphatase (38-126) U/L Ammonia (<30) umol/L Total Protein (6.3-8.2) g/dL Albumin (3.5-5.0) g/dL 06/25/18 06/25/18 06/25/18 Range/Units 04:20 04:20 11:17 RBC 3.77 L (3.80-5.40) m/uL Hgb 10.8 L (11.4-16.0) gm/dL MCHC (31.0-37.0) g/dL RDW 18.2 H (11.5-15.5) % Plt Count 93 L (150-450) k/uL Neutrophils # (1.3-7.7) k/uL Lymphocytes # 0.8 L (1.0-4.8) k/uL PT (9.0-12.0) sec INR (<1.2) APTT (22.0-30.0) sec Sodium 129 L (137-145) mmol/L Potassium (3.5-5.1) mmol/L Chloride (98-107) mmol/L Carbon Dioxide 18 L (22-30) mmol/L BUN 67 H (7-17) mg/dL Creatinine 2.89 H (0.52-1.04) mg/dL Glucose 145 H (74-99) mg/dL POC Glucose (mg/dL) (75-99) mg/dL Calcium 7.3 L (8.4-10.2) mg/dL Phosphorus 5.7 H (2.5-4.5) mg/dL Total Bilirubin 3.5 H (0.2-1.3) mg/dL AST 163 H (14-36) U/L ALT 57 H (9-52) U/L Alkaline Phosphatase 251 H (38-126) U/L Ammonia 61 H (<30) umol/L Total Protein 4.2 L (6.3-8.2) g/dL Albumin 2.1 L (3.5-5.0) g/dL Microbiology - Last 24 Hours (Table) 06/22/18 00:55 Blood Culture - Preliminary Blood No Growth after 72 hours Assessment and Plan Plan: Assessment 1 metastatic breast cancer with skeletal and liver involvement. The patient has been maintained on a combination of Fosamax, Afinitor, Zometa and according to the oncology his assessment, the patient had a stable metastatic disease. 2 liver metastases with abnormal LFTs and elevated ammonia, consistent with liver failure and the patient has signs of hepatic encephalopathy 3 hepatitic encephalopathy with elevated ammonia level, likely secondary to liver dysfunction. The patient was quite agitated an underlying DDD and cannot be completely excluded. She was given lactulose. She was given Haldol for agitation 4 hyponatremia 5 acute on chronic renal failure, and a creatinine that the rise at 2.89. The patient on D5 normal saline at the rate of 100 mL an hour and the creatinine is still at 2.8. She remains nothing by mouth for now. 6 recurrent abdominal ascites and the patient has required repeated paracentesis. 7 coagulopathy likely secondary to hepatic dysfunction/failure 8 non-anion gap metabolic acidosis Plan Keep the NG tube in place. Continue the lactulose 20 mL twice a day and the patient has not developed a bowel movement yet. Ammonia level is on the decline. Mental status seems to be improved compared to yesterday. No significant agitation. She has Haldol on board. We'll continue monitoring the LFTs. Will consume monitoring the coagulation profile. We'll continue monitoring the ammonia level. Chest x-ray shows no evidence of any pneumonia or aspiration. The patient is on IV Rocephin as an empiric antibiotic coverage. Meanwhile, we'll do a swallow evaluation assess the patient's ability to swallow. Keep the NG tube in place for now. Awaiting further recommendations from oncology regarding her CODE STATUS and her long-term prognosis. She'll be kept in ICU for another 24 hours. Family is at the bedside.
[2018-06-25] MEDS: Exemestane [Aromasin] 25 MG PO SCH (18:12)
--- NOTE | 2018-06-25 19:03 | P.GSCN ---
History of Present Illness Consult date: 06/25/18 Reason for Consult: Symptomatic hemorrhoids History of present illness: Patient with a complex medical history. Patient unfortunately has metastatic breast cancer. She has associated liver failure. She is currently in the ICU for hepatic encephalopathy. Patient has frequent therapeutic paracentesis for ascites. Patient has had complaints of hemorrhoidal discomfort. Occasional bleeding. We were consulted for this reason. Review of Systems ROS unobtainable: due to mental status Past Medical History Past Medical History: Cancer, Diabetes Mellitus, Hearing Disorder / Deafness, Hyperlipidemia, Hypertension, Osteoarthritis (OA), Pneumonia, Thyroid Disorder, Vascular Disorder Additional Past Medical History / Comment(s): Thyroid Nodules.VENOUS STASIS, HX OF PLEURISY . STAGE 4 BREAST CANCER DIAGNOSED IN SEPTEMBER 2015, PER FAMILY"breast CA mets to bone and lymphatic system, liver,spleen, constipation, admitted with hyperkalemia 04/2018 History of Any Multi-Drug Resistant Organisms: None Reported Past Surgical History: Hysterectomy, Tonsillectomy, Tubal Ligation Additional Past Surgical History / Comment(s): RT THYROIDECTOMY. LAPAROSCOPY D/ T Ectopic . BIOPSY MASS LEFT NECK.paracentesis, port a cath placement, excision fibrolipoma/scalp, lt elbow sx Past Anesthesia/Blood Transfusion Reactions: No Reported Reaction Past Psychological History: No Psychological Hx Reported Additional Psychological History / Comment(s): . Lives with her . 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 No experience. No international travel. Pet cat in the home, takes care of the letter box. No other animal exposures Smoking Status: Never smoker Past Alcohol Use History: None Reported Past Drug Use History: None Reported - Past Family History Mother Family Medical History: Deep Vein Thrombosis (DVT) Father Family Medical History: Cancer Sister(s) Family Medical History: Cancer Additional Family Medical History / Comment(s): non-hodgkins lymphoma Medications and Allergies Home Medications Medication Instructions Recorded Confirmed Type Docusate Sodium [Dok] 200 mg PO BID 09/15/15 06/22/18 History Loratadine [Claritin] 10 mg PO HS 01/23/17 06/22/18 History Zoledronic Acid [Zometa] 4 mg IVPB QMONTH 01/23/17 06/22/18 History fentaNYL 50MCG/HR PATCH [Duragesic 1 patch TRANSDERM Q72H #1 patch 10/02/17 Rx 50MCG/HR] Famotidine [Pepcid] 20 mg PO DAILY 01/06/18 06/22/18 History HYDROcodone/APAP 5-325MG [Maxbass 1 tab PO Q6HR PRN 01/06/18 06/22/18 History 5-325] Polyethylene Glycol 3350 [Miralax] 17 gm PO HS PRN 01/26/18 06/22/18 History Metoprolol Tartrate [Lopressor] 12.5 mg PO BID #60 tab 01/30/18 06/22/18 Rx Exemestane [Aromasin] 25 mg PO DAILY@1800 02/18/18 06/22/18 History Midodrine [ProAmatine] 10 mg PO AC-TID #180 tab 04/23/18 06/22/18 Rx Biotin 10,000 mcg PO HS 05/27/18 06/22/18 History Non-Formulary Drug [Non Formulary 7.5 mg PO PC-SUPPER 05/27/18 06/22/18 History Drug] Sodium Bicarbonate Tab 650 mg PO BID 05/27/18 06/22/18 History Levothyroxine Sodium [Synthroid] 100 mcg PO DAILY 06/22/18 06/22/18 History Allergies Allergy/AdvReac Type Severity Reaction Status Date / Time Penicillins Allergy Rash/Hives Verified 06/22/18 08:10 Sulfa (Sulfonamide Allergy Rash/Hives Verified 06/22/18 08:10 Antibiotics) ibuprofen AdvReac Swelling Verified 06/22/18 08:10 Surgical - Exam Vital Signs Temp Pulse Resp BP Pulse Ox 98.3 F 79 18 120/82 99 06/22/18 00:19 06/22/18 00:19 06/22/18 00:19 06/22/18 00:19 06/22/18 00:19 Physical exam: General: Well-developed, well-nourished HEENT: Normocephalic, sclerae Icteric Abdomen: Nontender, Mildly distended Extremities: edematous Neuro: Confused Rectal: Small moderate-sized internal and external hemorrhoids without evidence of thrombosis or bleeding. Results - Labs 06/25/18 11:17 06/25/18 04:20 Abnormal Lab Results - Last 24 Hours (Table) 06/25/18 06/25/18 06/25/18 Range/Units 04:20 04:20 04:20 RBC 3.75 L (3.80-5.40) m/uL Hgb 10.6 L (11.4-16.0) gm/dL MCHC 30.9 L (31.0-37.0) g/dL RDW 18.3 H (11.5-15.5) % Plt Count 84 L D (150-450) k/uL Neutrophils # 8.8 H (1.3-7.7) k/uL Lymphocytes # 0.9 L (1.0-4.8) k/uL PT 16.8 H (9.0-12.0) sec INR 1.7 H (<1.2) APTT 36.6 H (22.0-30.0) sec Sodium 129 L (137-145) mmol/L Carbon Dioxide 18 L (22-30) mmol/L BUN 67 H (7-17) mg/dL Creatinine 2.89 H (0.52-1.04) mg/dL Glucose 145 H (74-99) mg/dL Calcium 7.3 L (8.4-10.2) mg/dL Phosphorus 5.7 H (2.5-4.5) mg/dL Total Bilirubin 3.5 H (0.2-1.3) mg/dL AST 163 H (14-36) U/L ALT 57 H (9-52) U/L Alkaline Phosphatase 251 H (38-126) U/L Ammonia (<30) umol/L Total Protein 4.2 L (6.3-8.2) g/dL Albumin 2.1 L (3.5-5.0) g/dL 06/25/18 06/25/18 Range/Units 04:20 11:17 RBC 3.77 L (3.80-5.40) m/uL Hgb 10.8 L (11.4-16.0) gm/dL MCHC (31.0-37.0) g/dL RDW 18.2 H (11.5-15.5) % Plt Count 93 L (150-450) k/uL Neutrophils # (1.3-7.7) k/uL Lymphocytes # 0.8 L (1.0-4.8) k/uL PT (9.0-12.0) sec INR (<1.2) APTT (22.0-30.0) sec Sodium (137-145) mmol/L Carbon Dioxide (22-30) mmol/L BUN (7-17) mg/dL Creatinine (0.52-1.04) mg/dL Glucose (74-99) mg/dL Calcium (8.4-10.2) mg/dL Phosphorus (2.5-4.5) mg/dL Total Bilirubin (0.2-1.3) mg/dL AST (14-36) U/L ALT (9-52) U/L Alkaline Phosphatase (38-126) U/L Ammonia 61 H (<30) umol/L Total Protein (6.3-8.2) g/dL Albumin (3.5-5.0) g/dL Microbiology - Last 24 Hours (Table) 06/22/18 00:55 Blood Culture - Preliminary Blood No Growth after 72 hours Diabetes panel 06/25/18 Range/Units 04:20 Sodium 129 L (137-145) mmol/L Potassium 4.9 (3.5-5.1) mmol/L Chloride 100 (98-107) mmol/L Carbon Dioxide 18 L (22-30) mmol/L BUN 67 H (7-17) mg/dL Creatinine 2.89 H (0.52-1.04) mg/dL Glucose 145 H (74-99) mg/dL Calcium 7.3 L (8.4-10.2) mg/dL AST 163 H (14-36) U/L ALT 57 H (9-52) U/L Alkaline Phosphatase 251 H (38-126) U/L Total Protein 4.2 L (6.3-8.2) g/dL Albumin 2.1 L (3.5-5.0) g/dL Calcium panel 06/25/18 Range/Units 04:20 Calcium 7.3 L (8.4-10.2) mg/dL Phosphorus 5.7 H (2.5-4.5) mg/dL Albumin 2.1 L (3.5-5.0) g/dL Pituitary panel 06/25/18 Range/Units 04:20 Sodium 129 L (137-145) mmol/L Potassium 4.9 (3.5-5.1) mmol/L Chloride 100 (98-107) mmol/L Carbon Dioxide 18 L (22-30) mmol/L BUN 67 H (7-17) mg/dL Creatinine 2.89 H (0.52-1.04) mg/dL Glucose 145 H (74-99) mg/dL Calcium 7.3 L (8.4-10.2) mg/dL Adrenal panel 06/25/18 Range/Units 04:20 Sodium 129 L (137-145) mmol/L Potassium 4.9 (3.5-5.1) mmol/L Chloride 100 (98-107) mmol/L Carbon Dioxide 18 L (22-30) mmol/L BUN 67 H (7-17) mg/dL Creatinine 2.89 H (0.52-1.04) mg/dL Glucose 145 H (74-99) mg/dL Calcium 7.3 L (8.4-10.2) mg/dL Total Bilirubin 3.5 H (0.2-1.3) mg/dL AST 163 H (14-36) U/L ALT 57 H (9-52) U/L Alkaline Phosphatase 251 H (38-126) U/L Total Protein 4.2 L (6.3-8.2) g/dL Albumin 2.1 L (3.5-5.0) g/dL Assessment and Plan (1) External hemorrhoids Narrative/Plan: Patient with complaints of pain from her hemorrhoids. Hemorrhoids or another manifestation of the patient's ongoing liver failure. No surgical intervention indicated at this time. No thrombosis or ischemia of the hemorrhoids seen presently. Patient with gradual decline in quality of life. Agree with ongoing CODE STATUS discussions. Prognosis grim. Current Visit: Yes Status: Acute Code(s): K64.4 - RESIDUAL HEMORRHOIDAL SKIN TAGS SNOMED Code(s): 30761618
--- NOTE | 2018-06-25 20:44 | P.PN ---
Subjective Progress Note Date: 06/25/18 Principal diagnosis: Metastatic Cancer, Metabolic Encephalopathy Transferred to the care of ICU for closer monitoring at the direction of primary Physician Dr. abbott. CO2 improved, platlets are , liver and renal function remain around the same, gen surgery did see patient, no intervention at this time. not present during following this evening, will await status in am and attempt to discuss overall goals of care with and patient Objective - Vital Signs Vital signs: Vital Signs Temp 97.8 F 06/25/18 08:00 Pulse 93 06/25/18 10:00 Resp 11 L 06/25/18 10:00 BP 121/69 06/25/18 10:00 Pulse Ox 96 06/25/18 10:00 Intake & Output 06/24/18 06/25/18 06/25/18 18:59 06:59 18:59 Intake Total 200 2000 100 Output Total 120 15 Balance 200 1880 85 Weight 90.2 kg Intake: IV 2000 100 0.9 1000 Dextrose 5%-0.9% NaCl 1, 1000 100 000 ml @ 100 mls/hr IV . Q10H [facility] Rx#:[id number] Oral 200 Output: Urine 120 15 Other: Voiding Method Indwelling Catheter Indwelling Catheter - Exam - Constitutional General appearance: mild distress, obese - EENT Eyes: icteric sclerae, EOMI ENT: hard of hearing, normal oropharynx NG tube in place - Neck Neck: no lymphadenopathy - Respiratory Respiratory: bilateral: CTA - Cardiovascular Heart sounds: normal: S1, S2 leg Peripheral Edema: bilateral: 1+, Pitting - Gastrointestinal General gastrointestinal:Abdominal Ascited, firm, distended tender - Integumentary Integumentary: pale - Neurologic Neurologic: moves all extremities, not following commands - Musculoskeletal Musculoskeletal: generalized weakness - Psychiatric Psychiatric: Lthargic confusion - Labs CBC & Chem 7: 06/25/18 11:17 06/25/18 04:20 Labs: Abnormal Lab Results - Last 24 Hours (Table) 06/24/18 06/24/18 06/24/18 Range/Units 06:44 15:58 16:15 RBC (3.80-5.40) m/uL Hgb (11.4-16.0) gm/dL MCHC (31.0-37.0) g/dL RDW (11.5-15.5) % Plt Count (150-450) k/uL Neutrophils # (1.3-7.7) k/uL Lymphocytes # (1.0-4.8) k/uL PT (9.0-12.0) sec INR (<1.2) APTT (22.0-30.0) sec Sodium 127 L (137-145) mmol/L Potassium 5.2 H (3.5-5.1) mmol/L Chloride 97 L (98-107) mmol/L Carbon Dioxide 10 L (22-30) mmol/L BUN 63 H (7-17) mg/dL Creatinine 2.83 H (0.52-1.04) mg/dL Glucose 129 H (74-99) mg/dL POC Glucose (mg/dL) 117 H (75-99) mg/dL Calcium (8.4-10.2) mg/dL Phosphorus 7.1 H (2.5-4.5) mg/dL Total Bilirubin 4.6 H (0.2-1.3) mg/dL AST 115 H (14-36) U/L ALT 53 H (9-52) U/L Alkaline Phosphatase 322 H (38-126) U/L Ammonia 126 H (<30) umol/L Total Protein 5.2 L (6.3-8.2) g/dL Albumin 2.7 L (3.5-5.0) g/dL 06/24/18 06/24/18 06/25/18 Range/Units 16:15 16:44 04:20 RBC (3.80-5.40) m/uL Hgb (11.4-16.0) gm/dL MCHC (31.0-37.0) g/dL RDW (11.5-15.5) % Plt Count (150-450) k/uL Neutrophils # (1.3-7.7) k/uL Lymphocytes # (1.0-4.8) k/uL PT 16.8 H (9.0-12.0) sec INR 1.7 H (<1.2) APTT 36.6 H (22.0-30.0) sec Sodium (137-145) mmol/L Potassium (3.5-5.1) mmol/L Chloride (98-107) mmol/L Carbon Dioxide (22-30) mmol/L BUN (7-17) mg/dL Creatinine (0.52-1.04) mg/dL Glucose (74-99) mg/dL POC Glucose (mg/dL) 123 H (75-99) mg/dL Calcium (8.4-10.2) mg/dL Phosphorus (2.5-4.5) mg/dL Total Bilirubin (0.2-1.3) mg/dL AST (14-36) U/L ALT (9-52) U/L Alkaline Phosphatase (38-126) U/L Ammonia 141 H (<30) umol/L Total Protein (6.3-8.2) g/dL Albumin (3.5-5.0) g/dL 06/25/18 06/25/18 06/25/18 Range/Units 04:20 04:20 04:20 RBC 3.75 L (3.80-5.40) m/uL Hgb 10.6 L (11.4-16.0) gm/dL MCHC 30.9 L (31.0-37.0) g/dL RDW 18.3 H (11.5-15.5) % Plt Count 84 L D (150-450) k/uL Neutrophils # 8.8 H (1.3-7.7) k/uL Lymphocytes # 0.9 L (1.0-4.8) k/uL PT (9.0-12.0) sec INR (<1.2) APTT (22.0-30.0) sec Sodium 129 L (137-145) mmol/L Potassium (3.5-5.1) mmol/L Chloride (98-107) mmol/L Carbon Dioxide 18 L (22-30) mmol/L BUN 67 H (7-17) mg/dL Creatinine 2.89 H (0.52-1.04) mg/dL Glucose 145 H (74-99) mg/dL POC Glucose (mg/dL) (75-99) mg/dL Calcium 7.3 L (8.4-10.2) mg/dL Phosphorus 5.7 H (2.5-4.5) mg/dL Total Bilirubin 3.5 H (0.2-1.3) mg/dL AST 163 H (14-36) U/L ALT 57 H (9-52) U/L Alkaline Phosphatase 251 H (38-126) U/L Ammonia 61 H (<30) umol/L Total Protein 4.2 L (6.3-8.2) g/dL Albumin 2.1 L (3.5-5.0) g/dL Microbiology - Last 24 Hours (Table) 06/22/18 00:55 Blood Culture - Preliminary Blood No Growth after 72 hours Assessment and Plan Plan: Metabolic Encephalopathy: - Rising Ammonia - Unable to stay adherent to lactulose at home and on admission with Hemorrhoid pain - Increase Lactulose from BID to QID, defer to GI - GI Following - Amonia decreased today from 141 to 61 Hyponatremia - - Nephrology Following - Recurrent Ascites and third spacing - Improved today 129 Acute on Chronic Renal Failure - Concern for hepatorenal Syndrome - Rising LFTs - Worsening Ascites - Nephrology Management Metastatic breast carcinoma - Known to Liver, Bone - Maintained on Afinitor, Faslodex, Zometa with stable Metastatic disease - Hold afinitor for now. With increasing Liver and Renal Function - Continue Aromasin Liver Transiminitis - Monitor Daily LFTs - Continue Lactulose - Monitor Coags, mild coagulopathy. Acidosis: CO2 = 10, trending down - ICU Management - Sodium Bicarbonate per ICU and Nephrology Recurrent Abdominal Ascites - Related to End Stage Liver disease - In the picture of Presumptive Hepatorenal Syndrome Paracentesis and send culture for associated peritonitis - IR is consulted for Paracentesis Painful Hemorroids - Underlying cause of her non-adherence to Lactulose to stay ahead of the encephalopathy - Gen Surgery consulted regarding intervention options Plan: - ICU Care regarding above - NG in place - Platlets decreased by half and hemoglobin by 3 points, rec redraw now. - Currently still receiving full supportive care - Continue to Hold Afinitor - Surgery input regarding Hemorrhoids - Monitor Daily CBC, CMP - Arvizu Cultures Pending - Paracentesis plan today - Discussion of goals of care as overall prognosis gaurded to poor - Await presence and will await Friday morning status. Physician Attestation: I have completed the full history and physical and developed the complete impression and plan of this patient. I agree with above dictation by Barbara Olguin, DIctated as a scribe.
--- NOTE | 2018-06-25 22:06 | P.PN ---
Subjective Progress Note Date: 06/25/18 Cyndie is a pleasantdebilitated 67-year-old white female is admitted for a metabolic encephalopathy due to liver failure extending from her metastatic breast cancer with metastasis to liver and bone. She has not been doing well on discussed with her daughter and her over the past week with lack of appetite dehydration in climbing ammonia levels patient has been slightly noncompliant with lactulose use. Patient is currently going down for a paracentesis because of increasing amount of ascites fluid buildup.patient had confusion as well as last night which received Haldol dose and seemed to be improved she wants NG tube removed. She is worsening with her liver failure and the ultimate f treatment of metastatic breast cancer with liver and bone metastasis will have to be discussed with oncology. Objective - Vital Signs Vital signs: Vital Signs Temp 98.0 F 06/25/18 20:00 Pulse 86 06/25/18 21:00 Resp 12 06/25/18 21:00 BP 130/71 06/25/18 21:00 Pulse Ox 98 06/25/18 21:00 Intake & Output 06/25/18 06/25/18 06/26/18 06:59 18:59 06:59 Intake Total 1999 1120 200 Output Total 120 137 25 Balance 1880 983 175 Weight 90.2 kg Intake: IV 1999 1120 200 0.9 1000 120 Dextrose 5%-0.9% NaCl 1, 1000 1000 200 000 ml @ 100 mls/hr IV . Q10H [facility] Rx#:[id number] Output: Urine 120 137 25 Other: Voiding Method Indwelling Catheter Indwelling Catheter - Exam GENERAL, awake alert and confused. HEENT: Normocephalic. Neck is supple. Pupils reactive. Nostrils clear. Oral cavity is moist. Ears reveal no drainage. Neck reveals no JVD, carotid bruits, or thyromegaly. CHEST EXAMINATION: Trachea is central. Symmetrical expansion. Bibasilar diminished air entry. Lung ken clear to auscultation and percussion. CARDIAC: Normal S1, S2 with no gallops. No murmurs ABDOMEN: Soft. Distended with ascites. Bowel sounds normal. No organomegaly. No abdominal bruits. Extremities: reveal no edema. No clubbing or cyanosis Neurologically awake, alert, oriented x2-3 with well-coordinated movements. No focal deficits noted Skin: No rash or skin lesions. Psychiatric: Coperative. Could not be assessed completely Musculoskeletal: No joint swelling or deformity. Normal range of motion - Labs CBC & Chem 7: 06/25/18 11:17 06/25/18 04:20 Labs: Abnormal Lab Results - Last 24 Hours (Table) 06/25/18 06/25/18 06/25/18 Range/Units 04:20 04:20 04:20 RBC 3.75 L (3.80-5.40) m/uL Hgb 10.6 L (11.4-16.0) gm/dL MCHC 30.9 L (31.0-37.0) g/dL RDW 18.3 H (11.5-15.5) % Plt Count 84 L D (150-450) k/uL Neutrophils # 8.8 H (1.3-7.7) k/uL Lymphocytes # 0.9 L (1.0-4.8) k/uL PT 16.8 H (9.0-12.0) sec INR 1.7 H (<1.2) APTT 36.6 H (22.0-30.0) sec Sodium 129 L (137-145) mmol/L Carbon Dioxide 18 L (22-30) mmol/L BUN 67 H (7-17) mg/dL Creatinine 2.89 H (0.52-1.04) mg/dL Glucose 145 H (74-99) mg/dL Calcium 7.3 L (8.4-10.2) mg/dL Phosphorus 5.7 H (2.5-4.5) mg/dL Total Bilirubin 3.5 H (0.2-1.3) mg/dL AST 163 H (14-36) U/L ALT 57 H (9-52) U/L Alkaline Phosphatase 251 H (38-126) U/L Ammonia (<30) umol/L Total Protein 4.2 L (6.3-8.2) g/dL Albumin 2.1 L (3.5-5.0) g/dL 06/25/18 06/25/18 Range/Units 04:20 11:17 RBC 3.77 L (3.80-5.40) m/uL Hgb 10.8 L (11.4-16.0) gm/dL MCHC (31.0-37.0) g/dL RDW 18.2 H (11.5-15.5) % Plt Count 93 L (150-450) k/uL Neutrophils # (1.3-7.7) k/uL Lymphocytes # 0.8 L (1.0-4.8) k/uL PT (9.0-12.0) sec INR (<1.2) APTT (22.0-30.0) sec Sodium (137-145) mmol/L Carbon Dioxide (22-30) mmol/L BUN (7-17) mg/dL Creatinine (0.52-1.04) mg/dL Glucose (74-99) mg/dL Calcium (8.4-10.2) mg/dL Phosphorus (2.5-4.5) mg/dL Total Bilirubin (0.2-1.3) mg/dL AST (14-36) U/L ALT (9-52) U/L Alkaline Phosphatase (38-126) U/L Ammonia 61 H (<30) umol/L Total Protein (6.3-8.2) g/dL Albumin (3.5-5.0) g/dL Microbiology - Last 24 Hours (Table) 06/22/18 00:55 Blood Culture - Preliminary Blood No Growth after 72 hours Assessment and Plan (1) Altered mental status Current Visit: Yes Status: Acute Code(s): R41.82 - ALTERED MENTAL STATUS, UNSPECIFIED SNOMED Code(s): 616073744 (2) Dehydration Current Visit: Yes Status: Acute Code(s): E86.0 - DEHYDRATION SNOMED Code( s): 36279388 (3) Hyperammonemia Current Visit: Yes Status: Acute Code(s): E72.20 - DISORDER OF UREA CYCLE METABOLISM, UNSPECIFIED SNOMED Code(s): 5051981 (4) Acute kidney injury Current Visit: No Status: Acute Code(s): N17.9 - ACUTE KIDNEY FAILURE, UNSPECIFIED SNOMED Code(s): 70464454 (5) Ascites Current Visit: No Status: Acute Code(s): R18.8 - OTHER ASCITES SNOMED Code (s): 557798034 (6) Chronic anemia Current Visit: No Status: Acute Code(s): D64.9 - ANEMIA, UNSPECIFIED SNOMED Code(s): 636932327 (7) Metastatic breast cancer Current Visit: No Status: Acute Code(s): C50.919 - MALIGNANT NEOPLASM OF UNSP SITE OF UNSPECIFIED FEMALE BREAST SNOMED Code(s): 763404858 Plan: continue overall supportive care and therapeutic paracentesis today continuing to monitor electrolytes and ammonia levels continue lactulose as prescribed. I was notified today of patient's decline and decided to transfer patient to the intensive care unit with ICU management underway patient's condition very poor have discussed with the family. Continuing to monitor patient's care.we'll discuss with oncology overall prognosis and worsening of liver failure to determine if patient should continue the course or maybe seek comfort care and hospice at this time.
[2018-06-26] MEDS: DEXTROSE 5%-0.9% NACL 1,000 ML IV SCH ×3 (04:47→21:07)
[2018-06-26 04:53] LABS: Anisocytosis Slight; Basophils % (A) 0 %; Eosinophils # (A) 0.1 k/uL (0-0.7); Eosinophils % (A) 1 %; HCT 34.4 % (34.0-46.0); HGB 10.7 gm/dL (11.4-16.0); Hypochromasia Slight; Lymphocytes # (A) 0.7 k/uL (1.0-4.8); Lymphocytes % (A) 9 %; MCH 28.2 pg (25.0-35.0); MCHC 31.2 g/dL (31.0-37.0); MCV 90.2 fL (80.0-100.0); Mean Platelet Volume 7.6; Monocytes # (A) 0.6 k/uL (0-1.0); Monocytes % (A) 7 %; Neutrophils # (A) 6.8 k/uL (1.3-7.7); Neutrophils % (A) 81 %; RBC 3.81 m/uL (3.80-5.40); RDW 18.4 % (11.5-15.5); WBC 8.4 k/uL (3.8-10.6)
[2018-06-26 04:54] LABS: Platelet Count 86 k/uL (150-450)
[2018-06-26 05:01] LABS: INR 1.7 (<1.2); Partial Thromboplastin Time 37.3 sec (22.0-30.0); Prothrombin Time 16.6 sec (9.0-12.0)
[2018-06-26 05:03] LABS: Calcium 6.9 mg/dL (8.4-10.2); Potassium 4.3 mmol/L (3.5-5.1); Total Bilirubin 3.1 mg/dL (0.2-1.3); Total Protein 4.1 g/dL (6.3-8.2)
[2018-06-26] MEDS: LEVOTHYROXINE 50 MCG TAB PO SCH (06:43)
[2018-06-26] MEDS: METOPROLOL TARTRATE 12.5 MG TAB PO SCH ×2 (09:23→21:06)
[2018-06-26] MEDS: MIDODRINE 5 MG TAB PO SCH ×3 (09:23→18:01)
[2018-06-26] MEDS: FAMOTIDINE 20 MG TAB PO SCH (09:23)
[2018-06-26] MEDS: LACTULOSE 20 GM/30 ML CUP PO SCH ×2 (09:24→21:07)
[2018-06-26] MEDS: HYDROCORTISONE SUPPOSITORY 25 MG SUPP RECTAL SCH (09:24)
[2018-06-26] MEDS: DOCUSATE 100 MG CAP PO SCH ×2 (10:19→21:07)
[2018-06-26] MEDS ORDERED: FUROSEMIDE 10 MG/ML 10 ML VIAL IV STA (10:40)
--- NOTE | 2018-06-26 14:02 | P.PN ---
Subjective Progress Note Date: 06/26/18 Principal diagnosis: Metastatic breast cancer with skeletal and liver involvement, encephalopathy, hyponatremia, acute on chronic renal failure On today's evaluation of 06/25/2018, I'm seeing this patient for a follow-up. Note that the patient was quite agitated overnight. The patient was given Haldol which controlled her agitation. At the same time, the patient had an NG tube placed and she was started on lactulose for hepatic encephalopathy knowing that her ammonia level was considerably elevated. She is still nothing by mouth. The patient is receiving IV fluids for now and she is on D5 normal saline at rate of 100 mL an hour which improved her urine output. No active pain issues pH is resting comfortably in bed. No hypotension. No fever or chills. She is on empiric antibiotic coverage with IV Rocephin. Otherwise there has been no other significant events overnight. Family is at the bedside. She responds to questions appropriately, yet other times, she looks to be more confused. On 06/26/2018 patient seen in follow-up. Patient is more awake today, and oriented 3, she is quite clear in her thinking. She knows that she is supposed to meet with the medical oncology today to discuss CODE STATUS, and that she is waiting for her to arrive to discuss it with him. Does have intermittent episodes of somnolence, but easily arousable. Denies any acute distress, lung sounds are clear. Room air pulse ox is 98%, afebrile, hemodynamically stable. Today's labs have been reviewed, on new ammonia level is 81, white blood cell count is 8.4, hemoglobin is 10.7, INR is 1.7, sodium is 127, potassium is 4.3, chloride is 102, CO2 17, BUN is 71, and creatinine is 3.01. Abdomen is somewhat distended, patient is status post large volume paracentesis on 06/24/2018 with removal off over 6 L of ascitic fluid. IV fluids are D5 0.9 normal saline at a rate of 100 ML per hour, antibiotic coverage in the form of Rocephin, patient is afebrile, passed her swallow evaluation this morning, and we will be able to provide oral feedings. NG tube remains in place, for intermittent periods of lethargy when the patient needs her lactulose administered and cannot take it by mouth. Objective - Vital Signs Vital signs: Vital Signs Temp 97.5 F L 06/26/18 12:00 Pulse 73 06/26/18 13:00 Resp 17 06/26/18 13:00 BP 119/74 06/26/18 13:00 Pulse Ox 97 06/26/18 13:00 Intake & Output 06/25/18 06/26/18 06/26/18 18:59 06:59 18:59 Intake Total 1120 1450 700 Output Total 137 790 445 Balance 983 660 255 Weight 94.2 kg Intake: IV 1120 1200 700 0.9 120 Dextrose 5%-0.9% NaCl 1, 1000 1200 700 000 ml @ 100 mls/hr IV . Q10H LYNDA Rx#:[id number] Oral 250 Output: Gastric Drainage 600 Urine 137 190 445 Other: Voiding Method Indwelling Catheter Indwelling Catheter Indwelling Catheter # Voids 0 - Exam GENERAL EXAM: Somnolent, but easily arousable to verbal stimuli, 67-year-old white female, appears quite chronically ill and fatigued, jaundiced but in no apparent distress. HEAD: Normocephalic/atraumatic. EYES: Normal reaction of pupils, equal size. Conjunctiva pink, sclera white. NOSE: Clear with pink turbinates. THROAT: No erythema or exudates. NECK: No masses, no JVD, no thyroid enlargement, no adenopathy. CHEST: No chest wall deformity. Symmetrical expansion. LUNGS: Equal air entry with no crackles, wheeze, rhonchi or dullness. CVS: Regular rate and rhythm, normal S1 and S2, no gallops, no murmurs, no rubs ABDOMEN: Soft, distended, nontender. No hepatosplenomegaly, normal bowel sounds , no guarding or rigidity. EXTREMITIES: No clubbing, no edema, no cyanosis, 2+ pulses and upper and lower extremities. MUSCULOSKELETAL: Muscle strength and tone normal. SPINE: No scoliosis or deformity SKIN: No rashes CENTRAL NERVOUS SYSTEM: Alert and oriented -3. No focal deficits, tone is normal in all 4 extremities. PSYCHIATRIC: Alert and oriented -3. Appropriate affect. Intact judgment and insight. - Labs CBC & Chem 7: 06/26/18 04:30 06/26/18 04:30 Labs: Abnormal Lab Results - Last 24 Hours (Table) 06/26/18 06/26/18 06/26/18 Range/Units 04:30 04:30 04:30 Hgb 10.7 L (11.4-16.0) gm/dL RDW 18.4 H (11.5-15.5) % Plt Count 86 L (150-450) k/uL Lymphocytes # 0.7 L (1.0-4.8) k/uL PT 16.6 H (9.0-12.0) sec INR 1.7 H (<1.2) APTT 37.3 H (22.0-30.0) sec Sodium (137-145) mmol/L Carbon Dioxide (22-30) mmol/L BUN (7-17) mg/dL Creatinine (0.52-1.04) mg/dL Glucose (74-99) mg/dL Calcium (8.4-10.2) mg/dL Total Bilirubin (0.2-1.3) mg/dL AST (14-36) U/L ALT (9-52) U/L Alkaline Phosphatase (38-126) U/L Ammonia 81 H (<30) umol/L Total Protein (6.3-8.2) g/dL Albumin (3.5-5.0) g/dL 06/26/18 Range/Units 04:30 Hgb (11.4-16.0) gm/dL RDW (11.5-15.5) % Plt Count (150-450) k/uL Lymphocytes # (1.0-4.8) k/uL PT (9.0-12.0) sec INR (<1.2) APTT (22.0-30.0) sec Sodium 127 L (137-145) mmol/L Carbon Dioxide 17 L (22-30) mmol/L BUN 71 H (7-17) mg/dL Creatinine 3.01 H (0.52-1.04) mg/dL Glucose 164 H (74-99) mg/dL Calcium 6.9 L (8.4-10.2) mg/dL Total Bilirubin 3.1 H (0.2-1.3) mg/dL AST 177 H (14-36) U/L ALT 63 H (9-52) U/L Alkaline Phosphatase 270 H (38-126) U/L Ammonia (<30) umol/L Total Protein 4.1 L (6.3-8.2) g/dL Albumin 2.0 L (3.5-5.0) g/dL Microbiology - Last 24 Hours (Table) 06/22/18 00:55 Blood Culture - Preliminary Blood No Growth after 96 hours Assessment and Plan Plan: Assessment: 1 metastatic breast cancer with skeletal and liver involvement. The patient has been maintained on a combination of Fosamax, Afinitor, Zometa and according to the oncology his assessment, the patient had a stable metastatic disease. 2 liver metastases with abnormal LFTs and elevated ammonia, consistent with liver failure and the patient has signs of hepatic encephalopathy, improved on today's exam 3 hepatitic encephalopathy with elevated ammonia level, likely secondary to liver dysfunction. The patient was quite agitated an underlying DDD and cannot be completely excluded. She was given lactulose. She was given Haldol for agitation 4 hyponatremia 5 acute on chronic renal failure, and a creatinine that the rise at 2.89. The patient on D5 normal saline at the rate of 100 mL an hour and the creatinine is still at 2.8. She remains nothing by mouth for now. 6 recurrent abdominal ascites and the patient has required repeated paracentesis. 7 coagulopathy likely secondary to hepatic dysfunction/failure 8 non-anion gap metabolic acidosis Plan: We'll give the patient of dose of IV Lasix 60 mg 1. Continue IV fluids. Patient's mentation is improving, and patient is quite clear in her thinking on today's exam. Have intermittent periods of somnolence, but she is easily arousable, she did pass her swallow evaluation, with gas start oral feedings depending on her level of sedation. Vital signs are stable, patient is afebrile , on room air. They're expecting to meet with medical oncology to discuss further goals of treatment. There is 1.7 today, hemoglobin is relatively stable, renal profile has slightly worsened, we'll hold off on repeat paracentesis for now. Maintain NG tube until patient is maintaining wakefulness consistently as a way for administration of lactulose. Continue to follow I performed a history & physical examination of the patient and discussed their management with my nurse practitioner, Domitila Chan. I reviewed the nurse practitioner's note and agree with the documented findings and plan of care. Lung sounds are positive for clear breath sounds. The findings and the impression was discussed with the patient. I attest to the documentation by the nurse practitioner. Time with Patient: Less than 30
--- NOTE | 2018-06-26 15:46 | CDI ---
Documentation Clarification Form Date: 06/26/2018 3:38:12 PM From: Rebecca KapadiaKendallJV jiang, CCDS Admit Date: 06/22/2018 2:36:00 AM Patient Name: Cyndie Dior Visit Number: [id number] Discharge Date: ATTENTION: The Clinical Documentation Specialists (CDI) and [facility] Coding Staff appreciate your assistance in clarifying documentation. Please respond to the clarification below the line at the bottom and electronically sign. The CDI & [facility] Coding staff will review the response and follow-up if needed. Please note: Queries are made part of the Legal Health Record. If you have any questions, please contact the author of this message via ITS. Dr. Edward Nix: Per the Oncology consult: "Acute on Chronic Renal Failure - Concern for hepatorenal Syndrome - Rising LFTs - Worsening Ascites - Nephrology Management History/Risk Factors: Breast CA with mets to bone & liver. Hypertension, Hyperlipidemia & DM. Clinical Indicators: Presented with altered mental status, diagnosed with metabolic & hepatic encephalopathy. LAB: BUN: 55- 71; Creatinine: 1.77 - 3.01; GFR: 30 - 16 Baseline unknown or not documented, Nephrology has not been consulted. Treatment: IV Dilaudid, IV Zofran, IV Narcan, IV Zofran, IV fluid 75 In order to capture the severity of condition, please clarify if the condition signifies: CKD Stage 1 (GFR > 90) CKD Stage 2 (GFR 60-89) CKD Stage 3 (GFR 30-59) CKD Stage 4 (GFR 15-29) CKD Stage 5 (GFR <15) ESRD Other, please specify Unable to determine (Last Revision: August 2017) MTDD
--- NOTE | 2018-06-26 15:52 | CDI ---
Documentation Clarification Form Date: 06/26/2018 3:47:04 PM From: Rebecca KapadiaKendallJV jiang, CCDS Admit Date: 06/22/2018 2:36:00 AM Patient Name: Cyndie Dior Visit Number: [id number] Discharge Date: ATTENTION: The Clinical Documentation Specialists (CDI) and [facility] Coding Staff appreciate your assistance in clarifying documentation. Please respond to the clarification below the line at the bottom and electronically sign. The CDI & [facility] Coding staff will review the response and follow-up if needed. Please note: Queries are made part of the Legal Health Record. If you have any questions, please contact the author of this message via ITS. Dr. Jamar Coronado: A diagnosis of anemia lacks specificity to accurately reflect your patients severity of condition and clarification is needed. Per the attending progress notes: "chronic anemia" is documented without further specificity. History/Risk Factors: Breast CA with metastatic bone & liver cancer. Clinical indicators: Patient presented with metabolic & hepatic encephalopathy, acute renal failure & possible hepatorenal syndrome. Hemoglobin: 11.8 - 10.7* Hematocrit: 39.0 - 34.4 Treatment: IV Dilaudid, IV Zofran, IV Narcan, IV fluid 75, IV Rocephin, IV Haldol, IV fluid bolus, IV Lasix. In order to capture the severity of condition, please clarify the type of anemia and etiology if known: Chronic blood loss anemia Iron deficiency anemia Hemolytic anemia Drug induced anemia Anemia due to malignancy Nutritional anemia Anemia of chronic kidney disease, (stage not documented) Unable to determine Other, please specify (Last Revision: February 2017) MTDD
[2018-06-26] MEDS: Exemestane [Aromasin] 25 MG PO SCH (17:44)
--- NOTE | 2018-06-26 18:28 | P.PN ---
Subjective Progress Note Date: 06/26/18 Principal diagnosis: Metastatic Cancer, Metabolic Encephalopathy Patient is much more alert today, hospice is meeting with patient and family during follow-up. Although her acute situation is improving with her underlying liver damage to continue to provide medication for treatment of her met cancer her liver and renal function would need to stay in safe range, unfortunetley this has not been case and her extent of liver disease will not allow for further cancer therapy, therefore hospice care is resonable. Objective - Vital Signs Vital signs: Vital Signs Temp 97.4 F L 06/26/18 18:00 Pulse 77 06/26/18 18:00 Resp 17 06/26/18 18:00 BP 110/71 06/26/18 18:00 Pulse Ox 97 06/26/18 18:00 Intake & Output 06/25/18 06/26/18 06/26/18 18:59 06:59 18:59 Intake Total 1120 1450 1200 Output Total 137 790 655 Balance 983 660 545 Weight 94.2 kg Intake: IV 1120 1200 1200 0.9 120 Dextrose 5%-0.9% NaCl 1, 1000 1200 1200 000 ml @ 100 mls/hr IV . Q10H LYNDA Rx#:[id number] Oral 250 Output: Gastric Drainage 600 Urine 137 190 655 Other: Voiding Method Indwelling Catheter Indwelling Catheter Indwelling Catheter # Voids 0 - Exam - Constitutional General appearance: mild distress, obese - EENT Eyes: icteric sclerae, EOMI ENT: hard of hearing, normal oropharynx NG tube in place - Neck Neck: no lymphadenopathy - Respiratory Respiratory: bilateral: CTA - Cardiovascular Heart sounds: normal: S1, S2 leg Peripheral Edema: bilateral: 1+, Pitting - Gastrointestinal General gastrointestinal:Abdominal Ascited, firm, distended tender - Integumentary Integumentary: pale - Neurologic Neurologic: moves all extremities, not following commands - Musculoskeletal Musculoskeletal: generalized weakness - Psychiatric Psychiatric: Lthargic confusion - Labs CBC & Chem 7: 06/26/18 04:30 06/26/18 04:30 Labs: Abnormal Lab Results - Last 24 Hours (Table) 06/26/18 06/26/18 06/26/18 Range/Units 04:30 04:30 04:30 Hgb 10.7 L (11.4-16.0) gm/dL RDW 18.4 H (11.5-15.5) % Plt Count 86 L (150-450) k/uL Lymphocytes # 0.7 L (1.0-4.8) k/uL PT 16.6 H (9.0-12.0) sec INR 1.7 H (<1.2) APTT 37.3 H (22.0-30.0) sec Sodium (137-145) mmol/L Carbon Dioxide (22-30) mmol/L BUN (7-17) mg/dL Creatinine (0.52-1.04) mg/dL Glucose (74-99) mg/dL Calcium (8.4-10.2) mg/dL Total Bilirubin (0.2-1.3) mg/dL AST (14-36) U/L ALT (9-52) U/L Alkaline Phosphatase (38-126) U/L Ammonia 81 H (<30) umol/L Total Protein (6.3-8.2) g/dL Albumin (3.5-5.0) g/dL 06/26/18 Range/Units 04:30 Hgb (11.4-16.0) gm/dL RDW (11.5-15.5) % Plt Count (150-450) k/uL Lymphocytes # (1.0-4.8) k/uL PT (9.0-12.0) sec INR (<1.2) APTT (22.0-30.0) sec Sodium 127 L (137-145) mmol/L Carbon Dioxide 17 L (22-30) mmol/L BUN 71 H (7-17) mg/dL Creatinine 3.01 H (0.52-1.04) mg/dL Glucose 164 H (74-99) mg/dL Calcium 6.9 L (8.4-10.2) mg/dL Total Bilirubin 3.1 H (0.2-1.3) mg/dL AST 177 H (14-36) U/L ALT 63 H (9-52) U/L Alkaline Phosphatase 270 H (38-126) U/L Ammonia (<30) umol/L Total Protein 4.1 L (6.3-8.2) g/dL Albumin 2.0 L (3.5-5.0) g/dL Microbiology - Last 24 Hours (Table) 06/22/18 00:55 Blood Culture - Preliminary Blood No Growth after 96 hours Assessment and Plan Plan: Metabolic Encephalopathy: - Rising Ammonia - Unable to stay adherent to lactulose at home and on admission with Hemorrhoid pain - Increase Lactulose from BID to QID, defer to GI - GI Following - Amonia decreased today from 141 to 61 Hyponatremia - - Nephrology Following - Recurrent Ascites and third spacing - Improved today 129 Acute on Chronic Renal Failure - Concern for hepatorenal Syndrome - Rising LFTs - Worsening Ascites - Nephrology Management Metastatic breast carcinoma - Known to Liver, Bone - Maintained on Afinitor, Faslodex, Zometa with stable Metastatic disease - Hold afinitor for now. With increasing Liver and Renal Function - Continue Aromasin Liver Transiminitis - Monitor Daily LFTs - Continue Lactulose - Monitor Coags, mild coagulopathy. Acidosis: CO2 improved - ICU Management - Sodium Bicarbonate per ICU and Nephrology Recurrent Abdominal Ascites - Related to End Stage Liver disease - In the picture of Presumptive Hepatorenal Syndrome Paracentesis and send culture for associated peritonitis - IR is consulted for Paracentesis Painful Hemorroids - Underlying cause of her non-adherence to Lactulose to stay ahead of the encephalopathy - Gen Surgery consulted regarding intervention options Plan: - Long discussion regarding goals of care and plan for ongoing treatment discussed. Her liver disease is quit extensive which has limited the ability to continue treatment for her metastatic cancer. Patient and family agree with plan for comfort measures and hospice care Physician Attestation: I have completed the full history and physical and developed the complete impression and plan of this patient. I agree with above dictation by Barbara Olguin, DIctated as a scribe.
[2018-06-26] MEDS: ONDANSETRON 4 MG/2 ML VIAL IVP PRN (20:13)
--- NOTE | 2018-06-26 20:41 | P.PN ---
Subjective Progress Note Date: 06/26/18 Cyndie is a pleasantdebilitated 67-year-old white female is admitted for a metabolic encephalopathy due to liver failure extending from her metastatic breast cancer with metastasis to liver and bone. She has not been doing well on discussed with her daughter and her over the past week with lack of appetite dehydration in climbing ammonia levels patient has been slightly noncompliant with lactulose use. Patient is currently going down for a paracentesis because of increasing amount of ascites fluid buildup.patient had confusion as well as last night which received Haldol dose and seemed to be improved she wants NG tube removed. She is worsening with her liver failure and the ultimate f treatment of metastatic breast cancer with liver and bone metastasis.hem to discuss. She was family for greater than 30 minutes patient wishes were to be no code and no CPR however I encouraged her to talk this over with her who is currently not here Objective - Vital Signs Vital signs: Vital Signs Temp 97.4 F L 06/26/18 18:00 Pulse 74 06/26/18 19:00 Resp 12 06/26/18 19:00 BP 118/78 06/26/18 19:00 Pulse Ox 97 06/26/18 19:00 Intake & Output 06/26/18 06/26/18 06/27/18 06:59 18:59 06:59 Intake Total 1450 1200 100 Output Total 790 655 30 Balance 660 545 70 Weight 94.2 kg Intake: IV 1200 1200 100 Dextrose 5%-0.9% NaCl 1, 1200 1200 100 000 ml @ 100 mls/hr IV . Q10H LYNDA Rx#:[id number] Oral 250 Output: Gastric Drainage 600 Urine 190 655 30 Other: Voiding Method Indwelling Catheter Indwelling Catheter # Voids 0 - Exam GENERAL, awake alert and confused. HEENT: Normocephalic. Neck is supple. Pupils reactive. Nostrils clear. Oral cavity is moist. Ears reveal no drainage. Neck reveals no JVD, carotid bruits, or thyromegaly. CHEST EXAMINATION: Trachea is central. Symmetrical expansion. Bibasilar diminished air entry. Lung ken clear to auscultation and percussion. CARDIAC: Normal S1, S2 with no gallops. No murmurs ABDOMEN: Soft. Distended with ascites. Bowel sounds normal. No organomegaly. No abdominal bruits. Extremities: reveal no edema. No clubbing or cyanosis Neurologically awake, alert, oriented x2-3 with well-coordinated movements. No focal deficits noted Skin: No rash or skin lesions. Psychiatric: Coperative. Could not be assessed completely Musculoskeletal: No joint swelling or deformity. Normal range of motion - Labs CBC & Chem 7: 06/26/18 04:30 06/26/18 04:30 Labs: Abnormal Lab Results - Last 24 Hours (Table) 06/26/18 06/26/18 06/26/18 Range/Units 04:30 04:30 04:30 Hgb 10.7 L (11.4-16.0) gm/dL RDW 18.4 H (11.5-15.5) % Plt Count 86 L (150-450) k/uL Lymphocytes # 0.7 L (1.0-4.8) k/uL PT 16.6 H (9.0-12.0) sec INR 1.7 H (<1.2) APTT 37.3 H (22.0-30.0) sec Sodium (137-145) mmol/L Carbon Dioxide (22-30) mmol/L BUN (7-17) mg/dL Creatinine (0.52-1.04) mg/dL Glucose (74-99) mg/dL Calcium (8.4-10.2) mg/dL Total Bilirubin (0.2-1.3) mg/dL AST (14-36) U/L ALT (9-52) U/L Alkaline Phosphatase (38-126) U/L Ammonia 81 H (<30) umol/L Total Protein (6.3-8.2) g/dL Albumin (3.5-5.0) g/dL 06/26/18 Range/Units 04:30 Hgb (11.4-16.0) gm/dL RDW (11.5-15.5) % Plt Count (150-450) k/uL Lymphocytes # (1.0-4.8) k/uL PT (9.0-12.0) sec INR (<1.2) APTT (22.0-30.0) sec Sodium 127 L (137-145) mmol/L Carbon Dioxide 17 L (22-30) mmol/L BUN 71 H (7-17) mg/dL Creatinine 3.01 H (0.52-1.04) mg/dL Glucose 164 H (74-99) mg/dL Calcium 6.9 L (8.4-10.2) mg/dL Total Bilirubin 3.1 H (0.2-1.3) mg/dL AST 177 H (14-36) U/L ALT 63 H (9-52) U/L Alkaline Phosphatase 270 H (38-126) U/L Ammonia (<30) umol/L Total Protein 4.1 L (6.3-8.2) g/dL Albumin 2.0 L (3.5-5.0) g/dL Microbiology - Last 24 Hours (Table) 06/22/18 00:55 Blood Culture - Preliminary Blood No Growth after 96 hours Assessment and Plan (1) Altered mental status Current Visit: Yes Status: Acute Code(s): R41.82 - ALTERED MENTAL STATUS, UNSPECIFIED SNOMED Code(s): 561842387 (2) Dehydration Current Visit: Yes Status: Acute Code(s): E86.0 - DEHYDRATION SNOMED Code( s): 58662531 (3) Hyperammonemia Current Visit: Yes Status: Acute Code(s): E72.20 - DISORDER OF UREA CYCLE METABOLISM, UNSPECIFIED SNOMED Code(s): 4576530 (4) Acute kidney injury Current Visit: No Status: Acute Code(s): N17.9 - ACUTE KIDNEY FAILURE, UNSPECIFIED SNOMED Code(s): 86105350 (5) Ascites Current Visit: No Status: Acute Code(s): R18.8 - OTHER ASCITES SNOMED Code (s): 988153868 (6) Chronic anemia Narrative/Plan: due to malignancy Current Visit: No Status: Acute Code(s): D64.9 - ANEMIA, UNSPECIFIED SNOMED Code(s): 072278113 (7) Metastatic breast cancer Current Visit: No Status: Acute Code(s): C50.919 - MALIGNANT NEOPLASM OF UNSP SITE OF UNSPECIFIED FEMALE BREAST SNOMED Code(s): 739476197 Plan: Continuing to monitor patient's care.we'll discuss with oncology overall prognosis and worsening of liver failure to determine if patient should continue the course or maybe seek comfort care and hospice o be determined today
[2018-06-27 05:19] VITALS: TEMP 98.9
[2018-06-27 05:19] LABS: Anisocytosis Slight; Basophils # (A) 0.1 k/uL (0-0.2); Basophils % (A) 1 %; Eosinophils # (A) 0.1 k/uL (0-0.7); Eosinophils % (A) 1 %; HCT 36.2 % (34.0-46.0); Hypochromasia Slight; Lymphocytes # (A) 0.5 k/uL (1.0-4.8); Lymphocytes % (A) 7 %; MCH 27.9 pg (25.0-35.0); MCHC 30.4 g/dL (31.0-37.0); MCV 91.7 fL (80.0-100.0); Mean Platelet Volume 7.9; Monocytes # (A) 0.5 k/uL (0-1.0); Monocytes % (A) 7 %; Neutrophils # (A) 5.8 k/uL (1.3-7.7); Neutrophils % (A) 82 %; RBC 3.94 m/uL (3.80-5.40); RDW 18.5 % (11.5-15.5)
[2018-06-27 05:21] LABS: Platelet Count 79 k/uL (150-450)
[2018-06-27 05:30] LABS: Albumin 1.9 g/dL (3.5-5.0); Calcium 6.9 mg/dL (8.4-10.2); Magnesium 1.9 mg/dL (1.6-2.3); Potassium 3.8 mmol/L (3.5-5.1); Total Bilirubin 3.5 mg/dL (0.2-1.3); Total Protein 3.9 g/dL (6.3-8.2)
[2018-06-27] MEDS: DEXTROSE 5%-0.9% NACL 1,000 ML IV SCH ×2 (06:30→16:44)
[2018-06-27] MEDS: LEVOTHYROXINE 50 MCG TAB PO SCH (06:30)
[2018-06-27 06:49] LABS: Glucose,Whole Blood 164 mg/dL (75-99)
[2018-06-27] MEDS: MIDODRINE 5 MG TAB PO SCH ×3 (08:47→16:44)
[2018-06-27 10:38] VITALS: BP 118/76
[2018-06-27] MEDS: DOCUSATE 100 MG CAP PO SCH (10:38)
[2018-06-27] MEDS: LACTULOSE 20 GM/30 ML CUP PO SCH (10:38)
[2018-06-27] MEDS: HYDROCORTISONE SUPPOSITORY 25 MG SUPP RECTAL SCH (10:38)
[2018-06-27] MEDS: FAMOTIDINE 20 MG TAB PO SCH (10:38)
[2018-06-27] MEDS: METOPROLOL TARTRATE 12.5 MG TAB PO SCH (10:39)
--- NOTE | 2018-06-27 14:09 | P.PN ---
Subjective Progress Note Date: 06/27/18 On today's evaluation of 06/25/2018, I'm seeing this patient for a follow-up. Note that the patient was quite agitated overnight. The patient was given Haldol which controlled her agitation. At the same time, the patient had an NG tube placed and she was started on lactulose for hepatic encephalopathy knowing that her ammonia level was considerably elevated. She is still nothing by mouth. The patient is receiving IV fluids for now and she is on D5 normal saline at rate of 100 mL an hour which improved her urine output. No active pain issues pH is resting comfortably in bed. No hypotension. No fever or chills. She is on empiric antibiotic coverage with IV Rocephin. Otherwise there has been no other significant events overnight. Family is at the bedside. She responds to questions appropriately, yet other times, she looks to be more confused. On 06/26/2018 patient seen in follow-up. Patient is more awake today, and oriented 3, she is quite clear in her thinking. She knows that she is supposed to meet with the medical oncology today to discuss CODE STATUS, and that she is waiting for her to arrive to discuss it with him. Does have intermittent episodes of somnolence, but easily arousable. Denies any acute distress, lung sounds are clear. Room air pulse ox is 98%, afebrile, hemodynamically stable. Today's labs have been reviewed, on new ammonia level is 81, white blood cell count is 8.4, hemoglobin is 10.7, INR is 1.7, sodium is 127, potassium is 4.3, chloride is 102, CO2 17, BUN is 71, and creatinine is 3.01. Abdomen is somewhat distended, patient is status post large volume paracentesis on 06/24/2018 with removal off over 6 L of ascitic fluid. IV fluids are D5 0.9 normal saline at a rate of 100 ML per hour, antibiotic coverage in the form of Rocephin, patient is afebrile, passed her swallow evaluation this morning, and we will be able to provide oral feedings. NG tube remains in place, for intermittent periods of lethargy when the patient needs her lactulose administered and cannot take it by mouth. On today's evaluation of 06/27/2018, the patient is awake. Bit lethargic and unresponsive and she would answer questions appropriately. Abdomen is distended. No signs of any significant respiratory distress. She is on IV fluids. The patient's renal function is down in the creatinine is at 2.75 with a mean of 67. Sodium is at 129. The patient is receiving D5 normal saline at the rate of 100 mL an hour. She is on IV Rocephin as an empiric antibiotic coverage. She is afebrile. NG tube has been removed. She declines to take her lactulose. The patient and her family have met with hospice and the patient will be transferred to hospice care, the in-house hospice facility in [place]. Objective - Vital Signs Vital signs: Vital Signs Temp 98.9 F 06/27/18 04:00 Pulse 81 06/27/18 12:00 Resp 18 06/27/18 12:00 BP 118/76 06/27/18 12:00 Pulse Ox 96 06/27/18 12:00 Intake & Output 06/26/18 06/27/18 06/27/18 18:59 06:59 18:59 Intake Total 1200 1200 800 Output Total 655 300 260 Balance 545 900 540 Weight 96.3 kg Intake: IV 1200 1200 800 Dextrose 5%-0.9% NaCl 1, 1200 1200 800 000 ml @ 100 mls/hr IV . Q10H LYNDA Rx#:[id number] Output: Urine 655 300 260 Other: Voiding Method Indwelling Catheter Indwelling Catheter Indwelling Catheter # Voids 0 - Exam - Constitutional General appearance: mild distress, obese - EENT Eyes: icteric sclerae, EOMI ENT: hard of hearing, normal oropharynx - Neck Neck: no lymphadenopathy - Respiratory Respiratory: bilateral: CTA - Cardiovascular Heart sounds: normal: S1, S2 leg Peripheral Edema: bilateral: 1+, Pitting - Gastrointestinal General gastrointestinal:Abdominal Ascited, firm, distended tender - Integumentary Integumentary: pale - Neurologic Neurologic: moves all extremities, not following commands - Musculoskeletal Musculoskeletal: generalized weakness - Psychiatric Psychiatric: Lethargic confusion - Labs CBC & Chem 7: 06/27/18 05:05 06/27/18 05:05 Labs: Abnormal Lab Results - Last 24 Hours (Table) 06/27/18 06/27/18 06/27/18 Range/Units 05:05 05:05 05:05 Hgb 11.0 L (11.4-16.0) gm/dL MCHC 30.4 L (31.0-37.0) g/dL RDW 18.5 H (11.5-15.5) % Plt Count 79 L (150-450) k/uL Lymphocytes # 0.5 L (1.0-4.8) k/uL Sodium 129 L (137-145) mmol/L Carbon Dioxide 16 L (22-30) mmol/L BUN 67 H (7-17) mg/dL Creatinine 2.75 H (0.52-1.04) mg/dL Glucose 160 H (74-99) mg/dL POC Glucose (mg/dL) (75-99) mg/dL Calcium 6.9 L (8.4-10.2) mg/dL Total Bilirubin 3.5 H (0.2-1.3) mg/dL AST 135 H (14-36) U/L ALT 62 H (9-52) U/L Alkaline Phosphatase 258 H (38-126) U/L Ammonia 118 H (<30) umol/L Total Protein 3.9 L (6.3-8.2) g/dL Albumin 1.9 L (3.5-5.0) g/dL 06/27/18 Range/Units 06:48 Hgb (11.4-16.0) gm/dL MCHC (31.0-37.0) g/dL RDW (11.5-15.5) % Plt Count (150-450) k/uL Lymphocytes # (1.0-4.8) k/uL Sodium (137-145) mmol/L Carbon Dioxide (22-30) mmol/L BUN (7-17) mg/dL Creatinine (0.52-1.04) mg/dL Glucose (74-99) mg/dL POC Glucose (mg/dL) 164 H (75-99) mg/dL Calcium (8.4-10.2) mg/dL Total Bilirubin (0.2-1.3) mg/dL AST (14-36) U/L ALT (9-52) U/L Alkaline Phosphatase (38-126) U/L Ammonia (<30) umol/L Total Protein (6.3-8.2) g/dL Albumin (3.5-5.0) g/dL Microbiology - Last 24 Hours (Table) 06/22/18 00:55 Blood Culture - Preliminary Blood No Growth after 120 hours Assessment and Plan Plan: Assessment 1 metastatic breast cancer with skeletal and liver involvement. The patient has been maintained on a combination of Fosamax, Afinitor, Zometa and according to the oncology his assessment, the patient had a stable metastatic disease. 2 liver metastases with abnormal LFTs and elevated ammonia, consistent with liver failure and the patient has signs of hepatic encephalopathy 3 hepatitic encephalopathy with elevated ammonia level, likely secondary to liver dysfunction. The patient was quite agitated an underlying DDD and cannot be completely excluded. She was given lactulose. She was given Haldol for agitation. Mental status is improved for now 4 hyponatremia, improved with a sodium is up to 129 5 acute on chronic renal failure, and a creatinine that the rise at 2.89. The patient on D5 normal saline at the rate of 100 mL an hour and the creatinine is still at 2.7, rule out hepatic or hepatorenal syndrome. 6 recurrent abdominal ascites and the patient has required repeated paracentesis. 7 coagulopathy likely secondary to hepatic dysfunction/failure 8 non-anion gap metabolic acidosis Plan The patient is currently receiving palliative care. The patient will be going to the hospice house for end-of-life care. Prognosis poor. Discussed the case with the family. Answered all the questions to their satisfaction.
[2018-06-27] MEDS: ONDANSETRON 4 MG/2 ML VIAL IVP PRN (15:22)
[2018-06-27 16:11] VITALS: PULSE 98; RESP 22
--- NOTE | 2018-06-27 16:57 | P.DS ---
Providers Date of admission: 06/22/18 02:36 Expected date of discharge: 06/27/18 Attending physician: Jamar Coronado Consults: 06/23/18 11:38 Consult Physician Routine Consulting Provider: Edward Nix Consult Reason/Comments: patient known Do you want consulting provider notified?: Yes 06/24/18 16:19 Consult Physician Urgent Consulting Provider: Arvin Javier Consult Reason/Comments: ICU care Do you want consulting provider notified?: Yes 06/24/18 18:05 Consult Physician Routine Consulting Provider: Arsalan Cano Consult Reason/Comments: Hemmorroid pain, unable to tolerate lactulose, worsening encephalopathy Do you want consulting provider notified?: Yes, Notify in am Primary care physician: Jamar Coronado [facility] Course: Cyndie is a pleasantdebilitated 67-year-old white female is admitted for a metabolic encephalopathy due to liver failure extending from her metastatic breast cancer with metastasis to liver and bone. She has not been doing well on discussed with her daughter and her over the past week with lack of appetite dehydration in climbing ammonia levels patient has been slightly noncompliant with lactulose use. Patient is currently going down for a paracentesis because of increasing amount of ascites fluid buildup.patient had confusion as well as last night which received Haldol dose and seemed to be improved she wants NG tube removed. She is worsening with her liver failure and the ultimate f treatment of metastatic breast cancer with liver and bone metastasis.hem to discuss. She was family for greater than 30 minutes patient wishes were to be no code and no CPR however I encouraged her to talk this over with her who is currently not here On today's evaluation of 06/25/2018, I'm seeing this patient for a follow-up. Note that the patient was quite agitated overnight. The patient was given Haldol which controlled her agitation. At the same time, the patient had an NG tube placed and she was started on lactulose for hepatic encephalopathy knowing that her ammonia level was considerably elevated. She is still nothing by mouth. The patient is receiving IV fluids for now and she is on D5 normal saline at rate of 100 mL an hour which improved her urine output. No active pain issues pH is resting comfortably in bed. No hypotension. No fever or chills. She is on empiric antibiotic coverage with IV Rocephin. Otherwise there has been no other significant events overnight. Family is at the bedside. She responds to questions appropriately, yet other times, she looks to be more confused. On 06/26/2018 patient seen in follow-up. Patient is more awake today, and oriented 3, she is quite clear in her thinking. She knows that she is supposed to meet with the medical oncology today to discuss CODE STATUS, and that she is waiting for her to arrive to discuss it with him. Does have intermittent episodes of somnolence, but easily arousable. Denies any acute distress, lung sounds are clear. Room air pulse ox is 98%, afebrile, hemodynamically stable. Today's labs have been reviewed, on new ammonia level is 81, white blood cell count is 8.4, hemoglobin is 10.7, INR is 1.7, sodium is 127, potassium is 4.3, chloride is 102, CO2 17, BUN is 71, and creatinine is 3.01. Abdomen is somewhat distended, patient is status post large volume paracentesis on 06/24/2018 with removal off over 6 L of ascitic fluid. IV fluids are D5 0.9 normal saline at a rate of 100 ML per hour, antibiotic coverage in the form of Rocephin, patient is afebrile, passed her swallow evaluation this morning, and we will be able to provide oral feedings. NG tube remains in place, for intermittent periods of lethargy when the patient needs her lactulose administered and cannot take it by mouth. On today's evaluation of 06/27/2018, the patient is awake. Bit lethargic and unresponsive and she would answer questions appropriately. Abdomen is distended. No signs of any significant respiratory distress. She is on IV fluids. The patient's renal function is down in the creatinine is at 2.75 with a mean of 67. Sodium is at 129. The patient is receiving D5 normal saline at the rate of 100 mL an hour. She is on IV Rocephin as an empiric antibiotic coverage. She is afebrile. NG tube has been removed. She declines to take her lactulose. The patient and her family have met with hospice and the patient will be transferred to hospice care, the in-house hospice facility in [place]. Patient Condition at Discharge: Serious Plan - Discharge Summary Discharge Rx Participant: Yes New Discharge Prescriptions: New Hydrocortisone Suppository [Anusol-Hc] 25 mg RECTAL DAILY #30 supp Levothyroxine Sodium [Synthroid] 100 mcg PO DAILY@0630 tab Rifaximin [Xifaxan] 550 mg PO BID #60 tablet Continue Docusate Sodium [Dok] 200 mg PO BID Zoledronic Acid [Zometa] 4 mg IVPB QMONTH Loratadine [Claritin] 10 mg PO HS fentaNYL 50MCG/HR PATCH [Duragesic 50MCG/HR] 1 patch TRANSDERM Q72H #1 patch HYDROcodone/APAP 5-325MG [[place] 5-325] 1 tab PO Q6HR PRN PRN Reason: Pain Famotidine [Pepcid] 20 mg PO DAILY Polyethylene Glycol 3350 [Miralax] 17 gm PO HS PRN PRN Reason: Constipation Metoprolol Tartrate [Lopressor] 12.5 mg PO BID #60 tab Exemestane [Aromasin] 25 mg PO DAILY@1800 Midodrine [ProAmatine] 10 mg PO AC-TID #180 tab Non-Formulary Drug [Non Formulary Drug] 7.5 mg PO PC-SUPPER Sodium Bicarbonate Tab 650 mg PO BID Biotin 10,000 mcg PO HS Levothyroxine Sodium [Synthroid] 100 mcg PO DAILY Discharge Medication List Docusate Sodium [Dok] 200 mg PO BID 09/15/15 [History] Loratadine [Claritin] 10 mg PO HS 01/23/17 [History] Zoledronic Acid [Zometa] 4 mg IVPB QMONTH 01/23/17 [History] fentaNYL 50MCG/HR PATCH [Duragesic 50MCG/HR] 1 patch TRANSDERM Q72H #1 patch [Rx] Famotidine [Pepcid] 20 mg PO DAILY 01/06/18 [History] HYDROcodone/APAP 5-325MG [[place] 5-325] 1 tab PO Q6HR PRN 01/06/18 [History] Polyethylene Glycol 3350 [Miralax] 17 gm PO HS PRN 01/26/18 [History] Metoprolol Tartrate [Lopressor] 12.5 mg PO BID #60 tab 01/30/18 [Rx] Exemestane [Aromasin] 25 mg PO DAILY@1800 02/18/18 [History] Midodrine [ProAmatine] 10 mg PO AC-TID #180 tab 04/23/18 [Rx] Biotin 10,000 mcg PO HS 05/27/18 [History] Non-Formulary Drug [Non Formulary Drug] 7.5 mg PO PC-SUPPER 05/27/18 [History] Sodium Bicarbonate Tab 650 mg PO BID 05/27/18 [History] Levothyroxine Sodium [Synthroid] 100 mcg PO DAILY 06/22/18 [History] Hydrocortisone Suppository [Anusol-Hc] 25 mg RECTAL DAILY #30 supp 06/27/18 [Rx] Levothyroxine Sodium [Synthroid] 100 mcg PO DAILY@0630 tab 06/27/18 [Rx] Rifaximin [Xifaxan] 550 mg PO BID #60 tablet 06/27/18 [Rx] Follow up Appointment(s)/Referral(s): Jamar Coronado DO [Primary Care Provider] - 1-2 days [facility] Visiting Nurse, [NON-STAFF] - As Needed Discharge Disposition: [facility]CH TO [facility]
[2018-06-27] MEDS ORDERED: RIFAXIMIN 550 MG TABLET PO SCH (21:00)
--- NOTE | 2018-06-30 10:41 | CDI ---
Hepatic Encephalopathy Documentation Clarification Form Date: 06/30/18 From: Alisson Bradly Cathy Anderson, Associate Merchant Hours-8:30 am & 5 pm Johnny Admit Date: 06/22/2018 2:36:00 AM Patient Name: Cyndie Dior Visit Number: [id number] Discharge Date: 06/27/2018 6:21:00 PM ATTENTION: The Clinical Documentation Specialists (CDI) and [facility] Coding Staff appreciate your assistance in clarifying documentation. Please respond to the clarification below the line at the bottom and electronically sign. The CDI & [facility] Coding staff will review the response and follow-up if needed. Please note: Queries are made part of the Legal Health Record. If you have any questions, please contact the author of this message via ITS. Dr. Levon Lopez Encephalopathy is documented in the H&P, consults, PNs & DS. History/Risk Factors: breast ca with mets to liver, bone, end stage liver disease, Labs: ammonia 126, lactic acid 2.1 CT/MRI Brain: normal Treatment: lactulose 30 gm Consults: Critical care & Oncology In your professional opinion, can you please clarify the specific type of Encephalopathy, if known? Metabolic Encephalopathy Hepatic Encephalopathy, if indicated, please clarify: Indicate if any complications: Coma, other disease process? Indicate whether acute, sub-acute or chronic? Causal Condition: Alcoholism, Hepatitis, other disease process? Other, please specify Unable to determine MTDD
--- NOTE | 2018-07-01 08:27 | CDI ---
Documentation Clarification Form Date: 06/26/2018 3:47:00 PM From: Rebecca KapadiaKendallJV jiang, CCDS Admit Date: 06/22/2018 2:36:00 AM Patient Name: Cyndie Dior Visit Number: [id number] Discharge Date: 06/27/2018 6:21:00 PM ATTENTION: The Clinical Documentation Specialists (CDI) and [facility] Coding Staff appreciate your assistance in clarifying documentation. Please respond to the clarification below the line at the bottom and electronically sign. The CDI & [facility] Coding staff will review the response and follow-up if needed. Please note: Queries are made part of the Legal Health Record. If you have any questions, please contact the author of this message via ITS. Dr. Jamar Coronado: A diagnosis of anemia lacks specificity to accurately reflect your patients severity of condition and clarification is needed. Per the attending progress notes: "chronic anemia" is documented without further specificity. History/Risk Factors: Breast CA with metastatic bone & liver cancer. Clinical indicators: Patient presented with metabolic & hepatic encephalopathy, acute renal failure & possible hepatorenal syndrome. Hemoglobin: 11.8 - 10.7* Hematocrit: 39.0 - 34.4 Treatment: IV Dilaudid, IV Zofran, IV Narcan, IV fluid 75, IV Rocephin, IV Haldol, IV fluid bolus, IV Lasix. In order to capture the severity of condition, please clarify the type of anemia and etiology if known: Chronic blood loss anemia Iron deficiency anemia Hemolytic anemia Drug induced anemia Anemia due to malignancy Nutritional anemia Anemia of chronic kidney disease, (stage not documented) Unable to determine Other, please specify (Last Revision: February 2017) MTDD
== END 2018-06-27 18:21 | disposition hospice, inpatient (51) | DRG 441 ==
LOC: EC 00:12 → 3NMEDONC 02:36 → 4SSUR 03:32 → 2SICU 06-24 16:24
PROVIDERS: ADMIT Family Medicine; ATTEND Family Medicine
PROC: 0DH67UZ Insertion of Feeding Device into Stomach, Via Natural or Artificial Opening (ICD-10-PCS; principal; 2018-06-24)
PROC: 0W9G3ZZ Drainage of Peritoneal Cavity, Percutaneous Approach (ICD-10-PCS; 2018-06-24)
DX: K72.00 Acute and subacute hepatic failure without coma (principal); K76.7 Hepatorenal syndrome; E87.1 Hypo-osmolality and hyponatremia; E87.2 Acidosis; C78.7 Secondary malignant neoplasm of liver and intrahepatic bile duct; C79.51 Secondary malignant neoplasm of bone; R18.8 Other ascites; D68.4 Acquired coagulation factor deficiency; N17.9 Acute kidney failure, unspecified; J90 Pleural effusion, not elsewhere classified; Z51.5 Encounter for palliative care; Z66 Do not resuscitate; K72.90 Hepatic failure, unspecified without coma; E11.22 Type 2 diabetes mellitus with diabetic chronic kidney disease; E87.70 Fluid overload, unspecified; C50.919 Malignant neoplasm of unspecified site of unspecified female breast; I12.9 Hypertensive chronic kidney disease with stage 1 through stage 4 chronic kidney disease, or unspecified chronic kidney disease; D64.9 Anemia, unspecified; N18.9 Chronic kidney disease, unspecified; E86.0 Dehydration; E89.0 Postprocedural hypothyroidism; K64.8 Other hemorrhoids; K64.4 Residual hemorrhoidal skin tags; H91.90 Unspecified hearing loss, unspecified ear; E78.5 Hyperlipidemia, unspecified; I87.8 Other specified disorders of veins; M19.90 Unspecified osteoarthritis, unspecified site; K59.09 Other constipation; Z79.811 Long term (current) use of aromatase inhibitors; Z79.890 Hormone replacement therapy; Z79.891 Long term (current) use of opiate analgesic; Z79.899 Other long term (current) drug therapy; Z90.710 Acquired absence of both cervix and uterus; Z98.51 Tubal ligation status; Z85.3 Personal history of malignant neoplasm of breast; Z87.01 Personal history of pneumonia (recurrent); Z87.440 Personal history of urinary (tract) infections; Z88.0 Allergy status to penicillin; Z88.2 Allergy status to sulfonamides; Z88.8 Allergy status to other drugs, medicaments and biological substances; Z80.0 Family history of malignant neoplasm of digestive organs; Z80.8 Family history of malignant neoplasm of other organs or systems; Z83.2 Family history of diseases of the blood and blood-forming organs and certain disorders involving the immune mechanism; Z80.7 Family history of other malignant neoplasms of lymphoid, hematopoietic and related tissues
CPT/HCPCS: 36415; 49083; 70450; 71045; 80053; 81001; 82140; 82150; 82271; 82550; 82553; 83605; 83690; 83735; 84100; 84484; 85025; 85610; 85730; 87040; 87086; 93005; 96374; 96375; 99285